=== PATIENT | female | born 1950 | race Caucasian/White ===

== ENCOUNTER 2021-11-17 07:30 | Inpatient (IN) | payer MEDICARE ==
[2021-11-17] MEDS ORDERED: LIDOCAINE 1% INJ 10MG/ML (20 ML MDV) ONE (12:02)
[2021-11-17] MEDS ORDERED: HEPARIN SODIUM 1,000 UN/ML (10ML VL) ONE (12:04)
[2021-11-17] MEDS ORDERED: MIDAZOLAM 2 MG/2 ML VIAL IV ONE (12:21)
[2021-11-17] MEDS ORDERED: HEPARIN SODIUM 1,000 UN/ML (10ML VL) IV ONE (12:24)
[2021-11-17] MEDS ORDERED: IOPAMIDOL-370 100ML BTL INJ ONE (13:04)
[2021-11-17] MEDS ORDERED: IV FLUID CONTINUATION 500 ML IV ONE (13:05)
[2021-11-17] MEDS: SODIUM CHLORIDE 0.9% 1,000 ML IV SCH (13:59)
--- NOTE | 2021-11-17 14:21 | P.HPIM ---
History of Present Illness H&P Date: 11/17/21 HISTORY OF PRESENT ILLNESS This is a 71-year-old female with past medical history of dilated cardiomyopathy with ejection fraction of 15-20%, severe aortic valve stenosis, mild aortic regurgitation with moderate to severe mitral regurgitation, chronic systolic heart failure, hyperlipidemia, obesity with possible obstructive sleep apnea and obesity hypoventilation syndrome, chronic hypoxic respiratory failure on home O2 at 2 L nasal cannula, hypertension hypertensive cardio vascular disease, previous Covid 19 infection. Patient presented to [facility] sl ight elevation of troponin, EKG showed changes suggestive ischemic changes and was started on aspirin, heparin drip and admitted to the hospital. Patient was seen by cardiology. She was supposed to have a heart catheterization done as an outpatient along with LISA for possible aortic valve replacement and mitral valve and possible CABG. Patient underwent coronary angiography finding right dominan t vessel, 99% ostial stenosis, aortic pressure is 100/70, 40 mm gradient across the aortic valve. Left ventricular end diastolic pressure is 2530. Patient was transferred to [facility] for PTCA and stent placement of the RCA which was unsuccessful. Consult with cardiothoracic surgery for CABG and valve repair/replacement. REVIEW OF SYSTEMS Constitutional: No fever, no chills, no night sweats. No weight change. No weakness, fatigue or lethargy. No daytime sleepiness. EENT: No headache. No blurred vision or double vision, no loss of vision. No loss of Hearing, no ringing in the ears, no dizziness. No nasal drainage or congestion. No epistaxis. No sore throat. Lungs: No shortness of breath, + cough, no sputum production. No wheezing. Re ports dyspnea on exertion. Cardiovascular: No chest pain, no lower extremity edema. No palpitations. No paroxysmal nocturnal dyspnea. No orthopnea. No lightheadedness or dizziness. No syncopal episodes. Abdominal: No abdominal pain. No nausea, vomiting. No diarrhea. No constipation. No bloody or tarry stools. No loss of appetite. Genitourinary: No dysuria, increased frequency, urgency. No urinary retention. Musculoskeletal: No myalgias. No muscle weakness, no gait dysfunction, no lily quent falls. No back pain. No neck pain. Integumentary: No wounds, no lesions. No rash or pruritus. No unusual bruising. No change in hair or nails. Neurologic: No aphasia. No facial droop. No change in mentation. No head injury. No headache. No paralysis. No paresthesia. Psychiatric: No depression. No anxiety. No mood swings. Endocrine: No abnormal blood sugars. No weight change. No excessive sweating or thirst. No cold intolerance. MEDICAL HISTORY Covid 19 infection Hypertension hypertensive cardiovascular disease Hyperlipidemia Dilated cardiomyopathy with ejection fraction of 20% Severe aortic valve stenosis Mild aortic regurgitation, severe mitral regurgitation, obesity with possible obstructive sleep apnea and obesity hypoventilation syndrome Chronic systolic heart failure SURGICAL HISTORY Ovarian cyst status post right nephrectomy with tubal ligation Partial left oophorectomy Colonoscopy SOCIAL HISTORY Patient is a smoker pack a day starting at age 18 and quit in 1979. No alcohol use, illicit drug use or marijuana use. FAMILY HISTORY Mother at age 82 with history of osteoarthritis. Father at age 84 from coronary artery disease developed to have CVA after heart catheterization. Patient has 5 brothers and one of them has Nyslrfs-Tgdof-Fzzku syndrome. Patient has one sister with alpha-1 antitrypsin deficiency. Patient has one daughter with no major medical problems. PHYSICAL EXAMINATION Gen: This is a 71-year-old female. HEENT: Head is atraumatic, normocephalic. Pupils equal, round. Sclerae is anicteric. NECK: Supple. No JVD. No lymphadenopathy. No thyromegaly. LUNGS: Decreased breath sounds at the bases, few rhonchi, no expiratory wheeze, no chest wall tenderness. No intercostal retractions. HEART: First heart sound is depressed, second heart sound is normal, systolic ejection murmur 3/6 at the right upper sternal border radiating to the base of the neck, systolic ejection murmur 2/6 at the apex rating to the axilla. ABDOMEN: Soft. Bowel sounds are present. No masses. No tenderness. EXTREMITIES: 1+ pedal edema. No calf tenderness. Her cells pedis +1 bilaterally. Bilateral hammertoes. NEUROLOGICAL: Patient is awake, alert and oriented x3. Cranial nerves 2 through 12 are grossly intact. ASSESSMENT AND PLAN 1. ST elevated myocardial infarction with history of prior dilated cardiomyopathy status post coronary angiography finding right dominant vessel, 99% ostial stenosis, aortic pressure is 100/70, 40 mm gradient across the aortic valve. Left ventricular end diastolic pressure is 2530. Patient was transferred to [facility] for PTCA and stent placement of the RCA which was unsuccessful. Consult with cardiothoracic surgery. Continue aspirin 81 mg daily. Patient is normally on Coreg 6.25 mg twice daily, hydralazine 25 mg twice daily. Patient is unable to tolerate statins because of significant myopathy and plan is to start her on Repatha under 40 mg subcu every 2 weeks. 2. Dilated cardiomyopathy. Cardiology consult. 3. Severe aortic valve stenosis with mild aortic regurgitation. Patient will require aortic valve replacement. 4. Severe mitral regurgitation. 5. Hyperlipidemia. Patient unable to tolerate statins. 6. Obesity with obstructive sleep apnea and obesity hypoventilation syndrome. Patient has not had sleep study done yet. 7. Chronic hypoxic respiratory failure secondary to his Covid 19 and underlying COPD and possible obstructive sleep apnea and hypoventilation syndrome. Patient is normally on 2 L nasal cannula. 8. Chronic systolic heart failure. Patient is normally on Lasix 40 mg oral daily, hydralazine, Coreg, Aldactone 25 mg daily. 9. Hypertension, hypertensive cardiovascular disease. 10. DVT prophylaxis. Heparin subcu. 11. GI prophylaxis. Protonix 40 mg IV push daily. Patient will be admitted to the hospital for a minimum of 2 night stay. DISCHARGE PLAN TBD Impression and plan of care have been directed as dictated by the signing phys carlos. Marina Barbosa nurse practitioner acting as scribe for signing physician. Past Medical History - Past Family History Mother Additional Family Medical History / Comment(s): Varicous veins. Patient states "she had alot of heart problems" Father Additional Family Medical History / Comment(s): Patient states "my dad had a lot of heart issues." Medications and Allergies Home Medications Medication Instructions Recorded Confirmed Type Carvedilol [Coreg] 6.25 mg PO BID 11/17/21 11/17/21 History Digoxin [Lanoxin] 125 mcg PO DAILY 11/17/21 11/17/21 History Furosemide [Lasix] 40 mg PO BID 11/17/21 11/17/21 History Ipratropium-Albuterol Nebulize 3 ml INHALATION RT-Q6H PRN 11/17/21 11/17/21 History [Duoneb 0.5 mg-3 mg/3 ml Soln] Melatonin 3 mg PO HS 11/17/21 11/17/21 History Pantoprazole Sodium [Protonix] 40 mg PO DAILY 11/17/21 11/17/21 History Sertraline [Zoloft] 50 mg PO DAILY 11/17/21 11/17/21 History Spironolactone [Aldactone] 25 mg PO DAILY 11/17/21 11/17/21 History polyethylene glycoL 3350 [Miralax] 17 gm PO DAILY PRN 11/17/21 11/17/21 History Allergies Allergy/AdvReac Type Severity Reaction Status Date / Time hydralazine AdvReac Syncope, Verified 11/17/21 15:40 hot flashes lisinopril AdvReac Cough Verified 11/17/21 15:40 Results CBC & Chem 7: 11/18/21 09:25 11/18/21 09:25
[2021-11-17 14:26] LABS: Glucose,Whole Blood 133 mg/dL (75-99)
--- NOTE | 2021-11-17 14:47 | PTCA ---
PERCUTANEOUSTRANS CORORONARY ANGIOGRAPHY DATE OF SERVICE: 11/17/2021. PROCEDURE: PTCA of a 99% ostial RCA PERFORMED BY: Dr. Catarino Masters. Moderate conscious sedation time was 35 minutes. Mrs. Norwood is a 71-year-old lady with severe aortic stenosis and ejection fraction of 20%, transfer from [facility] after evaluation and cardiac cath by Dr. Holland, which revealed a 99% ostial RCA and severe aortic stenosis, a gradient of 35 mm across aortic valve without significant but there was evidence of moderate disease in the left system. The initial plan was to do PCI of RCA and then do a TAVR procedure. With that in mind, I initiated the procedure. I talked to the patient and her daughter at length, explained to them the concerns, risks, benefits, and options and that this was a very tight 99% lesion that would be difficult to cross. PROCEDURE NOTE: The existing 6-Kosovan introducer in the right femoral artery was used to perform procedure. I used a standard right Martha catheter and a Whisper wire, a long one. I gave 4000 units of heparin. II had considerable difficulty manipulating the catheter at the ostium because it was not easy to engage. I was able to cross the lesion. Wire was kept in the PLV branch and then I tried to advance a 2.5 caliber NC Trek balloon, but then the catheter recoiled and the wire and the catheter came out and I could not re-engage. There was a small dissection around the origin of the right coronary artery. In view of this, I did not persist and I explained to the patient that I will request the cardiac surgeon to perform a single vessel bypass and aortic valve replacement given the dissection that I saw and also the difficulty in crossing the right coronary artery lesion which was 99%. The flow in the RCA persisted. Patient had no chest pain, nor did she have EKG changes. Her blood pressure remained stable between 95-110 systolic. I sutured the sheath in and she will be sent to the ICU. I spoke to the patient in detail and also talked to her daughter by phone and spoke to Dr. Hill who will come in and evaluate the patient. Prognosis remains quite guarded. I am recommending urgent aortic valve replacement and single-vessel bypass to RCA and will await further input from Dr. Hill who will see her shortly. Prognosis remains guarded and risk for any intervention is quite high. MMODL / IJN: [id number] /
[2021-11-17 15:02] LABS: Basophils # (A) 0.1 k/uL (0-0.2); Basophils % (A) 1 %; Eosinophils % (A) 1 %; HCT 40.6 % (34.0-46.0); HGB 12.5 gm/dL (11.4-16.0); Hypochromasia Slight; Lymphocytes # (A) 0.6 k/uL (1.0-4.8); Lymphocytes % (A) 11 %; MCH 28.3 pg (25.0-35.0); MCHC 30.9 g/dL (31.0-37.0); MCV 91.4 fL (80.0-100.0); Mean Platelet Volume 8.9; Monocytes # (A) 0.4 k/uL (0-1.0); Monocytes % (A) 7 %; Neutrophils # (A) 4.5 k/uL (1.3-7.7); Neutrophils % (A) 79 %; Platelet Count 153 k/uL (150-450); RBC 4.44 m/uL (3.80-5.40); WBC 5.7 k/uL (3.8-10.6)
[2021-11-17 15:11] LABS: INR 1.1 (<1.2); Partial Thromboplastin Time 42.9 sec (22.0-30.0); Prothrombin Time 11.3 sec (9.0-12.0)
[2021-11-17 15:54] LABS: ALT 16 U/L (4-34); AST 21 U/L (14-36); African American GFR (CKD) >90 (>60 ml/min/1.73 sqM); Albumin 3.7 g/dL (3.5-5.0); Alkaline Phosphatase 59 U/L (38-126); Anion Gap 7 mmol/L; Blood Urea Nitrogen 22 mg/dL (7-17); Calcium 8.8 mg/dL (8.4-10.2); Carbon Dioxide 28 mmol/L (22-30); Chloride 100 mmol/L (98-107); Glucose 128 mg/dL (74-99); Non-African American GFR(CKD) 89 (>60 ml/min/1.73 sqM); Potassium 3.8 mmol/L (3.5-5.1); Sodium 135 mmol/L (137-145); Total Protein 6.4 g/dL (6.3-8.2)
--- NOTE | 2021-11-17 16:16 | P.GSCN ---
History of Present Illness Consult date: 11/17/21 Reason for Consult: Coronary artery disease, severe aortic valve stenosis and moderate to severe mitral valve regurgitation on transthoracic echocardiogram. Requesting physician: Kahlil Masters History of present illness: This is a 71-year-old female patient who follows with Dr. Judith Garcia for her primary care on an outpatient basis. She also follows with Dr. Holland for her cardiac care. She has a past medical history significant for a non-ST elevated myocardial infarction, cardiomyopathy with an ejection fraction between 15 and 20%, severe aortic valve stenosis, moderate to severe mitral valve regurgitation, chronic systolic heart failure, hypertension, hyperlipidemia, depression, morbid obesity with a BMI of 34.8 kg/m, remote history of nicotine dependence, chronic hypoxic respiratory failure on home O2 at 2 L nasal cannula since having COVID-19 pneumonia in April 2021 and remains unvaccinated against COVID-19. She presented to the emergency department at [facility] with complaints of dizziness and nausea. She denies any recent fever, chills, vomiting, palpitations, chest pain, or syncope. According to the patient she was recently hospitalized on 10/31/2021 due to shortness of breath and increased swelling to her bilateral lower extremities. Subsequently, she reports she spent 8 days at [facility] and was diagnosed and treated for congestive heart failure. The patient reports that she feels that the symptoms she presented with this time was due to a reaction from taking hydralazine. She reports after she took the hydralazine she started to feel like she was having a hot flash, nauseous and dizzy. While at [facility] she did have some labs drawn which showed an elevated troponin and a proBNP of 5822. Her other labs showed a WBC count of 4.6, hemoglobin 11.9, platelets 134, BUN 20, creatinine 0.8, and glucose 124. A chest x-ray report from [facility] reports cardiomegaly with tiny right pleural effusion and mild central vascular congestion which could be suggestive of CHF exacerbation. The transthoracic 2-D echocardiogram completed on 10/31/2021 demonstrated a calcified aortic valve, trace aortic valve regurgitation, severe aortic valve stenosis, moderate to severe mitral valve regurgitation, mild tricuspid valve regurgitation and a dilated left ventricle, with global hypokinesia of the left ventricle, mild concentric left ventricular hypertrophy, and a left ventricular systolic function to be severely decreased with an ejection fraction of 15-20%. Subsequently, due to the patient's presen ting symptoms, and elevated troponins and a consult was placed to Dr. Holland. A cardiac catheterization was completed this morning 11/17/2021 which demonstrated mild to moderate disease in the proximal left anterior descending coronary artery, a lesion involving the ostium of the diagonal ammy nary artery, the circumflex coronary artery to be free of any significant focal lesion, a critical lesion involving the ostium of the right coronary artery with a 99% stenosis and a critical aortic stenosis and evidence of moderate mitral valve regurgitation. Due to the findings on the cardiac catheterization the patient was subsequently transferred to [facility] for further evaluation and to undergo possible PCI of the right coronary artery. The patient was subsequently taken to the cardiac catheterization lab by Dr. OLGA LIDIA Masters, although was unsuccessful at PCI. Due to the unsuccessful PCI a consult was placed to Dr. Galo Hill from cardiothoracic surgery for further evaluation and treatment recommendations including evaluation for cardiac surgery. Review of Systems A 14 point review of systems was completed and was negative except as mentioned in the HPI. Past Medical History Past Medical History: Heart Failure, GERD/Reflux, Hyperlipidemia, Hypertension, Myocardial Infarction (non Q-wave), Pneumonia (COVID-19 pneumonia in April 2021, uses 2 L of home O2 since her diagnosis of COVID-19 pneumonia.) Additional Past Medical History / Comment(s): Pneumonia 5 years ago. Sepsis Last Myocardial Infarction Date:: 11/15/21 History of Any Multi-Drug Resistant Organisms: None Reported Past Surgical History: Heart Catheterization Additional Past Surgical History / Comment(s): Cyst removed from right ovary,. right ovary removed and part of the left ovary Past Anesthesia/Blood Transfusion Reactions: No Reported Reaction Past Psychological History: Depression Smoking Status: Former smoker Past Alcohol Use History: None Reported Past Drug Use History: None Reported - Past Family History Mother Additional Family Medical History / Comment(s): Varicous veins. Patient states "she had alot of heart problems" Father Additional Family Medical History / Comment(s): Patient states "my dad had a lot of heart issues." Medications and Allergies Home Medications Medication Instructions Recorded Confirmed Type Carvedilol [Coreg] 6.25 mg PO BID 11/17/21 11/17/21 History Digoxin [Lanoxin] 125 mcg PO DAILY 11/17/21 11/17/21 History Furosemide [Lasix] 40 mg PO BID 11/17/21 11/17/21 History Ipratropium-Albuterol Nebulize 3 ml INHALATION RT-Q6H PRN 11/17/21 11/17/21 History [Duoneb 0.5 mg-3 mg/3 ml Soln] Melatonin 3 mg PO HS 11/17/21 11/17/21 History Pantoprazole Sodium [Protonix] 40 mg PO DAILY 11/17/21 11/17/21 History Sertraline [Zoloft] 50 mg PO DAILY 11/17/21 11/17/21 History Spironolactone [Aldactone] 25 mg PO DAILY 11/17/21 11/17/21 History polyethylene glycoL 3350 [Miralax] 17 gm PO DAILY PRN 11/17/21 11/17/21 History Allergies Allergy/AdvReac Type Severity Reaction Status Date / Time hydralazine AdvReac Syncope, Verified 11/17/21 15:40 hot flashes lisinopril AdvReac Cough Verified 11/17/21 15:40 Surgical - Exam Vital Signs Pulse Resp 85 14 11/17/21 13:25 11/17/21 13:25 - General well developed, well nourished, no distress, no pain, obese - Eyes PERRL, normal ocular movement, no pale, no icteric - ENT normal pinna, normal nares, normal mucosa, no hearing loss, no congestion - Neck Neck is supple, no lymphadenopathy. no masses, trachea midline, no venous distension carotid bruit: bilateral (Carotid bruits could be radiating from her systolic heart murmur) - Respiratory Lung sounds with few scattered expiratory wheezes throughout, diminished bilateral bases right greater than left. Respirations are symmetrical and nonlabored. 2 L nasal cannula with oxygen saturations 94%. - Cardiovascular Regular rhythm and rate. S1 and S2 present, negative for S3 or gallop. Positive systolic murmur 3/6. No edema present. - Abdomen Abdomen is soft, nontender and nondistended. Active bowel sounds present in all 4 abdominal quadrants. No guarding or rigidity. No organomegaly appreciated. Obese. - Integumentary Skin is warm and dry. No clubbing or cyanosis is present. no rash, no growths, no abnormal pigmentation - Neurologic No focal deficits. - Musculoskeletal Moves all 4 extremities with equal strength bilateral. - Psychiatric oriented to time, oriented to person, oriented to place, speech is normal, memory intact Results - Labs 11/21/21 08:57 11/21/21 08:57 Abnormal Lab Results - Last 24 Hours (Table) 11/17/21 11/17/21 11/17/21 Range/Units 14:23 14:54 14:54 MCHC 30.9 L (31.0-37.0) g/dL Lymphocytes # 0.6 L (1.0-4.8) k/uL APTT 42.9 H (22.0-30.0) sec POC Glucose (mg/dL) 133 H (75-99) mg/dL - Imaging Additional studies: Cardiac catheterization results and 2-D echocardiogram report reviewed by Dr. Galo Hill. Assessment and Plan Assessment: 1. Coronary artery disease with unsuccessful PCI to her right coronary artery 2. Severe aortic valve stenosis with mild aortic valve regurgitation 3. Moderate to severe mitral valve regurgitation 4. Non-ST elevated myocardial infarction with elevated troponins 5. Dilated cardiomyopathy with an ejection fraction of 15-20% on her transthoracic 2-D echocardiogram from 10/31/2021 6. Chronic systolic heart failure 7. Hypertension 8. Hyperlipidemia 9. COVID-19 pneumonia in April 2021, chronic hypoxic respiratory failure on 2 L nasal cannula home oxygen, remains unvaccinated for COVID-19 10. Morbid obesity 11. Remote history of nicotine dependence Plan: The patient was seen and examined at her bedside in the intensive care unit by Dr. Galo Hill from cardiothoracic surgery. Her chart and diagnostics were reviewed. Preoperative teaching and preoperative workup initiated. Dr. Galo Hill and Dr. OLGA LIDIA Masters from cardiology discussed the plan of care with shared d ecision-making. Once the preoperative testing has been collected an STS risk score will be calculated and discussed with the patient. We will repeat a transthoracic 2-D echocardiogram to see if her LV function has improved since initiation of medical therapy. Once the patient is able to ambulate and we will obtain a 5 m walk test. A computed tomography scan of her chest without contrast was ordered for further evaluation due to her recent COVID-19 pneumonia infection. Continue to maximize medical therapy with aspirin, statin and beta josé. Medical management and other comorbidities per primary care service. Once her preoperative testing has been collected further decisions will be made regarding cardiac surgery versus high risk PCI, TAVR, versus medical therapy. We will also consult Dr. Diaz for dental clearance and we will obtain a facial CT with Panorex reconstruction. More recommendations to follow based on patient's clinical course. Thank you Dr. Masters for this consult and we look forward to working with you in the care of this patient. I have personally seen and examined the patient, performed the documentation and the assessment and plan as written. Number of minutes spent on the visit, 30 minutes . Samuel CARRILLO The patient is a 71 year old female with a history of multiple medical problems who was diagnosed with COVID-19 last summer in [place]. Since that time, her , she has been on home oxygen, and her mobility has been greatly diminished requiring a walker/scooter. She subsequently re-located to the area. Current workup now reveals a tight proximal RCA lesion as well as critical . PCI on the RCA was attempted by Dr. Masters today in the laborer rags today without success. There was also concern for a limited dissection involving the proximal RCA. She is currently hemodynamically stable and chest pain free in the ICU. All of her studies were reviewed. There is no indication for emergent surgical intervention at this time. We will therefore initiate our standard pre-operative workup including chest CT and pulmonary function tests given her history of COVID-19 and requirement for home oxygen. Recent echo revealed an EF of 15-20% and moderate to severe MR in addition to aortic stenosis. Additional recommendations including candidacy for surgery will follow based on results of testing. Spoke with patient's daughter via telephone to discuss patient's status as well. I have personally seen and examined the patient, reviewed the documentation and agree with the assessment and plan as written. Number of minutes spent on the visit: 60 minutes. Galo Hill M.D.
[2021-11-17 16:18] LABS: Appearance,Urine Clear (Clear); Bilirubin,Urine Negative (Negative); Blood,Urine Negative (Negative); Color,Urine Yellow; Glucose,Urine (UA) Negative (Negative); Ketones,Urine Negative (Negative); Leukocyte Esterase,Urine Negative (Negative); Nitrite,Urine Negative (Negative); PH, Urine 6.5 (5.0-8.0); Protein,Urine Negative (Negative); Specific Gravity,Urine 1.043 (1.001-1.035); Urobilinogen,Urine <2.0 mg/dL (<2.0)
[2021-11-17] MEDS ORDERED: ATROPINE SULFATE 0.1 MG/ML 10ML SYRINGE ONE (17:12)
--- NOTE | 2021-11-17 18:01 | US ---
EXAMINATION TYPE: US carotid duplex BILAT DATE OF EXAM: 11/17/2021 COMPARISON: NONE CLINICAL HISTORY: Pre-Op Cardiac Surgery. Exam done portable EXAM MEASUREMENTS: RIGHT: Peak Systolic Velocity (PSV) cm/sec ----- Right CCA: 62.4 ----- Right ICA: 81.2 ----- Right ECA: 49.6 ICA/CCA ratio: 1.3 RIGHT: End Diastole cm/sec ----- Right CCA: 18.8 ----- Right ICA: 21.6 ----- Right ECA: 6.3 LEFT: Peak Systolic Velocity (PSV) cm/sec ----- Left CCA: 88.9 ----- Left ICA: 61.8 ----- Left ECA: 50.4 ICA/CCA ratio: 0.7 LEFT: End Diastole cm/sec ----- Left CCA: 27.2 ----- Left ICA: 18.4 ----- Left ECA: 0.0 VERTEBRALS (direction of flow): Right Vertebral: Antegrade Left Vertebral: Antegrade Rhythm: Normal No significant stenosis IMPRESSION: Less than 50% stenosis bilateral carotid systems. Criteria for Assigning % of Stenosis / Diameter reduction (Estimation based on the indirect measurements of the internal carotid artery velocities (ICA PSV). 1. Normal (no stenosis)=ICA PSV < 125 cm/s: ratio < 2.0: ICA EDV<40 cm/s. 2. Less than 50% stenosis=ICA PSV < 125 cm/s: ratio < 2.0: ICA EDV<40 cm/s. 3. 50 to 69% stenosis=ICA PSV of 125 to 230 cm/s: ration 2.0 ? 4.0: ICA EDV 40-100 cm/s. 4. Greater than 70% stenosis to near occlusion= ICA PSV > 230 cm/s: ratio > 4.0: ICA EDV > 100 cm/s. 5. Near occlusion= ICA PSV velocities may be low or undetectable: variable ratio and ICA EDV. 6. Total occlusion=unable to detect flow.
[2021-11-17] MEDS ORDERED: HEPARIN SODIUM,PORCINE/PF 5,000 UNIT/0.5 ML SYRINGE SQ SCH (21:00)
[2021-11-17] MEDS ORDERED: Potassium Replacement Protocol 1 EACH MISC MISCELLANE PRN (21:16)
[2021-11-17] MEDS ORDERED: POTASSIUM CHLORIDE ER 20 MEQ TAB.ER PO SCH (22:00)
[2021-11-17 22:59] LABS: Hepatitis A Antibody IgM Nonreactive (Nonreactive); Hepatitis B Core IgM Nonreactive (Nonreactive); Hepatitis B Surface Antigen Nonreactive (Nonreactive); Hepatitis C IgG Antibody Nonreactive (Nonreactive)
--- NOTE | 2021-11-18 07:23 | ECHOF ---
Referral Reason:LV fxn MEASUREMENTS -------- HEIGHT: 175.3 cm WEIGHT: 62.6 kg BP: IVSd: 1.3 cm (0.6 - 1.1) LVIDd: 5.7 cm (3.9 - 5.3) LVPWd: 1.9 cm (0.6 - 1.1) IVSs: 1.3 cm LVIDs: 4.9 cm LVPWs: 1.5 cm Ao Diam: 3.4 cm (2.0 - 3.7) AV Cusp: 1.0 cm (1.5 - 2.6) LA Diam: 3.7 cm (2.7 - 3.8) MV EXCURSION: 14.056 mm (> 18.000) MV EF SLOPE: 153 mm/s (70 - 150) EPSS: 2.6 cm MV E Cullen: 1.21 m/s MV DecT: 244 ms MV A Cullen: 0.77 m/s MV E/A Ratio: 1.56 AV maxP.27 mmHg AV meanP.94 mmHg RAP: 5.00 mmHg RVSP: 43.33 mmHg FINDINGS -------- This was a technically difficult study with suboptimal views. The left ventricle is mildly dilated. There is mild concentric left ventricular hypertrophy. Ther e is severe global hypokinesis of LV . Overall left ventricular systolic function is severely impai red with, an EF between 25 - 30 %. The RV was not well visualized. , and the LA measures 3.7cm. The right atrium was not well visualized. Lumason used Aortic valve is trileaflet and is severely thickened. There is severe aortic stenosis present. Pe ak/mean gradient across the Aortic Valve is 78.27mmHg / 47.94mmHg. The mitral valve is normal. The mitral valve leaflets are moderately thickened. There is trace mi tral regurgitation. The peak and mean MV gradients are 14.48mmHg 6.40mmHg as measured by doppler. Mild mitral stenosis. The tricuspid valve appears structurally normal. Mild tricuspid regurgitation present. There is m ild pulmonary hypertension. The right ventricular systolic pressure, as measured by Doppler, is 43. 33mmHg. There is no pulmonic regurgitation present. The aortic root size is normal. IVC Not well visulized. There is no pericardial effusion. CONCLUSIONS -------- 1. The left ventricle is mildly dilated. 2. There is mild concentric left ventricular hypertrophy. 3. There is severe global hypokinesis of LV . 4. Overall left ventricular systolic function is severely impaired with, an EF between 25 - 30 %. 5. Aortic valve is trileaflet and is severely thickened. 6. There is severe aortic stenosis present. 7. Peak/mean gradient across the Aortic Valve is 78.27mmHg / 47.94mmHg. 8. The mitral valve leaflets are moderately thickened. 9. There is trace mitral regurgitation. 10. The peak and mean MV gradients are 14.48mmHg 6.40mmHg as measured by doppler. 11. Mild mitral stenosis. 12. Mild tricuspid regurgitation present. 13. There is mild pulmonary hypertension. 14. The right ventricular systolic pressure, as measured by Doppler, is 43.33mmHg. 15. There is no pericardial effusion. HOLTER TECHNICIAN: Jeaneth Bishop RDCS
[2021-11-18] MEDS ORDERED: HEPARIN SODIUM 1,000 UN/ML (10ML VL) IV ONE (07:54)
--- NOTE | 2021-11-18 07:54 | XR ---
EXAMINATION TYPE: XR chest 2V DATE OF EXAM: 11/18/2021 COMPARISON: None INDICATION: Precardiac surgery TECHNIQUE: Frontal and lateral views of the chest are obtained. FINDINGS: The heart size is enlarged. The pulmonary vasculature is somewhat prominent. No suspicious infiltrates or consolidation. IMPRESSION: 1. Cardiomegaly with mild prominence vascular markings. Consider volume overload.
[2021-11-18] MEDS: ASPIRIN 81 MG PO SCH (08:38)
[2021-11-18] MEDS: SERTRALINE 50 MG TAB PO SCH (08:38)
[2021-11-18] MEDS: DIGOXIN 125 MCG TAB PO SCH (08:38)
[2021-11-18] MEDS: SPIRONOLACTONE 25 MG TAB PO SCH (08:38)
[2021-11-18] MEDS: PANTOPRAZOLE 40 MG/10 ML VIAL IVP SCH (08:38)
[2021-11-18] MEDS: FUROSEMIDE 10 MG/ML 4 ML VIAL IV SCH ×2 (08:38→21:09)
--- NOTE | 2021-11-18 08:39 | P.CRDCN ---
History of Present Illness History of present illness: HISTORY OF PRESENTING ILLNESS Patient is a 71-year-old female with history of coronary artery disease, cardiomyopathy with EF 15-20%, severe aortic stenosis, moderate to severe mitral regurgitation, systolic heart failure, hypertension, hyperlipidemia, depression, morbid obesity, COVID-19 infection April 2021 with oxygen dependence after who presented to [facility] with episodes of feeling flushed and mildly nauseous. She attributes much of her symptoms to changing her medication from lisinopril to hydrochlorothiazide apparently. She normally follows in the office with Dr. Holland. She was treated for congestive heart failure previously and mid October however believe she was having a reaction to the medications and therefore came to emergency department like urine. Blood work showed elevated proBNP of 5800, hemoglobin 11.9, BUN 20, creatinine 0.8, elevat ed troponins. Chest x-ray showed mild vascular congestion and 2-D echo 10/31/2021 showed severe varicose stenosis, moderate to severe mitral regurgitation, dilated left ventricle with an EF 15-20%. Therefore heart catheterization was performed 11/17 and showed mild disease of the left and RCA 99% stenosis which was very proximal. She underwent attempted PCI however was noted to have dissection and therefore procedure was aborted. Patient denied any actual chest pain or pressure during procedure and has done well since then. This did appear to be more of a dissection involving the aortic root appeared fairly mild on personal review. Therefore patient was placed in the ICU and monitored. She admits to continued shortness breath however no significant chest pain or similar nausea feeling. REVIEW OF SYSTEMS At the time of my exam: CONSTITUTIONAL: Denies fever or chills. CARDIOVASCULAR: Denies chest pain, +shortness of breath, +orthopnea, no PND or palpitations. RESPIRATORY: Denies cough. GASTROINTESTINAL: Denies abdominal pain, diarrhea, constipation, nausea or vomiting. MUSCULOSKELETAL: Denies myalgias. NEUROLOGIC: Denies numbness, tingling or weakness. ENDOCRINE: Denies fatigue, weight change, polydipsia or polyurina. GENITOURINARY: Denies burning, hematuria or urgency with micturation. HEMATOLOGIC: Denies history of anemia or bleeding. PHYSICAL EXAMINATION Vital signs reviewed. CONSTITUTIONAL: No apparent distress, obese, chronically ill appearing, +cough HEENT: Head is normocephalic. Pupils are equal, round. Sclerae anicteric. Mucous membranes of the mouth are moist. +JVD. No carotid bruit. CHEST EXAMINATION: Lungs are clear to auscultation. +crackles at bases HEART EXAMINATION: Regular rate and rhythm. S1, S2 heard. +3/6 systolic murmur, no gallops or rub. ABDOMEN: Soft, nontender. Positive bowel sounds. EXTREMITIES: 2+ peripheral pulses, no lower extremity edema and no calf tenderness. NEUROLOGIC EXAMINATION: Patient is awake, alert and oriented x3. ASSESSMENT 1. Acute on chronic systolic heart failure 2. Non-STEMI 3. Coronary artery disease including 99% RCA stenosis status post failed attempted PCI 4. Hypertension 5. Hyperlipidemia 6. Cardiomyopathy mainly nonischemic with CAD out of proportion to cardiomyopathy 7. Severe aortic stenosis 8. Mitral regurgitation 9. Oxygen dependence status post COVID-19 infection PLAN Patient with vague symptoms with nausea and flushing sensation may be concerning for her angina. Some of her symptoms however appear consistent with heart failure and appears to be in active heart failure with JVD, orthopnea and crackles. We will attempt diuresis and monitor response. Ideally surgical intervention to treat her CAD, severe aortic stenosis and mitral regurgitation however if deemed high risk may consider repeat intervention. Currently appears stable and we will place her on heparin drip and monitor. Optimize heart failure regimen as able. Past Medical History Past Medical History: Heart Failure, GERD/Reflux, Hyperlipidemia, Hypertension, Myocardial Infarction (non Q-wave), Pneumonia (COVID-19 pneumonia in April 2021, uses 2 L of home O2 since her diagnosis of COVID-19 pneumonia.) Additional Past Medical History / Comment(s): Pneumonia 5 years ago. Sepsis Last Myocardial Infarction Date:: 11/15/21 History of Any Multi-Drug Resistant Organisms: None Reported Past Surgical History: Heart Catheterization Additional Past Surgical History / Comment(s): Cyst removed from right ovary,. right ovary removed and part of the left ovary Past Anesthesia/Blood Transfusion Reactions: No Reported Reaction Past Psychological History: Depression Smoking Status: Former smoker Past Alcohol Use History: None Reported Past Drug Use History: None Reported - Past Family History Mother Additional Family Medical History / Comment(s): Varicous veins. Patient states "she had alot of heart problems" Father Additional Family Medical History / Comment(s): Patient states "my dad had a lot of heart issues." Medications and Allergies Home Medications Medication Instructions Recorded Confirmed Type Carvedilol [Coreg] 6.25 mg PO BID 11/17/21 11/17/21 History Digoxin [Lanoxin] 125 mcg PO DAILY 11/17/21 11/17/21 History Furosemide [Lasix] 40 mg PO BID 11/17/21 11/17/21 History Ipratropium-Albuterol Nebulize 3 ml INHALATION RT-Q6H PRN 11/17/21 11/17/21 Hi story [Duoneb 0.5 mg-3 mg/3 ml Soln] Melatonin 3 mg PO HS 11/17/21 11/17/21 History Pantoprazole Sodium [Protonix] 40 mg PO DAILY 11/17/21 11/17/21 History Sertraline [Zoloft] 50 mg PO DAILY 11/17/21 11/17/21 History Spironolactone [Aldactone] 25 mg PO DAILY 11/17/21 11/17/21 History polyethylene glycoL 3350 [Miralax] 17 gm PO DAILY PRN 11/17/21 11/17/21 History Allergies Allergy/AdvReac Type Severity Reaction Status Date / Time hydralazine AdvReac Syncope, Verified 11/17/21 15:40 hot flashes lisinopril AdvReac Cough Verified 11/17/21 15:40 Physical Exam Vitals: Vital Signs Temp Pulse Pulse Resp BP BP Pulse Ox 11/18/21 07:52 97 11/18/21 07:00 71 16 83/66 98 11/18/21 06:30 71 19 83/66 96 11/18/21 06:00 76 14 110/77 97 11/18/21 05:00 85 16 96/59 97 11/18/21 04:30 72 19 96/61 97 11/18/21 04:00 97.9 F 70 20 103/70 96 11/18/21 03:30 76 19 101/66 97 11/18/21 03:00 78 19 104/71 97 11/18/21 02:30 85 13 107/74 97 11/18/21 02:00 82 19 110/71 97 11/18/21 01:30 80 15 95/81 97 11/18/21 01:00 97 19 87/62 94 L 11/18/21 00:30 70 19 97 11/18/21 00:06 79 21 102/67 99 04/01/22 00:00 98.0 F 77 34 H 97/65 98 11/17/21 23:30 80 22 94/54 97 11/17/21 23:00 80 12 97/40 96 11/17/21 22:30 80 15 94/62 96 11/17/21 22:00 80 14 86/57 96 11/17/21 21:30 78 19 95/57 97 11/17/21 21:00 80 19 102/64 97 11/17/21 20:30 85 18 99/83 97 11/17/21 20:00 98.0 F 78 16 81/51 98 11/17/21 19:30 82 15 92/51 97 11/17/21 19:00 75 14 94/64 97 11/17/21 18:30 86 11 L 105/54 96 11/17/21 18:00 89 24 107/56 99 11/17/21 17:30 86 18 98/62 98 11/17/21 17:00 84 22 98/62 97 11/17/21 16:30 81 19 86/67 95 11/17/21 16:00 98.2 F 82 22 97/49 91 L 11/17/21 15:30 87 14 95/66 91 L 11/17/21 15:00 80 11 L 100/61 92 L 11/17/21 14:30 76 15 100/63 94 L 11/17/21 14:00 89 16 100/63 94 L 11/17/21 13:50 84 13 93 L 11/17/21 13:40 87 14 11/17/21 13:30 92 90 16 109/70 94 L 11/17/21 13:25 85 14 Intake and Output 11/17/21 11/18/21 11/18/21 22:59 06:59 14:59 Intake Total 400 630 Output Total 500 275 Balance -100 355 Intake: IV 400 450 Sodium Chloride 0.9% 1, 400 450 000 ml @ 50 mls/hr IV . Q20H [facility] Rx#:[id number] Oral 180 Output: Urine 500 275 Other: Voiding Method External Catheter External Catheter # Voids 0 Weight 107 kg 106.8 kg Results 11/17/21 14:54 11/17/21 14:54 Cardiac Enzymes 11/17/21 Range/Units 14:54 AST 21 (14-36) U/L Coagulation 11/17/21 Range/Units 14:54 PT 11.3 (9.0-12.0) sec APTT 42.9 H (22.0-30.0) sec CBC 11/17/21 Range/Units 14:54 WBC 5.7 (3.8-10.6) k/uL RBC 4.44 (3.80-5.40) m/uL Hgb 12.5 (11.4-16.0) gm/dL Hct 40.6 (34.0-46.0) % Plt Count 153 (150-450) k/uL Comprehensive Metabolic Panel 11/17/21 Range/Units 14:54 Sodium 135 L (137-145) mmol/L Potassium 3.8 (3.5-5.1) mmol/L Chloride 100 (98-107) mmol/L Carbon Dioxide 28 (22-30) mmol/L BUN 22 H (7-17) mg/dL Creatinine 0.65 (0.52-1.04) mg/dL Glucose 128 H (74-99) mg/dL Calcium 8.8 (8.4-10.2) mg/dL AST 21 (14-36) U/L ALT 16 (4-34) U/L Alkaline Phosphatase 59 (38-126) U/L Total Protein 6.4 (6.3-8.2) g/dL Albumin 3.7 (3.5-5.0) g/dL Current Medications Generic Name Dose Route Start Last Admin Trade Name Freq PRN Reason Stop Dose Admin Aspirin 81 mg 11/18/21 09:00 Aspirin 81 Mg PO DAILY [facility] Atorvastatin Calcium 40 mg 11/18/21 21:00 Atorvastatin 40 Mg Tab PO HS [facility] Carvedilol 6.25 mg 11/18/21 08:15 Carvedilol 6.25 Mg Tab PO BID-W/MEALS [facility] Digoxin 125 mcg 11/18/21 09:00 Digoxin 125 Mcg Tab PO DAILY [facility] Furosemide 40 mg 11/18/21 09:00 Furosemide 10 Mg/Ml 4 Ml Vial IV Q12HR [facility] Heparin Sodium (Porcine) 0 unit 11/18/21 07:54 Heparin Sodium 1,000 Un/Ml (10ml Vl) IV PER PROTOCOL PRN Low PTT Protocol Sodium Chloride 1,000 mls @ 20 mls/hr 11/17/21 13:45 11/17/21 13:59 Saline 0.9% IV 50 mls/hr .Q24H MARY Administration Heparin Sodium/Sodium Chloride 250 mls @ 19.224 mls/hr 11/18/21 08:30 25,000 unit/ Sodium Chloride IV .Q13H1M MARY Protocol 18 UNITS/KG/HR Melatonin 3 mg 11/18/21 21:00 Melatonin 3 Mg Tablet PO HS [facility] Miscellaneous Information 1 each 11/17/21 21:16 Potassium Replacement Protocol 1 Each Misc MISCELLANE DAILY PRN Per Protocol Protocol Pantoprazole Sodium 40 mg 11/18/21 09:00 Pantoprazole 40 Mg/10 Ml Vial IVP DAILY MARY Polyethylene Glycol 17 gm 11/18/21 08:00 Polyethylene Glycol 3350 17 Gm Powd.Pack PO DAILY PRN Constipation Sertraline HCl 50 mg 11/18/21 09:00 Sertraline 50 Mg Tab PO DAILY MARY Spironolactone 25 mg 11/18/21 09:00 Spironolactone 25 Mg Tab PO DAILY MARY Intake and Output 11/17/21 11/18/21 11/18/21 22:59 06:59 14:59 Intake Total 400 630 Output Total 500 275 Balance -100 355 Intake: IV 400 450 Sodium Chloride 0.9% 1, 400 450 000 ml @ 50 mls/hr IV . Q20H [facility] Rx#:[id number] Oral 180 Output: Urine 500 275 Other: Voiding Method External Catheter External Catheter # Voids 0 Weight 107 kg 106.8 kg 11/17/21 14:54 11/17/21 14:54
[2021-11-18] MEDS: carvediloL 6.25 MG TAB PO SCH ×2 (08:42→17:22)
[2021-11-18] MEDS: SODIUM CHLORIDE 0.9% 1,000 ML IV SCH (08:42)
[2021-11-18] MEDS ORDERED: IPRATROPIUM-ALBUTEROL 3 ML NEB INHALATION PRN (08:54)
[2021-11-18] MEDS: HEPARIN SOD,PORK IN 0.45% NACL 25,000 UNIT in 0.45% NACL 1 250ML.BAG IV SCH (09:15)
[2021-11-18 09:38] LABS: Basophils # (A) 0.1 k/uL (0-0.2); Basophils % (A) 1 %; Eosinophils # (A) 0.1 k/uL (0-0.7); Eosinophils % (A) 2 %; HCT 42.3 % (34.0-46.0); HGB 12.8 gm/dL (11.4-16.0); Hypochromasia Moderate; Lymphocytes # (A) 0.6 k/uL (1.0-4.8); Lymphocytes % (A) 8 %; MCH 28.2 pg (25.0-35.0); MCHC 30.2 g/dL (31.0-37.0); MCV 93.4 fL (80.0-100.0); Mean Platelet Volume 8.8; Monocytes # (A) 0.4 k/uL (0-1.0); Monocytes % (A) 6 %; Neutrophils # (A) 5.8 k/uL (1.3-7.7); Neutrophils % (A) 82 %; Platelet Count 153 k/uL (150-450); RBC 4.53 m/uL (3.80-5.40); RDW 14.2 % (11.5-15.5); WBC 7.1 k/uL (3.8-10.6)
--- NOTE | 2021-11-18 09:58 | P.PN ---
Subjective Progress Note Date: 11/18/21 Principal diagnosis: Coronary artery disease with 99% RCA stenosis, non-STEMI this admission, status post unsuccessful PCI to the right coronary artery, severe aortic valve stenosi s, trace mitral valve regurgitation with mild mitral stenosis, dilated cardiomyopathy, acute on chronic systolic heart failure. Previous medical history of hypertension, hyperlipidemia, chronic hypoxic respiratory failure on 2 L nasal cannula home oxygen, COVID-19 pneumonia in April 2021, remains unvaccinated for COVID-19, morbid obesity, depression, remote history of nicotine dependence, severe restrictive lung disease The patient was seen and examined this morning sitting up in bed in the intensive care unit. She denies any chest pain, states she has been short of breath for 6 months and chronically on oxygen but no worsening of shortness of breath currently. Denies nausea or flushing sensation currently which were the symptoms bringing her to the hospital. The patient is very teary-eyed and scared, Get through conversation without crying, repeatedly says this is the first time she has been apart from her of 53 years who in May from Covid. She was seen by Dr. Hill yesterday and preoperative testing was initiated. She still needs facial CT and dental clearance. Objective - Vital Signs Vital signs: Vital Signs Temp 97.6 F 11/18/21 08:00 Pulse 81 11/18/21 08:30 Resp 21 11/18/21 08:30 BP 101/68 11/18/21 08:30 Pulse Ox 96 11/18/21 08:30 Intake & Output 11/17/21 11/18/21 11/18/21 18:59 06:59 18:59 Intake Total 750 830 20 Output Total 500 275 0 Balance 250 555 20 Weight 107 kg 106.8 kg Intake: IV 750 650 20 Sodium Chloride 0.9% 1, 250 650 20 000 ml @ 20 mls/hr IV . Q24H [facility] Rx#:[id number] Oral 180 Output: Urine 500 275 0 Stool 0 Other: Voiding Method External Catheter External Catheter # Voids 0 0 ABP, PAP, CO, CI - Last Documented Arterial Blood Pressure 107/66 - Exam CONSTITUTIONAL: Appears cooperative, very tearful RESPIRATORY: Lungs sounds coarse bilaterally. Respirations even, nonlabored. Currently on 2 L nasal cannula with oxygen saturation 98%. Able to achieve 1000 mL on incentive spirometry. Strong loose cough. CARDIOVASCULAR: S1, S2 present, systolic murmur present. Regular rate and rhythm, sinus rhythm on telemetry. Doppler lower extremity pulses bilaterally. Lower extremity edema present. No calf pain or tenderness noted. H GASTROINTESTINAL: Abdomen soft, nontender, nondistended. Active bowel sounds present 4 quadrants. Tolerating minimal diet GENITOURINARY: Continues to void clear, yellow urine INTEGUMENTARY: Skin is warm and dry with evidence of good perfusion. NEUROLOGIC: Cranial nerves II through XII intact MUSKULOSKELETAL: Able to move all extremities, strength equal bilaterally PSYCHIATRIC: Alert and oriented to person place and time, depressed affect - Allied health notes Allied health notes reviewed: nursing - Labs CBC & Chem 7: 11/18/21 09:25 11/18/21 09:25 Labs: Abnormal Lab Results - Last 24 Hours (Table) 11/17/21 11/17/21 11/17/21 Range/Units 14:23 14:54 14:54 MCHC 30.9 L (31.0-37.0) g/dL Lymphocytes # 0.6 L (1.0-4.8) k/uL APTT 42.9 H (22.0-30.0) sec Sodium (137-145) mmol/L BUN (7-17) mg/dL Glucose (74-99) mg/dL POC Glucose (mg/dL) 133 H (75-99) mg/dL Ur Specific Kennard (1.001-1.035) 11/17/21 11/17/21 Range/Units 14:54 16:08 MCHC (31.0-37.0) g/dL Lymphocytes # (1.0-4.8) k/uL APTT (22.0-30.0) sec Sodium 135 L (137-145) mmol/L BUN 22 H (7-17) mg/dL Glucose 128 H (74-99) mg/dL POC Glucose (mg/dL) (75-99) mg/dL Ur Specific Kennard 1.043 H (1.001-1.035) Microbiology - Last 24 Hours (Table) 11/17/21 22:30 Nasal Screen MRSA/MSSA - Preliminary Nasal Swab - Imaging and Cardiology Chest x-ray: report reviewed, image reviewed Reviewed heart catheterization films with Dr. Medina, reviewed carotid Doppler and bedside spirometry results Assessment and Plan Assessment: 1. Coronary artery disease with 99% RCA stenosis, non-STEMI this admission, status post unsuccessful PCI to the right coronary artery 2. Severe aortic valve stenosis, peak/mean gradient 78.27/47.94 mmHg 3. Trace mitral regurgitation with mild mitral stenosis on transthoracic echocardiogram, peak/mean gradients of 14.48/6.4 mmHg, 4. Dilated cardiomyopathy 5. Acute on chronic systolic heart failure, EF 25-30% on transthoracic echocardiogram 6. History of hypertension 7. Hyperlipidemia, cholesterol 333, LDL 263 8. Chronic hypoxic respiratory failure on 2 L nasal cannula home oxygen 9. COVID-19 pneumonia in April 2021 10. Remains unvaccinated for COVID-19 11. Morbid obesity 12. Depression, currently on Zoloft 13. Remote history of nicotine dependence 14. Severe restrictive lung disease, FEV1 45% of predicted 15. Generalized debility, patient uses walker for ambulation Plan: 1. Continue aspirin, beta josé. Will add statin. IV heparin initiated by cardiology 2. Continue diuresis, heart failure management per cardiology 3. STS risk calculated. Patient is very high risk for surgery due to multiple comorbidities, final decision regarding surgery still pending rest of testing including CT scan and dental clearance. High risk PCI still an option 4. Medical management of other comorbidities per primary care service 5. More recommendations to follow
[2021-11-18 11:03] LABS: INR 1.1 (<1.2); Prothrombin Time 11.7 sec (9.0-12.0)
--- NOTE | 2021-11-18 11:04 | P.CNPUL ---
History of Present Illness Consult date: 11/18/21 Requesting physician: Billy Romo Reason for consult: other (Critical care management) Chief complaint: Dizziness, nausea History of present illness: This is a pleasant 71-year-old female patient who has a history of hypertension, hyperlipidemia, anxiety/depression, obesity, previous chronic tobacco dependence, chronic hypoxic respiratory failure from a COVID-19 pneumonia in 2020. Remains unvaccinated. She also has a previous non-ST segment elevation myocardial infarction, cardiomyopathy with ejection fraction 25-30%, severe aortic stenosis. She was recently admitted to [facility] for dizziness and nausea and had undergone cardiac catheterization which revealed a 99% stenosis of the ostial RCA and transferred here for intervention. Unfortunately the lesion was too tight to cross and the procedure was aborted. She is being evaluated by surgical services for possible single-vessel bypass and aortic valve replacement. She is seen today in consultation in the i ntensive care unit and his pacing possible surgery. She is currently sitting up in bed. Awake and alert. Anxious, teary-eyed. She was found to have an FEV1 value of 45% of predicted. Currently, she denies any worsening shortness of breath, cough or congestion. She is maintaining O2 saturations in the mid 90s on 2 L/m per nasal cannula. She's been afebrile. She has normal saline running at 20 ML's per hour. She remains on a heparin drip per weight base protocol. Computed tomography scan of the chest reveals moderate right-sided pleural effusion with some fluid in the fissure. White count 7.1. Hemoglobin 12.8. Sodium 135. Potassium 4.0. BUN 22. Creatinine 0.65. We'll switch 28. AST 21. ALT 16. Urinalysis negative. Hepatitis screen negative. Review of Systems REVIEW OF SYSTEMS: CONSTITUTIONAL: Positive for nausea and dizziness. Denies any recent significant weight loss or weight gain. EYES: Denies change in vision. EARS, NOSE, MOUTH, THROAT: Denies headaches, denies sore throat. CARDIOVASCULAR: Denies chest pain, palpitations or syncopal episodes. RESPIRATORY: Denies shortness of breath, cough, congestion or hemoptysis. GASTROINTESTINAL: Positive for nausea Denies change in appetite, denies abdominal pain GENITOURINARY: Denies hematuria, denies infections. MUSKULOSKELETAL: Denies pain, denies swelling. INTEGUMENTARY: Denies rash, denies eczema. NEUROLOGICAL: Denies recent memory loss, no recent seizure activity. PSYCHIATRIC: Denies anxiety, denies depression. HEMATOLOGIC/LYMPHATIC: Denies anemia, denies enlarged lymph nodes. Past Medical History Past Medical History: Heart Failure, GERD/Reflux, Hyperlipidemia, Hypertension, Myocardial Infarction (non Q-wave), Pneumonia (COVID-19 pneumonia in April 2021, uses 2 L of home O2 since her diagnosis of COVID-19 pneumonia.) Additional Past Medical History / Comment(s): Pneumonia 5 years ago. Sepsis Last Myocardial Infarction Date:: 11/15/21 History of Any Multi-Drug Resistant Organisms: None Reported Past Surgical History: Heart Catheterization Additional Past Surgical History / Comment(s): Cyst removed from right ovary,. right ovary removed and part of the left ovary Past Anesthesia/Blood Transfusion Reactions: No Reported Reaction Past Psychological History: Depression Smoking Status: Former smoker Past Alcohol Use History: None Reported Past Drug Use History: None Reported - Past Family History Mother Additional Family Medical History / Comment(s): Varicous veins. Patient states "she had alot of heart problems" Father Additional Family Medical History / Comment(s): Patient states "my dad had a lot of heart issues." Medications and Allergies Home Medications Medication Instructions Recorded Confirmed Type Carvedilol [Coreg] 6.25 mg PO BID 11/17/21 11/17/21 History Digoxin [Lanoxin] 125 mcg PO DAILY 11/17/21 11/17/21 History Furosemide [Lasix] 40 mg PO BID 11/17/21 11/17/21 History Ipratropium-Albuterol Nebulize 3 ml INHALATION RT-Q6H PRN 11/17/21 11/17/21 History [Duoneb 0.5 mg-3 mg/3 ml Soln] Melatonin 3 mg PO HS 11/17/21 11/17/21 History Pantoprazole Sodium [Protonix] 40 mg PO DAILY 11/17/21 11/17/21 History Sertraline [Zoloft] 50 mg PO DAILY 11/17/21 11/17/21 History Spironolactone [Aldactone] 25 mg PO DAILY 11/17/21 11/17/21 History polyethylene glycoL 3350 [Miralax] 17 gm PO DAILY PRN 11/17/21 11/17/21 History Allergies Allergy/AdvReac Type Severity Reaction Status Date / Time hydralazine AdvReac Syncope, Verified 11/17/21 15:40 hot flashes lisinopril AdvReac Cough Verified 11/17/21 15:40 Physical Exam Vitals: Vital Signs Temp Pulse Pulse Resp BP BP Pulse Ox 11/18/21 10:30 80 16 101/73 96 11/18/21 09:30 95/64 11/18/21 09:00 72 16 101/68 98 11/18/21 08:30 81 21 101/68 96 11/18/21 08:00 97.6 F 78 16 91/59 96 11/18/21 07:52 97 11/18/21 07:30 85 16 91/59 98 11/18/21 07:00 71 16 83/66 98 11/18/21 06:30 71 19 83/66 96 11/18/21 06:00 76 14 110/77 97 11/18/21 05:00 85 16 96/59 97 11/18/21 04:30 72 19 96/61 97 11/18/21 04:00 97.9 F 70 20 103/70 96 11/18/21 03:30 76 19 101/66 97 11/18/21 03:00 78 19 104/71 97 11/18/21 02:30 85 13 107/74 97 11/18/21 02:00 82 19 110/71 97 11/18/21 01:30 80 15 95/81 97 11/18/21 01:00 97 19 87/62 94 L 11/18/21 00:30 70 19 97 11/18/21 00:06 79 21 102/67 99 11/18/21 00:00 98.0 F 77 34 H 97/65 98 11/17/21 23:30 80 22 94/54 97 11/17/21 23:00 80 12 97/40 96 11/17/21 22:30 80 15 94/62 96 11/17/21 22:00 80 14 86/57 96 11/17/21 21:30 78 19 95/57 97 11/17/21 21:00 80 19 102/64 97 11/17/21 20:30 85 18 99/83 97 11/17/21 20:00 98.0 F 78 16 81/51 98 11/17/21 19:30 82 15 92/51 97 11/17/21 19:00 75 14 94/64 97 11/17/21 18:30 86 11 L 105/54 96 11/17/21 18:00 89 24 107/56 99 11/17/21 17:30 86 18 98/62 98 11/17/21 17:00 84 22 98/62 97 11/17/21 16:30 81 19 86/67 95 11/17/21 16:00 98.2 F 82 22 97/49 91 L 11/17/21 15:30 87 14 95/66 91 L 11/17/21 15:00 80 11 L 100/61 92 L 11/17/21 14:30 76 15 100/63 94 L 11/17/21 14:00 89 16 100/63 94 L 11/17/21 13:50 84 13 93 L 11/17/21 13:40 87 14 11/17/21 13:30 92 90 16 109/70 94 L 11/17/21 13:25 85 14 Intake and Output 11/17/21 11/18/21 11/18/21 22:59 06:59 14:59 Intake Total 400 630 40.961 Output Total 500 275 0 Balance -100 355 40.961 Intake: IV 400 450 40 Sodium Chloride 0.9% 1, 400 450 40 000 ml @ 20 mls/hr IV . Q24H MARY Rx#:[id number] Intake, IV Titration 0.961 Amount Heparin Sod,Pork in 0.45% 0.961 NaCl 25,000 unit In 0.45 % NaCl 1 250ml.bag @ 18 UNITS/KG/HR 19.224 mls/hr IV .Q13H1M MARY Rx#: [id number] Oral 180 Output: Urine 500 275 0 Other: Voiding Method External Catheter External Catheter # Voids 0 1 Weight 107 kg 106.8 kg GENERAL EXAM: Alert, anxious, 71-year-old female, on 2 L nasal cannula, comfortable in no apparent distress. HEAD: Normocephalic. EYES: Normal reaction of pupils, equal size. NOSE: Clear with pink turbinates. THROAT: No erythema or exudates. NECK: No masses, no JVD. CHEST: No chest wall deformity. LUNGS: Equal air entry with crackles in the right posterior base. CVS: S1 and S2 normal with no audible murmur, regular rhythm. ABDOMEN: No hepatosplenomegaly, normal bowel sounds, no guarding or rigidity. SPINE: No scoliosis or deformity SKIN: No rashes CENTRAL NERVOUS SYSTEM: No focal deficits, tone is normal in all 4 extremities. EXTREMITIES: There is no peripheral edema. No clubbing, no cyanosis. Peripheral pulses are intact. Results - Laboratory Findings CBC and BMP: 11/18/21 09:25 11/18/21 09:25 PT/INR, D-dimer PT 11.3 sec (9.0-12.0) 11/17/21 14:54 INR 1.1 (<1.2) 11/17/21 14:54 Abnormal lab findings: Abnormal Labs 11/17/21 11/17/21 11/17/21 14:23 14:54 14:54 MCHC 30.9 L Lymphocytes # 0.6 L APTT 42.9 H Sodium BUN Glucose POC Glucose (mg/dL) 133 H Ur Specific [place] 11/17/21 11/17/21 11/18/21 14:54 16:08 09:25 MCHC 30.2 L Lymphocytes # 0.6 L APTT Sodium 135 L BUN 22 H Glucose 128 H POC Glucose (mg/dL) Ur Specific [place] 1.043 H - Diagnostic Findings Chest x-ray: image reviewed CT scan - chest: image reviewed Assessment and Plan Assessment: 1 Non-ST segment elevation myocardial infarction in a patient found to have a 99% stenosis of the ostial RCA with unsuccessful PCI. 2 Severe aortic stenosis 3 Ischemic cardiomyopathy with an ejection fraction 25-30% 4 Acute on chronic systolic congestive heart failure with right-sided pleural effusion 5 Acute on chronic hypoxemic respiratory failure secondary to above 6 History of COVID-19 pneumonia in April 2021 requiring subsequent home oxygen at 2 L/m 7 Chronic obstructive pulmonary disease with an FEV1 value of 45% of predicted and abnormal MVV 8 Morbid obesity 9 Hypertension 10 Hyperlipidemia 11 Anxiety/depression 12 Poor overall functional performance based on the above-mentioned multiple comorbidities Plan: The patient was seen and evaluated Chest x-ray, CAT scans and labs reviewed Pulmonary function tests reviewed The patient carries a moderate to high risk for surgery from the pulmonary standpoint This was explained in detail to the patient by Dr. Rocha Educated regarding the use of the incentive spirometer Been initiated on DuoNeb inhalations, Symbicort On IV diuretics, monitoring intake and output Heparin drip continues Further workup for possible CABG and aVR in progress per CT services We will continue to follow and make further recommendations based on her clinical status I have personally seen and examined the patient, performed the documentation and the assessment and plan as written. Number of minutes spent on the visit: 20.
--- NOTE | 2021-11-18 11:37 | CT ---
EXAMINATION TYPE: CT chest wo con DATE OF EXAM: 11/18/2021 INDICATION: Preoperative cardiac surgery CT DLP: 1459.8 mGy.cm (including CT Panorex) Automated Exposure Control for Dose Reduction was Utiliz ed. TECHNIQUE AND CONTRAST: CT scan of the chest without IV contrast demonstration. COMPARISON: No previous CT scan is available for comparison FINDINGS: Moderate to large right-sided pleural effusion. No sizable left-sided pleural effusion. Minimal lower lung zone linear atelectasis and groundglass opacities, possibly related to pulmonary edema although associated minimal infection can't be excluded, please correlate clinically. Thickened atelectasis i s seen in the right lung base posteriorly likely secondary to the pleural effusion. Minimal infiltrat ion with nodular density is seen in the left lung apex. Recommend follow-up complete resolution in 6- 8 weeks. Patent trachea and main bronchi. Cardiomegaly, please correlate with echocardiographic results. Scatt ered arterial atherosclerotic calcification with aortic and mitral valve calcifications. The pulmonar y trunk measures 3.8 cm suggestive of pulmonary hypertension. 10 mm subcarinal lymph node, possibly r eactive. Otherwise no pathologically enlarged lymph nodes in the chest. Grossly unremarkable upper ab domen. Degenerative changes of the thoracic spine. IMPRESSION: Cardiomegaly with suspected pulmonary edema and moderate to marked right-sided pleural effusion as de scribed above. Associated infection can't be excluded, please correlate clinically. Other findings as described above.
[2021-11-18] MEDS: IPRATROPIUM-ALBUTEROL 3 ML NEB INHALATION SCH ×3 (11:46→21:21)
--- NOTE | 2021-11-18 13:16 | P.GSCN ---
History of Present Illness Consult date: 11/18/21 Reason for Consult: Radiographically, Panoramic xray shows not radiolucency in any apex, and no sign of dental caries Intra-oral exam shows no dental caries visible, no swelling, no sensitivity to percussion, no pain to pressure in buccal vestibules. Patient sees a dentist regularly but lapsed in the last couple years. Pt has mild gingivitis suggesting a need to see her dentist for hygiene appt and periodic exam after she is medically stable. No need for any dental work before surgery and patient is clear from dental infections. Thank you for your kind referral. Past Medical History Past Medical History: Heart Failure, GERD/Reflux, Hyperlipidemia, Hypertension, Myocardial Infarction (non Q-wave), Pneumonia (COVID-19 pneumonia in April 2021, uses 2 L of home O2 since her diagnosis of COVID-19 pneumonia.) Additional Past Medical History / Comment(s): Pneumonia 5 years ago. Sepsis Last Myocardial Infarction Date:: 11/15/21 History of Any Multi-Drug Resistant Organisms: None Reported Past Surgical History: Heart Catheterization Additional Past Surgical History / Comment(s): Cyst removed from right ovary,. right ovary removed and part of the left ovary Past Anesthesia/Blood Transfusion Reactions: No Reported Reaction Past Psychological History: Depression Smoking Status: Former smoker Past Alcohol Use History: None Reported Past Drug Use History: None Reported - Past Family History Mother Additional Family Medical History / Comment(s): Varicous veins. Patient states "she had alot of heart problems" Father Additional Family Medical History / Comment(s): Patient states "my dad had a lot of heart issues." Medications and Allergies Home Medications Medication Instructions Recorded Confirmed Type Carvedilol [Coreg] 6.25 mg PO BID 11/17/21 11/17/21 History Digoxin [Lanoxin] 125 mcg PO DAILY 11/17/21 11/17/21 History Furosemide [Lasix] 40 mg PO BID 11/17/21 11/17/21 History Ipratropium-Albuterol Nebulize 3 ml INHALATION RT-Q6H PRN 11/17/21 11/17/21 History [Duoneb 0.5 mg-3 mg/3 ml Soln] Melatonin 3 mg PO HS 11/17/21 11/17/21 History Pantoprazole Sodium [Protonix] 40 mg PO DAILY 11/17/21 11/17/21 History Sertraline [Zoloft] 50 mg PO DAILY 11/17/21 11/17/21 History Spironolactone [Aldactone] 25 mg PO DAILY 11/17/21 11/17/21 History polyethylene glycoL 3350 [Miralax] 17 gm PO DAILY PRN 11/17/21 11/17/21 History Allergies Allergy/AdvReac Type Severity Reaction Status Date / Time hydralazine AdvReac Syncope, Verified 11/17/21 15:40 hot flashes lisinopril AdvReac Cough Verified 11/17/21 15:40 Surgical - Exam Vital Signs Pulse Resp 85 14 11/17/21 13:25 11/17/21 13:25 Results - Labs 11/18/21 09:25 11/18/21 09:25 Abnormal Lab Results - Last 24 Hours (Table) 11/17/21 11/17/21 11/17/21 Range/Units 14:23 14:54 14:54 MCHC 30.9 L (31.0-37.0) g/dL Lymphocytes # 0.6 L (1.0-4.8) k/uL APTT 42.9 H (22.0-30.0) sec Sodium (137-145) mmol/L BUN (7-17) mg/dL Glucose (74-99) mg/dL POC Glucose (mg/dL) 133 H (75-99) mg/dL Ur Specific [place] (1.001-1.035) 11/17/21 11/17/21 11/18/21 Range/Units 14:54 16:08 09:25 MCHC 30.2 L (31.0-37.0) g/dL Lymphocytes # 0.6 L (1.0-4.8) k/uL APTT (22.0-30.0) sec Sodium 135 L (137-145) mmol/L BUN 22 H (7-17) mg/dL Glucose 128 H (74-99) mg/dL POC Glucose (mg/dL) (75-99) mg/dL Ur Specific [place] 1.043 H (1.001-1.035) 11/18/21 Range/Units 10:30 MCHC (31.0-37.0) g/dL Lymphocytes # (1.0-4.8) k/uL APTT 108.0 H* (22.0-30.0) sec Sodium (137-145) mmol/L BUN (7-17) mg/dL Glucose (74-99) mg/dL POC Glucose (mg/dL) (75-99) mg/dL Ur Specific [place] (1.001-1.035) Microbiology - Last 24 Hours (Table) 11/17/21 22:30 Nasal Screen MRSA/MSSA - Preliminary Nasal Swab Diabetes panel 11/17/21 11/18/21 Range/Units 14:54 09:25 Sodium 135 L (137-145) mmol/L Potassium 3.8 4.0 (3.5-5.1) mmol/L Chloride 100 (98-107) mmol/L Carbon Dioxide 28 (22-30) mmol/L BUN 22 H (7-17) mg/dL Creatinine 0.65 (0.52-1.04) mg/dL Glucose 128 H (74-99) mg/dL Calcium 8.8 (8.4-10.2) mg/dL AST 21 (14-36) U/L ALT 16 (4-34) U/L Alkaline Phosphatase 59 (38-126) U/L Total Protein 6.4 (6.3-8.2) g/dL Albumin 3.7 (3.5-5.0) g/dL Calcium panel 11/17/21 Range/Units 14:54 Calcium 8.8 (8.4-10.2) mg/dL Albumin 3.7 (3.5-5.0) g/dL Pituitary panel 11/17/21 11/18/21 Range/Units 14:54 09:25 Sodium 135 L (137-145) mmol/L Potassium 3.8 4.0 (3.5-5.1) mmol/L Chloride 100 (98-107) mmol/L Carbon Dioxide 28 (22-30) mmol/L BUN 22 H (7-17) mg/dL Creatinine 0.65 (0.52-1.04) mg/dL Glucose 128 H (74-99) mg/dL Calcium 8.8 (8.4-10.2) mg/dL Adrenal panel 11/17/21 11/18/21 Range/Units 14:54 09:25 Sodium 135 L (137-145) mmol/L Potassium 3.8 4.0 (3.5-5.1) mmol/L Chloride 100 (98-107) mmol/L Carbon Dioxide 28 (22-30) mmol/L BUN 22 H (7-17) mg/dL Creatinine 0.65 (0.52-1.04) mg/dL Glucose 128 H (74-99) mg/dL Calcium 8.8 (8.4-10.2) mg/dL Total Bilirubin 1.0 (0.2-1.3) mg/dL AST 21 (14-36) U/L ALT 16 (4-34) U/L Alkaline Phosphatase 59 (38-126) U/L Total Protein 6.4 (6.3-8.2) g/dL Albumin 3.7 (3.5-5.0) g/dL
--- NOTE | 2021-11-18 15:47 | P.PN ---
Subjective Progress Note Date: 11/18/21 HISTORY OF PRESENT ILLNESS This is a 71-year-old female with past medical history of dilated cardiomyopathy with ejection fraction of 15-20%, severe aortic valve stenosis, mild aortic regurgitation with moderate to severe mitral regurgitation, chronic systolic heart failure, hyperlipidemia, obesity with possible obstructive sleep apnea and obesity hypoventilation syndrome, chronic hypoxic respiratory failure on home O2 at 2 L nasal cannula, hypertension hypertensive cardio vascular disease, previous Covid 19 infection. Patient presented to [facility] slight elevation of troponin, EKG showed changes suggestive ischemic changes and was started on aspirin, heparin drip and admitted to the hospital. Patient was seen by cardiology. She was supposed to have a heart catheterization done as an outpatient along with LISA for possible aortic valve replacement and mitral valve and possible CABG. Patient underwent coronary angiography finding right dominant vessel, 99% ostial stenosis, aortic pressure is 100/70, 40 mm gradient across the aortic valve. Left ventricular end diastolic pressure is 2530. Patient was transferred to [facility] for PTCA and stent placement of the RCA which was unsuccessful. Consult with cardiothoracic surgery for CABG and valve repair/replacement. 11/18: Patient is seen today in the intensive care unit. She denies chest pain or shortness of breath. She complains of anxiety and decreased appetite. Less cough today.She has been seen by roentgenologist and cardiothoracic surgery, currently on heparin drip, consult was added for dental evaluation and clearance and panoramic CT. Patient has been afebrile, heart rate in the 80s, blood pressure 101/73, pulse ox 96%. Repeat blood work reveals CBC is unremarkable. Potassium 4.0. Urinalysis negative for infection. Hepatitis panel negative. MRSA nasal screen is in process. CT of the chest revealed cardiomegaly with suspected pulmonary edema and moderate to marked right sided pleural effusion. Associated infection can't be excluded. Echocardiogram reveals EF of 25-30% with mild concentric left ventricular hypertrophy, severe global hypokinesia of the LV, severe aortic stenosis with gradient 78.27 mm a new 3/47.94 mmHg, trace mitral regurgitation, mild mitral stenosis, mild tricuspid regurgitation, mild pulmonary hypertension, RVSP 43.33 mmHg. Carotid ultrasound revealed less than 50% stenosis bilateral carotid systems. REVIEW OF SYSTEMS Constitutional: No fever, no chills, no night sweats. No weight change. No wea kness, fatigue or lethargy. No daytime sleepiness. EENT: No headache. No blurred vision or double vision, no loss of vision. No loss of Hearing, no ringing in the ears, no dizziness. No nasal drainage or congestion. No epistaxis. No sore throat. Lungs: No shortness of breath, + cough, no sputum production. No wheezing. Reports dyspnea on exertion. Cardiovascular: No chest pain, no lower extremity edema. No palpitations. No paroxysmal nocturnal dyspnea. No orthopnea. No lightheadedness or dizziness. No syncopal episodes. Abdominal: No abdominal pain. No nausea, vomiting. No diarrhea. No constipation. No bloody or tarry stools. Reports loss of appetite. Genitourinary: No dysuria, increased frequency, urgency. No urinary retention. Musculoskeletal: No myalgias. No muscle weakness, no gait dysfunction, no frequent falls. No back pain. No neck pain. Integumentary: No wounds, no lesions. No rash or pruritus. No unusual bruising. No change in hair or nails. Neurologic: No aphasia. No facial droop. No change in mentation. No head injury. No headache. No paralysis. No paresthesia. Psychiatric: No depression. Reports anxiety. No mood swings. Endocrine: No abnormal blood sugars. No weight change. No excessive sweating or thirst. No cold intolerance. PHYSICAL EXAMINATION Gen: This is a 71-year-old female. HEENT: Head is atraumatic, normocephalic. Pupils equal, round. Sclerae is anicteric. NECK: Supple. No JVD. No lymphadenopathy. No thyromegaly. LUNGS: Decreased breath sounds at the bases, few rhonchi, no expiratory wheeze, no chest wall tenderness. No intercostal retractions. HEART: First heart sound is depressed, second heart sound is normal, systolic ejection murmur 3/6 at the right upper sternal border radiating to the base of the neck, systolic ejection murmur 2/6 at the apex rating to the axilla. ABDOMEN: Soft. Bowel sounds are present. No masses. No tenderness. EXTREMITIES: 1+ pedal edema. No calf tenderness. Her cells pedis +1 bilaterally. Bilateral hammertoes. NEUROLOGICAL: Patient is awake, alert and oriented x3. Cranial nerves 2 through 12 are grossly intact. ASSESSMENT AND PLAN 1. ST elevated myocardial infarction with history of prior dilated cardiomyopathy status post coronary angiography finding right dominant vessel, 99% ostial stenosis, aortic pressure is 100/70, 40 mm gradient across the aortic valve. Left ventricular end diastolic pressure is 2530. Patient was transferred to [facility] for PTCA and stent placement of the RCA which was unsuccessful. Consult with cardiothoracic surgery appreciated. [employer] consultation appreciated.. Continue aspirin 81 mg daily, on Coreg 6.25 mg twice daily, hydralazine 25 mg twice daily-on hold. Patient is unable to tolerate statins because of significant myopathy and plan is to start her on Repatha under 40 mg subcu every 2 weeks. Dental evaluation with panoramic CT. 2. Dilated cardiomyopathy. Cardiology consult. Continue digoxin 125 g daily, Coreg. 3. Severe aortic valve stenosis with mild aortic regurgitation. Patient will require aortic valve replacement. 4. Severe mitral regurgitation. 5. Hyperlipidemia. Patient unable to tolerate statins. 6. Obesity with obstructive sleep apnea and obesity hypoventilation syndrome. Patient has not had sleep study done yet. 7. Chronic hypoxic respiratory failure secondary to his Covid 19 and underlying COPD and possible obstructive sleep apnea and hypoventilation syndrome. Patient is normally on 2 L nasal cannula. 8. Acute on chronic systolic heart failure. Continue Lasix 40 mg IV every 12 hours, Coreg, Aldactone 25 mg daily. 9. Hypertension, hypertensive cardiovascular disease. 10. Recurrent depression and generalized anxiety disorder. Continue Zoloft 50 mg daily. 11. DVT prophylaxis. Heparin subcu. 11. GI prophylaxis. Protonix 40 mg IV push daily. DISCHARGE PLAN TBD Impression and plan of care have been directed as dictated by the signing physician. Marina Barbosa nurse practitioner acting as scribe for signing physician. Objective - Vital Signs Vital signs: Vital Signs Temp 97.6 F 11/18/21 08:00 Pulse 87 11/18/21 12:04 Resp 23 11/18/21 11:00 BP 101/73 11/18/21 11:00 Pulse Ox 96 11/18/21 11:00 Intake & Output 11/17/21 11/18/21 11/18/21 18:59 06:59 18:59 Intake Total 750 830 157.487 Output Total 500 275 350 Balance 250 555 -192.513 Weight 107 kg 106.8 kg Intake: IV 750 650 120 Sodium Chloride 0.9% 1, 250 650 120 000 ml @ 20 mls/hr IV . Q24H [facility] Rx#:[id number] Intake, IV Titration 37.487 Amount Heparin Sod,Pork in 0.45% 37.487 NaCl 25,000 unit In 0.45 % NaCl 1 250ml.bag @ 18 UNITS/KG/HR 19.224 mls/hr IV .Q13H1M [facility] Rx#: [id number] Oral 180 Output: Urine 500 275 350 Stool 0 Other: Voiding Method External Catheter External Catheter Incontinent External Catheter # Voids 0 0 0 ABP, PAP, CO, CI - Last Documented Arterial Blood Pressure 107/66 - Labs CBC & Chem 7: 11/18/21 09:25 11/18/21 09:25 Labs: Abnormal Lab Results - Last 24 Hours (Table) 11/17/21 11/17/21 11/17/21 Range/Units 14:23 14:54 14:54 MCHC 30.9 L (31.0-37.0) g/dL Lymphocytes # 0.6 L (1.0-4.8) k/uL APTT 42.9 H (22.0-30.0) sec Sodium (137-145) mmol/L BUN (7-17) mg/dL Glucose (74-99) mg/dL POC Glucose (mg/dL) 133 H (75-99) mg/dL Ur Specific [place] (1.001-1.035) 11/17/21 11/17/21 11/18/21 Range/Units 14:54 16:08 09:25 MCHC 30.2 L (31.0-37.0) g/dL Lymphocytes # 0.6 L (1.0-4.8) k/uL APTT (22.0-30.0) sec Sodium 135 L (137-145) mmol/L BUN 22 H (7-17) mg/dL Glucose 128 H (74-99) mg/dL POC Glucose (mg/dL) (75-99) mg/dL Ur Specific [place] 1.043 H (1.001-1.035) 11/18/21 Range/Units 10:30 MCHC (31.0-37.0) g/dL Lymphocytes # (1.0-4.8) k/uL APTT 108.0 H* (22.0-30.0) sec Sodium (137-145) mmol/L BUN (7-17) mg/dL Glucose (74-99) mg/dL POC Glucose (mg/dL) (75-99) mg/dL Ur Specific [place] (1.001-1.035) Microbiology - Last 24 Hours (Table) 11/17/21 22:30 Nasal Screen MRSA/MSSA - Preliminary Nasal Swab
--- NOTE | 2021-11-18 17:35 | CT ---
CT scan of the mandible Panorex. History preoperative valve surgery. Comparison none. TECHNIQUE: Images obtained from the bottom of the mandible to the top of the frontal sinuses without contrast. The mandibular ring is intact. Temporomandibular joints are intact. I see no focal bone destruction. There is metal artifact from dental work. The maxilla is intact. Orbital margins are intact. There is fairly normal aeration of the paranasal sinuses. Nasal bone is intact. There is no evidence of orbit al blowout fracture. There is no retro-orbital mass. There is normal aeration of the mastoid sinuses. IMPRESSION: Negative CT scan of the mandible and the facial bones. No evidence of any significant periodontal dis ease. The CT Panorex images show no significant lucency around the roots of the teeth.
[2021-11-18] MEDS: HEPARIN SODIUM 1,000 UN/ML (10ML VL) IV PRN (17:55)
[2021-11-18] MEDS: MELATONIN 3 MG TABLET PO SCH (21:09)
[2021-11-18] MEDS: ATORVASTATIN 40 MG TAB PO SCH (21:09)
[2021-11-18] MEDS: SYMBICORT 160-4.5 MCG INHALER INHALATION SCH (21:21)
[2021-11-19] MEDS: HEPARIN SOD,PORK IN 0.45% NACL 25,000 UNIT in 0.45% NACL 1 250ML.BAG IV SCH ×4 (00:12→23:43)
[2021-11-19] MEDS ORDERED: POTASSIUM CHLORIDE ER 20 MEQ TAB.ER PO SCH (04:00)
[2021-11-19] MEDS: carvediloL 6.25 MG TAB PO SCH ×2 (06:23→18:20)
[2021-11-19] MEDS: IPRATROPIUM-ALBUTEROL 3 ML NEB INHALATION SCH ×4 (07:57→21:09)
[2021-11-19 08:00] LABS: Basophils # (A) 0.1 k/uL (0-0.2); Basophils % (A) 1 %; Eosinophils # (A) 0.1 k/uL (0-0.7); Eosinophils % (A) 1 %; HCT 39.5 % (34.0-46.0); HGB 12.1 gm/dL (11.4-16.0); Hypochromasia Moderate; Lymphocytes # (A) 0.8 k/uL (1.0-4.8); Lymphocytes % (A) 11 %; MCH 28.6 pg (25.0-35.0); MCHC 30.6 g/dL (31.0-37.0); MCV 93.2 fL (80.0-100.0); Mean Platelet Volume 8.8; Monocytes # (A) 0.5 k/uL (0-1.0); Monocytes % (A) 7 %; Neutrophils # (A) 5.7 k/uL (1.3-7.7); Neutrophils % (A) 77 %; Platelet Count 125 k/uL (150-450); RBC 4.23 m/uL (3.80-5.40); WBC 7.4 k/uL (3.8-10.6)
[2021-11-19 08:28] LABS: African American GFR (CKD) >90 (>60 ml/min/1.73 sqM); Anion Gap 4 mmol/L; Blood Urea Nitrogen 22 mg/dL (7-17); Calcium 8.6 mg/dL (8.4-10.2); Carbon Dioxide 32 mmol/L (22-30); Chloride 99 mmol/L (98-107); Glucose 126 mg/dL (74-99); Magnesium 2.1 mg/dL (1.6-2.3); Non-African American GFR(CKD) >90 (>60 ml/min/1.73 sqM); Potassium 3.7 mmol/L (3.5-5.1); Sodium 135 mmol/L (137-145)
--- NOTE | 2021-11-19 09:53 | P.PN ---
Subjective Progress Note Date: 11/19/21 Principal diagnosis: Coronary artery disease with 99% RCA stenosis, non-STEMI this admission, status post unsuccessful PCI to the right coronary artery, severe aortic valve stenosi s, trace mitral valve regurgitation with mild mitral valve stenosis, dilated cardiomyopathy, acute on chronic systolic heart failure. Past medical history significant for hypertension, hyperlipidemia, chronic hypoxic respiratory failure on 2 L nasal cannula home oxygen, COVID-19 pneumonia in April 2021, remains unvaccinated for COVID-19, morbid obesity, depression, remote history of nicotine dependence, severe restrictive lung disease. The patient was seen in follow-up today 11/19/2021 at her bedside in the intensive care unit. Currently she denies any complaints of pain or shortness of breath, although she reports that she has not been very active here in the hospital to get short of breath. She also denies any complaints of nausea or hot flashes sensations since being hospitalized here at [facility]. She was seen by Dr. Velasquez from dentistry yesterday and was cleared from the dentist aspect. Oxygen saturation are 98% on 2 L nasal cannula. Heparin drip infusing per protocol which is managed by cardiology. Laboratory results this morning show a WBC count of 7.4, hemoglobin 12.1, hematocrit 39.5, platelets 125, sodium 135, potassium 3.7, BUN 61 and creatinine 0.61. A computed tomography scan of her chest without contrast was also completed yesterday and was reviewed by Dr. Simon from cardiothoracic surgery. Objective - Vital Signs Vital signs: Vital Signs Temp 97.7 F 11/19/21 04:00 Pulse 63 11/19/21 08:12 Resp 19 11/19/21 08:00 BP 97/57 11/19/21 08:00 Pulse Ox 98 11/19/21 08:00 Intake & Output 11/18/21 11/19/21 11/19/21 18:59 06:59 18:59 Intake Total 342.660 385.265 157.338 Output Total 750 1150 150 Balance -407.340 -764.735 7.338 Weight 107.7 kg Intake: IV 220 240 40 Sodium Chloride 0.9% 1, 220 240 40 000 ml @ 20 mls/hr IV . Q24H [facility] Rx#:[id number] Intake, IV Titration 122.660 145.265 117.338 Amount Heparin Sod,Pork in 0.45% 122.660 145.265 117.338 NaCl 25,000 unit In 0.45 % NaCl 1 250ml.bag @ 18 UNITS/KG/HR 19.224 mls/hr IV .Q13H1M [facility] Rx#: [id number] Output: Urine 750 1150 150 Stool 0 Other: Voiding Method Incontinent Incontinent Incontinent External Catheter External Catheter External Catheter # Voids 0 ABP, PAP, CO, CI - Last Documented Arterial Blood Pressure 107/66 - Exam CONSTITUTIONAL: Appears cooperative, comfortable, and in no acute distress. RESPIRATORY: Lungs sounds essentially clear throughout, diminished bilateral bases, right greater than left. Respirations are symmetrical and nonlabored. Currently on 2 L nasal cannula with oxygen saturation 98%. Able to achieve 1000 mL on incentive spirometry. Strong cough. CARDIOVASCULAR: S1, S2 present, pansystolic murmur present 3/6. Regular rate and rhythm, sinus rhythm on telemetry. Doppler lower extremity pulses bilaterally. Trace bilateral lower extremity edema present. No calf pain or tenderness noted. H GASTROINTESTINAL: Abdomen soft, nontender, nondistended. Active bowel sounds present 4 quadrants. Tolerating diet. INTEGUMENTARY: Skin is warm and dry with evidence of good perfusion. NEUROLOGIC: Cranial nerves II through XII intact MUSKULOSKELETAL: Able to move all extremities, strength equal bilaterally PSYCHIATRIC: Alert and oriented to person place and time, flat affect - Allied health notes Allied health notes reviewed: nursing - Labs CBC & Chem 7: 11/19/21 07:29 11/19/21 07:29 Labs: Abnormal Lab Results - Last 24 Hours (Table) 11/18/21 11/18/21 11/19/21 Range/Units 09:25 10:30 00:07 MCHC 30.2 L (31.0-37.0) g/dL Plt Count (150-450) k/uL Lymphocytes # 0.6 L (1.0-4.8) k/uL APTT 108.0 H* >200.0 H* (22.0-30.0) sec Sodium (137-145) mmol/L Carbon Dioxide (22-30) mmol/L BUN (7-17) mg/dL Glucose (74-99) mg/dL 11/19/21 11/19/21 11/19/21 Range/Units 07:29 07:29 07:29 MCHC 30.6 L (31.0-37.0) g/dL Plt Count 125 L (150-450) k/uL Lymphocytes # 0.8 L (1.0-4.8) k/uL APTT 192.0 H* (22.0-30.0) sec Sodium 135 L (137-145) mmol/L Carbon Dioxide 32 H (22-30) mmol/L BUN 22 H (7-17) mg/dL Glucose 126 H (74-99) mg/dL Assessment and Plan Assessment: 1. Coronary artery disease with 99% RCA stenosis, non-STEMI this admission, status post unsuccessful PCI to the right coronary artery 2. Severe aortic valve stenosis, peak/mean gradient 78.27/47.94 mmHg 3. Trace mitral regurgitation with mild mitral stenosis on transthoracic echocardiogram, peak/mean gradients of 14.48/6.4 mmHg, 4. Dilated cardiomyopathy 5. Acute on chronic systolic heart failure, EF 25-30% on transthoracic echocardiogram 6. History of hypertension 7. Hyperlipidemia, cholesterol 333, LDL 263 8. Chronic hypoxic respiratory failure on 2 L nasal cannula home oxygen 9. COVID-19 pneumonia in April 2021 10. Remains unvaccinated for COVID-19 11. Morbid obesity 12. Depression, currently on Zoloft 13. Remote history of nicotine dependence 14. Severe restrictive lung disease, FEV1 45% of predicted 15. Generalized debility, patient uses walker for ambulation Plan: 1. Continue aspirin, statin and beta josé. Heparin drip managed by cardiology. 2. Continue diuresis, heart failure management per cardiology. 3. STS risk calculated and was discussed with the patient by Dr Simon. Patient is very high risk for surgery due to multiple comorbidities, final decision regarding surgery still pending versus high risk PCI still an option. 4. Medical management of other comorbidities per primary care service. 5. More recommendations to follow based on patient's clinical course. Time with Patient: Greater than 30
[2021-11-19] MEDS: SPIRONOLACTONE 25 MG TAB PO SCH (10:21)
[2021-11-19] MEDS: PANTOPRAZOLE 40 MG/10 ML VIAL IVP SCH (10:21)
[2021-11-19] MEDS: SERTRALINE 50 MG TAB PO SCH (10:21)
[2021-11-19] MEDS: DIGOXIN 125 MCG TAB PO SCH (10:21)
[2021-11-19] MEDS ORDERED: SODIUM CHLORIDE 0.9% 500 ML 500 ML IV ONE (10:22)
[2021-11-19] MEDS: ASPIRIN 81 MG PO SCH (10:23)
[2021-11-19] MEDS: SODIUM CHLORIDE 0.9% 1,000 ML IV SCH (10:24)
[2021-11-19] MEDS: SYMBICORT 160-4.5 MCG INHALER INHALATION SCH ×2 (11:38→21:09)
[2021-11-19] MEDS: FUROSEMIDE 10 MG/ML 4 ML VIAL IV SCH ×2 (11:55→20:06)
--- NOTE | 2021-11-19 12:13 | P.PN ---
Subjective HISTORY OF PRESENTING ILLNESS Patient is a 71-year-old female with history of coronary artery disease, cardiomyopathy with EF 15-20%, severe aortic stenosis, moderate to severe mitral regurgitation, systolic heart failure, hypertension, hyperlipidemia, depression, morbid obesity, COVID-19 infection April 2021 with oxygen dependence after who presented to [facility] with episodes of feeling flushed and mildly nauseous. She attributes much of her symptoms to changing her medication from lisinopril to hydrochlorothiazide apparently. She normally follows in the office with Dr. Holland. She was treated for congestive heart failure previously and mid October however believe she was having a reaction to the medications and therefore came to emergency department like urine. Blood work showed elevated proBNP of 5800, hemoglobin 11.9, BUN 20, creatinine 0.8, elevated troponins. Chest x-ray showed mild vascular congestion and 2-D echo 10/31/2021 showed severe varicose stenosis, moderate to severe mitral regurgitation, dilated left ventricle with an EF 15-20%. Therefore heart catheterization was performed 11/17 and showed mild disease of the left and RCA 99% stenosis which was very proximal. She underwent attempted PCI however was noted to have dissection and therefore procedure was aborted. Patient denied any actual chest pain or pressure during procedure and has done well since then. This did appear to be more of a dissection involving the aortic root appeared fairly mild on personal review. Therefore patient was placed in the ICU and monitored. She admits to continued shortness breath however no significant chest pain or similar nausea feeling. 11/19 Patient seen and examined. Patient denies any chest pain or pressure. Denies any of the nausea type symptoms that brought her into the hospital. Still coughing somewhat. Has been diuresing with good urine output. PHYSICAL EXAMINATION Vital signs reviewed. CONSTITUTIONAL: No apparent distress, obese, chronically ill appearing, +cough HEENT: Head is normocephalic. Pupils are equal, round. Sclerae anicteric. Mucous membranes of the mouth are moist. No carotid bruit. CHEST EXAMINATION: Lungs are clear to auscultation. HEART EXAMINATION: Regular rate and rhythm. S1, S2 heard. +3/6 systolic murmur, no gallops or rub. ABDOMEN: Soft, nontender. Positive bowel sounds. EXTREMITIES: 2+ peripheral pulses, no lower extremity edema and no calf tenderness. NEUROLOGIC EXAMINATION: Patient is awake, alert and oriented x3. ASSESSMENT 1. Acute on chronic systolic heart failure 2. Non-STEMI 3. Coronary artery disease including 99% RCA stenosis status post failed attempted PCI 4. Hypertension 5. Hyperlipidemia 6. Cardiomyopathy mainly nonischemic with CAD out of proportion to cardiomyopathy 7. Severe aortic stenosis 8. Mitral regurgitation 9. Oxygen dependence status post COVID-19 infection PLAN Continue with heparin drip and optimize heart failure regimen as able. Blood pressures have been borderline in the systolics 90s to 100 100s. She has been diuresing well with creatinine stable. Discussed with surgeons and we will check a CTA to evaluate the aortic root and evaluate for any dissection however clinically has been doing well. Additionally check CTA TAVR protocol if able to assess if she would be a good candidate for TAVR to attempt to further risk stratify patient for intervention/surgery. Objective - Vital Signs Vital signs: Vital Signs Temp 97.7 F 11/19/21 04:00 Pulse 77 11/19/21 11:50 Resp 17 11/19/21 10:00 BP 93/51 11/19/21 10:00 Pulse Ox 96 11/19/21 10:00 Intake & Output 11/18/21 11/19/21 11/19/21 18:59 06:59 18:59 Intake Total 342.660 385.265 197.338 Output Total 750 1150 150 Balance -407.340 -764.735 47.338 Weight 107.7 kg Intake: IV 220 240 80 Sodium Chloride 0.9% 1, 220 240 80 000 ml @ 20 mls/hr IV . Q24H [facility] Rx#:[id number] Intake, IV Titration 122.660 145.265 117.338 Amount Heparin Sod,Pork in 0.45% 122.660 145.265 117.338 NaCl 25,000 unit In 0.45 % NaCl 1 250ml.bag @ 18 UNITS/KG/HR 19.224 mls/hr IV .Q13H1M [facility] Rx#: [id number] Output: Urine 750 1150 150 Stool 0 Other: Voiding Method Incontinent Incontinent Incontinent External Catheter External Catheter External Catheter # Voids 0 ABP, PAP, CO, CI - Last Documented Arterial Blood Pressure 107/66 - Labs CBC & Chem 7: 11/19/21 07:29 11/19/21 07:29 Labs: Abnormal Lab Results - Last 24 Hours (Table) 11/19/21 11/19/21 11/19/21 Range/Units 00:07 07:29 07:29 MCHC 30.6 L (31.0-37.0) g/dL Plt Count 125 L (150-450) k/uL Lymphocytes # 0.8 L (1.0-4.8) k/uL APTT >200.0 H* (22.0-30.0) sec Sodium 135 L (137-145) mmol/L Carbon Dioxide 32 H (22-30) mmol/L BUN 22 H (7-17) mg/dL Glucose 126 H (74-99) mg/dL 11/19/21 Range/Units 07:29 MCHC (31.0-37.0) g/dL Plt Count (150-450) k/uL Lymphocytes # (1.0-4.8) k/uL APTT 192.0 H* (22.0-30.0) sec Sodium (137-145) mmol/L Carbon Dioxide (22-30) mmol/L BUN (7-17) mg/dL Glucose (74-99) mg/dL Microbiology - Last 24 Hours (Table) 11/17/21 22:30 Nasal Screen MRSA/MSSA - Final Nasal Swab
--- NOTE | 2021-11-19 13:44 | P.PN ---
Subjective Progress Note Date: 11/19/21 This is a pleasant 71-year-old female patient who has a history of hypertension, hyperlipidemia, anxiety/depression, obesity, previous chronic tobacco dependence, chronic hypoxic respiratory failure from a COVID-19 pneumonia in 2020. Remains unvaccinated. She also has a previous non-ST segment elevation myocardial infarction, cardiomyopathy with ejection fraction 25-30%, severe aortic stenosis. She was recently admitted to [facility] for dizziness and nausea and had undergone cardiac catheterization which revealed a 99% stenosis of the ostial RCA and transferred here for intervention. Unfortunately the lesion was too tight to cross and the procedure was aborted. She is being evaluated by surgical services for possible single-vessel bypass and aortic valve replacement. She is seen today in consultation in the intensive care unit and his pacing possible surgery. She is currently sitting up in bed. Awake and alert. Anxious, teary-eyed. She was found to have an FEV1 value of 45% of predicted. Currently, she denies any worsening shortness of breath, cough or congestion. She is maintaining O2 saturations in the mid 90s on 2 L/m per nasal cannula. She's been afebrile. She has normal saline running at 20 ML's per hour. She remains on a heparin drip per weight base protocol. Computed tomography scan of the chest reveals moderate right-sided pleural effusion with some fluid in the fissure. White count 7.1. Hemoglobin 12.8. Sodium 135. Potassium 4.0. BUN 22. Creatinine 0.65. We'll switch 28. AST 21. ALT 16. Urinalysis negative. Hepatitis screen negative. The patient is seen today 11/19/2021 in follow-up in the ICU. She is currently sitting up in bed. Awake and alert in no acute distress. Maintaining O2 saturations in the 90s on 2 L/m per nasal cannula. She has normal saline running 20 miles per hour. Heparin per weight-based protocol. She currently denies any worsening shortness of breath, cough or congestion. No chest pain or palpitations. White count 7.4. Hemoglobin 12.1. Platelets 125. Sodium 135. Potassium 3.7. Bicarb 32. BUN 22. Creatinine 0.61. She is continued on DuoNeb inhalations, Symbicort. She remains on IV diuretics. Currently in a - 1.1 L balance. Objective - Vital Signs Vital signs: Vital Signs Temp 98.0 F 11/19/21 12:00 Pulse 73 11/19/21 13:00 Resp 20 11/19/21 13:00 BP 100/66 11/19/21 13:00 Pulse Ox 97 11/19/21 13:00 Intake & Output 11/18/21 11/19/21 11/19/21 18:59 06:59 18:59 Intake Total 342.660 385.265 257.338 Output Total 750 1150 150 Balance -407.340 -764.735 107.338 Weight 107.7 kg Intake: IV 220 240 140 Sodium Chloride 0.9% 1, 220 240 140 000 ml @ 20 mls/hr IV . Q24H MARY Rx#:[id number] Intake, IV Titration 122.660 145.265 117.338 Amount Heparin Sod,Pork in 0.45% 122.660 145.265 117.338 NaCl 25,000 unit In 0.45 % NaCl 1 250ml.bag @ 18 UNITS/KG/HR 19.224 mls/hr IV .Q13H1M MARY Rx#: [id number] Output: Urine 750 1150 150 Stool 0 Other: Voiding Method Incontinent Incontinent Incontinent External Catheter External Catheter External Catheter # Voids 0 ABP, PAP, CO, CI - Last Documented Arterial Blood Pressure 107/66 - Exam GENERAL EXAM: Alert, anxious, 71-year-old female, on 2 L nasal cannula, comfortable in no apparent distress. HEAD: Normocephalic. EYES: Normal reaction of pupils, equal size. NOSE: Clear with pink turbinates. THROAT: No erythema or exudates. NECK: No masses, no JVD. CHEST: No chest wall deformity. LUNGS: Equal air entry with crackles in the right posterior base. CVS: S1 and S2 normal with no audible murmur, regular rhythm. ABDOMEN: No hepatosplenomegaly, normal bowel sounds, no guarding or rigidity. SPINE: No scoliosis or deformity SKIN: No rashes CENTRAL NERVOUS SYSTEM: No focal deficits, tone is normal in all 4 extremities. EXTREMITIES: There is no peripheral edema. No clubbing, no cyanosis. Peripheral pulses are intact. - Labs CBC & Chem 7: 11/19/21 07:29 11/19/21 07:29 Labs: Abnormal Lab Results - Last 24 Hours (Table) 11/19/21 11/19/21 11/19/21 Range/Units 00:07 07:29 07:29 MCHC 30.6 L (31.0-37.0) g/dL Plt Count 125 L (150-450) k/uL Lymphocytes # 0.8 L (1.0-4.8) k/uL APTT >200.0 H* (22.0-30.0) sec Sodium 135 L (137-145) mmol/L Carbon Dioxide 32 H (22-30) mmol/L BUN 22 H (7-17) mg/dL Glucose 126 H (74-99) mg/dL 11/19/21 Range/Units 07:29 MCHC (31.0-37.0) g/dL Plt Count (150-450) k/uL Lymphocytes # (1.0-4.8) k/uL APTT 192.0 H* (22.0-30.0) sec Sodium (137-145) mmol/L Carbon Dioxide (22-30) mmol/L BUN (7-17) mg/dL Glucose (74-99) mg/dL Microbiology - Last 24 Hours (Table) 11/17/21 22:30 Nasal Screen MRSA/MSSA - Final Nasal Swab Assessment and Plan Assessment: 1 Non-ST segment elevation myocardial infarction in a patient found to have a 99% stenosis of the ostial RCA with unsuccessful PCI. 2 Severe aortic stenosis 3 Ischemic cardiomyopathy with an ejection fraction 25-30% 4 Acute on chronic systolic congestive heart failure with right-sided pleural effusion 5 Acute on chronic hypoxemic respiratory failure secondary to above 6 History of COVID-19 pneumonia in April 2021 requiring subsequent home oxygen at 2 L/m 7 Chronic obstructive pulmonary disease with an FEV1 value of 45% of predicted and abnormal MVV 8 Morbid obesity 9 Hypertension 10 Hyperlipidemia 11 Anxiety/depression 12 Poor overall functional performance based on the above-mentioned multiple comorbidities Plan: The patient was seen and evaluated Labs reviewed Continue DuoNeb inhalations, Symbicort Continue IV diuretics, monitoring intake and output Heparin drip continues Possible CABG x 1 and TAVR versus another attempt at PCI of the RCA We will continue to follow and make further recommendations based on her clinical status I have personally seen and examined the patient, performed the documentation and the assessment and plan as written. Number of minutes spent on the visit: 10.
--- NOTE | 2021-11-19 14:24 | P.PN ---
Subjective Progress Note Date: 11/19/21 HISTORY OF PRESENT ILLNESS This is a 71-year-old female with past medical history of dilated cardiomyopathy with ejection fraction of 15-20%, severe aortic valve stenosis, mild aortic regurgitation with moderate to severe mitral regurgitation, chronic systolic heart failure, hyperlipidemia, obesity with possible obstructive sleep apnea and obesity hypoventilation syndrome, chronic hypoxic respiratory failure on home O2 at 2 L nasal cannula, hypertension hypertensive cardio vascular disease, previous Covid 19 infection. Patient presented to [facility] slight elevation of troponin, EKG showed changes suggestive ischemic changes and was started on aspirin, heparin drip and admitted to the hospital. Patient was seen by cardiology. She was supposed to have a heart catheterization done as an outpatient along with LISA for possible aortic valve replacement and mitral valve and possible CABG. Patient underwent coronary angiography finding right dominant vessel, 99% ostial stenosis, aortic pressure is 100/70, 40 mm gradient across the aortic valve. Left ventricular end diastolic pressure is 2530. Patient was transferred to [facility] for PTCA and stent placement of the RCA which was unsuccessful. Consult with cardiothoracic surgery for CABG and valve repair/replacement. 11/18: Patient is seen today in the intensive care unit. She denies chest pain or shortness of breath. She complains of anxiety and decreased appetite. Less cough today.She has been seen by head mechanic and cardiothoracic surgery, currently on heparin drip, consult was added for dental evaluation and clearance and panoramic CT. Patient has been afebrile, heart rate in the 80s, blood pressure 101/73, pulse ox 96%. Repeat blood work reveals CBC is unremarkable. Potassium 4.0. Urinalysis negative for infection. Hepatitis panel negative. MRSA nasal screen is in process. CT of the chest revealed cardiomegaly with suspected pulmonary edema and moderate to marked right sided pleural effusion. Associated infection can't be excluded. Echocardiogram reveals EF of 25-30% with mild concentric left ventricular hypertrophy, severe global hypokinesia of the LV, severe aortic stenosis with gradient 78.27 mm a new 3/47.94 mmHg, trace mitral regurgitation, mild mitral stenosis, mild tricuspid regurgitation, mild pulmonary hypertension, RVSP 43.33 mmHg. Carotid ultrasound revealed less than 50% stenosis bilateral carotid systems. /2: Patient is sitting up in bed she underwent CTA of the chest for evaluation of dissection of the right coronary artery, she denies any chest pain at this time, she has no shortness breath, she has no abdominal pain, nausea or vomiting, she continues to have some coughing noted from production, she continues to be somewhat depressed and anxious and she is not sure what to do, she is missing her daughter she stated and she doesn't think her daughter is able to come and see her. REVIEW OF SYSTEMS Constitutional: No fever, no chills, no night sweats. No weight change. No weakness, fatigue or lethargy. No daytime sleepiness. HEENT: No headache. No blurred vision or double vision, no loss of vision. No loss of Hearing, no ringing in the ears, no dizziness. No nasal drainage or congestion. No epistaxis. No sore throat. Lungs: Positive for shortness of breath, positive for cough, no sputum production. No wheezing. Reports dyspnea on exertion. Cardiovascular: No chest pain, no lower extremity edema. No palpitations. No paroxysmal nocturnal dyspnea. No orthopnea. No lightheadedness or dizziness. No syncopal episodes. Abdominal: No abdominal pain. No nausea, vomiting. No diarrhea. No constipation. No bloody or tarry stools. Reports loss of appetite. Genitourinary: No dysuria, increased frequency, urgency. No urinary retention. Musculoskeletal: No myalgias. No muscle weakness, no gait dysfunction, no frequent falls. No back pain. No neck pain. Integumentary: No wounds, no lesions. No rash or pruritus. Positive for bruising. No change in hair or nails. Neurologic: No aphasia. No facial droop. No change in mentation. No head injury. No headache. No paralysis. No paresthesia. Psychiatric: No depression. Reports anxiety. No mood swings. Endocrine: No abnormal blood sugars. No weight change. No excessive sweating or thirst. No cold intolerance. PHYSICAL EXAMINATION Gen: This is a 71-year-old female. HEENT: Head is atraumatic, normocephalic. Pupils equal, round. Sclerae is anicteric. NECK: Supple. No JVD. No lymphadenopathy. No thyromegaly. LUNGS: Decreased breath sounds at the bases, decreased tactile fremitus at the right lower third, few rhonchi, no expiratory wheeze, no chest wall tenderness. No intercostal retractions. HEART: First heart sound is depressed, second heart sound is normal, systolic ejection murmur 3/6 at the right upper sternal border radiating to the base of the neck, systolic ejection murmur 2/6 at the apex rating to the axilla. ABDOMEN: Soft,, nontender, nondistended, positive bowel sounds, multiple ecchymosis. EXTREMITIES: 1+ pedal edema. No calf tenderness. Her cells pedis +1 bilaterally. Bilateral hammertoes. NEUROLOGICAL: Patient is awake, alert and oriented x3. Cranial nerves 2 through 12 are grossly intact., Cranial nerves II-12 appear grossly intact, muscle power 4 out of 5 in upper and lower extremities bilaterally. ASSESSMENT AND PLAN 1. Non ST elevation myocardial infarction with history of prior dilated cardiomyopathy status post coronary angiography finding right dominant vessel, 99% ostial stenosis, aortic pressure is 100/70, 40 mm gradient across the aortic valve. Left ventricular end diastolic pressure is 2530. Patient was transferred to [facility] for PTCA and stent placement of the RCA which was unsuccessful. Consult with cardiothoracic surgery appreciated. Cardiac Cath Lab Manager consultation appreciated.. Continue aspirin 81 mg daily, on Coreg 6.25 mg twice daily. Patient is unable to tolerate statins because of significant myopathy and plan is to start her on Repatha under 40 mg subcu every 2 weeks. Dental evaluation with panoramic CT. 2. Dilated cardiomyopathy. continue patient on carvedilol 6.25 minute gram orally twice every day, continue Lasix 40 mg IV push every 12 hours, continue with monitoring input and output and daily weight. 3. Severe aortic valve stenosis with mild aortic regurgitation. Patient will require aortic valve replacement versus TAVR. 4. Moderate to Severe mitral regurgitation. likely will continue with conservative management no plan for mitral valve repair. 5. Hyperlipidemia. Patient unable to tolerate statins. patient needs to be sta rted on Repatha 140 mg subcu test every 12 hours. 6. Obesity with obstructive sleep apnea and obesity hypoventilation syndrome. Patient has not had sleep study done yet. 7. Chronic hypoxic respiratory failure secondary to his Covid 19 and underlying COPD and possible obstructive sleep apnea and hypoventilation syndrome. Patient is normally on 2 L nasal cannula. 8. Acute on chronic systolic heart failure. Continue Lasix 40 mg IV every 12 hours, Coreg, Aldactone 25 mg daily. 9. Hypertension, hypertensive cardiovascular disease. continue carvedilol 6.25 mg orally twice every day. 10. Recurrent depression and generalized anxiety disorder. Continue Zoloft 100 mg orally once every day. 11. DVT prophylaxis. continue patient on heparin drip. 12. GI prophylaxis. Protonix 40 mg IV push daily. 13. Overall prognosis is very guarded. Objective - Vital Signs Vital signs: Vital Signs Temp 98.0 F 11/19/21 12:00 Pulse 73 11/19/21 13:00 Resp 20 11/19/21 13:00 BP 100/66 11/19/21 13:00 Pulse Ox 97 11/19/21 13:00 Intake & Output 11/18/21 11/19/21 11/19/21 18:59 06:59 18:59 Intake Total 342.660 385.265 257.338 Output Total 750 1150 150 Balance -407.340 -764.735 107.338 Weight 107.7 kg Intake: IV 220 240 140 Sodium Chloride 0.9% 1, 220 240 140 000 ml @ 20 mls/hr IV . Q24H MARY Rx#:[id number] Intake, IV Titration 122.660 145.265 117.338 Amount Heparin Sod,Pork in 0.45% 122.660 145.265 117.338 NaCl 25,000 unit In 0.45 % NaCl 1 250ml.bag @ 18 UNITS/KG/HR 19.224 mls/hr IV .Q13H1M MARY Rx#: [id number] Output: Urine 750 1150 150 Stool 0 Other: Voiding Method Incontinent Incontinent Incontinent External Catheter External Catheter External Catheter # Voids 0 ABP, PAP, CO, CI - Last Documented Arterial Blood Pressure 107/66 - Labs CBC & Chem 7: 11/19/21 07:29 11/19/21 07:29 Labs: Abnormal Lab Results - Last 24 Hours (Table) 11/19/21 11/19/21 11/19/21 Range/Units 00:07 07:29 07:29 MCHC 30.6 L (31.0-37.0) g/dL Plt Count 125 L (150-450) k/uL Lymphocytes # 0.8 L (1.0-4.8) k/uL APTT >200.0 H* (22.0-30.0) sec Sodium 135 L (137-145) mmol/L Carbon Dioxide 32 H (22-30) mmol/L BUN 22 H (7-17) mg/dL Glucose 126 H (74-99) mg/dL 11/19/21 Range/Units 07:29 MCHC (31.0-37.0) g/dL Plt Count (150-450) k/uL Lymphocytes # (1.0-4.8) k/uL APTT 192.0 H* (22.0-30.0) sec Sodium (137-145) mmol/L Carbon Dioxide (22-30) mmol/L BUN (7-17) mg/dL Glucose (74-99) mg/dL Microbiology - Last 24 Hours (Table) 11/17/21 22:30 Nasal Screen MRSA/MSSA - Final Nasal Swab
--- NOTE | 2021-11-19 14:49 | CT ---
EXAMINATION TYPE: CT angio chest DATE OF EXAM: 11/19/2021 COMPARISON: Chest CT from yesterday. HISTORY: Evaluate aortic root for dissection CT DLP: 1715 mGycm. Automated Exposure Control for Dose Reduction was Utilized. CONTRAST: CTA scan of the thorax is performed without and with IV Contrast, patient injected with 100ml mL of I sovue 370, aneurysm protocol. . 3D reconstructed images are created on an independent workstation and reviewed. FINDINGS: Exam is suboptimal as patient unable to hold breath LUNGS: Small to moderate size right pleural effusion is redemonstrated. Additional scattered areas of groundglass opacity throughout the bilateral lungs with slightly more prominent versus prior study. No pneumothorax seen bilaterally. No significant left-sided pleural effusion. MEDIASTINUM: No suspicious hyperdense material to suggest intramural hematoma. Surgical change at lev el of the aortic valve is present. Postcontrast images show no linear hypodensity to suggest aortic d issection. No thoracic aortic aneurysm is seen. Normal three-vessel origin from the aortic arch. Pers istent prominent prevascular along with AP window and right pericarinal lymph nodes axial image 52 ar e redemonstrated. Prominent right and left pulmonary arteries consistent with underlying pulmonary ar rizwan hypertension are redemonstrated. Persistent cardiomegaly. No pericardial effusion. OTHER: There is persistent 1.7 cm dermal posterior right upper thoracic rounded low dense lesion axia l image 9 favoring sebaceous cyst or other benign dermatologic etiology. IMPRESSION: 1. No CTA evidence for thoracic aortic aneurysm or dissection. 2. Cardiomegaly with small to moderate-sized right pleural effusion redemonstrated. There is bilatera l alveolar and interstitial edema redemonstrated. Cannot exclude bilateral multifocal areas of worsen ing acute infiltrates. Correlate to exclude COVID-19 infection. Evidence of underlying pulmonary sharon ry hypertension. Reactive thoracic adenopathy redemonstrated.
[2021-11-19] MEDS: carvediloL 3.125 MG TAB PO SCH (18:34)
[2021-11-19] MEDS: ACETAMINOPHEN TAB 325 MG TAB PO PRN (20:06)
[2021-11-19] MEDS: ATORVASTATIN 40 MG TAB PO SCH (20:06)
[2021-11-20] MEDS: MELATONIN 3 MG TABLET PO SCH ×2 (00:40→20:09)
[2021-11-20] MEDS: SYMBICORT 160-4.5 MCG INHALER INHALATION SCH ×3 (07:33→19:47)
[2021-11-20] MEDS: IPRATROPIUM-ALBUTEROL 3 ML NEB INHALATION SCH ×5 (07:33→19:47)
[2021-11-20 08:49] LABS: African American GFR (CKD) >90 (>60 ml/min/1.73 sqM); Anion Gap 5 mmol/L; Blood Urea Nitrogen 21 mg/dL (7-17); Calcium 8.6 mg/dL (8.4-10.2); Carbon Dioxide 30 mmol/L (22-30); Chloride 98 mmol/L (98-107); Glucose 151 mg/dL (74-99); Non-African American GFR(CKD) 87 (>60 ml/min/1.73 sqM); Potassium 4.1 mmol/L (3.5-5.1); Sodium 133 mmol/L (137-145)
--- NOTE | 2021-11-20 08:59 | US ---
EXAMINATION TYPE: US vein mapping BIL DATE OF EXAM: 11/18/2021 7:42 AM COMPARISON: NONE CLINICAL HISTORY: PreOp Cardiac Surgery. pre op cardiac surgery SIDE PERFORMED: bilateral TECHNIQUE: Lower extremity saphenous vein is examined and measured utilizing real time linear array sonography. Patient History: Smoker: previous Heart Disease: yes Previous DVT: no Vascular Surgery: no Discoloration: yes Hypertension: no Diabetes: no Paralysis: no Varicosities: no Edema: no DUPLEX FINDINGS: Greater Saphenous: Color flow seen Measurements in mm: Right Greater Saphenous: Groin: 6.1 x 5.3 mm High Thigh: 4.1 x 4.0 mm Mid Thigh: 3.6 x 3.2 mm Above Knee: 3.7 x 3.6 mm Knee: 3.1 x 3.3 mm Below Knee: 3.3 x 3.0 mm Mid Calf: 2.4 x 2.1 mm At Ankle: 2.2 x 1.9 mm Left Greater Saphenous: Groin: 7.8 x 6.9 mm High Thigh: 5.4 x 4.7 mm Mid Thigh: 6.3 x 5.2 mm Above Knee: 6.0 x 4.6 mm Knee: 5.6 x 4.6 mm Below Knee: 5.2 x 4.0 mm Mid Calf: 3.8 x 3.1 mm At Ankle: 3.0 x 2.2 mm IMPRESSION: 1. Bilateral GSV measurements listed above. 2. Performing surgeon to determine viability as conduit.
[2021-11-20] MEDS ORDERED: SERTRALINE 100 MG TAB PO SCH (09:00)
--- NOTE | 2021-11-20 09:02 | US ---
EXAMINATION TYPE: US arterial LE single level DATE OF EXAM: 11/18/2021 2:18 PM CLINICAL HISTORY: Ankle Brachial Index (ROYAL) . History of hyperlipidemia. Chest pain. Preoperative ca rdiac surgery. Doppler Waveforms: Right: Monophasic to biphasic Left: Monophasic to Biphasic Ankle-Brachial Indices: Right: 1.24 Left: 1.24 IMPRESSION: ROYAL values are within normal limits. Loss of phasicity bilaterally may be technical as t here is improved phasicity right dorsalis pedis. Cannot exclude peripheral arterial disease with loss of phasicity.
--- NOTE | 2021-11-20 10:06 | P.PN ---
Subjective Progress Note Date: 11/20/21 Principal diagnosis: Coronary artery disease with 99% RCA stenosis, non-STEMI this admission, status post unsuccessful PCI to the right coronary artery, severe aortic valve stenosi s, trace mitral valve regurgitation with mild mitral valve stenosis, dilated cardiomyopathy, acute on chronic systolic heart failure. Past medical history significant for hypertension, hyperlipidemia, chronic hypoxic respiratory failure on 2 L nasal cannula home oxygen, COVID-19 pneumonia in April 2021, remains unvaccinated for COVID-19, morbid obesity, depression, remote history of nicotine dependence, severe restrictive lung disease. The patient was seen in follow-up today 11/20/2021 at her bedside in the intensive care unit. The patient is laying in bed, is very teary eyed and repo rts she feels quite depressed again this morning. Denies any complaints of pain or shortness of breath, although is complaining of a cough with pain to her abdomen with coughing. Denies any nausea or vomiting. Oxygen saturations are 96% on 2 L nasal cannula. She is achieving 1500 mL on her incentive spirometry with encouragement. Bedside telemetry showing normal sinus rhythm heart rate 87 BPM. A chest CTA was completed just today with report showing no evidence for thoracic aortic aneurysm or dissection, cardiomegaly with small to moderate size right pleural effusion was redemonstrated, bilateral alveolar and interstitial edema redemonstrated, and evidence of underlying pulmonary artery hypertension and reactive thoracic adenopathy. She has been afebrile in the last 24 hours. Preoperative nasal swab screening was negative for MRSA/MSSA. A 5 m walk test was attempted this morning although on attempting to get the patient out of bed the patient became very teary-eyed, and agitated and urinated on the floor. The 5 mm walk test was unable to be completed as the patient said she could not do it. Objective - Vital Signs Vital signs: Vital Signs Temp 98.1 F 11/20/21 08:00 Pulse 90 11/20/21 08:00 Resp 20 11/20/21 08:00 BP 92/55 11/20/21 08:00 Pulse Ox 95 11/20/21 08:00 Intake & Output 11/19/21 11/20/21 11/20/21 18:59 06:59 18:59 Intake Total 959.154 489.598 40 Output Total 550 800 0 Balance 409.154 -310.402 40 Weight 110.4 kg Intake: IV 740 240 40 0.9 NACL bolus 500 Sodium Chloride 0.9% 1, 240 240 40 000 ml @ 20 mls/hr IV . Q24H [facility] Rx#:[id number] Intake, IV Titration 219.154 69.598 Amount Heparin Sod,Pork in 0.45% 219.154 69.598 NaCl 25,000 unit In 0.45 % NaCl 1 250ml.bag @ 18 UNITS/KG/HR 19.224 mls/hr IV .Q13H1M [facility] Rx#: [id number] Oral 180 Output: Urine 550 800 0 Stool 0 Other: Voiding Method Incontinent Incontinent External Catheter External Catheter ABP, PAP, CO, CI - Last Documented Arterial Blood Pressure 107/66 - Exam CONSTITUTIONAL: Very tearful, episodes of agitation and is in no acute distress. RESPIRATORY: Lungs sounds essentially clear throughout, diminished bilateral bases, right greater than left. Respirations are symmetrical and nonlabored. Currently on 2 L nasal cannula with oxygen saturation 9%. Able to achieve 1500 mL on incentive spirometry. Strong cough. CARDIOVASCULAR: S1, S2 present, pansystolic murmur present 3/6. Regular rate and rhythm, sinus rhythm on telemetry. Doppler lower extremity pulses bilaterally. No calf pain or tenderness noted. GASTROINTESTINAL: Abdomen soft, nontender, nondistended. Active bowel sounds present 4 quadrants. Tolerating diet. INTEGUMENTARY: Skin is warm and dry with evidence of good perfusion. NEUROLOGIC: Cranial nerves II through XII intact MUSKULOSKELETAL: Able to move all extremities, strength equal bilaterally. PSYCHIATRIC: Alert, oriented to person place and time, flat affect. - Allied health notes Allied health notes reviewed: nursing - Labs CBC & Chem 7: 11/19/21 07:29 11/20/21 08:29 Labs: Abnormal Lab Results - Last 24 Hours (Table) 11/19/21 11/19/21 11/20/21 Range/Units 07:29 16:21 00:29 APTT 192.0 H* 93.4 H 51.0 H (22.0-30.0) sec Microbiology - Last 24 Hours (Table) 11/17/21 22:30 Nasal Screen MRSA/MSSA - Final Nasal Swab - Imaging and Cardiology CT scan - chest: report reviewed, image reviewed Assessment and Plan Assessment: 1. Coronary artery disease with 99% RCA stenosis, non-STEMI this admission, status post unsuccessful PCI to the right coronary artery 2. Severe aortic valve stenosis, peak/mean gradient 78.27/47.94 mmHg 3. Trace mitral regurgitation with mild mitral stenosis on transthoracic echocardiogram, peak/mean gradients of 14.48/6.4 mmHg, 4. Dilated cardiomyopathy 5. Acute on chronic systolic heart failure, EF 25-30% on transthoracic echocardiogram 6. History of hypertension 7. Hyperlipidemia, cholesterol 333, LDL 263 8. Chronic hypoxic respiratory failure on 2 L nasal cannula home oxygen 9. COVID-19 pneumonia in April 2021 10. Remains unvaccinated for COVID-19 11. Morbid obesity 12. Depression, currently on Zoloft 13. Remote history of nicotine dependence 14. Severe restrictive lung disease, FEV1 45% of predicted 15. Generalized debility, patient uses walker for ambulation Plan: 1. Continue aspirin, statin and beta josé. Heparin drip managed by cardiology. 2. Continue diuresis, heart failure management per cardiology. 3. STS risk calculated and was discussed with the patient by Dr Simon. Patient is very high risk for surgery due to multiple comorbidities, final decision regarding surgery still pending versus high risk PCI option and future TAVR. 4. Medical management of other comorbidities per primary care service. 5. More recommendations to follow based on patient's clinical course. Addendum: Agree with above. CTA Chest does not show aortic dissection. However, the patient is a very poor surgical candidate for CABG/AVR at this time. She is not motivated with multiple psych issues. In addition she is high risk from the pulmonary standpoint s/p COVID 19 infection last apr. Of note, she is also not vaccinated. She will do poorly with surgery. Discussed with Dr. Medina. Plan will be PCI/TAVR. Time with Patient: Greater than 30
--- NOTE | 2021-11-20 10:14 | P.PN ---
Subjective Progress Note Date: 11/20/21 Principal diagnosis: Non-STEMI This is a pleasant 71-year-old female patient who has a history of hypertension, hyperlipidemia, anxiety/depression, obesity, previous chronic tobacco dependence, chronic hypoxic respiratory failure from a COVID-19 pneumonia in 2020. Remains unvaccinated. She also has a previous non-ST segment elevation myocardial infarction, cardiomyopathy with ejection fraction 25-30%, severe aortic stenosis. She was recently admitted to [facility] for dizziness and nausea and had undergone cardiac catheterization which revealed a 99% stenosis of the ostial RCA and transferred here for intervention. Unfortunately the lesion was too tight to cross and the procedure was aborted. She is being evaluated by surgical services for possible single-vessel bypass and aortic valve replacement. She is seen today in consultation in the intensi ve care unit and his pacing possible surgery. She is currently sitting up in bed. Awake and alert. Anxious, teary-eyed. She was found to have an FEV1 value of 45% of predicted. Currently, she denies any worsening shortness of breath, cough or congestion. She is maintaining O2 saturations in the mid 90s on 2 L/m per nasal cannula. She's been afebrile. She has normal saline running at 20 ML's per hour. She remains on a heparin drip per weight base protocol. Computed tomography scan of the chest reveals moderate right-sided pleural effusion with some fluid in the fissure. White count 7.1. Hemoglobin 12.8. Sodium 135. Potassium 4.0. BUN 22. Creatinine 0.65. We'll switch 28. AST 21. ALT 16. Urinalysis negative. Hepatitis screen negative. The patient is seen today 11/19/2021 in follow-up in the ICU. She is currently sitting up in bed. Awake and alert in no acute distress. Maintaining O2 saturations in the 90s on 2 L/m per nasal cannula. She has normal saline running 20 miles per hour. Heparin per weight-based protocol. She currently denies any worsening shortness of breath, cough or congestion. No chest pain or palpitations. White count 7.4. Hemoglobin 12.1. Platelets 125. Sodium 135. Potassium 3.7. Bicarb 32. BUN 22. Creatinine 0.61. She is continued on DuoNeb inhalations, Symbicort. She remains on IV diuretics. Currently in a - 1.1 L balance. On 11/20/2021 patient seen in follow-up in intensive care unit, she is resting in bed, denies any chest pain, she is awake and alert, she is slightly tearful at the possibility of having to be transferred to a tertiary care facility because of being high risk for surgical intervention for coronary artery disease with non-ST elevated myocardial infarct in this admission and status post unsuccessful PCI to the RCA, and severe aortic valve stenosis. She is currently on 2 L of oxygen breathing currently, pulse ox is 95-97%, hemodynamically she is stable, not requiring any vasoactive drips, she is on heparin at weight-based protocol, point tenderness and a to 20 ML per hour. CTA chest was completed showing no evidence for thoracic aortic aneurysm or dissection, cardiomegaly with small to moderate-sized right pleural effusion, and bilateral alveolar and interstitial edema, possibility of bilateral multifocal areas of acute infiltrate could not be completely excluded. Patient continues on IV diuretics Lasix 40 mg every 8 hours, the patient is an +98 mL net fluid balance over the last 24 hours, trace s lower extremity edema although her weight is up by 2.7 kg according to the recorded weights. Patient currently continues on inhaled and nebulized bronchodilators, she is on home dose Coreg 3.125 mg twice daily, digoxin 125 mics daily, she is on Lipitor 40 mg, aspirin 81 mg, and Aldactone [address] surgery are closely following. Today's labs have been reviewed, sodium is 133, potassium is 4.1, B1 is 21 creatinine 0.69. Objective - Vital Signs Vital signs: Vital Signs Temp 98.1 F 11/20/21 08:00 Pulse 79 11/20/21 09:00 Resp 18 11/20/21 09:00 BP 92/66 11/20/21 09:00 Pulse Ox 97 11/20/21 09:00 Intake & Output 11/19/21 11/20/21 11/20/21 18:59 06:59 18:59 Intake Total 959.154 489.598 60 Output Total 550 800 0 Balance 409.154 -310.402 60 Weight 110.4 kg Intake: IV 740 240 60 0.9 NACL bolus 500 Sodium Chloride 0.9% 1, 240 240 60 000 ml @ 20 mls/hr IV . Q24H [facility] Rx#:[id number] Intake, IV Titration 219.154 69.598 Amount Heparin Sod,Pork in 0.45% 219.154 69.598 NaCl 25,000 unit In 0.45 % NaCl 1 250ml.bag @ 18 UNITS/KG/HR 19.224 mls/hr IV .Q13H1M [facility] Rx#: [id number] Oral 180 Output: Urine 550 800 0 Stool 0 Other: Voiding Method Incontinent Incontinent External Catheter External Catheter ABP, PAP, CO, CI - Last Documented Arterial Blood Pressure 107/66 - Exam GENERAL EXAM: Alert, very pleasant, 71-year-old white female, resting in bed, on 2 L of oxygen pulse ox is 95-97% comfortable in no apparent distress. HEAD: Normocephalic/atraumatic. EYES: Normal reaction of pupils, equal size. Conjunctiva pink, sclera white. NOSE: Clear with pink turbinates. THROAT: No erythema or exudates. NECK: No masses, no JVD, no thyroid enlargement, no adenopathy. CHEST: No chest wall deformity. Symmetrical expansion. LUNGS: Equal air entry with diminished breath sounds at the bases CVS: Regular rate and rhythm, normal S1 and S2, no gallops, no murmurs, no rubs ABDOMEN: Soft, nontender. No hepatosplenomegaly, normal bowel sounds, no guarding or rigidity. EXTREMITIES: No clubbing, trace pretibial edema, chronic venous stasis changes in bilateral lower extremities no cyanosis, 2+ pulses and upper and lower extremities. MUSCULOSKELETAL: Muscle strength and tone normal. SPINE: No scoliosis or deformity SKIN: No rashes CENTRAL NERVOUS SYSTEM: Alert and oriented -3. No focal deficits, tone is normal in all 4 extremities. PSYCHIATRIC: Alert and oriented -3. Appropriate affect. Intact judgment and insight. - Labs CBC & Chem 7: 11/19/21 07:29 11/20/21 08:29 Labs: Abnormal Lab Results - Last 24 Hours (Table) 11/19/21 11/20/21 11/20/21 Range/Units 16:21 00:29 08:29 APTT 93.4 H 51.0 H 52.7 H (22.0-30.0) sec Sodium (137-145) mmol/L BUN (7-17) mg/dL Glucose (74-99) mg/dL 11/20/21 Range/Units 08:29 APTT (22.0-30.0) sec Sodium 133 L (137-145) mmol/L BUN 21 H (7-17) mg/dL Glucose 151 H (74-99) mg/dL Microbiology - Last 24 Hours (Table) 11/17/21 22:30 Nasal Screen MRSA/MSSA - Final Nasal Swab Assessment and Plan Plan: Assessment: #1. Acute non-ST segment elevated myocardial infarction with 99% stenosis of the ostial RCA with unsuccessful PCI #2. Severe aortic stenosis #3. Severe pulmonary hypertension #4. Ischemic cardiomyopathy with an ejection fraction of 25-30% #5. Acute on chronic systolic CHF with a right-sided pleural effusion #6. History of COVID-19 pneumonia in April 2021 requiring subsequent home oxygen at 2 L/m #7. COPD with an FEV1 value of 45% of predicted and an abnormal MVV #8. Morbid obesity #9. Hypertension #10. Hyperlipidemia #11. Anxiety and depression #12. Poor overall functional performance based on the above-mentioned multiple comorbidities Plan: Continue current medical management Continue monitoring in the intensive care unit Patient continues on diuretics CTA chest has been reviewed Continue beta blockers, Lipitor, aspirin, digoxin per cardiology Patient is undergoing preop evaluation and thus far has been found to be moderate to severe surgical risk There is a possibility of transfer to a tertiary care facility per attending physician Continue to monitor her clinical course in the ICU I have personally seen and examined the patient, performed the documentation and the assessment and plan as written. Number of minutes spent on the visit: [15] Time with Patient: Less than 30
[2021-11-20] MEDS: FUROSEMIDE 10 MG/ML 4 ML VIAL IV SCH ×2 (10:29→20:09)
[2021-11-20] MEDS: SPIRONOLACTONE 25 MG TAB PO SCH (10:29)
[2021-11-20] MEDS: DIGOXIN 125 MCG TAB PO SCH (10:29)
[2021-11-20] MEDS: carvediloL 3.125 MG TAB PO SCH ×2 (10:29→17:49)
[2021-11-20] MEDS: SODIUM CHLORIDE 0.9% 1,000 ML IV SCH (10:30)
[2021-11-20] MEDS: ASPIRIN 81 MG PO SCH (10:30)
[2021-11-20] MEDS: PANTOPRAZOLE 40 MG/10 ML VIAL IVP SCH (10:31)
--- NOTE | 2021-11-20 10:32 | P.PN ---
Subjective HISTORY OF PRESENTING ILLNESS Patient is a 71-year-old female with history of coronary artery disease, cardiomyopathy with EF 15-20%, severe aortic stenosis, moderate to severe mitral regurgitation, systolic heart failure, hypertension, hyperlipidemia, depression, morbid obesity, COVID-19 infection April 2021 with oxygen dependence after who presented to [facility] with episodes of feeling flushed and mildly nauseous. She attributes much of her symptoms to changing her medication from lisinopril to hydrochlorothiazide apparently. She normally follows in the office with Dr. Holland. She was treated for congestive heart failure previously and mid October however believe she was having a reaction to the medications and therefore came to emergency department like urine. Blood work showed elevated proBNP of 5800, hemoglobin 11.9, BUN 20, creatinine 0.8, elevated troponins. Chest x-ray showed mild vascular congestion and 2-D echo 10/31/2021 showed severe varicose stenosis, moderate to severe mitral regurgitation, dilated left ventricle with an EF 15-20%. Therefore heart catheterization was performed 11/17 and showed mild disease of the left and RCA 99% stenosis which was very proximal. She underwent attempted PCI however was noted to have dissection and therefore procedure was aborted. Patient denied any actual chest pain or pressure during procedure and has done well since then. This did appear to be more of a dissection involving the aortic root appeared fairly mild on personal review. Therefore patient was placed in the ICU and monitored. She admits to continued shortness breath however no significant chest pain or similar nausea feeling. 4/2 Patient seen and examined. Patient denies any chest pain or pressure. Denies any of the nausea type symptoms that brought her into the hospital. Still coughing somewhat. Has been diuresing with good urine output. 4/3 Patient seen and examined. Patient denies any chest pain or pressure. She is very upset this morning and feels weak all over. She states she is still very afraid of any surgery. Denies any actual lightheadedness. Blood pressures of mainly been 90s over 70s. Has been continue to diuresis. PHYSICAL EXAMINATION Vital signs reviewed. CONSTITUTIONAL: No apparent distress, obese, chronically ill appearing, +cough HEENT: Head is normocephalic. Pupils are equal, round. Sclerae anicteric. Mucous membranes of the mouth are moist. No carotid bruit. CHEST EXAMINATION: Lungs are clear to auscultation. HEART EXAMINATION: Regular rate and rhythm. S1, S2 heard. +3/6 systolic murmur, no gallops or rub. ABDOMEN: Soft, nontender. Positive bowel sounds. EXTREMITIES: 2+ peripheral pulses, no lower extremity edema and no calf tenderness. NEUROLOGIC EXAMINATION: Patient is awake, alert and oriented x3. ASSESSMENT 1. Acute on chronic systolic heart failure 2. Non-STEMI 3. Coronary artery disease including 99% RCA stenosis status post failed attempted PCI 4. Hypertension 5. Hyperlipidemia 6. Cardiomyopathy mainly nonischemic with CAD out of proportion to cardiomyopathy 7. Severe aortic stenosis 8. Mitral regurgitation 9. Oxygen dependence status post COVID-19 infection PLAN Long discussion with patient as well as surgeons. Patient appears to be high risk for CABG and aortic valve replacement. Cath films reviewed with possibility of attempted repeat PCI and iFR of LAD with possible PCI of LAD if abnormal with TAVR down the road. Patient agreeable to plan however still appears very depressed and currently somewhat lethargic today. Today's presentation appears more psychiatric in nature and does not appear to be decompensating from her aortic stenosis or CAD. Repeat EKG unchanged. Continue to monitor closely. Continue heparin drip. Load with Plavix 600 mg tomorrow morning and PCI tomorrow. Objective - Vital Signs Vital signs: Vital Signs Temp 98.1 F 11/20/21 08:00 Pulse 88 11/20/21 10:00 Resp 30 H 11/20/21 10:00 BP 90/71 11/20/21 10:00 Pulse Ox 97 11/20/21 10:00 Intake & Output 11/19/21 11/20/21 11/20/21 18:59 06:59 18:59 Intake Total 959.154 489.598 80 Output Total 550 800 0 Balance 409.154 -310.402 80 Weight 110.4 kg Intake: IV 740 240 80 0.9 NACL bolus 500 Sodium Chloride 0.9% 1, 240 240 80 000 ml @ 20 mls/hr IV . Q24H [facility] Rx#:[id number] Intake, IV Titration 219.154 69.598 Amount Heparin Sod,Pork in 0.45% 219.154 69.598 NaCl 25,000 unit In 0.45 % NaCl 1 250ml.bag @ 18 UNITS/KG/HR 19.224 mls/hr IV .Q13H1M [facility] Rx#: [id number] Oral 180 Output: Urine 550 800 0 Stool 0 Other: Voiding Method Incontinent Incontinent External Catheter External Catheter # Voids 1 ABP, PAP, CO, CI - Last Documented Arterial Blood Pressure 107/66 - Labs CBC & Chem 7: 11/19/21 07:29 11/20/21 08:29 Labs: Abnormal Lab Results - Last 24 Hours (Table) 11/19/21 11/20/21 11/20/21 Range/Units 16:21 00:29 08:29 APTT 93.4 H 51.0 H 52.7 H (22.0-30.0) sec Sodium (137-145) mmol/L BUN (7-17) mg/dL Glucose (74-99) mg/dL 11/20/21 Range/Units 08:29 APTT (22.0-30.0) sec Sodium 133 L (137-145) mmol/L BUN 21 H (7-17) mg/dL Glucose 151 H (74-99) mg/dL Microbiology - Last 24 Hours (Table) 11/17/21 22:30 Nasal Screen MRSA/MSSA - Final Nasal Swab
[2021-11-20] MEDS ORDERED: ONDANSETRON 4 MG/2 ML VIAL ONE (11:39)
[2021-11-20] MEDS ORDERED: ONDANSETRON 4 MG/2 ML VIAL IVP PRN (11:39)
--- NOTE | 2021-11-20 12:37 | P.PN ---
Subjective Progress Note Date: 11/20/21 HISTORY OF PRESENT ILLNESS This is a 71-year-old female with past medical history of dilated cardiomyopathy with ejection fraction of 15-20%, severe aortic valve stenosis, mild aortic regurgitation with moderate to severe mitral regurgitation, chronic systolic heart failure, hyperlipidemia, obesity with possible obstructive sleep apnea and obesity hypoventilation syndrome, chronic hypoxic respiratory failure on home O2 at 2 L nasal cannula, hypertension hypertensive cardio vascular disease, previous Covid 19 infection. Patient presented to [facility] slight elevation of troponin, EKG showed changes suggestive ischemic changes and was started on aspirin, heparin drip and admitted to the hospital. Patient was seen by cardiology. She was supposed to have a heart catheterization done as an outpatient along with LISA for possible aortic valve replacement and mitral valve and possible CABG. Patient underwent coronary angiography finding right dominant vessel, 99% ostial stenosis, aortic pressure is 100/70, 40 mm gradient across the aortic valve. Left ventricular end diastolic pressure is 2530. Patient was transferred to [facility] for PTCA and stent placement of the RCA which was unsuccessful. Consult with cardiothoracic surgery for CABG and valve repair/replacement. 11/18: Patient is seen today in the intensive care unit. She denies chest pain or shortness of breath. She complains of anxiety and decreased appetite. Less cough today.She has been seen by drawing instructor and cardiothoracic surgery, currently on heparin drip, consult was added for dental evaluation and clearance and panoramic CT. Patient has been afebrile, heart rate in the 80s, blood pressure 101/73, pulse ox 96%. Repeat blood work reveals CBC is unremarkable. Potassium 4.0. Urinalysis negative for infection. Hepatitis panel negative. MRSA nasal screen is in process. CT of the chest revealed cardiomegaly with suspected pulmonary edema and moderate to marked right sided pleural effusion. Associated infection can't be excluded. Echocardiogram reveals EF of 25-30% with mild concentric left ventricular hypertrophy, severe global hypokinesia of the LV, severe aortic stenosis with gradient 78.27 mm a new 3/47.94 mmHg, trace mitral regurgitation, mild mitral stenosis, mild tricuspid regurgitation, mild pulmonary hypertension, RVSP 43.33 mmHg. Carotid ultrasound revealed less than 50% stenosis bilateral carotid systems. /2: Patient is sitting up in bed she underwent CTA of the chest for evaluation of dissection of the right coronary artery, she denies any chest pain at this time, she has no shortness breath, she has no abdominal pain, nausea or vomiting, she continues to have some coughing noted from production, she continues to be somewhat depressed and anxious and she is not sure what to do, she is missing her daughter she stated and she doesn't think her daughter is able to come and see her. 11/20: Patient is sitting on the bed in no apparent distress, she continues to be quite depressed and anxious about her situation, she has not made up her mind, I had a long conversation with Dr. Medina regarding the plan to pursue the [facility] care at this time, she was deemed high surgical risk per cardiovascular surgery service at the current [facility], and she would benefit from a transcatheter aortic valve replacement plus reattempted PCI of the RCA, her CT angiography of the chest did not show evidence of any dissection of the thoracic aorta , patient is maintained on Zoloft 100 mg every day, she is mentioned in ICU, and the plan to the PCI hopefully in the next 24 hours patient and her daughter Isatu are in agreement for conservative approach and they understand the risks of the procedure and that she will have the TAVR at a later date or during this hospital admission depends on her symptoms, we will consult Psychiatry for depression and possible bipolar disorder. REVIEW OF SYSTEMS Constitutional: No fever, no chills, no night sweats. No weight change. Positive for generalized weakness, positive for fatigue or lethargy. No daytime sleepiness. HEENT: No headache. No blurred vision or double vision, no loss of vision. No loss of Hearing, no ringing in the ears, no dizziness. No nasal drainage or congestion. No epistaxis. No sore throat. Lungs: Positive for shortness of breath, positive for cough, no sputum production. No wheezing. Reports dyspnea on exertion. Cardiovascular: No chest pain, no lower extremity edema. No palpitations. No paroxysmal nocturnal dyspnea. No orthopnea. No lightheadedness or dizziness. No syncopal episodes. Abdominal: No abdominal pain. No nausea, vomiting. No diarrhea. No constipation. No bloody or tarry stools. Reports loss of appetite. Genitourinary: No dysuria, increased frequency, urgency. No urinary retention. Musculoskeletal: No myalgias. Generalized muscle weakness, no gait dysfunction, no frequent falls. Positive for back pain. No neck pain. Integumentary: No wounds, no lesions. No rash or pruritus. Positive for bruising. No change in hair or nails. Neurologic: No aphasia. No facial droop. No change in mentation. No head injury. No headache. No paralysis. No paresthesia. Psychiatric: Positive for depression. Reports anxiety. Positive for mood swings Endocrine: No abnormal blood sugars. Positive for weight change. No excessive sweating or thirst. No cold intolerance. PHYSICAL EXAMINATION Gen: This is a 71-year-old female. HEENT: Head is atraumatic, normocephalic. Pupils equal, round. Sclerae is anicteric. NECK: Supple. No JVD. No lymphadenopathy. No thyromegaly. LUNGS: Decreased breath sounds at the bases, decreased tactile fremitus at the right lower third, few rhonchi, no expiratory wheeze, no chest wall tenderness. No intercostal retractions. HEART: First heart sound is depressed, second heart sound is normal, systolic ejection murmur 3/6 at the right upper sternal border radiating to the base of the neck, systolic ejection murmur 2/6 at the apex rating to the axilla. ABDOMEN: Soft,, nontender, nondistended, positive bowel sounds, multiple e cchymosis. EXTREMITIES: 1+ pedal edema. No calf tenderness. Her cells pedis +1 bilaterally. Bilateral hammertoes. NEUROLOGICAL: Patient is awake, alert and oriented x3. Cranial nerves 2 through 12 are grossly intact., Cranial nerves II-12 appear grossly intact, muscle power 4 out of 5 in upper and lower extremities bilaterally. ASSESSMENT AND PLAN 1. Non ST elevation myocardial infarction with history of prior dilated cardiomyopathy status post coronary angiography finding right dominant vessel, 99% ostial stenosis, aortic pressure is 100/70, 40 mm gradient across the aortic valve. Left ventricular end diastolic pressure is 2530. Patient was transferred to [facility] for PTCA and stent placement of the RCA which was unsuccessful. Consult with cardiothoracic surgery appreciated. Photographic Engineer consultation appreciated.. Continue aspirin 81 mg daily, on Coreg 6.25 mg twice daily. Patient is unable to tolerate statins because of signi ficant myopathy and plan is to start her on Repatha under 40 mg subcu every 2 weeks. Dental evaluation with panoramic CT. 2. Dilated cardiomyopathy. continue patient on carvedilol 3.125 mg orally twice every day, continue Lasix 40 mg IV push every 12 hours, continue with monitoring input and output and daily weight. Continue heparin drip. 3. Severe aortic valve stenosis with mild aortic regurgitation. Discussed with the patient the pros and cons on transcatheter aortic valve replacement versus CABG to the RCA with surgical aortic valve replacement 4. Moderate to Severe mitral regurgitation. likely will continue with conservative management no plan for mitral valve repair. 5. Hyperlipidemia. Patient unable to tolerate statins. She was started on atorvastatin 40 mg once every day. 6. Obesity with obstructive sleep apnea and obesity hypoventilation syndrome. Patient has not had sleep study done yet. 7. Chronic hypoxic respiratory failure secondary to his Covid 19 and underlying COPD and possible obstructive sleep apnea and hypoventilation syndrome. Patient is normally on 2 L nasal cannula. 8. Acute on chronic systolic heart failure. Continue Lasix 40 mg IV every 12 hours, Coreg, Aldactone 25 mg daily. 9. Hypertension, hypertensive cardiovascular disease. continue carvedilol 3.125 mg orally twice every day patient is not on MELODY-I or ARB due to severe hypertension, 10. Recurrent depression and generalized anxiety disorder. Continue Zoloft 50 mg orally once every day, consult Psychiatry for further evaluation 11. DVT prophylaxis. continue patient on heparin drip. 12. GI prophylaxis. Protonix 40 mg IV push daily. 13. Overall prognosis is very guarded. 14. Discussed with CTS and Cardiology, her daughter and her niece. Objective - Vital Signs Vital signs: Vital Signs Temp 98.1 F 11/20/21 08:00 Pulse 88 11/20/21 10:00 Resp 30 H 11/20/21 10:00 BP 90/71 11/20/21 10:00 Pulse Ox 97 11/20/21 10:00 Intake & Output 11/19/21 11/20/21 11/20/21 18:59 06:59 18:59 Intake Total 959.154 489.598 80 Output Total 550 800 0 Balance 409.154 -310.402 80 Weight 110.4 kg Intake: IV 740 240 80 0.9 NACL bolus 500 Sodium Chloride 0.9% 1, 240 240 80 000 ml @ 20 mls/hr IV . Q24H [facility] Rx#:[id number] Intake, IV Titration 219.154 69.598 Amount Heparin Sod,Pork in 0.45% 219.154 69.598 NaCl 25,000 unit In 0.45 % NaCl 1 250ml.bag @ 18 UNITS/KG/HR 19.224 mls/hr IV .Q13H1M [facility] Rx#: [id number] Oral 180 Output: Urine 550 800 0 Stool 0 Other: Voiding Method Incontinent Incontinent External Catheter External Catheter # Voids 1 ABP, PAP, CO, CI - Last Documented Arterial Blood Pressure 107/66 - Labs CBC & Chem 7: 11/19/21 07:29 11/20/21 08:29 Labs: Abnormal Lab Results - Last 24 Hours (Table) 11/19/21 11/20/21 11/20/21 Range/Units 16:21 00:29 08:29 APTT 93.4 H 51.0 H 52.7 H (22.0-30.0) sec Sodium (137-145) mmol/L BUN (7-17) mg/dL Glucose (74-99) mg/dL 11/20/21 Range/Units 08:29 APTT (22.0-30.0) sec Sodium 133 L (137-145) mmol/L BUN 21 H (7-17) mg/dL Glucose 151 H (74-99) mg/dL Microbiology - Last 24 Hours (Table) 11/17/21 22:30 Nasal Screen MRSA/MSSA - Final Nasal Swab
[2021-11-20 13:40] LABS: HCT 34.1 % (34.0-46.0); HGB 10.8 gm/dL (11.4-16.0); Hypochromasia Moderate; MCH 29.1 pg (25.0-35.0); MCHC 31.6 g/dL (31.0-37.0); MCV 91.9 fL (80.0-100.0); Mean Platelet Volume 12.3; Platelet Count 186 k/uL (150-450); RBC 3.72 m/uL (3.80-5.40); RDW 14.5 % (11.5-15.5); WBC 10.6 k/uL (3.8-10.6)
[2021-11-20 16:35] LABS: Basophils # (A) 0.1 k/uL (0-0.2); Basophils % (A) 0 %; Eosinophils # (A) 0.1 k/uL (0-0.7); Eosinophils % (A) 0 %; HCT 31.4 % (34.0-46.0); Lymphocytes # (A) 1.1 k/uL (1.0-4.8); Lymphocytes % (A) 7 %; MCH 28.8 pg (25.0-35.0); MCHC 31.7 g/dL (31.0-37.0); MCV 90.6 fL (80.0-100.0); Mean Platelet Volume 9.6; Monocytes # (A) 0.4 k/uL (0-1.0); Monocytes % (A) 3 %; Neutrophils # (A) 14.5 k/uL (1.3-7.7); Neutrophils % (A) 89 %; Platelet Count 180 k/uL (150-450); RBC 3.46 m/uL (3.80-5.40); RDW 14.3 % (11.5-15.5); WBC 16.3 k/uL (3.8-10.6)
[2021-11-20] MEDS ORDERED: SODIUM CHLORIDE 0.9% 500 ML 500 ML IV ONE ×2 (16:54→17:29)
[2021-11-20] MEDS: ACETAMINOPHEN TAB 325 MG TAB PO PRN (17:22)
[2021-11-20] MEDS: HEPARIN SOD,PORK IN 0.45% NACL 25,000 UNIT in 0.45% NACL 1 250ML.BAG IV SCH (17:47)
[2021-11-20] MEDS: ATORVASTATIN 40 MG TAB PO SCH (20:09)
[2021-11-21 00:21] LABS: HCT 27.7 % (34.0-46.0); HGB 9.1 gm/dL (11.4-16.0); Hypochromasia Slight; MCH 29.6 pg (25.0-35.0); MCHC 32.7 g/dL (31.0-37.0); MCV 90.5 fL (80.0-100.0); Mean Platelet Volume 9.1; Platelet Count 182 k/uL (150-450); RBC 3.06 m/uL (3.80-5.40); RDW 14.9 % (11.5-15.5); WBC 14.6 k/uL (3.8-10.6)
[2021-11-21] MEDS: HEPARIN SOD,PORK IN 0.45% NACL 25,000 UNIT in 0.45% NACL 1 250ML.BAG IV SCH (06:04)
[2021-11-21] MEDS: IPRATROPIUM-ALBUTEROL 3 ML NEB INHALATION SCH ×4 (07:40→20:37)
[2021-11-21] MEDS: SYMBICORT 160-4.5 MCG INHALER INHALATION SCH ×2 (07:46→20:38)
[2021-11-21] MEDS: PANTOPRAZOLE 40 MG/10 ML VIAL IVP SCH (08:21)
[2021-11-21 09:24] LABS: Basophils # (A) 0.1 k/uL (0-0.2); Basophils % (A) 0 %; Eosinophils % (A) 0 %; HCT 26.9 % (34.0-46.0); HGB 8.6 gm/dL (11.4-16.0); Hypochromasia Slight; Lymphocytes # (A) 1.4 k/uL (1.0-4.8); Lymphocytes % (A) 10 %; MCH 29.3 pg (25.0-35.0); MCHC 31.8 g/dL (31.0-37.0); MCV 92.2 fL (80.0-100.0); Mean Platelet Volume 9.8; Monocytes # (A) 0.8 k/uL (0-1.0); Monocytes % (A) 5 %; Neutrophils # (A) 12.4 k/uL (1.3-7.7); Neutrophils % (A) 83 %; Platelet Count 172 k/uL (150-450); RBC 2.92 m/uL (3.80-5.40); RDW 14.6 % (11.5-15.5)
--- NOTE | 2021-11-21 09:26 | P.PN ---
Subjective Progress Note Date: 11/21/21 Principal diagnosis: Coronary artery disease with 99% RCA stenosis, non-STEMI this admission, status post unsuccessful PCI to the right coronary artery, severe aortic valve stenosi s, trace mitral valve regurgitation with mild mitral valve stenosis, dilated cardiomyopathy, acute on chronic systolic heart failure. Past medical history significant for hypertension, hyperlipidemia, chronic hypoxic respiratory failure on 2 L nasal cannula home oxygen, COVID-19 pneumonia in April 2021, remains unvaccinated for COVID-19, morbid obesity, depression, remote history of nicotine dependence, severe restrictive lung disease. The patient was seen in follow-up today 11/21/2021 at her bedside in the intensive care unit. The patient is laying in bed, continues to be very teary eyed and reports she continues to feel depressed. Denies any complaints of shortness of breath, although is complaining of pain to her right groin and a frequent cough. Oxygen saturations are 96% on 2 L nasal cannula and she continues to achieve 1500 mL on her incentive spirometry with encouragement. The patient has been deemed a high surgical risk for open heart surgery, and the plan is to proceed with PCI of the right coronary artery by Dr. Medina with iFR of the LAD with plans to proceed with TAVR workup in the near future. The plan has been discussed between Dr. Garcia, Dr. Medina, Dr. Simon, the patient and the patient daughter. All agree to the current treatment plan. Heparin d rip remained infusing per protocol which is being managed by cardiology. Laboratory results morning show a WBC count of 14.6, hemoglobin 9.1, and platelets 182. Objective - Vital Signs Vital signs: Vital Signs Temp 97.9 F 11/21/21 08:00 Pulse 79 11/21/21 08:00 Resp 21 11/21/21 08:00 BP 106/63 11/21/21 08:00 Pulse Ox 96 11/21/21 08:00 Intake & Output 11/20/21 11/21/21 11/21/21 18:59 06:59 18:59 Intake Total 1408.922 260 120 Output Total 100 300 50 Balance 1308.922 -40 70 Weight 111.6 kg Intake: IV 1240 260 20 0.9 NACL bolus 1000 Sodium Chloride 0.9% 1, 240 260 20 000 ml @ 20 mls/hr IV . Q24H [facility] Rx#:[id number] Intake, IV Titration 168.922 0 Amount Heparin Sod,Pork in 0.45% 168.922 0 NaCl 25,000 unit In 0.45 % NaCl 1 250ml.bag @ 18 UNITS/KG/HR 19.224 mls/hr IV .Q13H1M [facility] Rx#: [id number] Oral 100 Output: Urine 100 300 50 Stool 0 Other: Voiding Method Incontinent Incontinent Incontinent External Catheter External Catheter External Catheter # Voids 1 ABP, PAP, CO, CI - Last Documented Arterial Blood Pressure 107/66 - Exam CONSTITUTIONAL: Tearful, cooperative and is in no acute distress. RESPIRATORY: Lungs sounds essentially clear throughout, diminished bilateral bases, right greater than left. Respirations are symmetrical and nonlabored. Currently on 2 L nasal cannula with oxygen saturation 96%. Able to achieve 1500 mL on incentive spirometry. Strong cough. CARDIOVASCULAR: S1, S2 present, pansystolic murmur present 3/6. Regular rate and rhythm, sinus rhythm on telemetry. Doppler lower extremity pulses bilaterally. No calf pain or tenderness noted. GASTROINTESTINAL: Abdomen soft, nontender, nondistended. Active bowel sounds present 4 quadrants. Tolerating diet. INTEGUMENTARY: Skin is warm and dry with evidence of good perfusion. NEUROLOGIC: Cranial nerves II through XII intact MUSKULOSKELETAL: Able to move all extremities, strength equal bilaterally. PSYCHIATRIC: Alert, oriented to person place and time, flat affect. - Allied health notes Allied health notes reviewed: nursing - Labs CBC & Chem 7: 11/21/21 00:07 11/20/21 08:29 Labs: Abnormal Lab Results - Last 24 Hours (Table) 11/20/21 11/20/21 11/21/21 Range/Units 08:29 16:30 00:07 WBC 16.3 H 14.6 H (3.8-10.6) k/uL RBC 3.72 L 3.46 L 3.06 L (3.80-5.40) m/uL Hgb 10.8 L 10.0 L 9.1 L (11.4-16.0) gm/dL Hct 31.4 L 27.7 L (34.0-46.0) % Neutrophils # 14.5 H (1.3-7.7) k/uL APTT (22.0-30.0) sec 11/21/21 Range/Units 00:07 WBC (3.8-10.6) k/uL RBC (3.80-5.40) m/uL Hgb (11.4-16.0) gm/dL Hct (34.0-46.0) % Neutrophils # (1.3-7.7) k/uL APTT 19.4 L (22.0-30.0) sec Assessment and Plan Assessment: 1. Coronary artery disease with 99% RCA stenosis, non-STEMI this admission, s tatus post unsuccessful PCI to the right coronary artery 2. Severe aortic valve stenosis, peak/mean gradient 78.27/47.94 mmHg 3. Trace mitral regurgitation with mild mitral stenosis on transthoracic echocardiogram, peak/mean gradients of 14.48/6.4 mmHg, 4. Dilated cardiomyopathy 5. Acute on chronic systolic heart failure, EF 25-30% on transthoracic echocardiogram 6. History of hypertension 7. Hyperlipidemia, cholesterol 333, LDL 263 8. Chronic hypoxic respiratory failure on 2 L nasal cannula home oxygen 9. COVID-19 pneumonia in April 2021 10. Remains unvaccinated for COVID-19 11. Morbid obesity 12. Depression, currently on Zoloft 13. Remote history of nicotine dependence 14. Severe restrictive lung disease, FEV1 45% of predicted 15. Generalized debility, patient uses walker for ambulation Plan: 1. Continue aspirin, statin and beta josé. Heparin drip managed by cardiology. 2. Continue diuresis, heart failure management per cardiology. 3. STS risk calculated and was discussed with the patient by Dr Simon and Dr. Medina from cardiology. Patient is very high risk for surgery due to multiple comorbidities. The patient is scheduled for PCI of the right coronary artery and iFR of the LAD to be scheduled tomorrow 11/22/2021 to be performed by Dr. Medina. We will need to obtain a CT TAVR protocol prior to proceeding with TAVR. 4. Medical management of other comorbidities per primary care service. 5. More recommendations to follow based on patient's clinical course. Time with Patient: Greater than 30
[2021-11-21] MEDS: carvediloL 3.125 MG TAB PO SCH ×2 (09:35→18:14)
[2021-11-21] MEDS: DIGOXIN 125 MCG TAB PO SCH (09:35)
[2021-11-21] MEDS: ACETAMINOPHEN TAB 325 MG TAB PO PRN ×2 (09:35→14:52)
[2021-11-21] MEDS: ASPIRIN 81 MG PO SCH (09:35)
[2021-11-21] MEDS: SPIRONOLACTONE 25 MG TAB PO SCH (09:35)
[2021-11-21] MEDS: FUROSEMIDE 10 MG/ML 4 ML VIAL IV SCH (09:35)
[2021-11-21] MEDS ORDERED: SODIUM CHLORIDE 0.9% 500 ML 500 ML IV ONE (09:49)
[2021-11-21 09:58] LABS: Albumin 3.3 g/dL (3.5-5.0); Potassium 4.5 mmol/L (3.5-5.1)
[2021-11-21 09:59] LABS: Calcium 8.7 mg/dL (8.4-10.2); Total Bilirubin 1.4 mg/dL (0.2-1.3)
--- NOTE | 2021-11-21 11:28 | P.PN ---
Subjective Progress Note Date: 11/21/21 This is a 71-year-old female who was admitted to [facility] with symptoms of CHF and evidence of severe aortic stenosis and also moderate mitral regurgitation. Patient also has moderate lung disease. Patient was evaluated by cardiac catheterization and was found to have 99% stenosis of the ostium of the right coronary artery and moderate disease in the LAD. Patient also has severe aortic stenosis with a peak gradient of 40 across the valve. Given her LV dysfunction, that was felt to be very significant. Echocardiogram done in this institution again showed severe aortic stenosis and evidence of severe cardiomyopathy with ejection fraction of 20-30%. Attempted stent placement of the RCA, resulting in dissection. The procedure was abandoned surgical consult was obtained. It. Patient was felt to be high risk candidate and a duration was made to attempt percutaneous intervention of the RCA and FFR of the LAD, which is being scheduled for tomorrow. Patient apparently developed a hematoma in the right groin after 3 days of heparin. Heparin was discontinued at was restarted again see is relatively stable. Has chronic complaints of being fatigued and tired. Lungs appeared to be clear. Heart is regular. Her urine output is fair. We'll continue current medical therapy and await for intervention tomorrow. Objective - Vital Signs Vital signs: Vital Signs Temp 97.9 F 11/21/21 08:00 Pulse 81 11/21/21 11:00 Resp 22 11/21/21 11:00 BP 94/60 11/21/21 11:00 Pulse Ox 98 11/21/21 11:00 Intake & Output 11/20/21 11/21/21 11/21/21 18:59 06:59 18:59 Intake Total 1408.922 260 390 Output Total 100 300 50 Balance 1308.922 -40 340 Weight 111.6 kg Intake: IV 1240 260 290 0.9 NACL bolus 1000 Sodium Chloride 0.9% 1, 240 260 40 000 ml @ 20 mls/hr IV . Q24H [facility] Rx#:[id number] Sodium Chloride 0.9% 500 250 ml 500 ml @ 125 mls/hr IV .Q4H [facility] Rx#:[id number] Intake, IV Titration 168.922 0 Amount Heparin Sod,Pork in 0.45% 168.922 0 NaCl 25,000 unit In 0.45 % NaCl 1 250ml.bag @ 18 UNITS/KG/HR 19.224 mls/hr IV .Q13H1M [facility] Rx#: [id number] Oral 100 Output: Urine 100 300 50 Stool 0 Other: Voiding Method Incontinent Incontinent Incontinent External Catheter External Catheter External Catheter # Voids 1 ABP, PAP, CO, CI - Last Documented Arterial Blood Pressure 107/66 - Exam GENERAL EXAM: Patient is alert and oriented and doesn't appear to be in any acute distress HEENT: Normocephalic. Normal reaction of pupils, equal size, normal range of extraocular motion. No erythema or exudates in the throat. NECK: No masses, no nuchal rigidity. CHEST: No chest wall deformity. LUNGS: Diminished breath sounds at bases HEART: S1 and S2 normal with no audible mumurs or gallops. Regular rhythm, femorals equal on both sides.. ABDOMEN: No hepatosplenomegaly, normal bowel sounds, no guarding or rigidity. SKIN: No rashes CENTRAL NERVOUS SYSTEM: No focal deficits. EXTREMITIES: No cyanosis, clubbing or edema. - Labs CBC & Chem 7: 11/21/21 08:57 11/21/21 08:57 Labs: Abnormal Lab Results - Last 24 Hours (Table) 11/20/21 11/20/21 11/21/21 Range/Units 08:29 16:30 00:07 WBC 16.3 H 14.6 H (3.8-10.6) k/uL RBC 3.72 L 3.46 L 3.06 L (3.80-5.40) m/uL Hgb 10.8 L 10.0 L 9.1 L (11.4-16.0) gm/dL Hct 31.4 L 27.7 L (34.0-46.0) % Neutrophils # 14.5 H (1.3-7.7) k/uL APTT (22.0-30.0) sec Sodium (137-145) mmol/L BUN (7-17) mg/dL Creatinine (0.52-1.04) mg/dL Glucose (74-99) mg/dL Total Bilirubin (0.2-1.3) mg/dL Total Protein (6.3-8.2) g/dL Albumin (3.5-5.0) g/dL 11/21/21 11/21/21 11/21/21 Range/Units 00:07 08:57 08:57 WBC 15.0 H (3.8-10.6) k/uL RBC 2.92 L (3.80-5.40) m/uL Hgb 8.6 L (11.4-16.0) gm/dL Hct 26.9 L (34.0-46.0) % Neutrophils # 12.4 H (1.3-7.7) k/uL APTT 19.4 L (22.0-30.0) sec Sodium 134 L (137-145) mmol/L BUN 41 H (7-17) mg/dL Creatinine 1.20 H (0.52-1.04) mg/dL Glucose 149 H (74-99) mg/dL Total Bilirubin 1.4 H (0.2-1.3) mg/dL Total Protein 6.0 L (6.3-8.2) g/dL Albumin 3.3 L (3.5-5.0) g/dL 11/21/21 Range/Units 08:57 WBC (3.8-10.6) k/uL RBC (3.80-5.40) m/uL Hgb (11.4-16.0) gm/dL Hct (34.0-46.0) % Neutrophils # (1.3-7.7) k/uL APTT 32.4 H (22.0-30.0) sec Sodium (137-145) mmol/L BUN (7-17) mg/dL Creatinine (0.52-1.04) mg/dL Glucose (74-99) mg/dL Total Bilirubin (0.2-1.3) mg/dL Total Protein (6.3-8.2) g/dL Albumin (3.5-5.0) g/dL Assessment and Plan (1) CAD (coronary artery disease) Current Visit: Yes Status: Acute Code(s): I25.10 - ATHSCL HEART DISEASE OF [place] CORONARY ARTERY W/O ANG PCTRS SNOMED Code(s): 59289586 (2) Severe aortic stenosis Current Visit: Yes Status: Acute Code(s): I35.0 - NONRHEUMATIC AORTIC ( VALVE) STENOSIS SNOMED Code(s): 257509828 (3) Nonischemic cardiomyopathy Current Visit: Yes Status: Acute Code(s): I42.8 - OTHER CARDIOMYOPATHIES SNOMED Code(s): 82835542 (4) Restrictive lung disease Current Visit: Yes Status: Acute Code(s): J98.4 - OTHER DISORDERS OF LUNG SNOMED Code(s): 05043425 Plan: Patient seemed to be relatively stable. The dorsum of hematoma in the right groin and mild anemia. Patient is being scheduled for repeat attempt at intervention of the lesion in the right coronary artery and possibly FFR of the LAD. Prognosis is guarded
--- NOTE | 2021-11-21 13:41 | P.PN ---
Subjective Progress Note Date: 11/21/21 This is a pleasant 71-year-old female patient with biventricular failure, severe aortic stenosis, mitral regurgitation and coronary artery disease. The patient underwent a cardiac catheterization and the patient was found to have 99% RCA stenosis and the patient is post non-ST segment elevation myocardial infarction. The patient had an unsuccessful PCI of the RCA. Initially, she was being contemplated for cardiac surgery knowing that she has valvular heart disease and she was also being looks for a single-vessel bypass surgery. Ultimately, it was decided to do another cardiac catheterization tomorrow. She is known to have dilated cardiomyopathy and impaired left ventricular ejection fraction at patient presented with acute CHF. She is currently on O2 at 2 L per minute nasal cannula. She is comfortable. Nevertheless, she is anxious and she denies having any chest pain. Hemodynamically stable on no pressors. She continues to be guarded with Lasix and she is on 8040 mg IV every 12 hours. She is off IV heparin as the patient developed an acute hematoma the right femoral artery/anh in area at the site of the cardiac catheterization. The hematoma today is quite soft and the patient has a hemoglobin of 8.6 which is essentially compatible to yesterday of 9.1. There has been some mild drop in hemoglobin 9 of the hemoglobin on 11/20/2021 was 10.0. Platelet counts are normal. The hematoma in the right groin is soft. The plan is to proceed with another cardiac catheterization hopefully within the next 24 hours. Of notice, isn't elevation in the creatinine which is up to 1.2 on today's evaluation. The neck fluid balance over the past 24 hours has been in the order of +98 mL on this patient. Based on that, the Lasix has been placed on hold. Meanwhile, the patient jimbo nues to be on IV heparin infusion. Note that the IV heparin was discontinued. Now that there is no active bleeding from the hematoma, cardiology gave orders to restart the IV heparin. Objective - Vital Signs Vital signs: Vital Signs Temp 97.8 F 11/21/21 12:00 Pulse 67 11/21/21 13:00 Resp 13 11/21/21 13:00 BP 87/49 11/21/21 13:00 Pulse Ox 98 11/21/21 13:00 Intake & Output 11/20/21 11/21/21 11/21/21 18:59 06:59 18:59 Intake Total 1408.922 260 640 Output Total 100 300 100 Balance 1308.922 -40 540 Weight 111.6 kg Intake: IV 1240 260 540 0.9 NACL bolus 1000 Sodium Chloride 0.9% 1, 240 260 40 000 ml @ 20 mls/hr IV . Q24H [facility] Rx#:[id number] Sodium Chloride 0.9% 500 500 ml 500 ml @ 125 mls/hr IV .Q4H [facility] Rx#:[id number] Intake, IV Titration 168.922 0 Amount Heparin Sod,Pork in 0.45% 168.922 0 NaCl 25,000 unit In 0.45 % NaCl 1 250ml.bag @ 18 UNITS/KG/HR 19.224 mls/hr IV .Q13H1M [facility] Rx#: [id number] Oral 100 Output: Urine 100 300 100 Stool 0 Other: Voiding Method Incontinent Incontinent Incontinent External Catheter External Catheter External Catheter # Voids 1 ABP, PAP, CO, CI - Last Documented Arterial Blood Pressure 107/66 - Exam CONSTITUTIONAL: Tearful, cooperative and is in no acute distress. The patient remains anxious. Head exam was generally normal. There was no scleral icterus or corneal arcus. Mucous membranes were moist. Neck was supple and without jugular venous distension, thyromegaly, or carotid bruits. Carotids were easily palpable bilaterally. There was no adenopathy. RESPIRATORY: Lungs sounds essentially clear throughout, diminished bilateral bases, right greater than left. Respirations are symmetrical and nonlabored. Currently on 2 L nasal cannula with oxygen saturation 96%. Able to achieve 1500 mL on incentive spirometry. Strong cough. CARDIOVASCULAR: S1, S2 present, pansystolic murmur present 3/6. Regular rate and rhythm, sinus rhythm on telemetry. Doppler lower extremity pulses bilaterally. No calf pain or tenderness noted. GASTROINTESTINAL: Abdomen soft, nontender, nondistended. Active bowel sounds present 4 quadrants. Tolerating diet. INTEGUMENTARY: Skin is warm and dry with evidence of good perfusion. NEUROLOGIC: Cranial nerves II through XII intact MUSKULOSKELETAL: Able to move all extremities, strength equal bilaterally. PSYCHIATRIC: Alert, oriented to person place and time, flat affect. - Labs CBC & Chem 7: 11/21/21 08:57 11/21/21 08:57 Labs: Abnormal Lab Results - Last 24 Hours (Table) 11/20/21 11/20/21 11/21/21 Range/Units 08:29 16:30 00:07 WBC 16.3 H 14.6 H (3.8-10.6) k/uL RBC 3.72 L 3.46 L 3.06 L (3.80-5.40) m/uL Hgb 10.8 L 10.0 L 9.1 L (11.4-16.0) gm/dL Hct 31.4 L 27.7 L (34.0-46.0) % Neutrophils # 14.5 H (1.3-7.7) k/uL APTT (22.0-30.0) sec Sodium (137-145) mmol/L BUN (7-17) mg/dL Creatinine (0.52-1.04) mg/dL Glucose (74-99) mg/dL Total Bilirubin (0.2-1.3) mg/dL Total Protein (6.3-8.2) g/dL Albumin (3.5-5.0) g/dL 11/21/21 11/21/21 11/21/21 Range/Units 00:07 08:57 08:57 WBC 15.0 H (3.8-10.6) k/uL RBC 2.92 L (3.80-5.40) m/uL Hgb 8.6 L (11.4-16.0) gm/dL Hct 26.9 L (34.0-46.0) % Neutrophils # 12.4 H (1.3-7.7) k/uL APTT 19.4 L (22.0-30.0) sec Sodium 134 L (137-145) mmol/L BUN 41 H (7-17) mg/dL Creatinine 1.20 H (0.52-1.04) mg/dL Glucose 149 H (74-99) mg/dL Total Bilirubin 1.4 H (0.2-1.3) mg/dL Total Protein 6.0 L (6.3-8.2) g/dL Albumin 3.3 L (3.5-5.0) g/dL 11/21/21 11/21/21 Range/Units 08:57 11:36 WBC (3.8-10.6) k/uL RBC (3.80-5.40) m/uL Hgb (11.4-16.0) gm/dL Hct (34.0-46.0) % Neutrophils # (1.3-7.7) k/uL APTT 32.4 H 36.9 H (22.0-30.0) sec Sodium (137-145) mmol/L BUN (7-17) mg/dL Creatinine (0.52-1.04) mg/dL Glucose (74-99) mg/dL Total Bilirubin (0.2-1.3) mg/dL Total Protein (6.3-8.2) g/dL Albumin (3.5-5.0) g/dL Assessment and Plan Plan: 1 acute hypoxic respiratory failure, currently on 2 L of oxygen by nasal cannula, essentially secondary to valvular heart disease/CAD and secondary decompensated heart failure. 2 acute non-ST segment elevation myocardial infarction. The patient is post cardiac catheterization and the patient is a 99% RCA stenosis and the patient is status post unsuccessful PCI to RCA 3 severe aortic valve stenosis with a peak and mean gradient of 78 and 47 mmHg 4 mitral regurgitation 5 dilated cardiomyopathy with impaired left ventricular ejection fraction systolic heart failure with an ejection fraction of 25-30% 6 bilateral pleural effusion secondary to above 7 hypertension 8 hyperlipidemia 9 COVID 19 pneumonia back in April 2021 10 right groin hematoma at a set of cardiac catheterization, currently soft 11 acute blood loss anemia with a hemoglobin of 8.6, post development of a hematoma in the right groin 12 acute kidney injury in the creatinine is up to 1.2 13 medical debility seconds above-mentioned comorbidities Plan Hold Lasix and monitor renal function Management of IV heparin per cardiology. They have given the okay to restart IV heparin for now. Monitor the hemoglobin the hematoma in the right groin Continue aspirin and statins and beta blockers Cardiothoracic surgeries on the case regarding possibility of bypass/aortic valve replacement versus PCI and possibly 80 aVR procedure regarding the aortic valve. Accordingly, a CT of the chest was completed and the patient has cardiomegaly and pulmonary edema and moderate sized right-sided pleural effusion. Long-term prognosis poor baseline above-mentioned comorbidities. We'll continue to follow make further recommendations from a pulmonary standpoint based on her progression.
--- NOTE | 2021-11-21 13:49 | P.CN ---
Psychiatric Consult - . Consult date: 11/21/21 Consult:: 11/21/21 13:48 IDENTIFYING DATA: This patient is a , 71-year-old female with significant history of cardiomyopathy, severe aortic valve stenosis, severe mitral regurgitation, systolic heart failure, status post COVID-19 infection, who presented to the hospital from [facility] due to concerns for ischemic changes on cardiac evaluation. HISTORY OF PRESENT ILLNESS: The patient presented to the hospital on 11/17/2021, brought into the hospital for cardiac evaluation. Cardiac catheterization sedation was performed on 11/17 which showed mild disease of the left and RCA and 99% stenosis. She underwent an attempted PCI but was noted to have dissection there for the procedure was aborted. The patient was placed in ICU for monitoring. Psychiatry has been consulted for a mental health evaluation as the patient has been displaying and endorsing symptoms of depression and anxiety. Upon evaluation in the ICU, the patient reports that she's been feeling increasingly depressed for quite some time. She states that over the past few months she has had significant changes in her life. His past May, her , and she moved from [place] to [place]. She reports that the biggest stressor for her at this time is her daughter's being unable to be present with her when she undergoes cardiac procedures. She expresses that she isn't feeling increasingly isolated and lonely. In regards to depressive symptoms, the patient expresses that she has been feeling increasingly hopeless, having difficulty with sleep, having a decreased appetite, and feeling helpless. She vehemently denies any suicidal or homicidal ideation, intention, and/or plan. The patient denies any previous attempts at suicide. She reports that she had previously dealt with depression when she was first to her many years ago. She denies any significant history of bipolar disorder and reports no history of psychotic symptoms. PAST PSYCHIATRIC HISTORY: Patient has a history of depression/anxiety. The patient has only tried Zoloft in terms of medication management. Patient denies any previous psychiatric hospitalizations. Patient denies any psychiatric outpatient follow-up. Patient denies any history of suicide attempts in the past. PAST MEDICAL HISTORY: Past Medical History: Heart Failure, GERD/Reflux, Hyperlipidemia, Hypertension, Myocardial Infarction (non Q-wave), Pneumonia (COVID-19 pneumonia in April 2021, uses 2 L of home O2 since her diagnosis of COVID-19 pneumonia.) Additional Past Medical History / Comment(s): Pneumonia 5 years ago. Sepsis Last Myocardial Infarction Date:: 11/15/21 History of Any Multi-Drug Resistant Organisms: None Reported Past Surgical History: Heart Catheterization Additional Past Surgical History / Comment(s): Cyst removed from right ovary,. right ovary removed and part of the left ovary Past Anesthesia/Blood Transfusion Reactions: No Reported Reaction Past Psychological History: Depression Smoking Status: Former smoker Past Alcohol Use History: None Reported Past Drug Use History: None Reported ALLERGIES: Hydralazine, lisinopril CHEMICAL DEPENDENCY HISTORY: Patient vehemently denies any tobacco, alcohol, marijuana, or illicit drug use. FAMILY PSYCHIATRIC/SUBSTANCE USE HISTORY: No reported family history. The patient does suspect that siblings had depression as well. SOCIAL HISTORY: Patient was and was previously living in [place]. She is not currently and living in [place]. She is the oldest of 6 children and reports that she grew up with 8 kids in the house. She reports that currently she lives with her dog and has numerous caregivers come in to check in on her. 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 MENTAL STATUS EXAM: General Appearance: Patient appears to be stated age is alert, pleasant, and cooperative. Patient appears to have fair hygiene and grooming wearing hospital gown with intermittent eye contact. Obese body habitus. Behavior: Patient is calmly lying in bed without any agitated behavior. Speech: Patient's speech is fluent and nonpressured. Mood/Affect: Patient reports their mood is "depressed", affect is congruent and dysphoric. Suicidality/Homicidality: Patient denies having any suicidal or homicidal ideation intent or plan. Perceptions: Patient denies any visual hallucinations and denies any auditory hallucinations Though content/process: There is no evidence of any delusional thought content and thought process is linear and goal-directed. Memory and concentration: AOX3, grossly intact for the purposes of this session. Can spell "WORLD" backwards Judgment and insight: Fair Vital Signs Temp 97.8 F 11/21/21 12:00 Pulse 67 11/21/21 13:00 Resp 13 11/21/21 13:00 BP 87/49 11/21/21 13:00 Pulse Ox 98 11/21/21 13:00 Intake & Output 11/20/21 11/21/21 11/21/21 18:59 06:59 18:59 Intake Total 1408.922 260 640 Output Total 100 300 100 Balance 1308.922 -40 540 Weight 111.6 kg Intake: IV 1240 260 540 0.9 NACL bolus 1000 Sodium Chloride 0.9% 1, 240 260 40 000 ml @ 20 mls/hr IV . Q24H [facility] Rx#:[id number] Sodium Chloride 0.9% 500 500 ml 500 ml @ 125 mls/hr IV .Q4H [facility] Rx#:[id number] Intake, IV Titration 168.922 0 Amount Heparin Sod,Pork in 0.45% 168.922 0 NaCl 25,000 unit In 0.45 % NaCl 1 250ml.bag @ 18 UNITS/KG/HR 19.224 mls/hr IV .Q13H1M [facility] Rx#: [id number] Oral 100 Output: Urine 100 300 100 Stool 0 Other: Voiding Method Incontinent Incontinent Incontinent External Catheter External Catheter External Catheter # Voids 1 ABP, PAP, CO, CI - Last Documented Arterial Blood Pressure 107/66 Laboratory Results WBC 15.0 k/uL (3.8-10.6) H 11/21/21 08:57 RBC 2.92 m/uL (3.80-5.40) L 11/21/21 08:57 Hgb 8.6 gm/dL (11.4-16.0) L 11/21/21 08:57 Hct 26.9 % (34.0-46.0) L 11/21/21 08:57 MCV 92.2 fL (80.0-100.0) 11/21/21 08:57 MCH 29.3 pg (25.0-35.0) 11/21/21 08:57 MCHC 31.8 g/dL (31.0-37.0) 11/21/21 08:57 RDW 14.6 % (11.5-15.5) 11/21/21 08:57 Plt Count 172 k/uL (150-450) 11/21/21 08:57 MPV 9.8 11/21/21 08:57 Neutrophils % 83 % 11/21/21 08:57 Lymphocytes % 10 % 11/21/21 08:57 Monocytes % 5 % 11/21/21 08:57 Eosinophils % 0 % 11/21/21 08:57 Basophils % 0 % 11/21/21 08:57 Neutrophils # 12.4 k/uL (1.3-7.7) H 11/21/21 08:57 Lymphocytes # 1.4 k/uL (1.0-4.8) 11/21/21 08:57 Monocytes # 0.8 k/uL (0-1.0) 11/21/21 08:57 Eosinophils # 0.0 k/uL (0-0.7) 11/21/21 08:57 Basophils # 0.1 k/uL (0-0.2) 11/21/21 08:57 Hypochromasia Slight 11/21/21 08:57 PT 11.7 sec (9.0-12.0) 11/18/21 10:30 INR 1.1 (<1.2) 11/18/21 10:30 APTT 36.9 sec (22.0-30.0) H 11/21/21 11:36 Sodium 134 mmol/L (137-145) L 11/21/21 08:57 Potassium 4.5 mmol/L (3.5-5.1) 11/21/21 08:57 Chloride 99 mmol/L (98-107) 11/21/21 08:57 Carbon Dioxide 26 mmol/L (22-30) 11/21/21 08:57 Anion Gap 9 mmol/L 11/21/21 08:57 BUN 41 mg/dL (7-17) H 11/21/21 08:57 Creatinine 1.20 mg/dL (0.52-1.04) H 11/21/21 08:57 Est GFR (CKD-EPI)AfAm 52 (>60 ml/min/1.73 sqM) 11/21/21 08:57 Est GFR (CKD-EPI)NonAf 45 (>60 ml/min/1.73 sqM) 11/21/21 08:57 Glucose 149 mg/dL (74-99) H 11/21/21 08:57 POC Glucose (mg/dL) 133 mg/dL (75-99) H 11/17/21 14:23 POC [employer] Department Manager ID JerelAdrienne 11/17/21 14:23 Calcium 8.7 mg/dL (8.4-10.2) 11/21/21 08:57 Magnesium 2.1 mg/dL (1.6-2.3) 11/19/21 07:29 Total Bilirubin 1.4 mg/dL (0.2-1.3) H 11/21/21 08:57 AST 21 U/L (14-36) 11/21/21 08:57 ALT 16 U/L (4-34) 11/21/21 08:57 Alkaline Phosphatase 57 U/L (38-126) 11/21/21 08:57 Total Protein 6.0 g/dL (6.3-8.2) L 11/21/21 08:57 Albumin 3.3 g/dL (3.5-5.0) L 11/21/21 08:57 Urine Color Yellow 11/17/21 16:08 Urine Appearance Clear (Clear) 11/17/21 16:08 Urine pH 6.5 (5.0-8.0) 11/17/21 16:08 Ur Specific [place] 1.043 (1.001-1.035) H 11/17/21 16:08 Urine Protein Negative (Negative) 11/17/21 16:08 Urine Glucose (UA) Negative (Negative) 11/17/21 16:08 Urine Ketones Negative (Negative) 11/17/21 16:08 Urine Blood Negative (Negative) 11/17/21 16:08 Urine Nitrite Negative (Negative) 11/17/21 16:08 Urine Bilirubin Negative (Negative) 11/17/21 16:08 Urine Urobilinogen <2.0 mg/dL (<2.0) 11/17/21 16:08 Ur Leukocyte Esterase Negative (Negative) 11/17/21 16:08 Hepatitis A IgM Ab Nonreactive (Nonreactive) 11/17/21 14:54 Hep Bs Antigen Nonreactive (Nonreactive) 11/17/21 14:54 Hep B Core IgM Ab Nonreactive (Nonreactive) 11/17/21 14:54 Hep C IgG Ab Nonreactive (Nonreactive) 11/17/21 14:54 IMPRESSIONS: Major depressive disorder Acute bereavement -Patient's depressive disorder is likely precipitated and exacerbated by her deteriorating general medical health, recent loss of her , and recent life changes including relocation to [place]. Acute on chronic systolic heart failure Non-STEMI CAD including 99% RCA stenosis status post failed attempted PCI Hypertension Hyperlipidemia Cardiomyopathy Oxygen-dependent status post COVID-19 infection PLAN: -Continue your medical management. -At this time patient DOES NOT meet criteria for inpatient psychiatric admission. -Delirium precautions recommended with patient including - avoiding use of narcotics and CALENDER RUNNER sedatives, limit anticholinergic medications when possible, frequent re-orientation, minimize use of restraints, open window shades during the day and close them at night -Would recommend the following medication changes/additions: We will increase Zoloft to 125 mg by mouth daily at bedtime for management of depression. Zoloft and citalopram and the antidepressants most appropriate for a patient with cardiac dysfunction. -Brief supportive psychotherapy given. -Will continue to follow along loosely. 11/21/21 13:48
[2021-11-21] MEDS ORDERED: SODIUM CHLORIDE 0.9% 1,000 ML IV SCH (14:15)
[2021-11-21] MEDS: HEPARIN SODIUM 1,000 UN/ML (10ML VL) IV PRN (14:39)
--- NOTE | 2021-11-21 14:45 | P.PN ---
Subjective Progress Note Date: 11/21/21 HISTORY OF PRESENT ILLNESS This is a 71-year-old female with past medical history of dilated cardiomyopathy with ejection fraction of 15-20%, severe aortic valve stenosis, mild aortic regurgitation with moderate to severe mitral regurgitation, chronic systolic heart failure, hyperlipidemia, obesity with possible obstructive sleep apnea and obesity hypoventilation syndrome, chronic hypoxic respiratory failure on home O2 at 2 L nasal cannula, hypertension hypertensive cardio vascular disease, previous Covid 19 infection. Patient presented to [facility] slight elevation of troponin, EKG showed changes suggestive ischemic changes and was started on aspirin, heparin drip and admitted to the hospital. Patient was seen by cardiology. She was supposed to have a heart catheterization done as an outpatient along with LISA for possible aortic valve replacement and mitral valve and possible CABG. Patient underwent coronary angiography finding right dominant vessel, 99% ostial stenosis, aortic pressure is 100/70, 40 mm gradient across the aortic valve. Left ventricular end diastolic pressure is 2530. Patient was transferred to [facility] for PTCA and stent placement of the RCA which was unsuccessful. Consult with cardiothoracic surgery for CABG and valve repair/replacement. 11/18: Patient is seen today in the intensive care unit. She denies chest pain or shortness of breath. She complains of anxiety and decreased appetite. Less cough today.She has been seen by field artillery fire control man and cardiothoracic surgery, currently on heparin drip, consult was added for dental evaluation and clearance and panoramic CT. Patient has been afebrile, heart rate in the 80s, blood pressure 101/73, pulse ox 96%. Repeat blood work reveals CBC is unremarkable. Potassium 4.0. Urinalysis negative for infection. Hepatitis panel negative. MRSA nasal screen is in process. CT of the chest revealed cardiomegaly with suspected pulmonary edema and moderate to marked right sided pleural effusion. Associated infection can't be excluded. Echocardiogram reveals EF of 25-30% with mild concentric left ventricular hypertrophy, severe global hypokinesia of the LV, severe aortic stenosis with gradient 78.27 mm a new 3/47.94 mmHg, trace mitral regurgitation, mild mitral stenosis, mild tricuspid regurgitation, mild pulmonary hypertension, RVSP 43.33 mmHg. Carotid ultrasound revealed less than 50% stenosis bilateral carotid systems. /2: Patient is sitting up in bed she underwent CTA of the chest for evaluation of dissection of the right coronary artery, she denies any chest pain at this time, she has no shortness breath, she has no abdominal pain, nausea or vomiting, she continues to have some coughing noted from production, she continues to be somewhat depressed and anxious and she is not sure what to do, she is missing her daughter she stated and she doesn't think her daughter is able to come and see her. 11/20: Patient is sitting on the bed in no apparent distress, she continues to be quite depressed and anxious about her situation, she has not made up her mind, I had a long conversation with Dr. Medina regarding the plan to [facility] at [facility], she was deemed high surgical risk per cardiovascular surgery service at the current [place], and she would benefit from a transcatheter aortic valve replacement plus reattempted PCI of the RCA, her CT angiography of the chest did not show evidence of any dissection of the thoracic aorta , patient is maintained on Zoloft 100 mg every day, she is mentioned in ICU, and the plan to the PCI hopefully in the next 24 hours patient and her daughter Isatu are in agreement for conservative approach and they understand the risks of the procedure and that she will have the TAVR at a later date or during this hospital admission depends on her symptoms, we will consult Psychiatry for depression and possible bipolar disorder. 11/21: Patient remains in intensive care unit, afebrile, heart rate in the 80s, blood pressure 101/58, pulse ox 97% on room air. Patient denies having any chest pain but continues to have anxiety issues. Consult with psychiatry is pending. Patient has been scheduled for CT TAVR protocol for today. Repeat blood work reveals WBC 15, hemoglobin 8.6, platelet count 172. Sodium 134, BUN 41 creatinine 1.2. Blood sugar 149. Total bilirubin 1.4 otherwise liver function tests are normal. Nasal MRSA screen is negative. REVIEW OF SYSTEMS Constitutional: No fever, no chills, no night sweats. No weight change. Positive for generalized weakness, positive for fatigue or lethargy. No daytime sleepiness. HEENT: No headache. No blurred vision or double vision, no loss of vision. No loss of Hearing, no ringing in the ears, no dizziness. No nasal drainage or congestion. No epistaxis. No sore throat. Lungs: Positive for shortness of breath, positive for cough, no sputum production. No wheezing. Reports dyspnea on exertion. Cardiovascular: No chest pain, no lower extremity edema. No palpitations. No paroxysmal nocturnal dyspnea. No orthopnea. No lightheadedness or dizziness. No syncopal episodes. Abdominal: No abdominal pain. No nausea, vomiting. No diarrhea. No constipation. No bloody or tarry stools. Reports loss of appetite. Genitourinary: No dysuria, increased frequency, urgency. No urinary retention. Musculoskeletal: No myalgias. Generalized muscle weakness, no gait dysfunction, no frequent falls. Positive for back pain. No neck pain. Integumentary: No wounds, no lesions. No rash or pruritus. Positive for bruising. No change in hair or nails. Neurologic: No aphasia. No facial droop. No change in mentation. No head injury. No headache. No paralysis. No paresthesia. Psychiatric: Positive for depression. Reports anxiety. Positive for mood swings Endocrine: No abnormal blood sugars. Positive for weight change. No excessive sweating or thirst. No cold intolerance. PHYSICAL EXAMINATION Gen: This is a 71-year-old female. HEENT: Head is atraumatic, normocephalic. Pupils equal, round. Sclerae is anicteric. NECK: Supple. No JVD. No lymphadenopathy. No thyromegaly. LUNGS: Decreased breath sounds at the bases, decreased tactile fremitus at the right lower third, few rhonchi, no expiratory wheeze, no chest wall tenderness. No intercostal retractions. HEART: First heart sound is depressed, second heart sound is normal, systolic ejection murmur 3/6 at the right upper sternal border radiating to the base of the neck, systolic ejection murmur 2/6 at the apex rating to the axilla. ABDOMEN: Soft,, nontender, nondistended, positive bowel sounds, multiple ecchymosis. EXTREMITIES: 1+ pedal edema. No calf tenderness. Her cells pedis +1 bilaterally. Bilateral hammertoes. NEUROLOGICAL: Patient is awake, alert and oriented x3. Cranial nerves 2 through 12 are grossly intact., Cranial nerves II-12 appear grossly intact, muscle power 4 out of 5 in upper and lower extremities bilaterally. ASSESSMENT AND PLAN 1. Non ST elevation myocardial infarction with history of prior dilated cardiomyopathy status post coronary angiography finding right dominant vessel, 99% ostial stenosis, aortic pressure is 100/70, 40 mm gradient across the aortic valve. Left ventricular end diastolic pressure is 2530. Patient was transferred to [facility] for PTCA and stent placement of the RCA which was unsuccessful. Consult with cardiothoracic surgery appreciated. Physicist [facility] consultation appreciated.. Continue aspirin 81 mg daily, on Coreg 6.25 mg twice daily. Patient is unable to tolerate statins because of significant myopathy and plan is to start her on Repatha under 40 mg subcu every 2 weeks. Status post Dental evaluation with panoramic CT. 2. Dilated cardiomyopathy. continue patient on carvedilol 3.125 mg orally twice every day, continue with monitoring input and output and daily weight. Continue heparin drip. 3. Severe aortic valve stenosis with mild aortic regurgitation. Discussed with the patient the pros and cons on transcatheter aortic valve replacement versus CABG to the RCA with surgical aortic valve replacement. CT TAVR protocol for today 4. Moderate to Severe mitral regurgitation. likely will continue with conservative management no plan for mitral valve repair. 5. Hyperlipidemia. Patient unable to tolerate statins. She was started on atorvastatin 40 mg once every day. 6. Obesity with obstructive sleep apnea and obesity hypoventilation syndrome. Patient has not had sleep study done yet. 7. Chronic hypoxic respiratory failure secondary to his Covid 19 and underlying COPD and possible obstructive sleep apnea and hypoventilation syndrome. Patient is normally on 2 L nasal cannula. 8. Acute on chronic systolic heart failure. Continue Lasix 40 mg IV every 12 hours, Coreg, Aldactone 25 mg daily. 9. Hypertension, hypertensive cardiovascular disease. continue carvedilol 3.125 mg orally twice every day patient is not on MELODY-I or ARB due to severe hypertension, 10. Recurrent depression and generalized anxiety disorder. Continue Zoloft 50 mg orally once every day, consult Psychiatry for further evaluation 11. DVT prophylaxis. continue patient on heparin drip. 12. GI prophylaxis. Protonix 40 mg IV push daily. 13. Overall prognosis is very guarded. 14. Discussed with CTS and Cardiology, her daughter and her niece. Patient remains in the intensive care unit. She has been afebrile, heart rate Impression and plan of care have been directed as dictated by the signing physician. Marina Barbosa nurse practitioner acting as scribe for signing physician. Objective - Vital Signs Vital signs: Vital Signs Temp 98.1 F 11/21/21 04:00 Pulse 81 11/21/21 07:00 Resp 22 11/21/21 07:00 BP 110/52 11/21/21 07:00 Pulse Ox 96 11/21/21 07:00 Intake & Output 11/20/21 11/21/21 11/21/21 18:59 06:59 18:59 Intake Total 1408.922 260 Output Total 100 300 Balance 1308.922 -40 Weight 111.6 kg Intake: IV 1240 260 0.9 NACL bolus 1000 Sodium Chloride 0.9% 1, 240 260 000 ml @ 20 mls/hr IV . Q24H [facility] Rx#:[id number] Intake, IV Titration 168.922 0 Amount Heparin Sod,Pork in 0.45% 168.922 0 NaCl 25,000 unit In 0.45 % NaCl 1 250ml.bag @ 18 UNITS/KG/HR 19.224 mls/hr IV .Q13H1M [facility] Rx#: [id number] Output: Urine 100 300 Stool 0 Other: Voiding Method Incontinent Incontinent External Catheter External Catheter # Voids 1 ABP, PAP, CO, CI - Last Documented Arterial Blood Pressure 107/66 - Labs CBC & Chem 7: 11/21/21 08:57 11/21/21 08:57 Labs: Abnormal Lab Results - Last 24 Hours (Table) 11/20/21 11/20/21 11/20/21 Range/Units 08:29 08:29 08:29 WBC (3.8-10.6) k/uL RBC 3.72 L (3.80-5.40) m/uL Hgb 10.8 L (11.4-16.0) gm/dL Hct (34.0-46.0) % Neutrophils # (1.3-7.7) k/uL APTT 52.7 H (22.0-30.0) sec Sodium 133 L (137-145) mmol/L BUN 21 H (7-17) mg/dL Glucose 151 H (74-99) mg/dL 11/20/21 11/21/21 11/21/21 Range/Units 16:30 00:07 00:07 WBC 16.3 H 14.6 H (3.8-10.6) k/uL RBC 3.46 L 3.06 L (3.80-5.40) m/uL Hgb 10.0 L 9.1 L (11.4-16.0) gm/dL Hct 31.4 L 27.7 L (34.0-46.0) % Neutrophils # 14.5 H (1.3-7.7) k/uL APTT 19.4 L (22.0-30.0) sec Sodium (137-145) mmol/L BUN (7-17) mg/dL Glucose (74-99) mg/dL
[2021-11-21] MEDS: SODIUM CHLORIDE 0.9% 1,000 ML IV SCH (14:47)
--- NOTE | 2021-11-21 15:13 | CT ---
EXAMINATION TYPE: CT TAVR Planning DATE OF EXAM: 11/21/2021 HISTORY: aortic stenosis CT DLP: 2693.6 mGycm Automated Exposure Control for Dose Reduction was Utilized. CONTRAST: CT scan of the chest, abdomen and pelvis is performed with IV Contrast, patient injected with 125cc m L of Isovue 370. COMPARISON: CTA chest 2 days ago. TECHNIQUE: Helical imaging obtained through the chest, abdomen and pelvis during arterial phase renae anna administration of radiographic contrast intravenously. FINDINGS: See report from [employer] regarding preprocedural planning CHEST: Lower Neck and Thyroid: No significant findings Lungs: Persistent mild central bilateral alveolar and interstitial edema Central Airway: No significant findings Pleura: Small to moderate size right pleural effusion redemonstrated with associated compressive atel ectasis Pulmonary Arteries: Persist and enlarged pulmonary arteries consistent with underlying pulmonary sharon ry hypertension Heart and Pericardium: Persistent cardiomegaly with severe calcification at level of the aortic root. Lymph Nodes: No significant findings Mediastinum & Esophagus: No significant findings ABDOMEN/PELVIS: Please note arterial phase of the imaging limits detailed evaluation of the solid abdominal organs. Gallbladder: Gallbladder has distended margins and is prominent without surrounding inflammatory kline ge Spleen: No significant findings Kidneys: Central hypodensities in both kidneys favor prominent parapelvic cysts as there is no hydrou reter. Adrenal Glands: No significant findings Pancreas: No significant findings Liver: No significant findings Bowel and Mesentery: Colonic diverticulosis most prominent appearance in the sigmoid colon. Lymph Nodes: No significant findings Urinary Bladder: No significant findings Pelvic Organs: No significant findings Other: Ill-defined fluid and fat stranding right groin region with more focal moderate-sized right pe lvic retroperitoneal hematoma causing mass effect or left-sided bladder deviation. This extends into the lower abdomen axial image 116 where there is ill-defined fluid still present. IMPRESSION: As above. Note is made of moderate size right pelvic retroperitoneal hematoma extending i nto the lower abdomen presumed from attempted right groin catheter insertion. Correlate clinically.
[2021-11-21] MEDS: ASCORBIC ACID 500 MG TAB PO SCH (18:15)
[2021-11-21] MEDS: LORATADINE 10 MG TAB PO SCH (18:15)
[2021-11-21] MEDS: FERROUS SULFATE 325 MG TAB PO SCH (18:15)
[2021-11-21] MEDS: ATORVASTATIN 40 MG TAB PO SCH (19:55)
[2021-11-21] MEDS: MELATONIN 3 MG TABLET PO SCH (19:55)
[2021-11-21] MEDS: SERTRALINE 100 MG TAB PO SCH (19:56)
[2021-11-21] MEDS: SERTRALINE 25 MG TAB PO SCH (19:56)
[2021-11-21] MEDS ORDERED: SERTRALINE 100 MG TAB PO SCH (21:00)
[2021-11-21 21:27] LABS: Basophils % (A) 0 %; Eosinophils # (A) 0.1 k/uL (0-0.7); Eosinophils % (A) 1 %; HCT 21.6 % (34.0-46.0); Hypochromasia Slight; Lymphocytes # (A) 1.4 k/uL (1.0-4.8); Lymphocytes % (A) 11 %; MCH 29.2 pg (25.0-35.0); MCV 91.2 fL (80.0-100.0); Mean Platelet Volume 9.4; Monocytes # (A) 0.8 k/uL (0-1.0); Monocytes % (A) 6 %; Neutrophils # (A) 9.6 k/uL (1.3-7.7); Neutrophils % (A) 80 %; Platelet Count 165 k/uL (150-450); RBC 2.37 m/uL (3.80-5.40); RDW 15.2 % (11.5-15.5); WBC 12.1 k/uL (3.8-10.6)
[2021-11-21 21:39] LABS: Calcium 8.2 mg/dL (8.4-10.2); Phosphorus 3.6 mg/dL (2.5-4.5)
[2021-11-21 21:49] LABS: HGB 6.9 gm/dL (11.4-16.0)
[2021-11-22] MEDS: HEPARIN SOD,PORK IN 0.45% NACL 25,000 UNIT in 0.45% NACL 1 250ML.BAG IV SCH ×2 (06:47→07:47)
[2021-11-22] MEDS: ASPIRIN 81 MG PO SCH (08:22)
[2021-11-22] MEDS: LORATADINE 10 MG TAB PO SCH (08:22)
[2021-11-22] MEDS: PANTOPRAZOLE 40 MG/10 ML VIAL IVP SCH (08:22)
[2021-11-22] MEDS: carvediloL 3.125 MG TAB PO SCH ×2 (08:22→17:45)
[2021-11-22] MEDS: FERROUS SULFATE 325 MG TAB PO SCH ×2 (08:22→17:45)
[2021-11-22] MEDS: DIGOXIN 125 MCG TAB PO SCH (08:22)
[2021-11-22] MEDS: SPIRONOLACTONE 25 MG TAB PO SCH (08:22)
[2021-11-22] MEDS: ASCORBIC ACID 500 MG TAB PO SCH ×2 (08:22→17:45)
[2021-11-22 08:38] LABS: Basophils % (A) 0 %; Eosinophils # (A) 0.1 k/uL (0-0.7); Eosinophils % (A) 1 %; HCT 23.6 % (34.0-46.0); HGB 7.6 gm/dL (11.4-16.0); Hypochromasia Slight; Lymphocytes # (A) 0.9 k/uL (1.0-4.8); Lymphocytes % (A) 10 %; MCH 29.9 pg (25.0-35.0); MCHC 32.3 g/dL (31.0-37.0); MCV 92.5 fL (80.0-100.0); Mean Platelet Volume 9.3; Monocytes # (A) 0.7 k/uL (0-1.0); Monocytes % (A) 7 %; Neutrophils # (A) 7.9 k/uL (1.3-7.7); Neutrophils % (A) 81 %; Platelet Count 152 k/uL (150-450); RBC 2.55 m/uL (3.80-5.40); RDW 14.7 % (11.5-15.5); WBC 9.8 k/uL (3.8-10.6)
[2021-11-22 09:06] LABS: ALT 12 U/L (4-34); African American GFR (CKD) >90 (>60 ml/min/1.73 sqM); Anion Gap 3 mmol/L; Blood Urea Nitrogen 36 mg/dL (7-17); Calcium 8.1 mg/dL (8.4-10.2); Carbon Dioxide 29 mmol/L (22-30); Chloride 102 mmol/L (98-107); Glucose 101 mg/dL (74-99); Non-African American GFR(CKD) 90 (>60 ml/min/1.73 sqM); Sodium 134 mmol/L (137-145); Total Bilirubin 1.3 mg/dL (0.2-1.3)
[2021-11-22 09:09] LABS: AST 33 U/L (14-36); Albumin 2.8 g/dL (3.5-5.0); Alkaline Phosphatase 39 U/L (38-126); Potassium 4.6 mmol/L (3.5-5.1); Total Protein 5.6 g/dL (6.3-8.2)
[2021-11-22] MEDS: SYMBICORT 160-4.5 MCG INHALER INHALATION SCH ×2 (09:28→19:14)
[2021-11-22] MEDS: IPRATROPIUM-ALBUTEROL 3 ML NEB INHALATION SCH ×4 (09:28→19:14)
--- NOTE | 2021-11-22 09:46 | P.PN ---
Subjective Progress Note Date: 11/22/21 Principal diagnosis: Coronary artery disease with 99% RCA stenosis, non-STEMI this admission, status post unsuccessful PCI to the right coronary artery, severe aortic valve stenosi s, trace mitral valve regurgitation with mild mitral valve stenosis, dilated cardiomyopathy, acute on chronic systolic heart failure. Past medical history significant for hypertension, hyperlipidemia, chronic hypoxic respiratory failure on 2 L nasal cannula home oxygen, COVID-19 pneumonia in April 2021, remains unvaccinated for COVID-19, morbid obesity, depression, remote history of nicotine dependence, severe restrictive lung disease. The patient was seen in follow-up today 11/22/2021 at her bedside in the intensive care unit. The patient is laying in bed, is awake, alert, oriented 3 and is in no acute distress. She continues to have episodes of tearing up with conversation. Oxygen saturations are 98% on 2 L nasal cannula and she is achieving 1500 mL with encouragement on her incentive spirometry. Her hemoglobin was 6.9 yesterday and received one unit of packed red blood cells and today her hemoglobin is 7.6. A computed tomography scan TAVR protocol was completed yesterday 11/21/2021 which incidentally showed a moderate sized right pelvic retroperitoneal hematoma extending into the lower abdomen. Vascular surgery has been consulted and heparin drip is currently on hold. The patient denies any complaints of pain, shortness of breath, nausea or vomiting at this time. Bedside telemetry showing normal sinus rhythm heart rate 70 bpm. She remains afebrile the last 24 hours. Her blood pressure is currently 108/59 with a map 75. Right groin hematoma site is soft to touch and nontender. Yesterday 11/21/2021 her BUN and creatinine were 41 and 1.20 the patient did receive some hydration prior and a post her CT TAVR, and her Lasix is currently on hold. BUN and creatinine today are 36 and 0.63. Objective - Vital Signs Vital signs: Vital Signs Temp 98.0 F 11/22/21 08:00 Pulse 71 11/22/21 08:00 Resp 19 11/22/21 08:00 BP 91/64 11/22/21 08:00 Pulse Ox 98 11/22/21 08:00 Intake & Output 11/21/21 11/22/21 11/22/21 18:59 06:59 18:59 Intake Total 1557.097 981.178 20 Output Total 400 575 0 Balance 1157.097 406.178 20 Weight 113.3 kg Intake: IV 1165 305 20 Sodium Chloride 0.9% 1, 40 000 ml @ 20 mls/hr IV . Q24H [facility] Rx#:[id number] Sodium Chloride 0.9% 500 1125 305 20 ml 500 ml @ 125 mls/hr IV .Q4H [facility] Rx#:[id number] Intake, IV Titration 92.097 100.178 Amount Heparin Sod,Pork in 0.45% 92.097 100.178 NaCl 25,000 unit In 0.45 % NaCl 1 250ml.bag @ 18 UNITS/KG/HR 19.224 mls/hr IV .Q13H1M [facility] Rx#: [id number] Oral 300 Blood Product 576 Rc Pheresis As-3 Unit 288 [id number] Output: Urine 400 575 0 Other: Voiding Method Incontinent Incontinent Incontinent External Catheter External Catheter External Catheter ABP, PAP, CO, CI - Last Documented Arterial Blood Pressure 107/66 - Exam CONSTITUTIONAL: Awake, alert and oriented 3 with episodes of tearing up, cooperative and is in no apparent acute distress. RESPIRATORY: Lungs sounds essentially clear throughout, diminished bilateral bases, right greater than left. Respirations are symmetrical and nonlabored. C urrently on 2 L nasal cannula with oxygen saturation 98%. Able to achieve 1500 mL on incentive spirometry. Strong cough. CARDIOVASCULAR: S1, S2 present, pansystolic murmur present 3/6. Regular rate and rhythm, sinus rhythm on telemetry. Doppler lower extremity pulses bilaterally. No calf pain or tenderness noted. GASTROINTESTINAL: Abdomen soft, nontender, nondistended. Active bowel sounds present 4 quadrants. Tolerating diet. INTEGUMENTARY: Skin is warm and dry with evidence of good perfusion. Ecchymosis to her right groin, soft and nontender to palpate. NEUROLOGIC: Cranial nerves II through XII intact. No focal deficits. MUSKULOSKELETAL: Able to move all extremities, strength equal bilaterally. PSYCHIATRIC: Alert, oriented to person place and time, flat affect. - Allied health notes Allied health notes reviewed: nursing - Labs CBC & Chem 7: 11/22/21 08:17 11/22/21 07:33 Labs: Abnormal Lab Results - Last 24 Hours (Table) 0411/21/21 11/21/21 Range/Units 08:57 08:57 11:36 WBC (3.8-10.6) k/uL RBC (3.80-5.40) m/uL Hgb (11.4-16.0) gm/dL Hct (34.0-46.0) % Neutrophils # (1.3-7.7) k/uL Lymphocytes # (1.0-4.8) k/uL APTT 32.4 H 36.9 H (22.0-30.0) sec Sodium 134 L (137-145) mmol/L BUN 41 H (7-17) mg/dL Creatinine 1.20 H (0.52-1.04) mg/dL Glucose 149 H (74-99) mg/dL Calcium (8.4-10.2) mg/dL Total Bilirubin 1.4 H (0.2-1.3) mg/dL Total Protein 6.0 L (6.3-8.2) g/dL Albumin 3.3 L (3.5-5.0) g/dL Crossmatch 11/21/21 11/21/21 11/21/21 Range/Units 20:40 21:10 21:10 WBC 12.1 H (3.8-10.6) k/uL RBC 2.37 L (3.80-5.40) m/uL Hgb 6.9 L* D (11.4-16.0) gm/dL Hct 21.6 L (34.0-46.0) % Neutrophils # 9.6 H (1.3-7.7) k/uL Lymphocytes # (1.0-4.8) k/uL APTT 63.7 H (22.0-30.0) sec Sodium 132 L (137-145) mmol/L BUN 38 H (7-17) mg/dL Creatinine (0.52-1.04) mg/dL Glucose 128 H (74-99) mg/dL Calcium 8.2 L (8.4-10.2) mg/dL Total Bilirubin (0.2-1.3) mg/dL Total Protein (6.3-8.2) g/dL Albumin 3.0 L (3.5-5.0) g/dL Crossmatch 0411/22/21 11/22/21 Range/Units 23:10 07:33 08:17 WBC (3.8-10.6) k/uL RBC 2.55 L (3.80-5.40) m/uL Hgb 7.6 L (11.4-16.0) gm/dL Hct 23.6 L (34.0-46.0) % Neutrophils # 7.9 H (1.3-7.7) k/uL Lymphocytes # 0.9 L (1.0-4.8) k/uL APTT (22.0-30.0) sec Sodium 134 L (137-145) mmol/L BUN 36 H (7-17) mg/dL Creatinine (0.52-1.04) mg/dL Glucose 101 H (74-99) mg/dL Calcium 8.1 L (8.4-10.2) mg/dL Total Bilirubin (0.2-1.3) mg/dL Total Protein 5.6 L (6.3-8.2) g/dL Albumin 2.8 L (3.5-5.0) g/dL Crossmatch See Detail - Imaging and Cardiology CT TAVR results reviewed. Assessment and Plan Assessment: 1. Coronary artery disease with 99% RCA stenosis, non-STEMI this admission, status post unsuccessful PCI to the right coronary artery 2. Severe aortic valve stenosis, peak/mean gradient 78.27/47.94 mmHg 3. Trace mitral regurgitation with mild mitral stenosis on transthoracic echocardiogram, peak/mean gradients of 14.48/6.4 mmHg, 4. Dilated cardiomyopathy 5. Acute on chronic systolic heart failure, EF 25-30% on transthoracic echocardiogram 6. Right pleural effusion, likely secondary to above 7. History of hypertension 8. Hyperlipidemia, cholesterol 333, LDL 263 9. Chronic hypoxic respiratory failure on 2 L nasal cannula home oxygen 10. COVID-19 pneumonia in April 2021 11. Remains unvaccinated for COVID-19 12. Morbid obesity 13. Depression, currently on Zoloft 14. Remote history of nicotine dependence 15. Severe restrictive lung disease, FEV1 45% of predicted 16. Generalized medical debility, patient uses walker for ambulation 17. Acute kidney injury 18. Right groin hematoma at the site of her cardiac catheterization, soft to palpate Plan: 1. Continue low dose aspirin, statin and beta josé. Heparin drip has been discontinued. 2. Diuresis, heart failure management per cardiology recommendations. 3. PCI recommendations per cardiology. We will workup for TAVR. The patient is a high risk surgical candidate for surgical aortic valve replacement and CABG. 4. Medical management of other comorbidities per primary care service. 5. More recommendations to follow based on patient's clinical course. Time with Patient: Greater than 30
--- NOTE | 2021-11-22 11:30 | P.PN ---
Subjective Progress Note Date: 11/22/21 This is a 71-year-old female who was admitted to [facility] with symptoms of CHF and evidence of severe aortic stenosis and also moderate mitral regurgitation. Patient also has moderate lung disease. Patient was evaluated by cardiac catheterization and was found to have 99% stenosis of the ostium of the right coronary artery and moderate disease in the LAD. Patient also has severe aortic stenosis with a peak gradient of 40 across the valve. Given her LV dysfunction, that was felt to be very significant. Echocardiogram done in this institution again showed severe aortic stenosis and evidence of severe cardiomyopathy with ejection fraction of 20-30%. Attempted stent placement of the RCA, resulting in dissection. The procedure was abandoned surgical consult was obtained. It. Patient was felt to be high risk candidate and a duration was made to attempt percutaneous intervention of the RCA and FFR of the LAD, which is being scheduled for tomorrow. Patient apparently developed a hematoma in the right groin after 3 days of heparin. Heparin was discontinued at was restarted again see is relatively stable. Has chronic complaints of being fatigued and tired. Lungs appeared to be clear. Heart is regular. Her urine output is fair. We'll continue current medical therapy and await for intervention tomorrow. 11/22/2021: The patient's clinical status remains around the same. Denies any chest pain or shortness of breath but seemed to be weak and fatigued. She was n oted to have further drop in hemoglobin and she was taken off the heparin. A computed tomography scan of the abdomen and pelvis showed evidence of retroperitoneal hematoma and also of subcutaneous hematoma around groin site. The puncture radiologically looks appropriate and is the reason for this hematoma is not clear. A vascular consult is pending. She was scheduled to have intervention today but probably be postponed. Cardiac surgery is also following. Heart is regular. She is maintaining sinus rhythm. Lungs are clear. Continue current medical therapy Objective - Vital Signs Vital signs: Vital Signs Temp 98.0 F 11/22/21 08:00 Pulse 64 11/22/21 10:00 Resp 44 H 11/22/21 10:00 BP 98/56 11/22/21 10:00 Pulse Ox 97 11/22/21 10:00 Intake & Output 11/21/21 11/22/21 11/22/21 18:59 06:59 18:59 Intake Total 1557.097 981.178 60 Output Total 400 575 0 Balance 1157.097 406.178 60 Weight 113.3 kg Intake: IV 1165 305 60 Sodium Chloride 0.9% 1, 40 000 ml @ 20 mls/hr IV . Q24H [facility] Rx#:[id number] Sodium Chloride 0.9% 500 1125 305 60 ml 500 ml @ 125 mls/hr IV .Q4H [facility] Rx#:[id number] Intake, IV Titration 92.097 100.178 Amount Heparin Sod,Pork in 0.45% 92.097 100.178 NaCl 25,000 unit In 0.45 % NaCl 1 250ml.bag @ 18 UNITS/KG/HR 19.224 mls/hr IV .Q13H1M [facility] Rx#: [id number] Oral 300 Blood Product 576 Rc Pheresis As-3 Unit 288 [id number] Output: Urine 400 575 0 Other: Voiding Method Incontinent Incontinent Incontinent External Catheter External Catheter External Catheter ABP, PAP, CO, CI - Last Documented Arterial Blood Pressure 107/66 - Exam GENERAL EXAM: Patient is alert and oriented and doesn't appear to be in any acute distress HEENT: Normocephalic. Normal reaction of pupils, equal size, normal range of extraocular motion. No erythema or exudates in the throat. NECK: No masses, no nuchal rigidity. CHEST: No chest wall deformity. LUNGS: Diminished breath sounds at bases HEART: S1 and S2 normal with no audible mumurs or gallops. Regular rhythm, femorals equal on both sides.. ABDOMEN: No hepatosplenomegaly, normal bowel sounds, no guarding or rigidity. SKIN: No rashes CENTRAL NERVOUS SYSTEM: No focal deficits. EXTREMITIES: No cyanosis, clubbing or edema. - Labs CBC & Chem 7: 11/22/21 08:17 11/22/21 07:33 Labs: Abnormal Lab Results - Last 24 Hours (Table) 11/21/21 11/21/21 11/21/21 Range/Units 11:36 20:40 21:10 WBC 12.1 H (3.8-10.6) k/uL RBC 2.37 L (3.80-5.40) m/uL Hgb 6.9 L* D (11.4-16.0) gm/dL Hct 21.6 L (34.0-46.0) % Neutrophils # 9.6 H (1.3-7.7) k/uL Lymphocytes # (1.0-4.8) k/uL APTT 36.9 H 63.7 H (22.0-30.0) sec Sodium (137-145) mmol/L BUN (7-17) mg/dL Glucose (74-99) mg/dL Calcium (8.4-10.2) mg/dL Total Protein (6.3-8.2) g/dL Albumin (3.5-5.0) g/dL Crossmatch 11/21/21 11/21/21 11/22/21 Range/Units 21:10 23:10 07:33 WBC (3.8-10.6) k/uL RBC (3.80-5.40) m/uL Hgb (11.4-16.0) gm/dL Hct (34.0-46.0) % Neutrophils # (1.3-7.7) k/uL Lymphocytes # (1.0-4.8) k/uL APTT (22.0-30.0) sec Sodium 132 L 134 L (137-145) mmol/L BUN 38 H 36 H (7-17) mg/dL Glucose 128 H 101 H (74-99) mg/dL Calcium 8.2 L 8.1 L (8.4-10.2) mg/dL Total Protein 5.6 L (6.3-8.2) g/dL Albumin 3.0 L 2.8 L (3.5-5.0) g/dL Crossmatch See Detail 11/22/21 Range/Units 08:17 WBC (3.8-10.6) k/uL RBC 2.55 L (3.80-5.40) m/uL Hgb 7.6 L (11.4-16.0) gm/dL Hct 23.6 L (34.0-46.0) % Neutrophils # 7.9 H (1.3-7.7) k/uL Lymphocytes # 0.9 L (1.0-4.8) k/uL APTT (22.0-30.0) sec Sodium (137-145) mmol/L BUN (7-17) mg/dL Glucose (74-99) mg/dL Calcium (8.4-10.2) mg/dL Total Protein (6.3-8.2) g/dL Albumin (3.5-5.0) g/dL Crossmatch Assessment and Plan (1) CAD (coronary artery disease) Current Visit: Yes Status: Acute Code(s): I25.10 - ATHSCL HEART DISEASE OF [place] CORONARY ARTERY W/O ANG PCTRS SNOMED Code(s): 40265674 (2) Severe aortic stenosis Current Visit: Yes Status: Acute Code(s): I35.0 - NONRHEUMATIC AORTIC (VALVE) STENOSIS SNOMED Code(s): 434730996 (3) Nonischemic cardiomyopathy Current Visit: Yes Status: Acute Code(s): I42.8 - OTHER CARDIOMYOPATHIES SNOMED Code(s): 19013873 (4) Restrictive lung disease Current Visit: Yes Status: Acute Code(s): J98.4 - OTHER DISORDERS OF LUNG SNOMED Code(s): 52412836 Plan: Patient developed anemia and there is evidence of retroperitoneal hematoma. Vascular consult is pending. Patient's procedure for PCI's canceled for today. Otherwise, physical status seemed to be stable. Further recommendations depend upon clinical course
--- NOTE | 2021-11-22 12:23 | P.PN ---
Subjective Progress Note Date: 11/22/21 This is a pleasant 71-year-old female patient with biventricular failure, severe aortic stenosis, mitral regurgitation and coronary artery disease. The patient underwent a cardiac catheterization and the patient was found to have 99% RCA stenosis and the patient is post non-ST segment elevation myocardial infarction. The patient had an unsuccessful PCI of the RCA. Initially, she was being contemplated for cardiac surgery knowing that she has valvular heart disease and she was also being looks for a single-vessel bypass surgery. Ultimately, it was decided to do another cardiac catheterization tomorrow. She is known to have dilated cardiomyopathy and impaired left ventricular ejection fraction at patient presented with acute CHF. She is currently on O2 at 2 L per minute nasal cannula. She is comfortable. Nevertheless, she is anxious and she denies having any chest pain. Hemodynamically stable on no pressors. She continues to be guarded with Lasix and she is on 8040 mg IV every 12 hours. She is off IV heparin as the patient developed an acute hematoma the right femoral artery/anh in area at the site of the cardiac catheterization. The hematoma today is quite soft and the patient has a hemoglobin of 8.6 which is essentially compatible to yesterday of 9.1. There has been some mild drop in hemoglobin 9 of the hemoglobin on 11/20/2021 was 10.0. Platelet counts are normal. The hematoma in the right groin is soft. The plan is to proceed with another cardiac catheterization hopefully within the next 24 hours. Of notice, isn't elevation in the creatinine which is up to 1.2 on today's evaluation. The neck fluid balance over the past 24 hours has been in the order of +98 mL on this patient. Based on that, the Lasix has been placed on hold. Meanwhile, the patient jimbo nues to be on IV heparin infusion. Note that the IV heparin was discontinued. Now that there is no active bleeding from the hematoma, cardiology gave orders to restart the IV heparin. 11/23/2019, the patient is being seen for a follow-up. Overnight, the patient developed further drop in hemoglobin down to 6.9 as the patient was having some retroperitoneal bleeding. IV heparin was discontinued. The patient got transfused with a 1 units of packed RBC. CAT scan of the chest abdomen and pelvis was done and it showed evidence of retroperitoneal bleed on the right displacing bladder. There was also a small to moderate-sized right-sided pleural effusion and some pulmonary vascular congestion. Based on that, IV heparin was discontinued and the patient was given a total of 1 units of packed RBC and hemoglobin today is at 7.6. History of any chest pain. She continues to have some shortness of breath at rest. Fluid balance has been +1.2 L over the past 24 hours. She is currently on 2 L about 2 by nasal cannula. The plan is to undergo a cardiac catheterization and stenting of the RCA and cardiology is on the case. Despite the drop in hemoglobin, and ongoing esophageal bleed, the patient's groin is soft and there is a soft area of ecchymosis along the right groin area. Pulses in lower extremity is diminished at the present. Objective - Vital Signs Vital signs: Vital Signs Temp 98.0 F 11/22/21 08:00 Pulse 64 11/22/21 10:00 Resp 44 H 11/22/21 10:00 BP 98/56 11/22/21 10:00 Pulse Ox 97 11/22/21 10:00 Intake & Output 11/21/21 11/22/21 11/22/21 18:59 06:59 18:59 Intake Total 1557.097 981.178 60 Output Total 400 575 0 Balance 1157.097 406.178 60 Weight 113.3 kg Intake: IV 1165 305 60 Sodium Chloride 0.9% 1, 40 000 ml @ 20 mls/hr IV . Q24H [facility] Rx#:[id number] Sodium Chloride 0.9% 500 1125 305 60 ml 500 ml @ 125 mls/hr IV .Q4H [facility] Rx#:[id number] Intake, IV Titration 92.097 100.178 Amount Heparin Sod,Pork in 0.45% 92.097 100.178 NaCl 25,000 unit In 0.45 % NaCl 1 250ml.bag @ 18 UNITS/KG/HR 19.224 mls/hr IV .Q13H1M [facility] Rx#: [id number] Oral 300 Blood Product 576 Rc Pheresis As-3 Unit 288 [id number] Output: Urine 400 575 0 Other: Voiding Method Incontinent Incontinent Incontinent External Catheter External Catheter External Catheter ABP, PAP, CO, CI - Last Documented Arterial Blood Pressure 107/66 - Exam CONSTITUTIONAL: Tearful, cooperative and is in no acute distress. The patient remains anxious. Head exam was generally normal. There was no scleral icterus or corneal arcus. Mucous membranes were moist. Neck was supple and without jugular venous distension, thyromegaly, or carotid bruits. Carotids were easily palpable bilaterally. There was no adenopathy. RESPIRATORY: Lungs sounds essentially clear throughout, diminished bilateral bases, right greater than left. Respirations are symmetrical and nonlabored. Currently on 2 L nasal cannula with oxygen saturation 96%. Able to achieve 1500 mL on incentive spirometry. Strong cough. CARDIOVASCULAR: S1, S2 present, pansystolic murmur present 3/6. Regular rate and rhythm, sinus rhythm on telemetry. Doppler lower extremity pulses bilaterally. No calf pain or tenderness noted. GASTROINTESTINAL: Abdomen soft, nontender, nondistended. Active bowel sounds present 4 quadrants. Tolerating diet. A soft hematoma is present over the right inguinal area which has not enlarged in size. INTEGUMENTARY: Skin is warm and dry with evidence of good perfusion. NEUROLOGIC: Cranial nerves II through XII intact MUSKULOSKELETAL: Able to move all extremities, strength equal bilaterally. PSYCHIATRIC: Alert, oriented to person place and time, flat affect. - Labs CBC & Chem 7: 11/22/21 08:17 11/22/21 07:33 Labs: Abnormal Lab Results - Last 24 Hours (Table) 11/21/21 11/21/21 11/21/21 Range/Units 20:40 21:10 21:10 WBC 12.1 H (3.8-10.6) k/uL RBC 2.37 L (3.80-5.40) m/uL Hgb 6.9 L* D (11.4-16.0) gm/dL Hct 21.6 L (34.0-46.0) % Neutrophils # 9.6 H (1.3-7.7) k/uL Lymphocytes # (1.0-4.8) k/uL APTT 63.7 H (22.0-30.0) sec Sodium 132 L (137-145) mmol/L BUN 38 H (7-17) mg/dL Glucose 128 H (74-99) mg/dL Calcium 8.2 L (8.4-10.2) mg/dL Total Protein (6.3-8.2) g/dL Albumin 3.0 L (3.5-5.0) g/dL Crossmatch 11/21/21 11/22/21 11/22/21 Range/Units 23:10 07:33 08:17 WBC (3.8-10.6) k/uL RBC 2.55 L (3.80-5.40) m/uL Hgb 7.6 L (11.4-16.0) gm/dL Hct 23.6 L (34.0-46.0) % Neutrophils # 7.9 H (1.3-7.7) k/uL Lymphocytes # 0.9 L (1.0-4.8) k/uL APTT (22.0-30.0) sec Sodium 134 L (137-145) mmol/L BUN 36 H (7-17) mg/dL Glucose 101 H (74-99) mg/dL Calcium 8.1 L (8.4-10.2) mg/dL Total Protein 5.6 L (6.3-8.2) g/dL Albumin 2.8 L (3.5-5.0) g/dL Crossmatch See Detail Assessment and Plan Plan: 1 acute hypoxic respiratory failure, currently on 2 L of oxygen by nasal cannula, essentially secondary to valvular heart disease/CAD and secondary decompensated heart failure. 2 acute non-ST segment elevation myocardial infarction. The patient is post cardiac catheterization and the patient is a 99% RCA stenosis and the patient is status post unsuccessful PCI to RCA. The patient is being considered for ano ther cardiac catheterization by cardiology and stenting of the RCA. 3 severe aortic valve stenosis with a peak and mean gradient of 78 and 47 mmHg, and the patient continues to have a harsh cardiac murmur systolic ejection on examination. 4 mitral regurgitation 5 dilated cardiomyopathy with impaired left ventricular ejection fraction systolic heart failure with an ejection fraction of 25-30% 6 bilateral pleural effusion secondary to above 7 hypertension 8 hyperlipidemia 9 COVID 19 pneumonia back in April 2021 10 retroperitoneal bleed with a development of a soft right groin hematoma at a set of cardiac catheterization, 11 acute blood loss anemia with a hemoglobin of 6.9 and the patient got transfused with a total of 2 units of packed RBC and IV heparin was discontinued. 12 acute kidney injury improving and the creatinine is normalized 13 medical debility seconds above-mentioned comorbidities Plan Hold anticoagulants Assessment with cardiology on the ongoing retroperitoneal bleed and may need a vascular involvement the hematoma in the right groin area is rather soft hemoglobin has responded nicely to transfusion and her hemoglobin is up to 7.6 posttransfusion with a total of 1 units of packed RBCs Keep the patient off IV heparin for now Continue aspirin and statins and beta blockers Cardiothoracic surgeries on the case regarding possibility of bypass/aortic valve replacement versus PCI and possibly TaVR procedure regarding the aortic valve. Accordingly, a CT of the chest was completed and the patient has cardiomegaly and pulmonary edema and moderate sized right-sided pleural effusion. Long-term prognosis poor baseline above-mentioned comorbidities. We'll continue to follow make further recommendations from a pulmonary standpoint based on her progression.
--- NOTE | 2021-11-22 13:40 | P.GSCN ---
History of Present Illness Consult date: 11/22/21 Reason for Consult: Retroperitoneal hematoma status post cardiac catheterization Requesting physician: Mike Mares History of present illness: This is a 71-year-old female with multiple comorbidities including history of dilated cardiomyopathy with ejection fraction of 15-20%, severe aortic valve stenosis, mild aortic regurgitation with moderate to severe mitral regurgitation, chronic systolic heart failure, hyperlipidemia, obesity, chronic hypoxic respiratory failure on home oxygen, and hypertension. Apparently the patient had initially presented to [facility] with mild elevation of troponins with EKG changes was started on aspirin and a heparin drip was seen by cardiology, underwent cardiac catheterization on 11/17/21 with findings of 99% stenosis of ostial RCA, due to the findings on cardiac catheterization patient was transferred to [facility] for further evaluation and to undergo possible PCI of the right coronary artery. Patient was taken to the cardiac clinical laboratory medical director however was unsuccessful at PCI. Cardiothoracic surgery was consulted for further evaluation and possible treatment. She had a CT of the chest that revealed moderate right-sided pleural effusion with some fluid in the fissure. Yesterday patient underwent a chest abdomen pelvis CTA stating there was a moderate-sized right pelvic retroperitoneal hematoma extending into the lower abdomen presumed from attempted right groin catheter insertion. Vascular surgery has been consulted for the above.patient had a drop in her hemoglobin yesterday from 9.1-6.9, she is status post 1 unit PRBC transfusion. Current labs are pending. Apparently she had also been on a heparin drip. Review of Systems A 14 point review of systems was completed all pertinent positives and negatives as stated in the HPI. Past Medical History Past Medical History: Heart Failure, GERD/Reflux, Hyperlipidemia, Hypertension, Myocardial Infarction (non Q-wave), Pneumonia (COVID-19 pneumonia in April 2021, uses 2 L of home O2 since her diagnosis of COVID-19 pneumonia.) Additional Past Medical History / Comment(s): Pneumonia 5 years ago. Sepsis Last Myocardial Infarction Date:: 11/15/21 History of Any Multi-Drug Resistant Organisms: None Reported Past Surgical History: Heart Catheterization Additional Past Surgical History / Comment(s): Cyst removed from right ovary,. right ovary removed and part of the left ovary Past Anesthesia/Blood Transfusion Reactions: No Reported Reaction Past Psychological History: Depression Smoking Status: Former smoker Past Alcohol Use History: None Reported Past Drug Use History: None Reported - Past Family History Mother Additional Family Medical History / Comment(s): Varicous veins. Patient states "she had alot of heart problems" Father Additional Family Medical History / Comment(s): Patient states "my dad had a lot of heart issues." Medications and Allergies Home Medications Medication Instructions Recorded Confirmed Type Carvedilol [Coreg] 6.25 mg PO BID 11/17/21 11/17/21 History Digoxin [Lanoxin] 125 mcg PO DAILY 11/17/21 11/17/21 History Furosemide [Lasix] 40 mg PO BID 11/17/21 11/17/21 History Ipratropium-Albuterol Nebulize 3 ml INHALATION RT-Q6H PRN 11/17/21 11/17/21 History [Duoneb 0.5 mg-3 mg/3 ml Soln] Melatonin 3 mg PO HS 11/17/21 11/17/21 History Pantoprazole Sodium [Protonix] 40 mg PO DAILY 11/17/21 11/17/21 History Sertraline [Zoloft] 50 mg PO DAILY 11/17/21 11/17/21 History Spironolactone [Aldactone] 25 mg PO DAILY 11/17/21 11/17/21 History polyethylene glycoL 3350 [Miralax] 17 gm PO DAILY PRN 11/17/21 11/17/21 History Allergies Allergy/AdvReac Type Severity Reaction Status Date / Time hydralazine AdvReac Syncope, Verified 11/17/21 15:40 hot flashes lisinopril AdvReac Cough Verified 11/17/21 15:40 Surgical - Exam Vital Signs Pulse Resp 85 14 11/17/21 13:25 11/17/21 13:25 General appearance: The patient is alert, oriented, appears in no acute distr ess. HET: Head is normocephalic and atraumatic. Pupils are equal and reactive. Neck: Supple without lymphadenopathy. Trachea midline. No audible carotid bruit. Heart: S1 S2. Systolic murmur noted. Regular rate and rhythm. Lungs: Clear to auscultation bilaterally. Abdomen: Soft, nontender, nondistended. Extremities: Normal skin color and turgor. Right groin with ecchymosis, soft hematoma noted. No active bleeding. Minimal tenderness. Bilateral lower extremity edema. Neurological: No focal deficits. Strength and sensation are grossly intact. Results - Labs 11/22/21 08:17 11/22/21 07:33 Abnormal Lab Results - Last 24 Hours (Table) 11/21/21 11/21/21 11/21/21 Range/Units 08:57 08:57 08:57 WBC 15.0 H (3.8-10.6) k/uL RBC 2.92 L (3.80-5.40) m/uL Hgb 8.6 L (11.4-16.0) gm/dL Hct 26.9 L (34.0-46.0) % Neutrophils # 12.4 H (1.3-7.7) k/uL APTT 32.4 H (22.0-30.0) sec Sodium 134 L (137-145) mmol/L BUN 41 H (7-17) mg/dL Creatinine 1.20 H (0.52-1.04) mg/dL Glucose 149 H (74-99) mg/dL Calcium (8.4-10.2) mg/dL Total Bilirubin 1.4 H (0.2-1.3) mg/dL Total Protein 6.0 L (6.3-8.2) g/dL Albumin 3.3 L (3.5-5.0) g/dL Crossmatch 11/21/21 11/21/21 11/21/21 Range/Units 11:36 20:40 21:10 WBC 12.1 H (3.8-10.6) k/uL RBC 2.37 L (3.80-5.40) m/uL Hgb 6.9 L* D (11.4-16.0) gm/dL Hct 21.6 L (34.0-46.0) % Neutrophils # 9.6 H (1.3-7.7) k/uL APTT 36.9 H 63.7 H (22.0-30.0) sec Sodium (137-145) mmol/L BUN (7-17) mg/dL Creatinine (0.52-1.04) mg/dL Glucose (74-99) mg/dL Calcium (8.4-10.2) mg/dL Total Bilirubin (0.2-1.3) mg/dL Total Protein (6.3-8.2) g/dL Albumin (3.5-5.0) g/dL Crossmatch 11/21/21 11/21/21 Range/Units 21:10 23:10 WBC (3.8-10.6) k/uL RBC (3.80-5.40) m/uL Hgb (11.4-16.0) gm/dL Hct (34.0-46.0) % Neutrophils # (1.3-7.7) k/uL APTT (22.0-30.0) sec Sodium 132 L (137-145) mmol/L BUN 38 H (7-17) mg/dL Creatinine (0.52-1.04) mg/dL Glucose 128 H (74-99) mg/dL Calcium 8.2 L (8.4-10.2) mg/dL Total Bilirubin (0.2-1.3) mg/dL Total Protein (6.3-8.2) g/dL Albumin 3.0 L (3.5-5.0) g/dL Crossmatch See Detail Diabetes panel 11/21/21 11/21/21 Range/Units 08:57 21:10 Sodium 134 L 132 L (137-145) mmol/L Potassium 4.5 4.0 (3.5-5.1) mmol/L Chloride 99 99 (98-107) mmol/L Carbon Dioxide 26 30 (22-30) mmol/L BUN 41 H 38 H (7-17) mg/dL Creatinine 1.20 H 1.01 (0.52-1.04) mg/dL Glucose 149 H 128 H (74-99) mg/dL Calcium 8.7 8.2 L (8.4-10.2) mg/dL AST 21 (14-36) U/L ALT 16 (4-34) U/L Alkaline Phosphatase 57 (38-126) U/L Total Protein 6.0 L (6.3-8.2) g/dL Albumin 3.3 L 3.0 L (3.5-5.0) g/dL Calcium panel 11/21/21 11/21/21 Range/Units 08:57 21:10 Calcium 8.7 8.2 L (8.4-10.2) mg/dL Phosphorus 3.6 (2.5-4.5) mg/dL Albumin 3.3 L 3.0 L (3.5-5.0) g/dL Pituitary panel 11/21/21 11/21/21 Range/Units 08:57 21:10 Sodium 134 L 132 L (137-145) mmol/L Potassium 4.5 4.0 (3.5-5.1) mmol/L Chloride 99 99 (98-107) mmol/L Carbon Dioxide 26 30 (22-30) mmol/L BUN 41 H 38 H (7-17) mg/dL Creatinine 1.20 H 1.01 (0.52-1.04) mg/dL Glucose 149 H 128 H (74-99) mg/dL Calcium 8.7 8.2 L (8.4-10.2) mg/dL Adrenal panel 11/21/21 11/21/21 Range/Units 08:57 21:10 Sodium 134 L 132 L (137-145) mmol/L Potassium 4.5 4.0 (3.5-5.1) mmol/L Chloride 99 99 (98-107) mmol/L Carbon Dioxide 26 30 (22-30) mmol/L BUN 41 H 38 H (7-17) mg/dL Creatinine 1.20 H 1.01 (0.52-1.04) mg/dL Glucose 149 H 128 H (74-99) mg/dL Calcium 8.7 8.2 L (8.4-10.2) mg/dL Total Bilirubin 1.4 H (0.2-1.3) mg/dL AST 21 (14-36) U/L ALT 16 (4-34) U/L Alkaline Phosphatase 57 (38-126) U/L Total Protein 6.0 L (6.3-8.2) g/dL Albumin 3.3 L 3.0 L (3.5-5.0) g/dL - Imaging Comments: chest abdomen pelvis CTA stating there was a moderate-sized right pelvic retroperitoneal hematoma extending into the lower abdomen presumed from attempted right groin catheter insertion. Chest CTA reports no CTA evidence for thoracic aortic aneurysm or dissection. Cardiomegaly with small to moderate size right pleural effusion redemonstrated. Bilateral alveolar and interstitial edema demonstrated. Cannot exclude bilateral multifocal areas of worsening acute infiltrates. Correlate to exclude COVID-19 infection. Evidence of underlying pulmonary artery hypertension. Reactive thoracic adenopathy redemonstrated. Assessment and Plan Assessment: 1. Retroperitoneal hematoma status post cardiac catheterization 2. Acute hypoxic respiratory failure, currently on 2 L of oxygen by nasal cannula, essentially secondary to valvular heart disease/CAD and secondary decompensated heart failure. 3. Acute non-ST segment elevation myocardial infarction. The patient is post cardiac catheterization and the patient is a 99% RCA stenosis and the patient is status post unsuccessful PCI to RCA 4. Severe aortic valve stenosis 5. Mitral regurgitation 6. Dilated cardiomyopathy with impaired left ventricular ejection fraction systolic heart failure with an ejection fraction of 25-30% 7. Bilateral pleural effusion secondary to above 8. Hypertension 9. Hyperlipidemia 10. COVID 19 pneumonia back in April 2021 11. Right groin hematoma status post cardiac catheterization 12. Acute blood loss anemia post cardiac catheterization, right groin hematoma, retroperitoneal hematoma 13. Acute kidney injury Plan: 1. Continue symptomatic and supportive care 2. CT angiogram chest abdomen and pelvis reviewed, no evidence of bleeding hematoma 3. Patient may have heart healthy diet 4. There is no indication for any vascular surgical intervention 5. May resume heparin if needed 6. Monitor for signs of bleeding closely 7. Daily CBC Thank you for this consultation, we will continue to follow. The impression and plan of care has been dictated as directed. Dr. Garza I performed a history and examination of this patient, discussed the same with the dictator. I agree with the dictator's note ,documented as a scribe. Any additional findings or plans will be noted.
--- NOTE | 2021-11-22 13:53 | P.PN ---
Progress Note - Text Progress Note Date: 11/22/21 Interval History: Patient was seen resting in bed and was directable and agreeable to speak with television writer in her room. The patient reports that she feels very tired. She states that she had a lot of activity in regards to her catheter and therefore feels "spent." She is currently denying any suicidal or homicidal ideation, intention, and/or plan. She denies any auditory or visual hallucinations. The patient expresses that she has been debating whether to continue with a full code or whether to just let things end. She has decided to stay as a full code at this time. She reports that she does not want to look like that she is giving up. She reports that her appetite has improved slightly. She states that sleep was poor due to numerous checks. She otherwise reports no significant side effects of the increase in Zoloft. Mental Status Exam: General Appearance: Patient appears to be stated age is alert, pleasant, and cooperative. Patient appears to have fair hygiene and grooming wearing hospital gown with intermittent eye contact. Obese body habitus. Behavior: Patient is calmly lying in bed without any agitated behavior. Speech: Patient's speech is fluent and nonpressured. Mood/Affect: Patient reports their mood is "Tired", affect is congruent and s omnolent. Suicidality/Homicidality: Patient denies having any suicidal or homicidal ideation intent or plan. Perceptions: Patient denies any visual hallucinations and denies any auditory hallucinations Though content/process: There is no evidence of any delusional thought content and thought process is linear and goal-directed. Memory and concentration: AOX3, grossly intact for the purposes of this session. Can spell "WORLD" backwards Judgment and insight: Fair Vital Signs Temp 98.0 F 11/22/21 08:00 Pulse 64 11/22/21 10:00 Resp 44 H 11/22/21 10:00 BP 98/56 11/22/21 10:00 Pulse Ox 97 11/22/21 10:00 Intake & Output 11/21/21 11/22/21 11/22/21 18:59 06:59 18:59 Intake Total 1557.097 981.178 60 Output Total 400 575 0 Balance 1157.097 406.178 60 Weight 113.3 kg Intake: IV 1165 305 60 Sodium Chloride 0.9% 1, 40 000 ml @ 20 mls/hr IV . Q24H [facility] Rx#:[id number] Sodium Chloride 0.9% 500 1125 305 60 ml 500 ml @ 125 mls/hr IV .Q4H [facility] Rx#:[id number] Intake, IV Titration 92.097 100.178 Amount Heparin Sod,Pork in 0.45% 92.097 100.178 NaCl 25,000 unit In 0.45 % NaCl 1 250ml.bag @ 18 UNITS/KG/HR 19.224 mls/hr IV .Q13H1M [facility] Rx#: [id number] Oral 300 Blood Product 576 Rc Pheresis As-3 Unit 288 [id number] Output: Urine 400 575 0 Other: Voiding Method Incontinent Incontinent Incontinent External Catheter External Catheter External Catheter ABP, PAP, CO, CI - Last Documented Arterial Blood Pressure 107/66 Laboratory Results - Last 24 Hours 11/21/21 11/21/21 11/21/21 20:40 21:10 21:10 WBC 12.1 H RBC 2.37 L Hgb 6.9 L* D Hct 21.6 L MCV 91.2 MCH 29.2 MCHC 32.0 RDW 15.2 Plt Count 165 MPV 9.4 Neutrophils % 80 Lymphocytes % 11 Monocytes % 6 Eosinophils % 1 Basophils % 0 Neutrophils # 9.6 H Lymphocytes # 1.4 Monocytes # 0.8 Eosinophils # 0.1 Basophils # 0.0 Hypochromasia Slight APTT 63.7 H Sodium 132 L Potassium 4.0 Chloride 99 Carbon Dioxide 30 Anion Gap 3 BUN 38 H Creatinine 1.01 Est GFR (CKD-EPI)AfAm 64 Est GFR (CKD-EPI)NonAf 56 Glucose 128 H Calcium 8.2 L Phosphorus 3.6 Total Bilirubin AST ALT Alkaline Phosphatase Total Protein Albumin 3.0 L Blood Type Blood Type Confirm Blood Type Recheck Bld Type Recheck Status Antibody Screen Crossmatch Spec Expiration Date 11/21/21 11/22/21 11/22/21 23:10 00:53 07:33 WBC RBC Hgb Hct MCV MCH MCHC RDW Plt Count MPV Neutrophils % Lymphocytes % Monocytes % Eosinophils % Basophils % Neutrophils # Lymphocytes # Monocytes # Eosinophils # Basophils # Hypochromasia APTT Sodium 134 L Potassium 4.6 Chloride 102 Carbon Dioxide 29 Anion Gap 3 BUN 36 H Creatinine 0.63 Est GFR (CKD-EPI)AfAm >90 Est GFR (CKD-EPI)NonAf 90 Glucose 101 H Calcium 8.1 L Phosphorus Total Bilirubin 1.3 AST 33 ALT 12 Alkaline Phosphatase 39 Total Protein 5.6 L Albumin 2.8 L Blood Type O Positive Blood Type Confirm O Positive Blood Type Recheck No Previous Record Bld Type Recheck Status CABO Indicated Antibody Screen NEGATIVE Crossmatch See Detail Spec Expiration Date 11/24/2021 - 230911/22/21 08:17 WBC 9.8 RBC 2.55 L Hgb 7.6 L Hct 23.6 L MCV 92.5 MCH 29.9 MCHC 32.3 RDW 14.7 Plt Count 152 MPV 9.3 Neutrophils % 81 Lymphocytes % 10 Monocytes % 7 Eosinophils % 1 Basophils % 0 Neutrophils # 7.9 H Lymphocytes # 0.9 L Monocytes # 0.7 Eosinophils # 0.1 Basophils # 0.0 Hypochromasia Slight APTT Sodium Potassium Chloride Carbon Dioxide Anion Gap BUN Creatinine Est GFR (CKD-EPI)AfAm Est GFR (CKD-EPI)NonAf Glucose Calcium Phosphorus Total Bilirubin AST ALT Alkaline Phosphatase Total Protein Albumin Blood Type Blood Type Confirm Blood Type Recheck Bld Type Recheck Status Antibody Screen Crossmatch Spec Expiration Date Assessment Major depressive disorder Acute bereavement -Patient's depressive disorder is likely precipitated and exacerbated by her deteriorating general medical health, recent loss of her , and recent life changes including relocation to [place]. Acute on chronic systolic heart failure Non-STEMI CAD including 99% RCA stenosis status post failed attempted PCI Hypertension Hyperlipidemia Cardiomyopathy Oxygen-dependent status post COVID-19 infection Plan: -Continue your medical management. -At this time patient DOES NOT meet criteria for inpatient psychiatric admission. -Delirium precautions recommended with patient including - avoiding use of narcotics and [employer] sedatives, limit anticholinergic medications when possible, frequent re-orientation, minimize use of restraints, open window shades during the day and close them at night -Would recommend the following medication changes/additions: Continue Zoloft 125 mg by mouth daily at bedtime for management of depression. Zoloft and citalopram and the antidepressants most appropriate for a patient with cardiac dysfunction. Zoloft may contribute to bleeding however benefits outweigh risk at this time. Plan discussed with patient. -Brief supportive psychotherapy given. -Will continue to follow along loosely.
--- NOTE | 2021-11-22 14:30 | P.PN ---
Subjective Progress Note Date: 11/22/21 HISTORY OF PRESENT ILLNESS This is a 71-year-old female with past medical history of dilated cardiomyopathy with ejection fraction of 15-20%, severe aortic valve stenosis, mild aortic regurgitation with moderate to severe mitral regurgitation, chronic systolic heart failure, hyperlipidemia, obesity with possible obstructive sleep apnea and obesity hypoventilation syndrome, chronic hypoxic respiratory failure on home O2 at 2 L nasal cannula, hypertension hypertensive cardio vascular disease, previous Covid 19 infection. Patient presented to [facility] slight elevation of troponin, EKG showed changes suggestive ischemic changes and was started on aspirin, heparin drip and admitted to the hospital. Patient was seen by cardiology. She was supposed to have a heart catheterization done as an outpatient along with LISA for possible aortic valve replacement and mitral valve and possible CABG. Patient underwent coronary angiography finding right dominant vessel, 99% ostial stenosis, aortic pressure is 100/70, 40 mm gradient across the aortic valve. Left ventricular end diastolic pressure is 2530. Patient was transferred to [facility] for PTCA and stent placement of the RCA which was unsuccessful. Consult with cardiothoracic surgery for CABG and valve repair/replacement. 11/18: Patient is seen today in the intensive care unit. She denies chest pain or shortness of breath. She complains of anxiety and decreased appetite. Less cough today.She has been seen by gas appliance repairer and cardiothoracic surgery, currently on heparin drip, consult was added for dental evaluation and clearance and panoramic CT. Patient has been afebrile, heart rate in the 80s, blood pressure 101/73, pulse ox 96%. Repeat blood work reveals CBC is unremarkable. Potassium 4.0. Urinalysis negative for infection. Hepatitis panel negative. MRSA nasal screen is in process. CT of the chest revealed cardiomegaly with suspected pulmonary edema and moderate to marked right sided pleural effusion. Associated infection can't be excluded. Echocardiogram reveals EF of 25-30% with mild concentric left ventricular hypertrophy, severe global hypokinesia of the LV, severe aortic stenosis with gradient 78.27 mm a new 3/47.94 mmHg, trace mitral regurgitation, mild mitral stenosis, mild tricuspid regurgitation, mild pulmonary hypertension, RVSP 43.33 mmHg. Carotid ultrasound revealed less than 50% stenosis bilateral carotid systems. /: Patient is sitting up in bed she underwent CTA of the chest for evaluation of dissection of the right coronary artery, she denies any chest pain at this time, she has no shortness breath, she has no abdominal pain, nausea or vomiting, she continues to have some coughing noted from production, she continues to be somewhat depressed and anxious and she is not sure what to do, she is missing her daughter she stated and she doesn't think her daughter is able to come and see her. 3: Patient is sitting on the bed in no apparent distress, she continues to be quite depressed and anxious about her situation, she has not made up her mind, I had a long conversation with Dr. Medina regarding the plan to pursue the [facility] care at this time, she was deemed high surgical risk per cardiovascular surgery service at the current [place], and she would benefit from a transcatheter aortic valve replacement plus reattempted PCI of the RCA, her CT angiography of the chest did not show evidence of any dissection of the thoracic aorta , patient is maintained on Zoloft 100 mg every day, she is mentioned in ICU, and the plan to the PCI hopefully in the next 24 hours patient and her daughter Isatu are in agreement for conservative approach and they understand the risks of the procedure and that she will have the TAVR at a later date or during this hospital admission depends on her symptoms, we will consult Psychiatry for depression and possible bipolar disorder. 11/21: Patient remains in intensive care unit, afebrile, heart rate in the 80s, blood pressure 101/58, pulse ox 97% on room air. Patient denies having any chest pain but continues to have anxiety issues. Consult with psychiatry is pending. Patient has been scheduled for CT TAVR protocol for today. Repeat blood work reveals WBC 15, hemoglobin 8.6, platelet count 172. Sodium 134, BUN 41 creatinine 1.2. Blood sugar 149. Total bilirubin 1.4 otherwise liver function tests are normal. Nasal MRSA screen is negative. 11/22: Patient remains in the intensive care unit. Patient underwent CAT scan yesterday for TAVR protoxol and was found to have moderate size right pelvic retroperitoneal hematoma extending into the lower abdomen presumed from att empted right groin catheter insertion. Consult was added for vascular surgery with plan to continue supportive care, no plan for surgical intervention. Heparin was discontinued. Patient was transfused 1 unit of packed RBCs for hemoglobin of 6.9 with repeat hemoglobin of 7.6. Patient has been afebrile, heart rate 70, blood pressure 109/62, pulse ox 97%. finance associate is sinus rhythm. Patient has also been seen and followed by psychiatry for depression and acute bereavement with the loss of her , recommendations Zoloft 125 mg daily at bedtime. REVIEW OF SYSTEMS Constitutional: No fever, no chills, no night sweats. No weight change. Positive for generalized weakness, positive for fatigue or lethargy. No daytime sleepiness. HEENT: No headache. No blurred vision or double vision, no loss of vision. No loss of Hearing, no ringing in the ears, no dizziness. No nasal drainage or congestion. No epistaxis. No sore throat. Lungs: Positive for shortness of breath, positive for cough, no sputum production. No wheezing. Reports dyspnea on exertion. Cardiovascular: No chest pain, no lower extremity edema. No palpitations. No paroxysmal nocturnal dyspnea. No orthopnea. No lightheadedness or dizziness. No syncopal episodes. Abdominal: Reports right lower quadrant abdominal pain. No nausea, vomiting. No diarrhea. No constipation. No bloody or tarry stools. Reports loss of appetite. Genitourinary: No dysuria, increased frequency, urgency. No urinary retention. Musculoskeletal: No myalgias. Generalized muscle weakness, no gait dysfunction, no frequent falls. Positive for back pain. No neck pain. Integumentary: No wounds, no lesions. No rash or pruritus. Positive for bruising. No change in hair or nails. Neurologic: No aphasia. No facial droop. No change in mentation. No head injury. No headache. No paralysis. No paresthesia. Psychiatric: Positive for depression. Reports anxiety. Positive for mood swings Endocrine: No abnormal blood sugars. Positive for weight change. No excessive sweating or thirst. No cold intolerance. PHYSICAL EXAMINATION Gen: This is a 71-year-old female. HEENT: Head is atraumatic, normocephalic. Pupils equal, round. Sclerae is anicteric. NECK: Supple. No JVD. No lymphadenopathy. No thyromegaly. LUNGS: Decreased breath sounds at the bases, decreased tactile fremitus at the right lower third, few rhonchi, no expiratory wheeze, no chest wall tenderness. No intercostal retractions. HEART: First heart sound is depressed, second heart sound is normal, systolic ejection murmur 3/6 at the right upper sternal border radiating to the base of the neck, systolic ejection murmur 2/6 at the apex rating to the axilla. ABDOMEN: Soft, mild tenderness right lower quadrant, nondistended, positive bowel sounds, multiple ecchymosis. EXTREMITIES: 1+ pedal edema. No calf tenderness. Her cells pedis +1 bilaterally. Bilateral hammertoes. NEUROLOGICAL: Patient is awake, alert and oriented x3. Cranial nerves 2 through 12 are grossly intact., Cranial nerves II-12 appear grossly intact, muscle power 4 out of 5 in upper and lower extremities bilaterally. ASSESSMENT AND PLAN 1. Non ST elevation myocardial infarction with history of prior dilated cardiomyopathy status post coronary angiography finding right dominant vessel, 99% ostial stenosis, aortic pressure is 100/70, 40 mm gradient across the aortic valve. Left ventricular end diastolic pressure is 2530. Patient was transferred to [facility] for PTCA and stent placement of the RCA which was unsuccessful. Consult with cardiothoracic surgery appreciated. Chief Supply Chain Officer consultation appreciated. Continue aspirin 81 mg daily, on Coreg 6.25 mg twice daily. Patient is unable to tolerate statins because of significant myopathy and plan is to start her on Repatha under 40 mg subcu every 2 weeks. 2. Dilated cardiomyopathy. continue patient on carvedilol 3.125 mg orally twice every day, continue with monitoring input and output and daily weight. 3. Severe aortic valve stenosis with mild aortic regurgitation. Discussed with the patient the pros and cons on transcatheter aortic valve replacement versus CABG to the RCA with surgical aortic valve replacement. 4. Moderate to Severe mitral regurgitation. likely will continue with co nservative management no plan for mitral valve repair. 5. Hyperlipidemia. Patient unable to tolerate statins. She was started on atorvastatin 40 mg once every day. 6. Obesity with obstructive sleep apnea and obesity hypoventilation syndrome. Patient has not had sleep study done yet. 7. Chronic hypoxic respiratory failure secondary to his Covid 19 and underlying COPD and possible obstructive sleep apnea and hypoventilation syndrome. Patient is normally on 2 L nasal cannula. 8. Acute on chronic systolic heart failure. Continue Lasix 40 mg IV every 12 hours, Coreg, Aldactone 25 mg daily. 9. Hypertension, hypertensive cardiovascular disease. continue carvedilol 3.125 mg orally twice every day patient is not on MELODY-I or ARB due to severe hypertension, 10. Recurrent depression and generalized anxiety disorder. Continue Zoloft 50 mg orally once every day, consult Psychiatry for further evaluation 11. DVT prophylaxis. 12. GI prophylaxis. Protonix 40 mg IV push daily. 13. Overall prognosis is very guarded. 14. Acute retroperitoneal hematoma with acute blood loss anemia status post transfusion 1 unit of packed RBCs. Consult with vascular surgery appreciated. Heparin has been discontinued. Continue to monitor hemoglobin closely. Impression and plan of care have been directed as dictated by the signing physician. Marina Barbosa nurse practitioner acting as scribe for signing physician. Objective - Vital Signs Vital signs: Vital Signs Temp 98.0 F 11/22/21 08:00 Pulse 64 11/22/21 10:00 Resp 44 H 11/22/21 10:00 BP 98/56 11/22/21 10:00 Pulse Ox 97 11/22/21 10:00 Intake & Output 11/21/21 11/22/21 11/22/21 18:59 06:59 18:59 Intake Total 1557.097 981.178 60 Output Total 400 575 0 Balance 1157.097 406.178 60 Weight 113.3 kg Intake: IV 1165 305 60 Sodium Chloride 0.9% 1, 40 000 ml @ 20 mls/hr IV . Q24H [facility] Rx#:[id number] Sodium Chloride 0.9% 500 1125 305 60 ml 500 ml @ 125 mls/hr IV .Q4H [facility] Rx#:[id number] Intake, IV Titration 92.097 100.178 Amount Heparin Sod,Pork in 0.45% 92.097 100.178 NaCl 25,000 unit In 0.45 % NaCl 1 250ml.bag @ 18 UNITS/KG/HR 19.224 mls/hr IV .Q13H1M [facility] Rx#: [id number] Oral 300 Blood Product 576 Rc Pheresis As-3 Unit 288 [id number] Output: Urine 400 575 0 Other: Voiding Method Incontinent Incontinent Incontinent External Catheter External Catheter External Catheter ABP, PAP, CO, CI - Last Documented Arterial Blood Pressure 107/66 - Labs CBC & Chem 7: 11/22/21 08:17 11/22/21 07:33 Labs: Abnormal Lab Results - Last 24 Hours (Table) 11/21/21 11/21/21 11/21/21 Range/Units 20:40 21:10 21:10 WBC 12.1 H (3.8-10.6) k/uL RBC 2.37 L (3.80-5.40) m/uL Hgb 6.9 L* D (11.4-16.0) gm/dL Hct 21.6 L (34.0-46.0) % Neutrophils # 9.6 H (1.3-7.7) k/uL Lymphocytes # (1.0-4.8) k/uL APTT 63.7 H (22.0-30.0) sec Sodium 132 L (137-145) mmol/L BUN 38 H (7-17) mg/dL Glucose 128 H (74-99) mg/dL Calcium 8.2 L (8.4-10.2) mg/dL Total Protein (6.3-8.2) g/dL Albumin 3.0 L (3.5-5.0) g/dL Crossmatch 11/21/21 11/22/21 11/22/21 Range/Units 23:10 07:33 08:17 WBC (3.8-10.6) k/uL RBC 2.55 L (3.80-5.40) m/uL Hgb 7.6 L (11.4-16.0) gm/dL Hct 23.6 L (34.0-46.0) % Neutrophils # 7.9 H (1.3-7.7) k/uL Lymphocytes # 0.9 L (1.0-4.8) k/uL APTT (22.0-30.0) sec Sodium 134 L (137-145) mmol/L BUN 36 H (7-17) mg/dL Glucose 101 H (74-99) mg/dL Calcium 8.1 L (8.4-10.2) mg/dL Total Protein 5.6 L (6.3-8.2) g/dL Albumin 2.8 L (3.5-5.0) g/dL Crossmatch See Detail
[2021-11-22] MEDS: ACETAMINOPHEN TAB 325 MG TAB PO PRN (15:00)
[2021-11-22] MEDS: SODIUM CHLORIDE 0.9% 1,000 ML IV SCH (15:16)
[2021-11-22] MEDS: ATORVASTATIN 40 MG TAB PO SCH (19:53)
[2021-11-22] MEDS: SERTRALINE 100 MG TAB PO SCH (19:54)
[2021-11-22] MEDS: SERTRALINE 25 MG TAB PO SCH (19:54)
[2021-11-22] MEDS: MELATONIN 3 MG TABLET PO SCH (20:25)
[2021-11-23] MEDS: SYMBICORT 160-4.5 MCG INHALER INHALATION SCH ×2 (08:02→19:56)
[2021-11-23] MEDS: IPRATROPIUM-ALBUTEROL 3 ML NEB INHALATION SCH ×4 (08:02→19:56)
[2021-11-23 08:12] LABS: African American GFR (CKD) >90 (>60 ml/min/1.73 sqM); Anion Gap 5 mmol/L; Blood Urea Nitrogen 24 mg/dL (7-17); Calcium 8.3 mg/dL (8.4-10.2); Carbon Dioxide 30 mmol/L (22-30); Chloride 102 mmol/L (98-107); Glucose 133 mg/dL (74-99); Non-African American GFR(CKD) >90 (>60 ml/min/1.73 sqM); Potassium 4.1 mmol/L (3.5-5.1); Sodium 137 mmol/L (137-145)
[2021-11-23] MEDS: ASPIRIN 81 MG PO SCH (08:17)
[2021-11-23] MEDS: FERROUS SULFATE 325 MG TAB PO SCH ×2 (08:17→17:12)
[2021-11-23] MEDS: ASCORBIC ACID 500 MG TAB PO SCH ×2 (08:17→17:12)
[2021-11-23] MEDS: ENOXAPARIN 40 MG/0.4 ML SYRINGE SQ SCH (08:17)
[2021-11-23] MEDS: carvediloL 3.125 MG TAB PO SCH ×2 (08:17→17:12)
[2021-11-23] MEDS: LORATADINE 10 MG TAB PO SCH (08:17)
[2021-11-23] MEDS: SPIRONOLACTONE 25 MG TAB PO SCH (08:17)
[2021-11-23] MEDS: PANTOPRAZOLE 40 MG/10 ML VIAL IVP SCH (08:17)
[2021-11-23] MEDS: DIGOXIN 125 MCG TAB PO SCH (08:21)
[2021-11-23] MEDS ORDERED: FLUTICASONE 50MCG/SPRAY NASAL 16GM EA NOSTRIL PRN (08:36)
[2021-11-23 08:52] LABS: Basophils # (A) 0.1 k/uL (0-0.2); Basophils % (A) 1 %; Eosinophils # (A) 0.2 k/uL (0-0.7); Eosinophils % (A) 2 %; HCT 24.1 % (34.0-46.0); HGB 7.6 gm/dL (11.4-16.0); Hypochromasia Slight; Lymphocytes # (A) 0.9 k/uL (1.0-4.8); Lymphocytes % (A) 9 %; MCH 29.8 pg (25.0-35.0); MCHC 31.7 g/dL (31.0-37.0); MCV 93.9 fL (80.0-100.0); Monocytes # (A) 0.7 k/uL (0-1.0); Monocytes % (A) 7 %; Neutrophils # (A) 8.4 k/uL (1.3-7.7); Neutrophils % (A) 81 %; Platelet Count 150 k/uL (150-450); RBC 2.56 m/uL (3.80-5.40); RDW 15.2 % (11.5-15.5); WBC 10.5 k/uL (3.8-10.6)
--- NOTE | 2021-11-23 10:28 | P.PN ---
Subjective Progress Note Date: 11/23/21 Patient is seen and examined this a follow-up. She remains in the ICU. No complaints of any abdominal pain. No worsening of bruising or hematoma in the right groin. Hemoglobin stable at 7.6. Objective - Vital Signs Vital signs: Vital Signs Temp 97.7 F 11/23/21 08:00 Pulse 81 11/23/21 10:00 Resp 20 11/23/21 10:00 BP 103/65 11/23/21 10:00 Pulse Ox 97 11/23/21 10:00 Intake & Output 11/22/21 11/23/21 11/23/21 18:59 06:59 18:59 Intake Total 920 540 60 Output Total 750 750 200 Balance 170 -210 -140 Weight 111 kg Intake: IV 200 260 60 Sodium Chloride 0.9% 1, 140 260 60 000 ml @ 20 mls/hr IV . Q24H [facility] Rx#:[id number] Sodium Chloride 0.9% 500 60 ml 500 ml @ 125 mls/hr IV .Q4H [facility] Rx#:[id number] Oral 720 280 Output: Urine 750 750 200 Other: Voiding Method Incontinent Incontinent External Catheter External Catheter # Voids 1 ABP, PAP, CO, CI - Last Documented Arterial Blood Pressure 107/66 - Exam General appearance: The patient is alert, oriented, appears in no acute distress. HET: Head is normocephalic and atraumatic. Pupils are equal and reactive. Neck: Supple without lymphadenopathy. Trachea midline. No audible carotid bruit. Heart: S1 S2. Systolic murmur noted. Regular rate and rhythm. Lungs: Clear to auscultation bilaterally. Abdomen: Soft, nontender, nondistended. Extremities: Normal skin color and turgor. Right groin with ecchymosis, soft hematoma noted. No active bleeding. Minimal tenderness. Bilateral lower extremity edema. Neurological: No focal deficits. Strength and sensation are grossly intact. - Labs CBC & Chem 7: 11/23/21 08:37 11/23/21 07:25 Labs: Abnormal Lab Results - Last 24 Hours (Table) 11/23/21 11/23/21 Range/Units 07:25 08:37 RBC 2.56 L (3.80-5.40) m/uL Hgb 7.6 L (11.4-16.0) gm/dL Hct 24.1 L (34.0-46.0) % Neutrophils # 8.4 H (1.3-7.7) k/uL Lymphocytes # 0.9 L (1.0-4.8) k/uL BUN 24 H (7-17) mg/dL Creatinine 0.49 L (0.52-1.04) mg/dL Glucose 133 H (74-99) mg/dL Calcium 8.3 L (8.4-10.2) mg/dL Assessment and Plan Assessment: 1. Retroperitoneal hematoma status post cardiac catheterization 2. Acute hypoxic respiratory failure, currently on 2 L of oxygen by nasal cannula, essentially secondary to valvular heart disease/CAD and secondary decompensated heart failure. 3. Acute non-ST segment elevation myocardial infarction. The patient is post cardiac catheterization and the patient is a 99% RCA stenosis and the patient is status post unsuccessful PCI to RCA 4. Severe aortic valve stenosis 5. Mitral regurgitation 6. Dilated cardiomyopathy with impaired left ventricular ejection fraction systolic heart failure with an ejection fraction of 25-30% 7. Bilateral pleural effusion secondary to above 8. Hypertension 9. Hyperlipidemia 10. COVID 19 pneumonia back in April 2021 11. Right groin hematoma status post cardiac catheterization 12. Acute blood loss anemia post cardiac catheterization, right groin hematoma, retroperitoneal hematoma 13. Acute kidney injury Plan: 1. Continue symptomatic and supportive care 2. CT angiogram chest abdomen and pelvis reviewed, no evidence of bleeding hematoma 3. Patient may have heart healthy diet 4. There is no indication for any vascular surgical intervention 5. May resume heparin if needed 6. Monitor for signs of bleeding closely 7. Daily CBC Thank you for this consultation, we will continue to follow. The impression and plan of care has been dictated as directed. Dr. Mancilla I performed a history and examination of this patient, discussed the same with the dictator. I agree with the dictator's note ,documented as a scribe. Any additional findings or plans will be noted.
--- NOTE | 2021-11-23 10:38 | P.PN ---
Subjective Progress Note Date: 11/23/21 Principal diagnosis: Coronary artery disease with 99% RCA stenosis, non-STEMI this admission, status post unsuccessful PCI to the right coronary artery, severe aortic valve stenosi s, trace mitral valve regurgitation with mild mitral valve stenosis, dilated cardiomyopathy, acute on chronic systolic heart failure. Past medical history significant for hypertension, hyperlipidemia, chronic hypoxic respiratory failure on 2 L nasal cannula home oxygen, COVID-19 pneumonia in April 2021, remains unvaccinated for COVID-19, morbid obesity, depression, remote history of nicotine dependence, severe restrictive lung disease. The patient was seen in follow-up today 11/23/2021 at her bedside in intensive care unit. Currently she is lying in bed, is awake, alert, and oriented 3 and is in no acute distress. The patient continues to have episodes of anxiousness and frequent episodes of tearing. She is complaining of some postnasal drip, but denies any complaints of chest pain or shortness of breath with lying in bed. She was started on Lovenox 40 mg subcu daily yesterday by cardiology. Oxygen saturations are 97% on 2 L nasal cannula and she is achieving 1500 mL on her incentive spirometry with encouragement. Laboratory results this morning show a WBC count of 10.5, hemoglobin 7.6, platelets 150, sodium 137, potassium 4.1, BUN 24 and creatinine 0.49. According to the patient, there is possible plans of transfer to [facility] for further cardiac intervention. The patient reports that she is quite anxious about this. Objective - Vital Signs Vital signs: Vital Signs Temp 97.7 F 11/23/21 08:00 Pulse 81 11/23/21 10:00 Resp 20 11/23/21 10:00 BP 103/65 11/23/21 10:00 Pulse Ox 97 11/23/21 10:00 Intake & Output 11/22/21 11/23/21 11/23/21 18:59 06:59 18:59 Intake Total 920 540 60 Output Total 750 750 200 Balance 170 -210 -140 Weight 111 kg Intake: IV 200 260 60 Sodium Chloride 0.9% 1, 140 260 60 000 ml @ 20 mls/hr IV . Q24H [facility] Rx#:[id number] Sodium Chloride 0.9% 500 60 ml 500 ml @ 125 mls/hr IV .Q4H [facility] Rx#:[id number] Oral 720 280 Output: Urine 750 750 200 Other: Voiding Method Incontinent Incontinent External Catheter External Catheter # Voids 1 ABP, PAP, CO, CI - Last Documented Arterial Blood Pressure 107/66 - Exam CONSTITUTIONAL: Awake, alert and oriented 3 with episodes anxious this and tearing up, cooperative and is in no apparent acute distress. RESPIRATORY: Lungs sounds essentially clear throughout, diminished bilateral bases, right greater than left. Respirations are symmetrical and nonlabored. Currently on 2 L nasal cannula with oxygen saturation 97%. Able to achieve 1500 mL on incentive spirometry. Strong cough. CARDIOVASCULAR: S1, S2 present, pansystolic murmur present 3/6. Regular rate and rhythm, sinus rhythm on telemetry. Doppler lower extremity pulses bilaterally. No calf pain or tenderness noted. GASTROINTESTINAL: Abdomen soft, nontender, nondistended. Active bowel sounds present 4 quadrants. Tolerating diet. INTEGUMENTARY: Skin is warm and dry with evidence of good perfusion. Ecchymosis to her right groin, soft and nontender to palpate. NEUROLOGIC: Cranial nerves II through XII intact. No focal deficits. MUSKULOSKELETAL: Able to move all extremities, strength equal bilaterally. PSYCHIATRIC: Alert, oriented to person place and time, flat affect. - Allied health notes Allied health notes reviewed: nursing - Labs CBC & Chem 7: 11/23/21 08:37 11/23/21 07:25 Labs: Abnormal Lab Results - Last 24 Hours (Table) 11/23/21 11/23/21 Range/Units 07:25 08:37 RBC 2.56 L (3.80-5.40) m/uL Hgb 7.6 L (11.4-16.0) gm/dL Hct 24.1 L (34.0-46.0) % Neutrophils # 8.4 H (1.3-7.7) k/uL Lymphocytes # 0.9 L (1.0-4.8) k/uL BUN 24 H (7-17) mg/dL Creatinine 0.49 L (0.52-1.04) mg/dL Glucose 133 H (74-99) mg/dL Calcium 8.3 L (8.4-10.2) mg/dL Assessment and Plan Assessment: 1. Coronary artery disease with 99% RCA stenosis, non-STEMI this admission, status post unsuccessful PCI to the right coronary artery 2. Severe aortic valve stenosis, peak/mean gradient 78.27/47.94 mmHg 3. Trace mitral regurgitation with mild mitral stenosis on transthoracic echocardiogram, peak/mean gradients of 14.48/6.4 mmHg, 4. Dilated cardiomyopathy 5. Acute on chronic systolic heart failure, EF 25-30% on transthoracic echocardiogram 6. Right pleural effusion, likely secondary to above 7. History of hypertension 8. Hyperlipidemia, cholesterol 333, LDL 263 9. Chronic hypoxic respiratory failure on 2 L nasal cannula home oxygen 10. COVID-19 pneumonia in April 2021 11. Remains unvaccinated for COVID-19 12. Morbid obesity 13. Depression, currently on Zoloft 14. Remote history of nicotine dependence 15. Severe restrictive lung disease, FEV1 45% of predicted 16. Generalized medical debility, patient uses walker for ambulation 17. Acute kidney injury 18. Right groin hematoma at the site of her cardiac catheterization, soft to palpate Plan: 1. Continue low dose aspirin, statin and beta josé. 2. Diuresis, heart failure management per cardiology recommendations. 3. PCI recommendations per cardiology. We will workup for TAVR. The patient is a high risk surgical candidate for surgical aortic valve replacement and CABG. 4. Medical management of other comorbidities per primary care service. 5. Lovenox 40 mg subcutaneous daily was initiated by cardiology yesterday 11/22/2021. 6. More recommendations to follow based on patient's clinical course. Time with Patient: Greater than 30
--- NOTE | 2021-11-23 11:23 | P.PN ---
Subjective Progress Note Date: 11/23/21 This is a pleasant 71-year-old female patient with biventricular failure, severe aortic stenosis, mitral regurgitation and coronary artery disease. The patient underwent a cardiac catheterization and the patient was found to have 99% RCA stenosis and the patient is post non-ST segment elevation myocardial infarction. The patient had an unsuccessful PCI of the RCA. Initially, she was being contemplated for cardiac surgery knowing that she has valvular heart disease and she was also being looks for a single-vessel bypass surgery. Ultimately, it was decided to do another cardiac catheterization tomorrow. She is known to have dilated cardiomyopathy and impaired left ventricular ejection fraction at patient presented with acute CHF. She is currently on O2 at 2 L per minute nasal cannula. She is comfortable. Nevertheless, she is anxious and she denies having any chest pain. Hemodynamically stable on no pressors. She continues to be guarded with Lasix and she is on 8040 mg IV every 12 hours. She is off IV heparin as the patient developed an acute hematoma the right femoral artery/anh in area at the site of the cardiac catheterization. The hematoma today is quite soft and the patient has a hemoglobin of 8.6 which is essentially compatible to yesterday of 9.1. There has been some mild drop in hemoglobin 9 of the hemoglobin on 11/20/2021 was 10.0. Platelet counts are normal. The hematoma in the right groin is soft. The plan is to proceed with another cardiac catheterization hopefully within the next 24 hours. Of notice, isn't elevation in the creatinine which is up to 1.2 on today's evaluation. The neck fluid balance over the past 24 hours has been in the order of +98 mL on this patient. Based on that, the Lasix has been placed on hold. Meanwhile, the patient jimbo nues to be on IV heparin infusion. Note that the IV heparin was discontinued. Now that there is no active bleeding from the hematoma, cardiology gave orders to restart the IV heparin. 11/23/2019, the patient is being seen for a follow-up. Overnight, the patient developed further drop in hemoglobin down to 6.9 as the patient was having some retroperitoneal bleeding. IV heparin was discontinued. The patient got transfused with a 1 units of packed RBC. CAT scan of the chest abdomen and pelvis was done and it showed evidence of retroperitoneal bleed on the right displacing bladder. There was also a small to moderate-sized right-sided pleural effusion and some pulmonary vascular congestion. Based on that, IV heparin was discontinued and the patient was given a total of 1 units of packed RBC and hemoglobin today is at 7.6. History of any chest pain. She continues to have some shortness of breath at rest. Fluid balance has been +1.2 L over the past 24 hours. She is currently on 2 L about 2 by nasal cannula. The plan is to undergo a cardiac catheterization and stenting of the RCA and cardiology is on the case. Despite the drop in hemoglobin, and ongoing esophageal bleed, the patient's groin is soft and there is a soft area of ecchymosis along the right groin area. Pulses in lower extremity is diminished at the present. 11/23/2021, condition is stable and unchanged compared to yesterday. No signs of any ongoing bleeding and the patient's hemoglobin today is at 7.6 which is comparable to yesterday. No change in the hematoma along the right groin area. No anticoagulants for now the patient is taken on Lovenox for prophylaxis. The patient has no new complaints. Resting comfortably in bed. No coronary intervention was done and the cardiac interventional cardiology, decided to wait a few more days until this is a pleasant hematoma is more settled prior doing a ny intervention. Meanwhile, the patient remains on 2 L of O2 by nasal cannula. Input output balance has been +230 mL over the past 24 hours. BUN is a 36 with a creatinine of 0.6 and the potassium level of 4.6 and his sodium level of 134. White cell count is at 9.8 and the plated count is at 152. No altered mentation. The patient remains on aspirin. The patient on Lovenox for DVT prophylaxis 40 mg subcu. The patient remains on Coreg 3.125 mg by mouth twice a day and digoxin and Aldactone. Objective - Vital Signs Vital signs: Vital Signs Temp 97.7 F 11/23/21 08:00 Pulse 81 11/23/21 10:00 Resp 20 11/23/21 10:00 BP 103/65 11/23/21 10:00 Pulse Ox 97 11/23/21 10:00 Intake & Output 11/22/21 11/23/21 11/23/21 18:59 06:59 18:59 Intake Total 920 540 60 Output Total 750 750 200 Balance 170 -210 -140 Weight 111 kg Intake: IV 200 260 60 Sodium Chloride 0.9% 1, 140 260 60 000 ml @ 20 mls/hr IV . Q24H [facility] Rx#:[id number] Sodium Chloride 0.9% 500 60 ml 500 ml @ 125 mls/hr IV .Q4H [facility] Rx#:[id number] Oral 720 280 Output: Urine 750 750 200 Other: Voiding Method Incontinent Incontinent External Catheter External Catheter # Voids 1 ABP, PAP, CO, CI - Last Documented Arterial Blood Pressure 107/66 - Exam CONSTITUTIONAL: Tearful, cooperative and is in no acute distress. The patient remains anxious. Head exam was generally normal. There was no scleral icterus or corneal arcus. M ucous membranes were moist. Neck was supple and without jugular venous distension, thyromegaly, or carotid bruits. Carotids were easily palpable bilaterally. There was no adenopathy. RESPIRATORY: Lungs sounds essentially clear throughout, diminished bilateral bases, right greater than left. Respirations are symmetrical and nonlabored. Currently on 2 L nasal cannula with oxygen saturation 96%. Able to achieve 1500 mL on incentive spirometry. Strong cough. CARDIOVASCULAR: S1, S2 present, pansystolic murmur present 3/6. Regular rate and rhythm, sinus rhythm on telemetry. Doppler lower extremity pulses bilaterally. No calf pain or tenderness noted. GASTROINTESTINAL: Abdomen soft, nontender, nondistended. Active bowel sounds present 4 quadrants. Tolerating diet. A soft hematoma is present over the right inguinal area which has not enlarged in size. INTEGUMENTARY: Skin is warm and dry with evidence of good perfusion. NEUROLOGIC: Cranial nerves II through XII intact MUSKULOSKELETAL: Able to move all extremities, strength equal bilaterally. PSYCHIATRIC: Alert, oriented to person place and time, flat affect. - Labs CBC & Chem 7: 11/23/21 08:37 11/23/21 07:25 Labs: Abnormal Lab Results - Last 24 Hours (Table) 11/23/21 11/23/21 Range/Units 07:25 08:37 RBC 2.56 L (3.80-5.40) m/uL Hgb 7.6 L (11.4-16.0) gm/dL Hct 24.1 L (34.0-46.0) % Neutrophils # 8.4 H (1.3-7.7) k/uL Lymphocytes # 0.9 L (1.0-4.8) k/uL BUN 24 H (7-17) mg/dL Creatinine 0.49 L (0.52-1.04) mg/dL Glucose 133 H (74-99) mg/dL Calcium 8.3 L (8.4-10.2) mg/dL Assessment and Plan Plan: 1 acute hypoxic respiratory failure, currently on 2 L of oxygen by nasal cannula, essentially secondary to valvular heart disease/CAD and secondary decompensated heart failure. Clinically stable 2 acute non-ST segment elevation myocardial infarction. The patient is post cardiac catheterization and the patient is a 99% RCA stenosis and the patient is status post unsuccessful PCI to RCA. The patient is being considered for another cardiac catheterization by cardiology and stenting of the RCA. For now the patient is feeling of any chest pain and the patient is currently off IV heparin 3 severe aortic valve stenosis with a peak and mean gradient of 78 and 47 mmHg, and the patient continues to have a harsh cardiac murmur systolic ejection on examination. 4 mitral regurgitation 5 dilated cardiomyopathy with impaired left ventricular ejection fraction systolic heart failure with an ejection fraction of 25-30% 6 bilateral pleural effusion secondary to above 7 hypertension 8 hyperlipidemia 9 COVID 19 pneumonia back in April 2021 10 retroperitoneal bleed with a development of a soft right groin hematoma at a set of cardiac catheterization, the hemoglobin remains stable for now and there is no interval worsening in the right groin hematoma 11 acute blood loss anemia with a hemoglobin of 6.9 and the patient got transfused with a total of 1 units of packed RBC and IV heparin was discontinued. The patient's hemoglobin is stable at 7.6 on today's evaluation 12 acute kidney injury improving and the creatinine is normalized 13 medical debility seconds above-mentioned comorbidities Plan Continue monitoring this patient in the intensive care unit the hematoma in the right groin area is rather soft and there is no signs of ongoing bleeding at this point in time. Hemoglobin remains stable. Keep the patient off IV heparin for now Continue aspirin and statins and beta blockers Cardiothoracic surgeries on the case regarding possibility of bypass/aortic valve replacement versus PCI and possibly TaVR procedure regarding the aortic valve. Accordingly, a CT of the chest was completed and the patient has cardiomegaly and pulmonary edema and moderate sized right-sided pleural effusion. Long-term prognosis poor baseline above-mentioned comorbidities. We'll continue to follow
--- NOTE | 2021-11-23 11:49 | P.PN ---
Subjective Progress Note Date: 11/23/21 This is a 71-year-old female who was admitted to [facility] with symptoms of CHF and evidence of severe aortic stenosis and also moderate mitral regurgitation. Patient also has moderate lung disease. Patient was evaluated by cardiac catheterization and was found to have 99% stenosis of the ostium of the right coronary artery and moderate disease in the LAD. Patient also has severe aortic stenosis with a peak gradient of 40 across the valve. Given her LV dysfunction, that was felt to be very significant. Echocardiogram done in this institution again showed severe aortic stenosis and evidence of severe cardiomyopathy with ejection fraction of 20-30%. Attempted stent placement of the RCA, resulting in dissection. The procedure was abandoned surgical consult was obtained. It. Patient was felt to be high risk candidate and a duration was made to attempt percutaneous intervention of the RCA and FFR of the LAD, which is being scheduled for tomorrow. Patient apparently developed a hematoma in the right groin after 3 days of heparin. Heparin was discontinued at was restarted again see is relatively stable. Has chronic complaints of being fatigued and tired. Lungs appeared to be clear. Heart is regular. Her urine output is fair. We'll continue current medical therapy and await for intervention tomorrow. 11/22/2021: The patient's clinical status remains around the same. Denies any chest pain or shortness of breath but seemed to be weak and fatigued. She was n oted to have further drop in hemoglobin and she was taken off the heparin. A computed tomography scan of the abdomen and pelvis showed evidence of retroperitoneal hematoma and also of subcutaneous hematoma around groin site. The puncture radiologically looks appropriate and is the reason for this hematoma is not clear. A vascular consult is pending. She was scheduled to have intervention today but probably be postponed. Cardiac surgery is also following. Heart is regular. She is maintaining sinus rhythm. Lungs are clear. Continue current medical therapy. 11/23/2021: Patient's remains relatively stable. Her hemoglobin is stable without evidence of acute or active bleeding. Groin is soft, denies any chest pain and doesn't appear to be in acute distress. Her creatinine is normal. Discussed with patient and also daughter regarding further intervention. Dr. Medina's willing to try again to do percutaneous intervention. After that patient could have transcatheter aortic valve replacement. Patient and daughter are fully aware of the risks associated with the procedure and wanted to have this is done locally. They were given the option of going to a tertiary center like [facility]. However, patient is reluctant and wants to have it done here as soon as possible. Lungs are clear. Heart is regular. Height, came to Dr. Medina to proceed with intervention probably tomorrow Objective - Vital Signs Vital signs: Vital Signs Temp 97.7 F 11/23/21 08:00 Pulse 82 11/23/21 11:00 Resp 31 H 11/23/21 11:00 BP 106/65 11/23/21 11:00 Pulse Ox 98 11/23/21 11:00 Intake & Output 11/22/21 11/23/21 11/23/21 18:59 06:59 18:59 Intake Total 920 540 60 Output Total 750 750 200 Balance 170 -210 -140 Weight 111 kg Intake: IV 200 260 60 Sodium Chloride 0.9% 1, 140 260 60 000 ml @ 20 mls/hr IV . Q24H [facility] Rx#:[id number] Sodium Chloride 0.9% 500 60 ml 500 ml @ 125 mls/hr IV .Q4H [facility] Rx#:[id number] Oral 720 280 Output: Urine 750 750 200 Other: Voiding Method Incontinent Incontinent External Catheter External Catheter # Voids 1 ABP, PAP, CO, CI - Last Documented Arterial Blood Pressure 107/66 - Exam GENERAL EXAM: Patient is alert and oriented and doesn't appear to be in any acute distress HEENT: Normocephalic. Normal reaction of pupils, equal size, normal range of extraocular motion. No erythema or exudates in the throat. NECK: No masses, no nuchal rigidity. CHEST: No chest wall deformity. LUNGS: Diminished breath sounds at bases HEART: S1 and S2 normal . Systolic murmur in the aortic area ABDOMEN: No hepatosplenomegaly, normal bowel sounds, no guarding or rigidity. SKIN: No rashes CENTRAL NERVOUS SYSTEM: No focal deficits. EXTREMITIES: No cyanosis, clubbing or edema. - Labs CBC & Chem 7: 11/23/21 08:37 11/23/21 07:25 Labs: Abnormal Lab Results - Last 24 Hours (Table) 11/23/21 11/23/21 Range/Units 07:25 08:37 RBC 2.56 L (3.80-5.40) m/uL Hgb 7.6 L (11.4-16.0) gm/dL Hct 24.1 L (34.0-46.0) % Neutrophils # 8.4 H (1.3-7.7) k/uL Lymphocytes # 0.9 L (1.0-4.8) k/uL BUN 24 H (7-17) mg/dL Creatinine 0.49 L (0.52-1.04) mg/dL Glucose 133 H (74-99) mg/dL Calcium 8.3 L (8.4-10.2) mg/dL Assessment and Plan (1) CAD (coronary artery disease) Current Visit: Yes Status: Acute Code(s): I25.10 - ATHSCL HEART DISEASE OF [place] CORONARY ARTERY W/O ANG PCTRS SNOMED Code(s): 39221123 (2) Severe aortic stenosis Current Visit: Yes Status: Acute Code(s): I35.0 - NONRHEUMATIC AORTIC (VALVE) STENOSIS SNOMED Code(s): 056392284 (3) Nonischemic cardiomyopathy Current Visit: Yes Status: Acute Code(s): I42.8 - OTHER CARDIOMYOPATHIES SNOMED Code(s): 89098630 (4) Restrictive lung disease Current Visit: Yes Status: Acute Code(s): J98.4 - OTHER DISORDERS OF LUNG SNOMED Code(s): 50184847 Plan: Patient is relatively stable. Hemoglobin appears to be stable and more than 7 g. After discussing with daughter and patient, I informed Dr. Medina proceed intervention, followed tomorrow
--- NOTE | 2021-11-23 14:42 | P.PN ---
Subjective Progress Note Date: 11/23/21 HISTORY OF PRESENT ILLNESS This is a 71-year-old female with past medical history of dilated cardiomyopathy with ejection fraction of 15-20%, severe aortic valve stenosis, mild aortic regurgitation with moderate to severe mitral regurgitation, chronic systolic heart failure, hyperlipidemia, obesity with possible obstructive sleep apnea and obesity hypoventilation syndrome, chronic hypoxic respiratory failure on home O2 at 2 L nasal cannula, hypertension hypertensive cardio vascular disease, previous Covid 19 infection. Patient presented to [facility] slight elevation of troponin, EKG showed changes suggestive ischemic changes and was started on aspirin, heparin drip and admitted to the hospital. Patient was seen by cardiology. She was supposed to have a heart catheterization done as an outpatient along with LISA for possible aortic valve replacement and mitral valve and possible CABG. Patient underwent coronary angiography finding right dominant vessel, 99% ostial stenosis, aortic pressure is 100/70, 40 mm gradient across the aortic valve. Left ventricular end diastolic pressure is 2530. Patient was transferred to [facility] for PTCA and stent placement of the RCA which was unsuccessful. Consult with cardiothoracic surgery for CABG and valve repair/replacement. 11/18: Patient is seen today in the intensive care unit. She denies chest pain or shortness of breath. She complains of anxiety and decreased appetite. Less cough today.She has been seen by fence builder and cardiothoracic surgery, currently on heparin drip, consult was added for dental evaluation and clearance and panoramic CT. Patient has been afebrile, heart rate in the 80s, blood pressure 101/73, pulse ox 96%. Repeat blood work reveals CBC is unremarkable. Potassium 4.0. Urinalysis negative for infection. Hepatitis panel negative. MRSA nasal screen is in process. CT of the chest revealed cardiomegaly with suspected pulmonary edema and moderate to marked right sided pleural effusion. Associated infection can't be excluded. Echocardiogram reveals EF of 25-30% with mild concentric left ventricular hypertrophy, severe global hypokinesia of the LV, severe aortic stenosis with gradient 78.27 mm a new 3/47.94 mmHg, trace mitral regurgitation, mild mitral stenosis, mild tricuspid regurgitation, mild pulmonary hypertension, RVSP 43.33 mmHg. Carotid ultrasound revealed less than 50% stenosis bilateral carotid systems. /2: Patient is sitting up in bed she underwent CTA of the chest for evaluation of dissection of the right coronary artery, she denies any chest pain at this time, she has no shortness breath, she has no abdominal pain, nausea or vomiting, she continues to have some coughing noted from production, she continues to be somewhat depressed and anxious and she is not sure what to do, she is missing her daughter she stated and she doesn't think her daughter is able to come and see her. 3: Patient is sitting on the bed in no apparent distress, she continues to be quite depressed and anxious about her situation, she has not made up her mind, I had a long conversation with Dr. Medina regarding the plan to pursue the [facility] care at this time, she was deemed high surgical risk per cardiovascular surgery service at the current [place], and she would benefit from a transcatheter aortic valve replacement plus reattempted PCI of the RCA, her CT angiography of the chest did not show evidence of any dissection of the thoracic aorta , patient is maintained on Zoloft 100 mg every day, she is mentioned in ICU, and the plan to the PCI hopefully in the next 24 hours patient and her daughter Isatu are in agreement for conservative approach and they understand the risks of the procedure and that she will have the TAVR at a later date or during this hospital admission depends on her symptoms, we will consult Psychiatry for depression and possible bipolar disorder. 11/21: Patient remains in intensive care unit, afebrile, heart rate in the 80s, blood pressure 101/58, pulse ox 97% on room air. Patient denies having any chest pain but continues to have anxiety issues. Consult with psychiatry is pending. Patient has been scheduled for CT TAVR protocol for today. Repeat blood work reveals WBC 15, hemoglobin 8.6, platelet count 172. Sodium 134, BUN 41 creatinine 1.2. Blood sugar 149. Total bilirubin 1.4 otherwise liver function tests are normal. Nasal MRSA screen is negative. 11/22: Patient remains in the intensive care unit. Patient underwent CAT scan yesterday for TAVR protoxol and was found to have moderate size right pelvic retroperitoneal hematoma extending into the lower abdomen presumed from att empted right groin catheter insertion. Consult was added for vascular surgery with plan to continue supportive care, no plan for surgical intervention. Heparin was discontinued. Patient was transfused 1 unit of packed RBCs for hemoglobin of 6.9 with repeat hemoglobin of 7.6. Patient has been afebrile, heart rate 70, blood pressure 109/62, pulse ox 97%. superintendent police is sinus rhythm. Patient has also been seen and followed by psychiatry for depression and acute bereavement with the loss of her , recommendations Zoloft 125 mg daily at bedtime. 11/23: Patient remains in the intensive care unit. No signs of bleeding and no worsening hematoma with hemoglobin stable at 7.6. Vascular surgery has cleared patient to resume heparin if needed, continue to monitor for bleeding and daily CBC. Plan is for Dr. Medina will proceed with intervention tomorrow. Patient is also followed by fence builder, cardiothoracic surgery and psychiatry. REVIEW OF SYSTEMS Constitutional: No fever, no chills, no night sweats. No weight change. Positive for generalized weakness, positive for fatigue or lethargy. No daytime sleepiness. HEENT: No headache. No blurred vision or double vision, no loss of vision. No loss of Hearing, no ringing in the ears, no dizziness. No nasal drainage or congestion. No epistaxis. No sore throat. Lungs: Positive for shortness of breath, positive for cough, no sputum production. No wheezing. Reports dyspnea on exertion. Cardiovascular: No chest pain, no lower extremity edema. No palpitations. No paroxysmal nocturnal dyspnea. No orthopnea. No lightheadedness or dizziness. No syncopal episodes. Abdominal: Reports right lower quadrant abdominal pain. No nausea, vomiting. No diarrhea. No constipation. No bloody or tarry stools. Reports loss of appetite. Genitourinary: No dysuria, increased frequency, urgency. No urinary retention. Musculoskeletal: No myalgias. Generalized muscle weakness, no gait dysfunction, no frequent falls. Positive for back pain. No neck pain. Integumentary: No wounds, no lesions. No rash or pruritus. Positive for bruising. No change in hair or nails. Neurologic: No aphasia. No facial droop. No change in mentation. No head injury. No headache. No paralysis. No paresthesia. Psychiatric: Positive for depression. Reports anxiety. Positive for mood swings Endocrine: No abnormal blood sugars. Positive for weight change. No excessive sweating or thirst. No cold intolerance. PHYSICAL EXAMINATION Gen: This is a 71-year-old female. HEENT: Head is atraumatic, normocephalic. Pupils equal, round. Sclerae is anicteric. NECK: Supple. No JVD. No lymphadenopathy. No thyromegaly. LUNGS: Decreased breath sounds at the bases, decreased tactile fremitus at the right lower third, few rhonchi, no expiratory wheeze, no chest wall tenderness. No intercostal retractions. HEART: First heart sound is depressed, second heart sound is normal, systolic ejection murmur 3/6 at the right upper sternal border radiating to the base of the neck, systolic ejection murmur 2/6 at the apex rating to the axilla. ABDOMEN: Soft, mild tenderness right lower quadrant, nondistended, positive bowel sounds, multiple ecchymosis. EXTREMITIES: 1+ pedal edema. No calf tenderness. Her cells pedis +1 bilaterally. Bilateral hammertoes. NEUROLOGICAL: Patient is awake, alert and oriented x3. Cranial nerves 2 through 12 are grossly intact., Cranial nerves II-12 appear grossly intact, muscle power 4 out of 5 in upper and lower extremities bilaterally. ASSESSMENT AND PLAN 1. Non ST elevation myocardial infarction with history of prior dilated cardiomyopathy status post coronary angiography finding right dominant vessel, 99% ostial stenosis, aortic pressure is 100/70, 40 mm gradient across the aortic valve. Left ventricular end diastolic pressure is 2530. Patient was transferred to [facility] for PTCA and stent placement of the RCA which was unsuccessful. Consult with cardiothoracic surgery appreciated. Building Construction Supervisor consultation appreciated. Continue aspirin 81 mg daily, on Coreg 6.25 mg twice daily. Patient is unable to tolerate statins because of significant myopathy and plan is to start her on Repatha under 40 mg subcu every 2 weeks. Surgical intervention tentatively tomorrow with Dr. Medina 2. Dilated cardiomyopathy. continue patient on carvedilol 3.125 mg orally twice every day, digoxin 125 g daily. continue with monitoring input and output and daily weight. 3. Severe aortic valve stenosis with mild aortic regurgitation. Discussed with the patient the pros and cons on transcatheter aortic valve replacement versus CABG to the RCA with surgical aortic valve replacement. 4. Moderate to Severe mitral regurgitation. likely will continue with conservative management no plan for mitral valve repair. 5. Hyperlipidemia. Patient unable to tolerate statins. She was started on atorvastatin 40 mg once every day. 6. Obesity with obstructive sleep apnea and obesity hypoventilation syndrome. Patient has not had sleep study done yet. 7. Chronic hypoxic respiratory failure secondary to his Covid 19 and underlying COPD and possible obstructive sleep apnea and hypoventilation syndrome. Patient is normally on 2 L nasal cannula. 8. Acute on chronic systolic heart failure. Off Lasix, continue Coreg, Aldactone 25 mg daily. 9. Hypertension, hypertensive cardiovascular disease. continue carvedilol 3.125 mg orally twice every day patient is not on MELODY-I or ARB due to severe hypertension, 10. Recurrent depression and generalized anxiety disorder. Consult consult with psychiatry appreciated. Patient on Zoloft 125 mg at bedtime 11. DVT prophylaxis. 12. GI prophylaxis. Protonix 40 mg IV push daily. 13. Overall prognosis is very guarded. 14. Acute retroperitoneal hematoma with acute blood loss anemia status post transfusion 1 unit of packed RBCs. Consult with vascular surgery appreciated. Heparin has been discontinued. Continue to monitor hemoglobin closely. Impression and plan of care have been directed as dictated by the signing physician. Marina Barbosa nurse practitioner acting as scribe for signing physician. Objective - Vital Signs Vital signs: Vital Signs Temp 97.7 F 11/23/21 08:00 Pulse 82 11/23/21 11:00 Resp 31 H 11/23/21 11:00 BP 106/65 11/23/21 11:00 Pulse Ox 98 11/23/21 11:00 Intake & Output 11/22/21 11/23/21 11/23/21 18:59 06:59 18:59 Intake Total 920 540 60 Output Total 750 750 200 Balance 170 -210 -140 Weight 111 kg Intake: IV 200 260 60 Sodium Chloride 0.9% 1, 140 260 60 000 ml @ 20 mls/hr IV . Q24H [facility] Rx#:[id number] Sodium Chloride 0.9% 500 60 ml 500 ml @ 125 mls/hr IV .Q4H [facility] Rx#:[id number] Oral 720 280 Output: Urine 750 750 200 Other: Voiding Method Incontinent Incontinent External Catheter External Catheter # Voids 1 ABP, PAP, CO, CI - Last Documented Arterial Blood Pressure 107/66 - Labs CBC & Chem 7: 11/23/21 08:37 11/23/21 07:25 Labs: Abnormal Lab Results - Last 24 Hours (Table) 11/23/21 11/23/21 Range/Units 07:25 08:37 RBC 2.56 L (3.80-5.40) m/uL Hgb 7.6 L (11.4-16.0) gm/dL Hct 24.1 L (34.0-46.0) % Neutrophils # 8.4 H (1.3-7.7) k/uL Lymphocytes # 0.9 L (1.0-4.8) k/uL BUN 24 H (7-17) mg/dL Creatinine 0.49 L (0.52-1.04) mg/dL Glucose 133 H (74-99) mg/dL Calcium 8.3 L (8.4-10.2) mg/dL
[2021-11-23] MEDS: SODIUM CHLORIDE 0.9% 1,000 ML IV SCH (17:05)
[2021-11-23] MEDS: ATORVASTATIN 40 MG TAB PO SCH (21:01)
[2021-11-23] MEDS: SERTRALINE 25 MG TAB PO SCH (21:01)
[2021-11-23] MEDS: SERTRALINE 100 MG TAB PO SCH (21:01)
[2021-11-23] MEDS: MELATONIN 3 MG TABLET PO SCH (21:02)
[2021-11-23] MEDS: ACETAMINOPHEN TAB 325 MG TAB PO PRN (22:43)
[2021-11-24] MEDS ORDERED: CLOPIDOGREL 75 MG TAB PO STA (07:20)
[2021-11-24] MEDS ORDERED: NITROGLYCERIN SL TABS 0.4 MG TAB SUBLINGUAL PRN (07:25)
[2021-11-24] MEDS ORDERED: ALPRAZolam 0.25 MG TAB PO PRN (07:25)
[2021-11-24] MEDS ORDERED: ALPRAZolam 0.5 MG TAB PO PRN (07:25)
[2021-11-24] MEDS: SYMBICORT 160-4.5 MCG INHALER INHALATION SCH ×2 (07:29→19:24)
[2021-11-24] MEDS: IPRATROPIUM-ALBUTEROL 3 ML NEB INHALATION SCH ×4 (07:29→19:24)
[2021-11-24] MEDS ORDERED: ASPIRIN 325 MG TAB PO ONE (08:00)
[2021-11-24] MEDS ORDERED: fentaNYL (PF) 50 MCG/ML 2 ML AMP IV ONE (08:15)
[2021-11-24] MEDS ORDERED: MIDAZOLAM 2 MG/2 ML VIAL IV ONE (08:15)
[2021-11-24] MEDS ORDERED: LIDOCAINE 1% INJ 10MG/ML (20 ML MDV) SQ ONE (08:18)
[2021-11-24] MEDS ORDERED: IV FLUID CONTINUATION 300 ML IV ONE (08:24)
[2021-11-24] MEDS: HEPARIN SODIUM 1,000 UN/ML (10ML VL) IV ONE ×4 (08:30→09:23)
--- NOTE | 2021-11-24 09:16 | P.PN ---
Progress Note - Text Progress Note Date: 11/24/21 Attempted to see patient. Patient was down for cardiac catheterization. There was no reported acute changes through the night. No current labs today. The impression and plan of care has been dictated as directed. I performed a history and examination of this patient, discussed the same with the dictator. I agree with the dictator's note ,documented as a scribe. Any additional findings or plans will be noted.
[2021-11-24] MEDS ORDERED: IOPAMIDOL-370 125ML BTL INJ ONE (09:40)
[2021-11-24] MEDS ORDERED: HEPARIN SODIUM 1,000 UN/ML (10ML VL) IV ONE (09:47)
[2021-11-24] MEDS: ASCORBIC ACID 500 MG TAB PO SCH ×2 (10:53→17:01)
[2021-11-24] MEDS: ASPIRIN 81 MG PO SCH (10:54)
[2021-11-24] MEDS: FERROUS SULFATE 325 MG TAB PO SCH ×2 (10:55→17:01)
[2021-11-24] MEDS ORDERED: RX INFO: IV CONTRAST WAS GIVEN 1 EACH MISC MISCELLANE PRN (10:56)
[2021-11-24] MEDS ORDERED: ZOLPIDEM 5 MG TAB PO PRN (10:56)
[2021-11-24] MEDS ORDERED: ATROPINE SULFATE 0.1 MG/ML 10ML SYRINGE IV PRN (10:56)
[2021-11-24] MEDS ORDERED: MAG HYDROX/AL HYDROX/SIMETH 30 ML CUP PO PRN (10:56)
[2021-11-24] MEDS: DIGOXIN 125 MCG TAB PO SCH (11:07)
[2021-11-24] MEDS: carvediloL 3.125 MG TAB PO SCH ×2 (11:07→17:01)
[2021-11-24] MEDS: PANTOPRAZOLE 40 MG/10 ML VIAL IVP SCH (11:07)
[2021-11-24] MEDS: SPIRONOLACTONE 25 MG TAB PO SCH (11:07)
--- NOTE | 2021-11-24 11:07 | P.PN ---
Subjective Progress Note Date: 11/24/21 This is a pleasant 71-year-old female patient with biventricular failure, severe aortic stenosis, mitral regurgitation and coronary artery disease. The patient underwent a cardiac catheterization and the patient was found to have 99% RCA stenosis and the patient is post non-ST segment elevation myocardial infarction. The patient had an unsuccessful PCI of the RCA. Initially, she was being contemplated for cardiac surgery knowing that she has valvular heart disease and she was also being looks for a single-vessel bypass surgery. Ultimately, it was decided to do another cardiac catheterization tomorrow. She is known to have dilated cardiomyopathy and impaired left ventricular ejection fraction at patient presented with acute CHF. She is currently on O2 at 2 L per minute nasal cannula. She is comfortable. Nevertheless, she is anxious and she denies having any chest pain. Hemodynamically stable on no pressors. She continues to be guarded with Lasix and she is on 8040 mg IV every 12 hours. She is off IV heparin as the patient developed an acute hematoma the right femoral artery/anh in area at the site of the cardiac catheterization. The hematoma today is quite soft and the patient has a hemoglobin of 8.6 which is essentially compatible to yesterday of 9.1. There has been some mild drop in hemoglobin 9 of the hemoglobin on 11/20/2021 was 10.0. Platelet counts are normal. The hematoma in the right groin is soft. The plan is to proceed with another cardiac catheterization hopefully within the next 24 hours. Of notice, isn't elevation in the creatinine which is up to 1.2 on today's evaluation. The neck fluid balance over the past 24 hours has been in the order of +98 mL on this patient. Based on that, the Lasix has been placed on hold. Meanwhile, the patient jimbo nues to be on IV heparin infusion. Note that the IV heparin was discontinued. Now that there is no active bleeding from the hematoma, cardiology gave orders to restart the IV heparin. 11/23/2019, the patient is being seen for a follow-up. Overnight, the patient developed further drop in hemoglobin down to 6.9 as the patient was having some retroperitoneal bleeding. IV heparin was discontinued. The patient got transfused with a 1 units of packed RBC. CAT scan of the chest abdomen and pelvis was done and it showed evidence of retroperitoneal bleed on the right displacing bladder. There was also a small to moderate-sized right-sided pleural effusion and some pulmonary vascular congestion. Based on that, IV heparin was discontinued and the patient was given a total of 1 units of packed RBC and hemoglobin today is at 7.6. History of any chest pain. She continues to have some shortness of breath at rest. Fluid balance has been +1.2 L over the past 24 hours. She is currently on 2 L about 2 by nasal cannula. The plan is to undergo a cardiac catheterization and stenting of the RCA and cardiology is on the case. Despite the drop in hemoglobin, and ongoing esophageal bleed, the patient's groin is soft and there is a soft area of ecchymosis along the right groin area. Pulses in lower extremity is diminished at the present. 11/23/2021, condition is stable and unchanged compared to yesterday. No signs of any ongoing bleeding and the patient's hemoglobin today is at 7.6 which is comparable to yesterday. No change in the hematoma along the right groin area. No anticoagulants for now the patient is taken on Lovenox for prophylaxis. The patient has no new complaints. Resting comfortably in bed. No coronary intervention was done and the cardiac interventional cardiology, decided to wait a few more days until this is a pleasant hematoma is more settled prior doing a ny intervention. Meanwhile, the patient remains on 2 L of O2 by nasal cannula. Input output balance has been +230 mL over the past 24 hours. BUN is a 36 with a creatinine of 0.6 and the potassium level of 4.6 and his sodium level of 134. White cell count is at 9.8 and the plated count is at 152. No altered mentation. The patient remains on aspirin. The patient on Lovenox for DVT prophylaxis 40 mg subcu. The patient remains on Coreg 3.125 mg by mouth twice a day and digoxin and Aldactone. 11/24/2021, condition is stable. No new complaints overnight. The patient will be taken to cardiac catheterization. No acute chest pain or shortness of breath overnight. Most recent hemoglobin from yesterday was at 7.6 and the patient has not had any further hemoglobins checked since yesterday. Nevertheless, there is no signs of any ongoing bleed and the groin bleed/hematoma remains stable. The patient has no chest pain. No shortness of breath. The patient on no anticoagulants for now. The plan will be a cardiac catheterization today. The patient remains on Lovenox 40 mg subcu 40 to prophylaxis. The patient on Aldactone. The patient is on a combination of aspirin and Plavix. Awaiting final recommendations from cardiology post cardiac catheterization. Objective - Vital Signs Vital signs: Vital Signs Temp 97.7 F 11/24/21 04:00 Pulse 85 11/24/21 10:30 Resp 12 11/24/21 10:30 BP 104/69 11/24/21 10:30 Pulse Ox 96 11/24/21 10:30 Intake & Output 11/23/21 11/24/21 11/24/21 18:59 06:59 18:59 Intake Total 220 240 70 Output Total 590 550 45 Balance -370 -310 25 Weight 111 kg Intake: IV 220 240 70 Sodium Chloride 0.9% 1, 220 240 20 000 ml @ 75 mls/hr IV . [id number] [facility] Rx#:[id number] Output: Urine 590 550 45 Stool 0 Other: Voiding Method Incontinent Incontinent Incontinent External Catheter External Catheter External Catheter # Voids 1 ABP, PAP, CO, CI - Last Documented Arterial Blood Pressure 107/66 - Exam CONSTITUTIONAL: Tearful, cooperative and is in no acute distress. The patient remains anxious. Head exam was generally normal. There was no scleral icterus or corneal arcus. Mucous membranes were moist. Neck was supple and without jugular venous distension, thyromegaly, or carotid bruits. Carotids were easily palpable bilaterally. There was no adenopathy. RESPIRATORY: Lungs sounds essentially clear throughout, diminished bilateral bases, right greater than left. Respirations are symmetrical and nonlabored. Currently on 2 L nasal cannula with oxygen saturation 96%. Able to achieve 1500 mL on incentive spirometry. Strong cough. CARDIOVASCULAR: S1, S2 present, pansystolic murmur present 3/6. Regular rate and rhythm, sinus rhythm on telemetry. Doppler lower extremity pulses bilaterally. No calf pain or tenderness noted. GASTROINTESTINAL: Abdomen soft, nontender, nondistended. Active bowel sounds present 4 quadrants. Tolerating diet. A soft hematoma is present over the right inguinal area which has not enlarged in size. INTEGUMENTARY: Skin is warm and dry with evidence of good perfusion. NEUROLOGIC: Cranial nerves II through XII intact MUSKULOSKELETAL: Able to move all extremities, strength equal bilaterally. PSYCHIATRIC: Alert, oriented to person place and time, flat affect. - Labs CBC & Chem 7: 11/23/21 08:37 11/23/21 07:25 Assessment and Plan Plan: 1 acute hypoxic respiratory failure, currently on 2 L of oxygen by nasal cannula, essentially secondary to valvular heart disease/CAD and secondary decompensated heart failure. Clinically stable, awaiting cardiac catheterization 2 acute non-ST segment elevation myocardial infarction. The patient is post cardiac catheterization and the patient is a 99% RCA stenosis and the patient is status post unsuccessful PCI to RCA. The patient is being considered for another cardiac catheterization by cardiology and stenting of the RCA. For now the patient is feeling of any chest pain and the patient is currently off IV heparin, awaiting cardiac catheterization to be done today 3 severe aortic valve stenosis with a peak and mean gradient of 78 and 47 mmHg, and the patient continues to have a harsh cardiac murmur systolic ejection on examination. 4 mitral regurgitation 5 dilated cardiomyopathy with impaired left ventricular ejection fraction systolic heart failure with an ejection fraction of 25-30% 6 bilateral pleural effusion secondary to above 7 hypertension 8 hyperlipidemia 9 COVID 19 pneumonia back in April 2021 10 retroperitoneal bleed with a development of a soft right groin hematoma at a set of cardiac catheterization, the hemoglobin remains stable for now and there is no interval worsening in the right groin hematoma 11 acute blood loss anemia with a hemoglobin of 6.9 and the patient got transfused with a total of 1 units of packed RBC and IV heparin was di scontinued. The patient's hemoglobin is stable at 7.6 on today's evaluation 12 acute kidney injury improving and the creatinine is normalized 13 medical debility seconds above-mentioned comorbidities 14 right-sided pleural effusion secondary to CHF Plan Cardiac catheterization today Further, this is to follow based on the results and successful stenting of the RCA Continue monitoring this patient in the intensive care unit the hematoma in the right groin area is rather soft and there is no signs of ongoing bleeding at this point in time. Hemoglobin remains stable. Keep the patient off IV heparin for now Continue aspirin and statins and beta blockers Cardiothoracic surgeries on the case regarding possibility of bypass/aortic valve replacement versus PCI and possibly TaVR procedure regarding the aortic valve. Long-term prognosis poor baseline above-mentioned comorbidities. We'll continue to follow
[2021-11-24] MEDS: LORATADINE 10 MG TAB PO SCH (11:08)
[2021-11-24] MEDS: ENOXAPARIN 40 MG/0.4 ML SYRINGE SQ SCH (11:24)
[2021-11-24] MEDS ORDERED: SODIUM CHLORIDE 0.9% 1,000 ML IV SCH (11:30)
[2021-11-24 12:20] LABS: Anisocytosis Slight; Basophils # (A) 0.1 k/uL (0-0.2); Basophils % (A) 0 %; Eosinophils # (A) 0.3 k/uL (0-0.7); Eosinophils % (A) 2 %; HCT 24.2 % (34.0-46.0); HGB 7.5 gm/dL (11.4-16.0); Hypochromasia Moderate; Lymphocytes # (A) 1.2 k/uL (1.0-4.8); Lymphocytes % (A) 10 %; MCH 29.8 pg (25.0-35.0); MCHC 31.1 g/dL (31.0-37.0); MCV 95.6 fL (80.0-100.0); Mean Platelet Volume 8.5; Monocytes # (A) 0.7 k/uL (0-1.0); Monocytes % (A) 6 %; Neutrophils # (A) 9.2 k/uL (1.3-7.7); Neutrophils % (A) 80 %; Platelet Count 190 k/uL (150-450); RBC 2.53 m/uL (3.80-5.40); RDW 16.5 % (11.5-15.5); WBC 11.5 k/uL (3.8-10.6)
[2021-11-24 12:23] LABS: African American GFR (CKD) >90 (>60 ml/min/1.73 sqM); Anion Gap 6 mmol/L; Blood Urea Nitrogen 21 mg/dL (7-17); Calcium 8.6 mg/dL (8.4-10.2); Carbon Dioxide 29 mmol/L (22-30); Chloride 102 mmol/L (98-107); Glucose 116 mg/dL (74-99); Non-African American GFR(CKD) >90 (>60 ml/min/1.73 sqM); Potassium 4.7 mmol/L (3.5-5.1); Sodium 137 mmol/L (137-145)
--- NOTE | 2021-11-24 14:38 | P.PN ---
Subjective Progress Note Date: 11/24/21 HISTORY OF PRESENT ILLNESS This is a 71-year-old female with past medical history of dilated cardiomyopathy with ejection fraction of 15-20%, severe aortic valve stenosis, mild aortic regurgitation with moderate to severe mitral regurgitation, chronic systolic heart failure, hyperlipidemia, obesity with possible obstructive sleep apnea and obesity hypoventilation syndrome, chronic hypoxic respiratory failure on home O2 at 2 L nasal cannula, hypertension hypertensive cardio vascular disease, previous Covid 19 infection. Patient presented to [facility] slight elevation of troponin, EKG showed changes suggestive ischemic changes and was started on aspirin, heparin drip and admitted to the hospital. Patient was seen by cardiology. She was supposed to have a heart catheterization done as an outpatient along with LISA for possible aortic valve replacement and mitral valve and possible CABG. Patient underwent coronary angiography finding right dominant vessel, 99% ostial stenosis, aortic pressure is 100/70, 40 mm gradient across the aortic valve. Left ventricular end diastolic pressure is 2530. Patient was transferred to [facility] for PTCA and stent placement of the RCA which was unsuccessful. Consult with cardiothoracic surgery for CABG and valve repair/replacement. 11/18: Patient is seen today in the intensive care unit. She denies chest pain or shortness of breath. She complains of anxiety and decreased appetite. Less cough today.She has been seen by success coach and cardiothoracic surgery, currently on heparin drip, consult was added for dental evaluation and clearance and panoramic CT. Patient has been afebrile, heart rate in the 80s, blood pressure 101/73, pulse ox 96%. Repeat blood work reveals CBC is unremarkable. Potassium 4.0. Urinalysis negative for infection. Hepatitis panel negative. MRSA nasal screen is in process. CT of the chest revealed cardiomegaly with suspected pulmonary edema and moderate to marked right sided pleural effusion. Associated infection can't be excluded. Echocardiogram reveals EF of 25-30% with mild concentric left ventricular hypertrophy, severe global hypokinesia of the LV, severe aortic stenosis with gradient 78.27 mm a new 3/47.94 mmHg, trace mitral regurgitation, mild mitral stenosis, mild tricuspid regurgitation, mild pulmonary hypertension, RVSP 43.33 mmHg. Carotid ultrasound revealed less than 50% stenosis bilateral carotid systems. /2: Patient is sitting up in bed she underwent CTA of the chest for evaluation of dissection of the right coronary artery, she denies any chest pain at this time, she has no shortness breath, she has no abdominal pain, nausea or vomiting, she continues to have some coughing noted from production, she continues to be somewhat depressed and anxious and she is not sure what to do, she is missing her daughter she stated and she doesn't think her daughter is able to come and see her. 3: Patient is sitting on the bed in no apparent distress, she continues to be quite depressed and anxious about her situation, she has not made up her mind, I had a long conversation with Dr. Medina regarding the plan to pursue the [facility] care at this time, she was deemed high surgical risk per cardiovascular surgery service at the current [place], and she would benefit from a transcatheter aortic valve replacement plus reattempted PCI of the RCA, her CT angiography of the chest did not show evidence of any dissection of the thoracic aorta , patient is maintained on Zoloft 100 mg every day, she is mentioned in ICU, and the plan to the PCI hopefully in the next 24 hours patient and her daughter Isatu are in agreement for conservative approach and they understand the risks of the procedure and that she will have the TAVR at a later date or during this hospital admission depends on her symptoms, we will consult Psychiatry for depression and possible bipolar disorder. 11/21: Patient remains in intensive care unit, afebrile, heart rate in the 80s, blood pressure 101/58, pulse ox 97% on room air. Patient denies having any chest pain but continues to have anxiety issues. Consult with psychiatry is pending. Patient has been scheduled for CT TAVR protocol for today. Repeat blood work reveals WBC 15, hemoglobin 8.6, platelet count 172. Sodium 134, BUN 41 creatinine 1.2. Blood sugar 149. Total bilirubin 1.4 otherwise liver function tests are normal. Nasal MRSA screen is negative. 11/22: Patient remains in the intensive care unit. Patient underwent CAT scan yesterday for TAVR protoxol and was found to have moderate size right pelvic retroperitoneal hematoma extending into the lower abdomen presumed from att empted right groin catheter insertion. Consult was added for vascular surgery with plan to continue supportive care, no plan for surgical intervention. Heparin was discontinued. Patient was transfused 1 unit of packed RBCs for hemoglobin of 6.9 with repeat hemoglobin of 7.6. Patient has been afebrile, heart rate 70, blood pressure 109/62, pulse ox 97%. cardiac monitor technician is sinus rhythm. Patient has also been seen and followed by psychiatry for depression and acute bereavement with the loss of her , recommendations Zoloft 125 mg daily at bedtime. 11/23: Patient remains in the intensive care unit. No signs of bleeding and no worsening hematoma with hemoglobin stable at 7.6. Vascular surgery has cleared patient to resume heparin if needed, continue to monitor for bleeding and daily CBC. Plan is for Dr. Medina will proceed with intervention tomorrow. Patient is also followed by success coach, cardiothoracic surgery and psychiatry. 11/24: Patient is status post stent in the RCA today with Dr. Medina. She is seen postprocedure and is comfortable. She denies having any chest pain. Anxiety is controlled. Approach was from the left groin, no bleeding or hematoma noted. Patient remains afebrile, heart rate in the 80s, blood pressure 92/57, pulse ox 94% on 2 L nasal cannula. Repeat hemoglobin is stable at 7.5, WBC 11.5. Electrolytes are normal, BUN 21 creatinine 0.61. REVIEW OF SYSTEMS Constitutional: No fever, no chills, no night sweats. No weight change. Positive for generalized weakness, positive for fatigue or lethargy. No daytime sleepiness. HEENT: No headache. No blurred vision or double vision, no loss of vision. No loss of Hearing, no ringing in the ears, no dizziness. No nasal drainage or congestion. No epistaxis. No sore throat. Lungs: Positive for shortness of breath, positive for cough, no sputum production. No wheezing. Reports dyspnea on exertion. Cardiovascular: No chest pain, no lower extremity edema. No palpitations. No paroxysmal nocturnal dyspnea. No orthopnea. No lightheadedness or dizziness. No syncopal episodes. Abdominal: No right lower quadrant abdominal pain. No nausea, vomiting. No di arrhea. No constipation. No bloody or tarry stools. Reports loss of appetite. Genitourinary: No dysuria, increased frequency, urgency. No urinary retention. Musculoskeletal: No myalgias. Generalized muscle weakness, no gait dysfunction, no frequent falls. Positive for back pain. No neck pain. Integumentary: No wounds, no lesions. No rash or pruritus. Positive for bruising. No change in hair or nails. Neurologic: No aphasia. No facial droop. No change in mentation. No head injury. No headache. No paralysis. No paresthesia. Psychiatric: Positive for depression. Reports anxiety. Positive for mood swings Endocrine: No abnormal blood sugars. Positive for weight change. PHYSICAL EXAMINATION Gen: This is a 71-year-old female. HEENT: Head is atraumatic, normocephalic. Pupils equal, round. Sclerae is anicteric. NECK: Supple. No JVD. No lymphadenopathy. No thyromegaly. LUNGS: Decreased breath sounds at the bases, decreased tactile fremitus at the right lower third, few rhonchi, no expiratory wheeze, no chest wall tenderness. No intercostal retractions. HEART: First heart sound is depressed, second heart sound is normal, systolic ejection murmur 3/6 at the right upper sternal border radiating to the base of the neck, systolic ejection murmur 2/6 at the apex rating to the axilla. ABDOMEN: Soft, mild tenderness right lower quadrant, nondistended, positive bowel sounds, multiple ecchymosis. EXTREMITIES: 1+ pedal edema. No calf tenderness. Her cells pedis +1 bilaterally. Bilateral hammertoes. Left groin is soft, no hematoma, no bl eeding. NEUROLOGICAL: Patient is awake, alert and oriented x3. Cranial nerves 2 through 12 are grossly intact., Cranial nerves II-12 appear grossly intact, muscle power 4 out of 5 in upper and lower extremities bilaterally. ASSESSMENT AND PLAN 1. Non ST elevation myocardial infarction with history of prior dilated cardiomyopathy status post coronary angiography finding right dominant vessel, 99% ostial stenosis, aortic pressure is 100/70, 40 mm gradient across the aortic valve. Left ventricular end diastolic pressure is 2530. Patient was transferred to [facility] for PTCA and stent placement of the RCA which was unsuccessful. Consult with cardiothoracic surgery appreciated. Livestock Rancher consultation appreciated. Continue aspirin 81 mg daily, on Coreg 6.25 mg twice daily. Patient is unable to tolerate statins because of significant myopathy and plan is to start her on Repatha under 40 mg subcu every 2 weeks. Stent of the RCA today with Dr. Medina 11/24. 2. Dilated cardiomyopathy. continue patient on carvedilol 3.125 mg orally t wice every day, digoxin 125 g daily. continue with monitoring input and output and daily weight. 3. Severe aortic valve stenosis with mild aortic regurgitation. TAVR on hold. 4. Moderate to Severe mitral regurgitation. likely will continue with conservative management no plan for mitral valve repair. 5. Hyperlipidemia. Patient unable to tolerate statins. She was started on atorvastatin 40 mg once every day. 6. Obesity with obstructive sleep apnea and obesity hypoventilation syndrome. Patient has not had sleep study done yet. 7. Chronic hypoxic respiratory failure secondary to his Covid 19 and underlying COPD and possible obstructive sleep apnea and hypoventilation syndrome. Patient is normally on 2 L nasal cannula. 8. Acute on chronic systolic heart failure. Off Lasix, continue Coreg, Aldactone 25 mg daily. 9. Hypertension, hypertensive cardiovascular disease. continue carvedilol 3.125 mg orally twice every day patient is not on MELODY-I or ARB due to severe hy pertension, 10. Recurrent depression and generalized anxiety disorder. Consult consult with psychiatry appreciated. Patient on Zoloft 125 mg at bedtime 11. DVT prophylaxis. 12. GI prophylaxis. Protonix 40 mg IV push daily. 13. Overall prognosis is very guarded. 14. Acute retroperitoneal hematoma with acute blood loss anemia status post transfusion 1 unit of packed RBCs. Consult with vascular surgery appreciated. Heparin has been discontinued. Continue to monitor hemoglobin closely. Impression and plan of care have been directed as dictated by the signing physician. Marina Barbosa nurse practitioner acting as scribe for signing physician. Objective - Vital Signs Vital signs: Vital Signs Temp 97.7 F 11/24/21 04:00 Pulse 85 11/24/21 14:00 Resp 26 H 11/24/21 14:00 BP 92/57 11/24/21 14:00 Pulse Ox 95 11/24/21 14:00 Intake & Output 11/23/21 11/24/21 11/24/21 18:59 06:59 18:59 Intake Total 220 240 390 Output Total 590 550 45 Balance -370 -310 345 Weight 111 kg Intake: IV 220 240 390 Sodium Chloride 0.9% 1, 220 240 20 000 ml @ 75 mls/hr IV . [id number] MARY Rx#:[id number] Sodium Chloride 0.9% 1, 320 000 ml @ 80 mls/hr IV . [id number] MARY Rx#:[id number] Output: Urine 590 550 45 Stool 0 Other: Voiding Method Incontinent Incontinent Incontinent External Catheter External Catheter External Catheter # Voids 1 1 ABP, PAP, CO, CI - Last Documented Arterial Blood Pressure 107/66 - Labs CBC & Chem 7: 11/24/21 11:57 11/24/21 11:57 Labs: Abnormal Lab Results - Last 24 Hours (Table) 11/24/21 11/24/21 Range/Units 11:57 11:57 WBC 11.5 H (3.8-10.6) k/uL RBC 2.53 L (3.80-5.40) m/uL Hgb 7.5 L (11.4-16.0) gm/dL Hct 24.2 L (34.0-46.0) % RDW 16.5 H (11.5-15.5) % Neutrophils # 9.2 H (1.3-7.7) k/uL BUN 21 H (7-17) mg/dL Glucose 116 H (74-99) mg/dL
[2021-11-24] MEDS: SERTRALINE 25 MG TAB PO SCH (22:17)
[2021-11-24] MEDS: SERTRALINE 100 MG TAB PO SCH (22:17)
[2021-11-24] MEDS: MELATONIN 3 MG TABLET PO SCH (22:17)
[2021-11-24] MEDS: ATORVASTATIN 40 MG TAB PO SCH (22:17)
[2021-11-24] MEDS: ACETAMINOPHEN TAB 325 MG TAB PO PRN (22:34)
--- NOTE | 2021-11-24 22:56 | P.PRCINT ---
Percutaneous Coronary Int. - Percutaneous Coronary Intervention Percutaneous Coronary Intervention: PROCEDURES PERFORMED:Bilateral coronary angiography, iFR LAD, PCI proximal RCA with 3.25 x 33mm Xience FABY, post dilated proximally with 4.0 NC balloon, Angioseal left femoral artery INDICATION: NSTEMI, CMP, severe aortic stenosis HPI: Patient is a pleasant 71 year old female who presented with SOB as well as nausea and was found to have minimally elevated troponins as well as severe aortic stenosis with calculated FRANCHESKA of 0.2cm2. Diagnostic catheterization showed 99% RCA stenosis as well as a mid LAD 60% stenosis with what appeared to be left to right collaterals. She has severe pulmonary disease and initially recommended to undergo PCI with TAVR. She underwent attempted PCI however was noted to have small aortic root dissection and therefore further attempts were deferred and patient was evaluated by cardiothoracic surgery. Patient remained somewhat stable from a cardiac standpoint and was deemed high risk for CABG and SAVR and therefore recommended to have high risk reattempt PCI. Unfortunately she also had spontaneous bleed both right anterior femoral site around previous catheterization site as well as CTA showing evidence of retroperitoneal bleed. She recieved IV blood transfusion and hgb had remained stable over the prior 24 hrs and therefore benefits of PCI felt to outweigh risk of further bleed. Elevated risks of procedure were discussed in detail with patient and daughter and both were agreeable to attempt PCI RCA and further assessment of LAD lesion. PROCEDURE: After the risks, benefits and alternatives of the above mentioned procedure explained in detail with the patient, informed consent was obtained. Patient was taken to the catheterization lab and prepped and draped in usual fashion. 1% lidocaine was used to anesthetize the left femoral area. A 8- Czech sheath was placed in the left femoral artery using modified Seldinger technique, ultrasound guidance. Prior attempted PCI was complicated by poor backup support and therefore decision was made to perform PCI with 8Fr guide. The decision was made to perform PCI of the RCA. Heparin was given. A 8 Fr FR4 guide was used to engage the RCA with very small manipulations given prior aortic root dissection. There was a small aortic root dissection flap noted however appeared contained and stable on repeat imaging and therefore benefits appeared to outweigh risks and proceeded with attempted PCI. Next a 0.014 whisper wire was able to be advanced after a few minutes of manipulation into the distal PLV. With the help of a 6Fr Guideliner, a 1.0 Saphire balloon was able to be advanced and predilation was performed. Next predilation was furtehr performed with a 1.5, 2.5 mm balloon. Next a 3.25 x 33mm stent was advanced and deployed with 1mm extending out into the aorta to cover the ostium. The proximal portion of the stent was "flared" with a 4.0 NC balloon. Preintervention there was 99% stenosis and OCTAVIO-1 flow and post intervention there was 0% stenosis and OCTAVIO-3 flow. There was more distal PDA and PLV stenosis felt likely related to spasm with inability to give Nitro due to low MAP in 60's. Next the decision was made to perform iFR of the LAD. A 6Fr CLS 3.5 guide was used to engage the left main. Next, a 0.014 pressure wire was advanced into the proximal left main and normalized. The wire was then advanced into the mid LAD, 1-2 cm past the lesion in the mid LAD. iFR was abnormal at 0.54 With engagement into left main, patient's BP on both femoral and catheter measurements had dropped into the systolics 70's appearing to relate to occlusion of left main with extremely poor reserve related to severe aortic stenosis and cardiomyopathy. Pullback showed main pressure drop was at the proximal LAD 60% stenosis just before the moderate caliber diagonal branch. LAD lesion did not appear critical and appeared would likely need balloon aortic valvuloplasty and placement of Impella and therefore deferred. The catheter was then removed. A left femoral angiogram showed adequate anatomy for closure and therefore a 8Fr Angioseal was placed with hemostasis achieved. The patient tolerated the procedure well. Patient was transported back to the post catheterization hol ding area in stable condition. Conscious Sedation: Patient was monitored under the direct supervision of vision of myself for conscious sedation using Versed and fentanyl for a total duration of 90 minutes HEMODYNAMICS: Ao: 86/55 SELECTIVE CORONARY ARTERIOGRAPHY: LEFT MAIN: The left main is a large caliber vessel which bifurcates into the LAD and circumflex. The left main has no significant stenosis. LEFT ANTERIOR DESCENDING CORONARY ARTERY: LAD is a large caliber vessel which wraps around to the apex. There is a proximal 60-70% LAD stenosis and a mid LAD 70% stenosis just after a moderate caliber diagonal 1 branch with iFR abnormal previously at 0.0.54. Diagonal 1 has a proximal 50-60% stenosis. LEFT CIRCUMFLEX CORONARY ARTERY: Left circumflex is a moderate caliber vessel with mild disease 30-40% stenosis. RIGHT CORONARY ARTERY: The right coronary artery is a large caliber vessel which gives off a PDA and PLV branch and is the dominant vessel. The RCA has a proximal 99% stenosis. There is a small aortic root dissection flap near the ostium of the RCA however did not appear flow limiting and appeared similar to prior from prior images. There is a mid RCA 50% stenosis as well as proximal PDA 70% lesion and a PLV 70% lesion which appeared similar to diagnostic images and felt may be some component of spasm. FINAL IMPRESSION: 1. CAD as described above with 99% RCA stenosis, 60-70% proximal LAD stenosis (iFR abnormal at 0.54) and circumflex 30-40% stenosis. 2. S/p PCI proximal to RCA with 3.25 x 33mm Xience FABY, post dilated with a 4.0 mm NC balloon PLAN: 1. Aggressive risk factor modification per most recent ACC/AHA guidelines. 2. Continue dual antiplatelets with aspirin and Plavix. 3. Monitor hemoglobin, femoral sites closely. 4. Patient with poor cardiac reserve with drop in SBP into 70's with simple engagement of left main with guiding catheter related to critical and cardiomyopathy. LAD lesion does not appear critical and would require balloon aortic vavluloplasty with placement of Impella to safely perform and therefore would recommend proceed with TAVR prior to any PCI of LAD. Likely staged PCI after TAVR pending clinical progress.
[2021-11-25] MEDS: ACETAMINOPHEN TAB 325 MG TAB PO PRN ×2 (05:51→13:43)
[2021-11-25 07:43] LABS: Anisocytosis Slight; Basophils # (A) 0.1 k/uL (0-0.2); Basophils % (A) 1 %; Eosinophils # (A) 0.3 k/uL (0-0.7); Eosinophils % (A) 3 %; HCT 24.9 % (34.0-46.0); HGB 7.7 gm/dL (11.4-16.0); Hypochromasia Moderate; Lymphocytes # (A) 0.9 k/uL (1.0-4.8); Lymphocytes % (A) 8 %; MCV 96.8 fL (80.0-100.0); Macrocytosis Slight; Mean Platelet Volume 8.5; Monocytes # (A) 0.7 k/uL (0-1.0); Monocytes % (A) 6 %; Neutrophils # (A) 8.7 k/uL (1.3-7.7); Neutrophils % (A) 81 %; Platelet Count 182 k/uL (150-450); RBC 2.57 m/uL (3.80-5.40); RDW 18.1 % (11.5-15.5); WBC 10.8 k/uL (3.8-10.6)
[2021-11-25] MEDS: SYMBICORT 160-4.5 MCG INHALER INHALATION SCH ×3 (07:57→20:29)
[2021-11-25] MEDS: IPRATROPIUM-ALBUTEROL 3 ML NEB INHALATION SCH ×4 (07:57→20:29)
[2021-11-25 08:29] LABS: African American GFR (CKD) >90 (>60 ml/min/1.73 sqM); Anion Gap 4 mmol/L; Blood Urea Nitrogen 19 mg/dL (7-17); Calcium 8.2 mg/dL (8.4-10.2); Carbon Dioxide 28 mmol/L (22-30); Chloride 104 mmol/L (98-107); Glucose 115 mg/dL (74-99); Magnesium 2.3 mg/dL (1.6-2.3); Non-African American GFR(CKD) >90 (>60 ml/min/1.73 sqM); Potassium 4.4 mmol/L (3.5-5.1); Sodium 136 mmol/L (137-145)
--- NOTE | 2021-11-25 09:22 | P.PN ---
Subjective Progress Note Date: 11/25/21 This is a 71-year-old female who was seen as a follow-up and she remains in the ICU. Vascular surgery was consulted for a retroperitoneal hematoma that was not actively bleeding. Yesterday she underwent cardiac catheterization with findings of 99% RCA stenosis, 60-70% proximal LAD stenosis and circumflex 30-40% stenosis status post PCI of the proximal to RCA access from the left femoral artery. She is denying any active bleeding. She denies abdominal pain, chest pain or shortness of breath, just states that she is tired. Hemoglobin remains stable at 7.7. Objective - Vital Signs Vital signs: Vital Signs Temp 97.9 F 11/24/21 15:00 Pulse 80 11/25/21 08:11 Resp 16 11/25/21 08:11 BP 101/58 11/25/21 06:00 Pulse Ox 96 11/25/21 07:57 Intake & Output 11/24/21 11/25/21 11/25/21 18:59 06:59 18:59 Intake Total 1110 Output Total 45 350 150 Balance 1065 -350 -150 Weight 111 kg 111.9 kg Intake: IV 550 Sodium Chloride 0.9% 1, 20 000 ml @ 75 mls/hr IV . [id number] MARY Rx#:[id number] Sodium Chloride 0.9% 1, 480 000 ml @ 80 mls/hr IV . [id number] MARY Rx#:[id number] Oral 560 Output: Urine 45 350 150 Stool 0 Other: Voiding Method Incontinent Incontinent External Catheter External Catheter # Voids 1 ABP, PAP, CO, CI - Last Documented Arterial Blood Pressure 107/66 - Exam General appearance: The patient is alert, oriented, appears in no acute distress. HET: Head is normocephalic and atraumatic. Pupils are equal and reactive. Neck: Supple without lymphadenopathy. Trachea midline. No audible carotid bruit. Heart: S1 S2. Systolic murmur noted. Regular rate and rhythm. Lungs: Clear to auscultation bilaterally. Abdomen: Soft, nontender, nondistended. Ecchymosis right lower abdomen. Extremities: Normal skin color and turgor. Right groin with ecchymosis, soft hematoma noted. Left groin access site without any active bleeding, no hematoma noted, no bruising noted. Minimal tenderness. Bilateral lower extremity edema. Neurological: No focal deficits. Strength and sensation are grossly intact. - Labs CBC & Chem 7: 11/25/21 07:20 11/25/21 07:20 Labs: Abnormal Lab Results - Last 24 Hours (Table) 11/24/21 11/24/21 11/25/21 Range/Units 11:57 11:57 07:20 WBC 11.5 H 10.8 H (3.8-10.6) k/uL RBC 2.53 L 2.57 L (3.80-5.40) m/uL Hgb 7.5 L 7.7 L (11.4-16.0) gm/dL Hct 24.2 L 24.9 L (34.0-46.0) % RDW 16.5 H 18.1 H (11.5-15.5) % Neutrophils # 9.2 H 8.7 H (1.3-7.7) k/uL Lymphocytes # 0.9 L (1.0-4.8) k/uL Sodium (137-145) mmol/L BUN 21 H (7-17) mg/dL Glucose 116 H (74-99) mg/dL Calcium (8.4-10.2) mg/dL 11/25/21 Range/Units 07:20 WBC (3.8-10.6) k/uL RBC (3.80-5.40) m/uL Hgb (11.4-16.0) gm/dL Hct (34.0-46.0) % RDW (11.5-15.5) % Neutrophils # (1.3-7.7) k/uL Lymphocytes # (1.0-4.8) k/uL Sodium 136 L (137-145) mmol/L BUN 19 H (7-17) mg/dL Glucose 115 H (74-99) mg/dL Calcium 8.2 L (8.4-10.2) mg/dL Assessment and Plan Assessment: 1. Retroperitoneal hematoma status post cardiac catheterization 2. Coronary artery disease with 99% RCA stenosis, 60-70% proximal LAD stenosis and circumflex 30-40% stenosis status post PCI proximal to RCA 3. Acute hypoxic respiratory failure, currently on 2 L of oxygen by nasal cannula, essentially secondary to valvular heart disease/CAD and secondary decompensated heart failure. 4. Acute non-ST segment elevation myocardial infarction. The patient is post cardiac catheterization and the patient is a 99% RCA stenosis and the patient is status post unsuccessful PCI to RCA 5. Severe aortic valve stenosis 6. Mitral regurgitation 7. Dilated cardiomyopathy with impaired left ventricular ejection fraction systolic heart failure with an ejection fraction of 25-30% 8. Bilateral pleural effusion secondary to above 9. Hypertension 10. Hyperlipidemia 11. COVID 19 pneumonia back in April 2021 12. Right groin hematoma status post cardiac catheterization 13. Acute blood loss anemia post cardiac catheterization, right groin hematoma, retroperitoneal hematoma 14. Acute kidney injury Plan: 1. Continue symptomatic and supportive care 2. CT angiogram chest abdomen and pelvis reviewed, no evidence of bleeding hematoma 3. Continue diet as tolerated 4. There is no indication for any vascular surgical intervention 5. May resume anticoagulation if needed 6. Monitor for signs of bleeding closely 7. Monitor H&H closely Thank you for this consultation, we will sign off at this time. Please do not hesitate to call us back if further needed. The impression and plan of care has been dictated as directed. Dr. Garza I performed a history and examination of this patient, discussed the same with the dictator. I agree with the dictator's note ,documented as a scribe. Any additional findings or plans will be noted.
[2021-11-25] MEDS: CLOPIDOGREL 75 MG TAB PO SCH (09:27)
[2021-11-25] MEDS: ENOXAPARIN 40 MG/0.4 ML SYRINGE SQ SCH (09:28)
[2021-11-25] MEDS: carvediloL 3.125 MG TAB PO SCH ×2 (09:28→17:59)
[2021-11-25] MEDS: LORATADINE 10 MG TAB PO SCH (09:28)
[2021-11-25] MEDS: PANTOPRAZOLE 40 MG/10 ML VIAL IVP SCH (09:29)
[2021-11-25] MEDS: ASPIRIN 81 MG PO SCH (09:29)
[2021-11-25] MEDS: DIGOXIN 125 MCG TAB PO SCH (09:30)
[2021-11-25] MEDS: FERROUS SULFATE 325 MG TAB PO SCH ×2 (09:30→17:59)
[2021-11-25] MEDS: SPIRONOLACTONE 25 MG TAB PO SCH (09:32)
[2021-11-25] MEDS: ASCORBIC ACID 500 MG TAB PO SCH ×3 (09:32→17:59)
--- NOTE | 2021-11-25 11:10 | P.PN ---
Subjective Progress Note Date: 11/25/21 This is a 71-year-old female who was admitted to [facility] with symptoms of CHF and evidence of severe aortic stenosis and also moderate mitral regurgitation. Patient also has moderate lung disease. Patient was evaluated by cardiac catheterization and was found to have 99% stenosis of the ostium of the right coronary artery and moderate disease in the LAD. Patient also has severe aortic stenosis with a peak gradient of 40 across the valve. Given her LV dysfunction, that was felt to be very significant. Echocardiogram done in this institution again showed severe aortic stenosis and evidence of severe cardiomyopathy with ejection fraction of 20-30%. Attempted stent placement of the RCA, resulting in dissection. The procedure was abandoned surgical consult was obtained. It. Patient was felt to be high risk candidate and a duration was made to attempt percutaneous intervention of the RCA and FFR of the LAD, which is being scheduled for tomorrow. Patient apparently developed a hematoma in the right groin after 3 days of heparin. Heparin was discontinued at was restarted again see is relatively stable. Has chronic complaints of being fatigued and tired. Lungs appeared to be clear. Heart is regular. Her urine output is fair. We'll continue current medical therapy and await for intervention tomorrow. 11/22/2021: The patient's clinical status remains around the same. Denies any chest pain or shortness of breath but seemed to be weak and fatigued. She was n oted to have further drop in hemoglobin and she was taken off the heparin. A computed tomography scan of the abdomen and pelvis showed evidence of retroperitoneal hematoma and also of subcutaneous hematoma around groin site. The puncture radiologically looks appropriate and is the reason for this hematoma is not clear. A vascular consult is pending. She was scheduled to have intervention today but probably be postponed. Cardiac surgery is also following. Heart is regular. She is maintaining sinus rhythm. Lungs are clear. Continue current medical therapy. 11/23/2021: Patient's remains relatively stable. Her hemoglobin is stable without evidence of acute or active bleeding. Groin is soft, denies any chest pain and doesn't appear to be in acute distress. Her creatinine is normal. Discussed with patient and also daughter regarding further intervention. Dr. Medina's willing to try again to do percutaneous intervention. After that patient could have transcatheter aortic valve replacement. Patient and daughter are fully aware of the risks associated with the procedure and wanted to have this is done locally. They were given the option of going to a tertiary center like [facility]. However, patient is reluctant and wants to have it done here as soon as possible. Lungs are clear. Heart is regular. Height, came to Dr. Medina to proceed with intervention probably tomorrow. 11/25/2021: This patient had stent placement of the ostial RCA, yesterday. Ghada erated the procedure fairly well. Patient also has moderate to severe LAD lesion with significant FFR. However, it is recommended that patient have transcatheter aortic valve replacement. This will be planned for the next one or 2 weeks. Patient seemed to be feeling better. Her hemoglobin is stable. Puncture site on the left side is feeling well without any hematoma. Followed by vascular surgery and no intervention is recommended. Patient is activities to be increased and if necessary. Patient will be transferred to the telemetry unit. Lungs are clear. Heart is regular. Further recommended lipid upon the clinical course Objective - Vital Signs Vital signs: Vital Signs Temp 97.9 F 11/25/21 08:00 Pulse 92 11/25/21 10:00 Resp 11 L 11/25/21 10:00 BP 98/56 11/25/21 10:00 Pulse Ox 98 11/25/21 10:00 Intake & Output 11/24/21 11/25/21 11/25/21 18:59 06:59 18:59 Intake Total 1110 Output Total 45 350 150 Balance 1065 -350 -150 Weight 111 kg 111.9 kg Intake: IV 550 Sodium Chloride 0.9% 1, 20 000 ml @ 75 mls/hr IV . [id number] [facility] Rx#:[id number] Sodium Chloride 0.9% 1, 480 000 ml @ 80 mls/hr IV . [id number] [facility] Rx#:[id number] Oral 560 Output: Urine 45 350 150 Stool 0 0 Other: Voiding Method Incontinent Incontinent Incontinent External Catheter External Catheter External Catheter # Voids 1 1 ABP, PAP, CO, CI - Last Documented Arterial Blood Pressure 107/66 - Exam GENERAL EXAM: Patient is alert and oriented and doesn't appear to be in any acute distress HEENT: Normocephalic. Normal reaction of pupils, equal size, normal range of extraocular motion. No erythema or exudates in the throat. NECK: No masses, no nuchal rigidity. CHEST: No chest wall deformity. LUNGS: Diminished breath sounds at bases HEART: S1 and S2 normal . Systolic murmur in the aortic area ABDOMEN: No hepatosplenomegaly, normal bowel sounds, no guarding or rigidity. SKIN: No rashes CENTRAL NERVOUS SYSTEM: No focal deficits. EXTREMITIES: No cyanosis, clubbing or edema. - Labs CBC & Chem 7: 11/25/21 07:20 11/25/21 07:20 Labs: Abnormal Lab Results - Last 24 Hours (Table) 11/24/21 11/24/21 11/25/21 Range/Units 11:57 11:57 07:20 WBC 11.5 H 10.8 H (3.8-10.6) k/uL RBC 2.53 L 2.57 L (3.80-5.40) m/uL Hgb 7.5 L 7.7 L (11.4-16.0) gm/dL Hct 24.2 L 24.9 L (34.0-46.0) % RDW 16.5 H 18.1 H (11.5-15.5) % Neutrophils # 9.2 H 8.7 H (1.3-7.7) k/uL Lymphocytes # 0.9 L (1.0-4.8) k/uL Sodium (137-145) mmol/L BUN 21 H (7-17) mg/dL Glucose 116 H (74-99) mg/dL Calcium (8.4-10.2) mg/dL 11/25/21 Range/Units 07:20 WBC (3.8-10.6) k/uL RBC (3.80-5.40) m/uL Hgb (11.4-16.0) gm/dL Hct (34.0-46.0) % RDW (11.5-15.5) % Neutrophils # (1.3-7.7) k/uL Lymphocytes # (1.0-4.8) k/uL Sodium 136 L (137-145) mmol/L BUN 19 H (7-17) mg/dL Glucose 115 H (74-99) mg/dL Calcium 8.2 L (8.4-10.2) mg/dL Assessment and Plan (1) CAD (coronary artery disease) Current Visit: Yes Status: Acute Code(s): I25.10 - ATHSCL HEART DISEASE OF [place] CORONARY ARTERY W/O ANG PCTRS SNOMED Code(s): 19491388 (2) Severe aortic stenosis Current Visit: Yes Status: Acute Code(s): I35.0 - NONRHEUMATIC AORTIC (VALVE) STENOSIS SNOMED Code(s): 339021012 (3) Nonischemic cardiomyopathy Current Visit: Yes Status: Acute Code(s): I42.8 - OTHER CARDIOMYOPATHIES SNOMED Code(s): 44142027 (4) Restrictive lung disease Current Visit: Yes Status: Acute Code(s): J98.4 - OTHER DISORDERS OF LUNG SNOMED Code(s): 34004561 Plan: Patient's clinical status stable. Feeling better. Her hemoglobin is stable and vital signs are stable. Patient may be transferred to telemetry unit. Planning for transcatheter I recorder placement within next one to 2 weeks
--- NOTE | 2021-11-25 12:17 | P.PN ---
Subjective Progress Note Date: 11/25/21 HISTORY OF PRESENT ILLNESS This is a 71-year-old female with past medical history of dilated cardiomyopathy with ejection fraction of 15-20%, severe aortic valve stenosis, mild aortic regurgitation with moderate to severe mitral regurgitation, chronic systolic heart failure, hyperlipidemia, obesity with possible obstructive sleep apnea and obesity hypoventilation syndrome, chronic hypoxic respiratory failure on home O2 at 2 L nasal cannula, hypertension hypertensive cardio vascular disease, previous Covid 19 infection. Patient presented to [facility] slight elevation of troponin, EKG showed changes suggestive ischemic changes and was started on aspirin, heparin drip and admitted to the hospital. Patient was seen by cardiology. She was supposed to have a heart catheterization done as an outpatient along with LISA for possible aortic valve replacement and mitral valve and possible CABG. Patient underwent coronary angiography finding right dominant vessel, 99% ostial stenosis, aortic pressure is 100/70, 40 mm gradient across the aortic valve. Left ventricular end diastolic pressure is 2530. Patient was transferred to [facility] for PTCA and stent placement of the RCA which was unsuccessful. Consult with cardiothoracic surgery for CABG and valve repair/replacement. 11/18: Patient is seen today in the intensive care unit. She denies chest pain or shortness of breath. She complains of anxiety and decreased appetite. Less cough today.She has been seen by band director and cardiothoracic surgery, currently on heparin drip, consult was added for dental evaluation and clearance and panoramic CT. Patient has been afebrile, heart rate in the 80s, blood pressure 101/73, pulse ox 96%. Repeat blood work reveals CBC is unremarkable. Potassium 4.0. Urinalysis negative for infection. Hepatitis panel negative. MRSA nasal screen is in process. CT of the chest revealed cardiomegaly with suspected pulmonary edema and moderate to marked right sided pleural effusion. Associated infection can't be excluded. Echocardiogram reveals EF of 25-30% with mild concentric left ventricular hypertrophy, severe global hypokinesia of the LV, severe aortic stenosis with gradient 78.27 mm a new 3/47.94 mmHg, trace mitral regurgitation, mild mitral stenosis, mild tricuspid regurgitation, mild pulmonary hypertension, RVSP 43.33 mmHg. Carotid ultrasound revealed less than 50% stenosis bilateral carotid systems. /2: Patient is sitting up in bed she underwent CTA of the chest for evaluation of dissection of the right coronary artery, she denies any chest pain at this time, she has no shortness breath, she has no abdominal pain, nausea or vomiting, she continues to have some coughing noted from production, she continues to be somewhat depressed and anxious and she is not sure what to do, she is missing her daughter she stated and she doesn't think her daughter is able to come and see her. 3: Patient is sitting on the bed in no apparent distress, she continues to be quite depressed and anxious about her situation, she has not made up her mind, I had a long conversation with Dr. Medina regarding the plan to pursue the [facility] care at this time, she was deemed high surgical risk per cardiovascular surgery service at the current [facility], and she would benefit from a transcatheter aortic valve replacement plus reattempted PCI of the RCA, her CT angiography of the chest did not show evidence of any dissection of the thoracic aorta , patient is maintained on Zoloft 100 mg every day, she is mentioned in ICU, and the plan to the PCI hopefully in the next 24 hours patient and her daughter Isatu are in agreement for conservative approach and they understand the risks of the procedure and that she will have the TAVR at a later date or during this hospital admission depends on her symptoms, we will consult Psychiatry for depression and possible bipolar disorder. 11/21: Patient remains in intensive care unit, afebrile, heart rate in the 80s, blood pressure 101/58, pulse ox 97% on room air. Patient denies having any chest pain but continues to have anxiety issues. Consult with psychiatry is pending. Patient has been scheduled for CT TAVR protocol for today. Repeat blood work reveals WBC 15, hemoglobin 8.6, platelet count 172. Sodium 134, BUN 41 creatinine 1.2. Blood sugar 149. Total bilirubin 1.4 otherwise liver function tests are normal. Nasal MRSA screen is negative. 11/22: Patient remains in the intensive care unit. Patient underwent CAT scan yesterday for TAVR protoxol and was found to have moderate size right pelvic retroperitoneal hematoma extending into the lower abdomen presumed from att empted right groin catheter insertion. Consult was added for vascular surgery with plan to continue supportive care, no plan for surgical intervention. Heparin was discontinued. Patient was transfused 1 unit of packed RBCs for hemoglobin of 6.9 with repeat hemoglobin of 7.6. Patient has been afebrile, heart rate 70, blood pressure 109/62, pulse ox 97%. medical diagnostic radiographer is sinus rhythm. Patient has also been seen and followed by psychiatry for depression and acute bereavement with the loss of her , recommendations Zoloft 125 mg daily at bedtime. 11/23: Patient remains in the intensive care unit. No signs of bleeding and no worsening hematoma with hemoglobin stable at 7.6. Vascular surgery has cleared patient to resume heparin if needed, continue to monitor for bleeding and daily CBC. Plan is for Dr. Medina will proceed with intervention tomorrow. Patient is also followed by band director, cardiothoracic surgery and psychiatry. 11/24: Patient is status post stent in the RCA today with Dr. Medina. She is seen postprocedure and is comfortable. She denies having any chest pain. Anxiety is controlled. Approach was from the left groin, no bleeding or hematoma noted. Patient remains afebrile, heart rate in the 80s, blood pressure 92/57, pulse ox 94% on 2 L nasal cannula. Repeat hemoglobin is stable at 7.5, WBC 11.5. Electrolytes are normal, BUN 21 creatinine 0.61. 11/25: Patient remains in the intensive care unit status post stent of the RCA yesterday. Patient has moderate to severe LAD lesion with significant FFR to be addressed at a later time as well asTAVR will be planned for the next 1-2 weeks. No hematoma to the left groin. Patient is waiting for a bed on the cardiac stepdown unit. Vascular surgeries following for retroperitoneal hematoma that does not appear to be actively bleeding, plan for supportive care. Patient remains afebrile heart rate 85, blood pressure 96/54, pulse ox 98% on room air.. BUN 19 and creatinine 0.62. Anticipate that patient will be able to work with PT and OT determine home care versus subacute rehab needs. REVIEW OF SYSTEMS Constitutional: No fever, no chills, no night sweats. No weight change. Positive for generalized weakness, positive for fatigue or lethargy. No daytime sleepiness. HEENT: No headache. No blurred vision or double vision, no loss of vision. No loss of Hearing, no ringing in the ears, no dizziness. No nasal drainage or congestion. No epistaxis. No sore throat. Lungs: Positive for shortness of breath, positive for cough, no sputum production. No wheezing. Reports dyspnea on exertion. Cardiovascular: No chest pain, no lower extremity edema. No palpitations. No paroxysmal nocturnal dyspnea. No orthopnea. No lightheadedness or dizziness. No syncopal episodes. Abdominal: No right lower quadrant abdominal pain. No nausea, vomiting. No diarrhea. No constipation. No bloody or tarry stools. Reports loss of appetite. Genitourinary: No dysuria, increased frequency, urgency. No urinary retention. Musculoskeletal: No myalgias. Generalized muscle weakness, no gait dysfunction, no frequent falls. Positive for back pain. No neck pain. Integumentary: No wounds, no lesions. No rash or pruritus. Positive for bruising. No change in hair or nails. Neurologic: No aphasia. No facial droop. No change in mentation. No head injury. No headache. No paralysis. No paresthesia. Psychiatric: Positive for depression. Reports anxiety. Positive for mood swings Endocrine: No abnormal blood sugars. Positive for weight change. PHYSICAL EXAMINATION Gen: This is a 71-year-old female. HEENT: Head is atraumatic, normocephalic. Pupils equal, round. Sclerae is anicteric. NECK: Supple. No JVD. No lymphadenopathy. No thyromegaly. LUNGS: Decreased breath sounds at the bases, decreased tactile fremitus at the right lower third, few rhonchi, no expiratory wheeze, no chest wall tenderness. No intercostal retractions. HEART: First heart sound is depressed, second heart sound is normal, systolic ejection murmur 3/6 at the right upper sternal border radiating to the base of the neck, systolic ejection murmur 2/6 at the apex rating to the axilla. ABDOMEN: Soft, mild tenderness right lower quadrant, nondistended, positive bowel sounds, multiple ecchymosis. EXTREMITIES: 1+ pedal edema. No calf tenderness. Her cells pedis +1 bilaterally. Bilateral hammertoes. Left groin is soft, no hematoma, no bleeding. NEUROLOGICAL: Patient is awake, alert and oriented x3. Cranial nerves 2 through 12 are grossly intact., Cranial nerves II-12 appear grossly intact, muscle power 4 out of 5 in upper and lower extremities bilaterally. ASSESSMENT AND PLAN 1. Non ST elevation myocardial infarction with history of prior dilated cardiomyopathy status post coronary angiography finding right dominant vessel, 99% ostial stenosis, aortic pressure is 100/70, 40 mm gradient across the aortic valve. Left ventricular end diastolic pressure is 2530. Patient was transferred to [facility] for PTCA and stent placement of the RCA which was unsuccessful. Consult with cardiothoracic surgery appreciated. Shoe Worker consultation appreciated. Continue aspirin 81 mg daily, on Coreg 6.25 mg twice daily. Patient is unable to tolerate statins because of significant myopathy and plan is to start her on Repatha under 40 mg subcu every 2 weeks. Stent of the RCA today with Dr. Medina 11/24.LAD stenosis to be addressed at a later time. 2. Dilated cardiomyopathy. continue patient on carvedilol 3.125 mg orally twice every day, digoxin 125 g daily. continue with monitoring input and output and daily weight. 3. Severe aortic valve stenosis with mild aortic regurgitation. TAVR to be scheduled in the near future. 4. Moderate to Severe mitral regurgitation. likely will continue with conservative management no plan for mitral valve repair. 5. Hyperlipidemia. Patient unable to tolerate statins. She was started on atorvastatin 40 mg once every day. 6. Obesity with obstructive sleep apnea and obesity hypoventilation syndrome. Patient has not had sleep study done yet. 7. Chronic hypoxic respiratory failure secondary to his Covid 19 and underlying COPD and possible obstructive sleep apnea and hypoventilation syndrome. Patient is normally on 2 L nasal cannula. 8. Acute on chronic systolic heart failure. Off Lasix, continue Coreg, Aldactone 25 mg daily. 9. Hypertension, hypertensive cardiovascular disease. continue carvedilol 3.125 mg orally twice every day patient is not on MELODY-I or ARB due to severe hypertension, 10. Recurrent depression and generalized anxiety disorder. Consult consult with psychiatry appreciated. Patient on Zoloft 125 mg at bedtime 11. DVT prophylaxis. 12. GI prophylaxis. Protonix 40 mg IV push daily. 13. Overall prognosis is very guarded. 14. Acute retroperitoneal hematoma with acute blood loss anemia status post transfusion 1 unit of packed RBCs. Consult with vascular surgery appreciated. No plan for any surgical interventions. Monitor closely for bleeding. Impression and plan of care have been directed as dictated by the signing physician. Marina Barbosa nurse practitioner acting as scribe for signing physician. Objective - Vital Signs Vital signs: Vital Signs Temp 97.9 F 11/25/21 12:00 Pulse 85 11/25/21 12:00 Resp 12 11/25/21 12:00 BP 96/54 11/25/21 12:00 Pulse Ox 98 11/25/21 12:00 Intake & Output 11/24/21 11/25/21 11/25/21 18:59 06:59 18:59 Intake Total 1110 Output Total 45 350 350 Balance 1065 -350 -350 Weight 111 kg 111.9 kg Intake: IV 550 Sodium Chloride 0.9% 1, 20 000 ml @ 75 mls/hr IV . [id number] [facility] Rx#:[id number] Sodium Chloride 0.9% 1, 480 000 ml @ 80 mls/hr IV . [id number] [facility] Rx#:[id number] Oral 560 Output: Urine 45 350 350 Stool 0 0 Other: Voiding Method Incontinent Incontinent Incontinent External Catheter External Catheter External Catheter # Voids 1 1 ABP, PAP, CO, CI - Last Documented Arterial Blood Pressure 107/66 - Labs CBC & Chem 7: 11/25/21 07:20 11/25/21 07:20 Labs: Abnormal Lab Results - Last 24 Hours (Table) 11/24/21 11/24/21 11/25/21 Range/Units 11:57 11:57 07:20 WBC 11.5 H 10.8 H (3.8-10.6) k/uL RBC 2.53 L 2.57 L (3.80-5.40) m/uL Hgb 7.5 L 7.7 L (11.4-16.0) gm/dL Hct 24.2 L 24.9 L (34.0-46.0) % RDW 16.5 H 18.1 H (11.5-15.5) % Neutrophils # 9.2 H 8.7 H (1.3-7.7) k/uL Lymphocytes # 0.9 L (1.0-4.8) k/uL Sodium (137-145) mmol/L BUN 21 H (7-17) mg/dL Glucose 116 H (74-99) mg/dL Calcium (8.4-10.2) mg/dL 11/25/21 Range/Units 07:20 WBC (3.8-10.6) k/uL RBC (3.80-5.40) m/uL Hgb (11.4-16.0) gm/dL Hct (34.0-46.0) % RDW (11.5-15.5) % Neutrophils # (1.3-7.7) k/uL Lymphocytes # (1.0-4.8) k/uL Sodium 136 L (137-145) mmol/L BUN 19 H (7-17) mg/dL Glucose 115 H (74-99) mg/dL Calcium 8.2 L (8.4-10.2) mg/dL
--- NOTE | 2021-11-25 12:58 | P.PN ---
Subjective Progress Note Date: 11/25/21 This is a pleasant 71-year-old female patient with biventricular failure, severe aortic stenosis, mitral regurgitation and coronary artery disease. The patient underwent a cardiac catheterization and the patient was found to have 99% RCA stenosis and the patient is post non-ST segment elevation myocardial infarction. The patient had an unsuccessful PCI of the RCA. Initially, she was being contemplated for cardiac surgery knowing that she has valvular heart disease and she was also being looks for a single-vessel bypass surgery. Ultimately, it was decided to do another cardiac catheterization tomorrow. She is known to have dilated cardiomyopathy and impaired left ventricular ejection fraction at patient presented with acute CHF. She is currently on O2 at 2 L per minute nasal cannula. She is comfortable. Nevertheless, she is anxious and she denies having any chest pain. Hemodynamically stable on no pressors. She continues to be guarded with Lasix and she is on 8040 mg IV every 12 hours. She is off IV heparin as the patient developed an acute hematoma the right femoral artery/anh in area at the site of the cardiac catheterization. The hematoma today is quite soft and the patient has a hemoglobin of 8.6 which is essentially compatible to yesterday of 9.1. There has been some mild drop in hemoglobin 9 of the hemoglobin on 11/20/2021 was 10.0. Platelet counts are normal. The hematoma in the right groin is soft. The plan is to proceed with another cardiac catheterization hopefully within the next 24 hours. Of notice, isn't elevation in the creatinine which is up to 1.2 on today's evaluation. The neck fluid balance over the past 24 hours has been in the order of +98 mL on this patient. Based on that, the Lasix has been placed on hold. Meanwhile, the patient jimbo nues to be on IV heparin infusion. Note that the IV heparin was discontinued. Now that there is no active bleeding from the hematoma, cardiology gave orders to restart the IV heparin. 11/23/2019, the patient is being seen for a follow-up. Overnight, the patient developed further drop in hemoglobin down to 6.9 as the patient was having some retroperitoneal bleeding. IV heparin was discontinued. The patient got transfused with a 1 units of packed RBC. CAT scan of the chest abdomen and pelvis was done and it showed evidence of retroperitoneal bleed on the right displacing bladder. There was also a small to moderate-sized right-sided pleural effusion and some pulmonary vascular congestion. Based on that, IV heparin was discontinued and the patient was given a total of 1 units of packed RBC and hemoglobin today is at 7.6. History of any chest pain. She continues to have some shortness of breath at rest. Fluid balance has been +1.2 L over the past 24 hours. She is currently on 2 L about 2 by nasal cannula. The plan is to undergo a cardiac catheterization and stenting of the RCA and cardiology is on the case. Despite the drop in hemoglobin, and ongoing esophageal bleed, the patient's groin is soft and there is a soft area of ecchymosis along the right groin area. Pulses in lower extremity is diminished at the present. 11/23/2021, condition is stable and unchanged compared to yesterday. No signs of any ongoing bleeding and the patient's hemoglobin today is at 7.6 which is comparable to yesterday. No change in the hematoma along the right groin area. No anticoagulants for now the patient is taken on Lovenox for prophylaxis. The patient has no new complaints. Resting comfortably in bed. No coronary intervention was done and the cardiac interventional cardiology, decided to wait a few more days until this is a pleasant hematoma is more settled prior doing a ny intervention. Meanwhile, the patient remains on 2 L of O2 by nasal cannula. Input output balance has been +230 mL over the past 24 hours. BUN is a 36 with a creatinine of 0.6 and the potassium level of 4.6 and his sodium level of 134. White cell count is at 9.8 and the plated count is at 152. No altered mentation. The patient remains on aspirin. The patient on Lovenox for DVT prophylaxis 40 mg subcu. The patient remains on Coreg 3.125 mg by mouth twice a day and digoxin and Aldactone. 11/24/2021, condition is stable. No new complaints overnight. The patient will be taken to cardiac catheterization. No acute chest pain or shortness of breath overnight. Most recent hemoglobin from yesterday was at 7.6 and the patient has not had any further hemoglobins checked since yesterday. Nevertheless, there is no signs of any ongoing bleed and the groin bleed/hematoma remains stable. The patient has no chest pain. No shortness of breath. The patient on no anticoagulants for now. The plan will be a cardiac catheterization today. The patient remains on Lovenox 40 mg subcu 40 to prophylaxis. The patient on Aldactone. The patient is on a combination of aspirin and Plavix. Awaiting final recommendations from cardiology post cardiac catheterization. 11/25/2021, Adrienne is doing well. She is currently on room air oxygen. No new complaints. No chest pain. No respiratory difficulties. She is post cardiac catheterization and stenting of the RCA. The puncture site in the left groin area is dry clean and intact and the patient has no hematoma in the groins bilaterally. Meanwhile, the patient has a white cell count of 10.8 with hemoglobin of 7.7. Sodium is at 136 with a BUN of 19 and a creatinine of 0.6. The patient is currently on aspirin, Plavix, and the patient is also on Coreg 3.12 Mg twice a day and Aldactone. Anticoagulants with Lovenox 40 mg prophyla xis 40 mg subcu every 24 hours. The patient is also on Lipitor 40 mg by mouth daily. No other active issues for now. The patient can be transferred out of the intensive care unit. Tentative plan is to consider this patient for a TAVR procedure to later stage. Objective - Vital Signs Vital signs: Vital Signs Temp 97.9 F 11/25/21 12:00 Pulse 85 11/25/21 12:00 Resp 12 11/25/21 12:00 BP 96/54 11/25/21 12:00 Pulse Ox 98 11/25/21 12:00 Intake & Output 11/24/21 11/25/21 11/25/21 18:59 06:59 18:59 Intake Total 1110 Output Total 45 350 350 Balance 1065 -350 -350 Weight 111 kg 111.9 kg Intake: IV 550 Sodium Chloride 0.9% 1, 20 000 ml @ 75 mls/hr IV . [id number] MARY Rx#:[id number] Sodium Chloride 0.9% 1, 480 000 ml @ 80 mls/hr IV . [id number] MARY Rx#:[id number] Oral 560 Output: Urine 45 350 350 Stool 0 0 Other: Voiding Method Incontinent Incontinent Incontinent External Catheter External Catheter External Catheter # Voids 1 1 ABP, PAP, CO, CI - Last Documented Arterial Blood Pressure 107/66 - Exam CONSTITUTIONAL: Tearful, cooperative and is in no acute distress. The patient remains anxious.The patient is currently on room air oxygen Head exam was generally normal. There was no scleral icterus or corneal arcus. Mucous membranes were moist. Neck was supple and without jugular venous distension, thyromegaly, or carotid bruits. Carotids were easily palpable bilaterally. There was no adenopathy. RESPIRATORY: Lungs sounds essentially clear throughout, diminished bilateral bases, right greater than left. Respirations are symmetrical and nonlabored. Currently on 2 L nasal cannula with oxygen saturation 96%. Able to achieve 1500 mL on incentive spirometry. Strong cough. CARDIOVASCULAR: S1, S2 present, pansystolic murmur present 3/6. Regular rate and rhythm, sinus rhythm on telemetry. Doppler lower extremity pulses bilaterally. No calf pain or tenderness noted. GASTROINTESTINAL: Abdomen soft, nontender, nondistended. Active bowel sounds present 4 quadrants. Tolerating diet. A soft hematoma is present over the right inguinal area which has not enlarged in size. INTEGUMENTARY: Skin is warm and dry with evidence of good perfusion. NEUROLOGIC: Cranial nerves II through XII intact MUSKULOSKELETAL: Able to move all extremities, strength equal bilaterally. PSYCHIATRIC: Alert, oriented to person place and time, flat affect. - Labs CBC & Chem 7: 11/25/21 07:20 11/25/21 07:20 Labs: Abnormal Lab Results - Last 24 Hours (Table) 11/25/21 11/25/21 Range/Units 07:20 07:20 WBC 10.8 H (3.8-10.6) k/uL RBC 2.57 L (3.80-5.40) m/uL Hgb 7.7 L (11.4-16.0) gm/dL Hct 24.9 L (34.0-46.0) % RDW 18.1 H (11.5-15.5) % Neutrophils # 8.7 H (1.3-7.7) k/uL Lymphocytes # 0.9 L (1.0-4.8) k/uL Sodium 136 L (137-145) mmol/L BUN 19 H (7-17) mg/dL Glucose 115 H (74-99) mg/dL Calcium 8.2 L (8.4-10.2) mg/dL Assessment and Plan Plan: 1 acute hypoxic respiratory failure, currently on RA oxygen by nasal cannula, essentially secondary to valvular heart disease/CAD and secondary decompensated heart failure. Clinically stable 2 acute non-ST segment elevation myocardial infarction. The patient is post cardiac catheterization and the patient is a 99% RCA stenosis and the patient is status post successful PCI to RCA. 3 severe aortic valve stenosis with a peak and mean gradient of 78 and 47 mmHg, and the patient continues to have a harsh cardiac murmur systolic ejection on examination. 4 mitral regurgitation 5 dilated cardiomyopathy with impaired left ventricular ejection fraction systolic heart failure with an ejection fraction of 25-30% 6 bilateral pleural effusion secondary to above 7 hypertension 8 hyperlipidemia 9 COVID 19 pneumonia back in April 2021 10 retroperitoneal bleed with a development of a soft right groin hematoma at a set of cardiac catheterization, the hemoglobin remains stable for now and there is no interval worsening in the right groin hematoma 11 acute blood loss anemia with a hemoglobin of 6.9 and the patient got tra nsfused with a total of 1 units of packed RBC and IV heparin was discontinued. The patient's hemoglobin is stable at 7.7 on today's evaluation 12 acute kidney injury improving and the creatinine is normalized 13 medical debility seconds above-mentioned comorbidities 14 right-sided pleural effusion secondary to CHF Plan post successful stenting of the RCA Patient is currently on room air oxygen No signs of any acute respiratory distress at rest and the patient remains on room air oxygen. Continue aspirin and statins and beta blockers in the form of Coreg Cardiothoracic surgeries on the case regarding possibility of bypass/aortic valve replacement versus PCI and possibly TaVR procedure regarding the aortic valve. Long-term prognosis poor baseline above-mentioned comorbidities. We'll continue to follow , The patient be transferred out of the intensive care unit.
[2021-11-25] MEDS: polyethylene glycoL 3350 17 GM POWD.PACK PO PRN (13:35)
[2021-11-25] MEDS: SERTRALINE 100 MG TAB PO SCH (20:51)
[2021-11-25] MEDS: SERTRALINE 25 MG TAB PO SCH (20:51)
[2021-11-25] MEDS: ATORVASTATIN 40 MG TAB PO SCH (20:51)
[2021-11-25] MEDS: MELATONIN 3 MG TABLET PO SCH (20:52)
[2021-11-26] MEDS: FERROUS SULFATE 325 MG TAB PO SCH ×2 (06:32→16:54)
[2021-11-26] MEDS: carvediloL 3.125 MG TAB PO SCH ×2 (06:32→16:54)
[2021-11-26] MEDS: ASCORBIC ACID 500 MG TAB PO SCH ×2 (06:32→16:54)
[2021-11-26 06:46] LABS: Glucose,Whole Blood 149 mg/dL (75-99)
[2021-11-26] MEDS: SPIRONOLACTONE 25 MG TAB PO SCH (08:10)
[2021-11-26] MEDS: CLOPIDOGREL 75 MG TAB PO SCH (08:10)
[2021-11-26] MEDS: ENOXAPARIN 40 MG/0.4 ML SYRINGE SQ SCH (08:11)
[2021-11-26] MEDS: LORATADINE 10 MG TAB PO SCH (08:11)
[2021-11-26] MEDS: PANTOPRAZOLE 40 MG/10 ML VIAL IVP SCH (08:11)
[2021-11-26] MEDS: DIGOXIN 125 MCG TAB PO SCH (08:11)
[2021-11-26] MEDS: ASPIRIN 81 MG PO SCH (08:11)
[2021-11-26] MEDS: IPRATROPIUM-ALBUTEROL 3 ML NEB INHALATION SCH ×4 (08:47→20:18)
[2021-11-26] MEDS: SYMBICORT 160-4.5 MCG INHALER INHALATION SCH ×2 (08:47→20:18)
--- NOTE | 2021-11-26 12:23 | P.PN ---
Subjective Progress Note Date: 11/26/21 This is a pleasant 71-year-old female patient with biventricular failure, severe aortic stenosis, mitral regurgitation and coronary artery disease. The patient underwent a cardiac catheterization and the patient was found to have 99% RCA stenosis and the patient is post non-ST segment elevation myocardial infarction. The patient had an unsuccessful PCI of the RCA. Initially, she was being contemplated for cardiac surgery knowing that she has valvular heart disease and she was also being looks for a single-vessel bypass surgery. Ultimately, it was decided to do another cardiac catheterization tomorrow. She is known to have dilated cardiomyopathy and impaired left ventricular ejection fraction at patient presented with acute CHF. She is currently on O2 at 2 L per minute nasal cannula. She is comfortable. Nevertheless, she is anxious and she denies having any chest pain. Hemodynamically stable on no pressors. She continues to be guarded with Lasix and she is on 8040 mg IV every 12 hours. She is off IV heparin as the patient developed an acute hematoma the right femoral artery/anh in area at the site of the cardiac catheterization. The hematoma today is quite soft and the patient has a hemoglobin of 8.6 which is essentially compatible to yesterday of 9.1. There has been some mild drop in hemoglobin 9 of the hemoglobin on 11/20/2021 was 10.0. Platelet counts are normal. The hematoma in the right groin is soft. The plan is to proceed with another cardiac catheterization hopefully within the next 24 hours. Of notice, isn't elevation in the creatinine which is up to 1.2 on today's evaluation. The neck fluid balance over the past 24 hours has been in the order of +98 mL on this patient. Based on that, the Lasix has been placed on hold. Meanwhile, the patient jimbo nues to be on IV heparin infusion. Note that the IV heparin was discontinued. Now that there is no active bleeding from the hematoma, cardiology gave orders to restart the IV heparin. 11/23/2019, the patient is being seen for a follow-up. Overnight, the patient developed further drop in hemoglobin down to 6.9 as the patient was having some retroperitoneal bleeding. IV heparin was discontinued. The patient got transfused with a 1 units of packed RBC. CAT scan of the chest abdomen and pelvis was done and it showed evidence of retroperitoneal bleed on the right displacing bladder. There was also a small to moderate-sized right-sided pleural effusion and some pulmonary vascular congestion. Based on that, IV heparin was discontinued and the patient was given a total of 1 units of packed RBC and hemoglobin today is at 7.6. History of any chest pain. She continues to have some shortness of breath at rest. Fluid balance has been +1.2 L over the past 24 hours. She is currently on 2 L about 2 by nasal cannula. The plan is to undergo a cardiac catheterization and stenting of the RCA and cardiology is on the case. Despite the drop in hemoglobin, and ongoing esophageal bleed, the patient's groin is soft and there is a soft area of ecchymosis along the right groin area. Pulses in lower extremity is diminished at the present. 11/23/2021, condition is stable and unchanged compared to yesterday. No signs of any ongoing bleeding and the patient's hemoglobin today is at 7.6 which is comparable to yesterday. No change in the hematoma along the right groin area. No anticoagulants for now the patient is taken on Lovenox for prophylaxis. The patient has no new complaints. Resting comfortably in bed. No coronary intervention was done and the cardiac interventional cardiology, decided to wait a few more days until this is a pleasant hematoma is more settled prior doing a ny intervention. Meanwhile, the patient remains on 2 L of O2 by nasal cannula. Input output balance has been +230 mL over the past 24 hours. BUN is a 36 with a creatinine of 0.6 and the potassium level of 4.6 and his sodium level of 134. White cell count is at 9.8 and the plated count is at 152. No altered mentation. The patient remains on aspirin. The patient on Lovenox for DVT prophylaxis 40 mg subcu. The patient remains on Coreg 3.125 mg by mouth twice a day and digoxin and Aldactone. 11/24/2021, condition is stable. No new complaints overnight. The patient will be taken to cardiac catheterization. No acute chest pain or shortness of breath overnight. Most recent hemoglobin from yesterday was at 7.6 and the patient has not had any further hemoglobins checked since yesterday. Nevertheless, there is no signs of any ongoing bleed and the groin bleed/hematoma remains stable. The patient has no chest pain. No shortness of breath. The patient on no anticoagulants for now. The plan will be a cardiac catheterization today. The patient remains on Lovenox 40 mg subcu 40 to prophylaxis. The patient on Aldactone. The patient is on a combination of aspirin and Plavix. Awaiting final recommendations from cardiology post cardiac catheterization. 11/25/2021, Adrienne is doing well. She is currently on room air oxygen. No new complaints. No chest pain. No respiratory difficulties. She is post cardiac catheterization and stenting of the RCA. The puncture site in the left groin area is dry clean and intact and the patient has no hematoma in the groins bilaterally. Meanwhile, the patient has a white cell count of 10.8 with hemoglobin of 7.7. Sodium is at 136 with a BUN of 19 and a creatinine of 0.6. The patient is currently on aspirin, Plavix, and the patient is also on Coreg 3.12 Mg twice a day and Aldactone. Anticoagulants with Lovenox 40 mg prophyla xis 40 mg subcu every 24 hours. The patient is also on Lipitor 40 mg by mouth daily. No other active issues for now. The patient can be transferred out of the intensive care unit. Tentative plan is to consider this patient for a TAVR procedure to later stage. 11/26/2021, the patient is stable to no new complaints. The patient got chested out of the intensive care unit yesterday. No chest pain. No shortness of breath. She remains on Coreg 3.125 mg twice a day and the patient is also on digoxin 125 g on a daily basis and the patient remains on a potassium sparing diuretics which is Aldactone 25 mg on a daily basis. She is currently on 2 L about 2 by nasal cannula pH is on Lovenox 40 the prophylaxis. No new blood work from today. Hemoglobin from yesterday was at 7.7. The patient is resting comfortably in bed. Objective - Vital Signs Vital signs: Vital Signs Temp 98 F 11/26/21 12:00 Pulse 68 11/26/21 12:00 Resp 16 11/26/21 12:00 BP 91/53 11/26/21 12:00 Pulse Ox 98 11/26/21 12:00 Intake & Output 11/25/21 11/26/21 11/26/21 18:59 06:59 18:59 Intake Total 120 50 Output Total 500 225 Balance -380 -175 Intake: Oral 120 50 Output: Urine 500 225 Stool 0 0 Other: Voiding Method Incontinent Incontinent Incontinent External Catheter External Catheter External Catheter # Voids 1 ABP, PAP, CO, CI - Last Documented Arterial Blood Pressure 107/66 - Exam CONSTITUTIONAL: Tearful, cooperative and is in no acute distress. The patient remains anxious.The patient is currently on room air oxygen Head exam was generally normal. There was no scleral icterus or corneal arcus. Mucous membranes were moist. Neck was supple and without jugular venous distension, thyromegaly, or carotid bruits. Carotids were easily palpable bilaterally. There was no adenopathy. RESPIRATORY: Lungs sounds essentially clear throughout, diminished bilateral bases, right greater than left. Respirations are symmetrical and nonlabored. Currently on 2 L nasal cannula with oxygen saturation 96%. Able to achieve 1500 mL on incentive spirometry. Strong cough. CARDIOVASCULAR: S1, S2 present, pansystolic murmur present 3/6. Regular rate and rhythm, sinus rhythm on telemetry. Doppler lower extremity pulses bilaterally. No calf pain or tenderness noted. GASTROINTESTINAL: Abdomen soft, nontender, nondistended. Active bowel sounds present 4 quadrants. Tolerating diet. A soft hematoma is present over the right inguinal area which has not enlarged in size. INTEGUMENTARY: Skin is warm and dry with evidence of good perfusion. NEUROLOGIC: Cranial nerves II through XII intact MUSKULOSKELETAL: Able to move all extremities, strength equal bilaterally. PSYCHIATRIC: Alert, oriented to person place and time, flat affect. - Labs CBC & Chem 7: 11/25/21 07:20 11/25/21 07:20 Labs: Abnormal Lab Results - Last 24 Hours (Table) 11/26/21 Range/Units 06:43 POC Glucose (mg/dL) 149 H (75-99) mg/dL Assessment and Plan Plan: 1 acute hypoxic respiratory failure, currently on RA oxygen by nasal cannula, essentially secondary to valvular heart disease/CAD and secondary decompensated heart failure. Clinically stable 2 acute non-ST segment elevation myocardial infarction. The patient is post cardiac catheterization and the patient is a 99% RCA stenosis and the patient is status post successful PCI to RCA. 3 severe aortic valve stenosis with a peak and mean gradient of 78 and 47 mmHg, and the patient continues to have a harsh cardiac murmur systolic ejection on examination. Condition is stable and the patient remains on Aldactone 4 mitral regurgitation 5 dilated cardiomyopathy with impaired left ventricular ejection fraction systolic heart failure with an ejection fraction of 25-30% 6 bilateral pleural effusion secondary to above 7 hypertension 8 hyperlipidemia 9 COVID 19 pneumonia back in April 2021 10 retroperitoneal bleed with a development of a soft right groin hematoma at a set of cardiac catheterization, the hemoglobin remains stable for now and there is no interval worsening in the right groin hematoma 11 acute blood loss anemia with a hemoglobin of 6.9 and the patient got transfused with a total of 1 units of packed RBC and IV heparin was disconti nued. In the hemoglobin has remained stable 12 acute kidney injury improving and the creatinine is normalized 13 medical debility seconds above-mentioned comorbidities 14 right-sided pleural effusion secondary to CHF Plan post successful stenting of the RCA and the patient's history of any chest pain The patient got transferred out of the intensive care unit yesterday Continue aspirin and statins and beta blockers in the form of Coreg Cardiothoracic surgeries on the case regarding possibility of bypass/aortic valve replacement versus PCI and possibly TaVR procedure regarding the aortic valve. Long-term prognosis poor baseline above-mentioned comorbidities. We'll continue to follow
--- NOTE | 2021-11-26 12:40 | P.PN ---
Subjective Progress Note Date: 11/26/21 HISTORY OF PRESENT ILLNESS This is a 71-year-old female with past medical history of dilated cardiomyopathy with ejection fraction of 15-20%, severe aortic valve stenosis, mild aortic regurgitation with moderate to severe mitral regurgitation, chronic systolic heart failure, hyperlipidemia, obesity with possible obstructive sleep apnea and obesity hypoventilation syndrome, chronic hypoxic respiratory failure on home O2 at 2 L nasal cannula, hypertension hypertensive cardio vascular disease, previous Covid 19 infection. Patient presented to [facility] slight elevation of troponin, EKG showed changes suggestive ischemic changes and was started on aspirin, heparin drip and admitted to the hospital. Patient was seen by cardiology. She was supposed to have a heart catheterization done as an outpatient along with LISA for possible aortic valve replacement and mitral valve and possible CABG. Patient underwent coronary angiography finding right dominant vessel, 99% ostial stenosis, aortic pressure is 100/70, 40 mm gradient across the aortic valve. Left ventricular end diastolic pressure is 2530. Patient was transferred to [facility] for PTCA and stent placement of the RCA which was unsuccessful. Consult with cardiothoracic surgery for CABG and valve repair/replacement. 11/18: Patient is seen today in the intensive care unit. She denies chest pain or shortness of breath. She complains of anxiety and decreased appetite. Less cough today.She has been seen by rn progressive care and cardiothoracic surgery, currently on heparin drip, consult was added for dental evaluation and clearance and panoramic CT. Patient has been afebrile, heart rate in the 80s, blood pressure 101/73, pulse ox 96%. Repeat blood work reveals CBC is unremarkable. Potassium 4.0. Urinalysis negative for infection. Hepatitis panel negative. MRSA nasal screen is in process. CT of the chest revealed cardiomegaly with suspected pulmonary edema and moderate to marked right sided pleural effusion. Associated infection can't be excluded. Echocardiogram reveals EF of 25-30% with mild concentric left ventricular hypertrophy, severe global hypokinesia of the LV, severe aortic stenosis with gradient 78.27 mm a new 3/47.94 mmHg, trace mitral regurgitation, mild mitral stenosis, mild tricuspid regurgitation, mild pulmonary hypertension, RVSP 43.33 mmHg. Carotid ultrasound revealed less than 50% stenosis bilateral carotid systems. /2: Patient is sitting up in bed she underwent CTA of the chest for evaluation of dissection of the right coronary artery, she denies any chest pain at this time, she has no shortness breath, she has no abdominal pain, nausea or vomiting, she continues to have some coughing noted from production, she continues to be somewhat depressed and anxious and she is not sure what to do, she is missing her daughter she stated and she doesn't think her daughter is able to come and see her. 3: Patient is sitting on the bed in no apparent distress, she continues to be quite depressed and anxious about her situation, she has not made up her mind, I had a long conversation with Dr. Medina regarding the plan to pursue the [facility] care at this time, she was deemed high surgical risk per cardiovascular surgery service at the current [place], and she would benefit from a transcatheter aortic valve replacement plus reattempted PCI of the RCA, her CT angiography of the chest did not show evidence of any dissection of the thoracic aorta , patient is maintained on Zoloft 100 mg every day, she is mentioned in ICU, and the plan to the PCI hopefully in the next 24 hours patient and her daughter Isatu are in agreement for conservative approach and they understand the risks of the procedure and that she will have the TAVR at a later date or during this hospital admission depends on her symptoms, we will consult Psychiatry for depression and possible bipolar disorder. 11/21: Patient remains in intensive care unit, afebrile, heart rate in the 80s, blood pressure 101/58, pulse ox 97% on room air. Patient denies having any chest pain but continues to have anxiety issues. Consult with psychiatry is pending. Patient has been scheduled for CT TAVR protocol for today. Repeat blood work reveals WBC 15, hemoglobin 8.6, platelet count 172. Sodium 134, BUN 41 creatinine 1.2. Blood sugar 149. Total bilirubin 1.4 otherwise liver function tests are normal. Nasal MRSA screen is negative. 11/22: Patient remains in the intensive care unit. Patient underwent CAT scan yesterday for TAVR protoxol and was found to have moderate size right pelvic retroperitoneal hematoma extending into the lower abdomen presumed from att empted right groin catheter insertion. Consult was added for vascular surgery with plan to continue supportive care, no plan for surgical intervention. Heparin was discontinued. Patient was transfused 1 unit of packed RBCs for hemoglobin of 6.9 with repeat hemoglobin of 7.6. Patient has been afebrile, heart rate 70, blood pressure 109/62, pulse ox 97%. court recording monitor is sinus rhythm. Patient has also been seen and followed by psychiatry for depression and acute bereavement with the loss of her , recommendations Zoloft 125 mg daily at bedtime. 11/23: Patient remains in the intensive care unit. No signs of bleeding and no worsening hematoma with hemoglobin stable at 7.6. Vascular surgery has cleared patient to resume heparin if needed, continue to monitor for bleeding and daily CBC. Plan is for Dr. Medina will proceed with intervention tomorrow. Patient is also followed by rn progressive care, cardiothoracic surgery and psychiatry. 11/24: Patient is status post stent in the RCA today with Dr. Medina. She is seen postprocedure and is comfortable. She denies having any chest pain. Anxiety is controlled. Approach was from the left groin, no bleeding or hematoma noted. Patient remains afebrile, heart rate in the 80s, blood pressure 92/57, pulse ox 94% on 2 L nasal cannula. Repeat hemoglobin is stable at 7.5, WBC 11.5. Electrolytes are normal, BUN 21 creatinine 0.61. 11/25: Patient remains in the intensive care unit status post stent of the RCA yesterday. Patient has moderate to severe LAD lesion with significant FFR to be addressed at a later time as well asTAVR will be planned for the next 1-2 weeks. No hematoma to the left groin. Patient is waiting for a bed on the cardiac stepdown unit. Vascular surgeries following for retroperitoneal hematoma that does not appear to be actively bleeding, plan for supportive care. Patient remains afebrile heart rate 85, blood pressure 96/54, pulse ox 98% on room air.. BUN 19 and creatinine 0.62. Anticipate that patient will be able to work with PT and OT determine home care versus subacute rehab needs. 11/26: Patient was moved out of the ICU to a telemetry unit, she is in a better spurs, she responded very well to the sertraline 125 mg at bedtime, she is continued to have minimal cough no phlegm production, she is using Flonase and Claritin for postnasal drip, she denies any abdominal pain, she has not had a bowel movement attempted we will start the patient on lactulose 20 g orally twice every day, start the patient on Senokot 2 tablets at bedtime, follow-up with the patient very closely, we'll discuss with cardiology and cardiothoracic surgery team whether the patient would have TAVR next week. REVIEW OF SYSTEMS Constitutional: No fever, no chills, no night sweats. No weight change. Positive for generalized weakness, positive for fatigue or lethargy. No daytime sleepiness. HEENT: No headache. No blurred vision or double vision, no loss of vision. No loss of Hearing, no ringing in the ears, no dizziness. No nasal drainage or congestion. No epistaxis. No sore throat. Lungs: Positive for shortness of breath, positive for cough, no sputum production. No wheezing. Reports dyspnea on exertion. Cardiovascular: No chest pain, no lower extremity edema. No palpitations. No paroxysmal nocturnal dyspnea. No orthopnea. No lightheadedness or dizziness. No syncopal episodes. Abdominal: No right lower quadrant abdominal pain. No nausea, vomiting. No diarrhea. No constipation. No bloody or tarry stools. Reports loss of appetite. Genitourinary: No dysuria, increased frequency, urgency. No urinary retention. Musculoskeletal: No myalgias. Generalized muscle weakness, no gait dysfunction, no frequent falls. Positive for back pain. No neck pain. Integumentary: No wounds, no lesions. No rash or pruritus. Positive for bruising. No change in hair or nails. Neurologic: No aphasia. No facial droop. No change in mentation. No head injury. No headache. No paralysis. No paresthesia. Psychiatric: Positive for depression. Reports anxiety. Positive for mood swings Endocrine: No abnormal blood sugars. Positive for weight change. PHYSICAL EXAMINATION Gen: This is a 71-year-old female. HEENT: Head is atraumatic, normocephalic. Pupils equal, round. Sclerae is anicteric. NECK: Supple. No JVD. No lymphadenopathy. No thyromegaly. LUNGS: Decreased breath sounds at the bases, decreased tactile fremitus at the right lower third, few rhonchi, no expiratory wheeze, no chest wall tenderness. No intercostal retractions. HEART: First heart sound is depressed, second heart sound is normal, systolic ejection murmur 3/6 at the right upper sternal border radiating to the base of the neck, systolic ejection murmur 2/6 at the apex rating to the axilla. ABDOMEN: Soft, mild tenderness right lower quadrant, nondistended, positive bowel sounds, multiple ecchymosis. EXTREMITIES: 1+ pedal edema. No calf tenderness. Her cells pedis +1 bilaterally. Bilateral hammertoes. Left groin is soft, no hematoma, no blee ding. NEUROLOGICAL: Patient is awake, alert and oriented x3. Cranial nerves 2 through 12 are grossly intact., Cranial nerves II-12 appear grossly intact, muscle power 4 out of 5 in upper and lower extremities bilaterally. ASSESSMENT AND PLAN 1. Non ST elevation myocardial infarction with history of prior dilated cardiomyopathy status post coronary angiography finding right dominant vessel, 99% ostial stenosis, aortic pressure is 100/70, 40 mm gradient across the aortic valve. Left ventricular end diastolic pressure is 2530. Patient was transferred to [facility] for PTCA and stent placement of the RCA which was unsuccessful. Consult with cardiothoracic surgery appreciated. Business Relations Manager consultation appreciated. Continue aspirin 81 mg daily, PLAVIX 75 MG orally daily, Coreg 6.25 mg twice daily,continue Atorvastatin 40 mg orally daily, now with successful Stent of the RCA today with Dr. Medina 11/24.LAD stenosis to be addressed at a later time. 2. Dilated cardiomyopathy. continue patient on carvedilol 3.125 mg orally twice every day, digoxin 125 g daily, we will continue with spironolactone 25 mg orally daily . 3. Severe aortic valve stenosis with mild aortic regurgitation. TAVR to be scheduled in the near future. 4. Moderate to Severe mitral regurgitation. likely will continue with conservative management no plan for mitral valve repair. 5. Hyperlipidemia. She was started on atorvastatin 40 mg once every day. 6. Obesity with obstructive sleep apnea and obesity hypoventilation syndrome. Patient has not had sleep study done yet. 7. Chronic hypoxic respiratory failure secondary to his Covid 19 and underlying COPD and possible obstructive sleep apnea and hypoventilation syndrome. Patient is normally on 2 L nasal cannula. 8. Acute on chronic systolic heart failure. Off Lasix, continue Coreg, Aldac tone 25 mg daily. 9. Hypertension, hypertensive cardiovascular disease. continue carvedilol 3.125 mg orally twice every day patient is not on MELODY-I or ARB due to severe hypertension, 10. Recurrent depression and generalized anxiety disorder. Consult consult with psychiatry appreciated. Patient on Zoloft 125 mg at bedtime 11. DVT prophylaxis. we will continue with Lovenox 40 mg SC daily 12. GI prophylaxis. Protonix 40 mg IV push daily. 13. Acute retroperitoneal hematoma with acute blood loss anemia status post transfusion 1 unit of packed RBCs. Consult with vascular surgery appreciated. No plan for any surgical interventions. Monitor closely for bleeding. 14. constipation. Start the patient on Senokot 2 tablet at bedtime along with lactulose 20 g orally twice every day 15 .. Family updated yesterday , spoke with her daughter over the phone ZOYA. 16. bed worker consult for Sub-acute rehab in preparation for TAVR or will do TAVR then will send to Rehab. 17. Full code. Objective - Vital Signs Vital signs: Vital Signs Temp 98.2 F 11/26/21 08:00 Pulse 87 11/26/21 08:00 Resp 17 11/26/21 08:00 BP 94/63 11/26/21 08:00 Pulse Ox 100 11/26/21 08:00 Intake & Output 11/25/21 11/26/21 11/26/21 18:59 06:59 18:59 Intake Total 120 50 Output Total 500 225 Balance -380 -175 Intake: Oral 120 50 Output: Urine 500 225 Stool 0 0 Other: Voiding Method Incontinent Incontinent Incontinent External Catheter External Catheter External Catheter # Voids 1 ABP, PAP, CO, CI - Last Documented Arterial Blood Pressure 107/66 - Labs CBC & Chem 7: 11/25/21 07:20 11/25/21 07:20 Labs: Abnormal Lab Results - Last 24 Hours (Table) 11/26/21 Range/Units 06:43 POC Glucose (mg/dL) 149 H (75-99) mg/dL
[2021-11-26 13:01] LABS: Anisocytosis Slight; HCT 24.6 % (34.0-46.0); HGB 7.7 gm/dL (11.4-16.0); Hypochromasia Moderate; MCH 30.5 pg (25.0-35.0); MCHC 31.3 g/dL (31.0-37.0); MCV 97.5 fL (80.0-100.0); Macrocytosis Slight; Mean Platelet Volume 8.2; Platelet Count 205 k/uL (150-450); RBC 2.53 m/uL (3.80-5.40); RDW 18.5 % (11.5-15.5); WBC 12.4 k/uL (3.8-10.6)
--- NOTE | 2021-11-26 14:19 | P.PN ---
Subjective Progress Note Date: 11/26/21 This is a 71-year-old female who was admitted to [facility] with symptoms of CHF and evidence of severe aortic stenosis and also moderate mitral regurgitation. Patient also has moderate lung disease. Patient was evaluated by cardiac catheterization and was found to have 99% stenosis of the ostium of the right coronary artery and moderate disease in the LAD. Patient also has severe aortic stenosis with a peak gradient of 40 across the valve. Given her LV dysfunction, that was felt to be very significant. Echocardiogram done in this institution again showed severe aortic stenosis and evidence of severe cardiomyopathy with ejection fraction of 20-30%. Attempted stent placement of the RCA, resulting in dissection. The procedure was abandoned surgical consult was obtained. It. Patient was felt to be high risk candidate and a duration was made to attempt percutaneous intervention of the RCA and FFR of the LAD, which is being scheduled for tomorrow. Patient apparently developed a hematoma in the right groin after 3 days of heparin. Heparin was discontinued at was restarted again see is relatively stable. Has chronic complaints of being fatigued and tired. Lungs appeared to be clear. Heart is regular. Her urine output is fair. We'll continue current medical therapy and await for intervention tomorrow. 11/22/2021: The patient's clinical status remains around the same. Denies any chest pain or shortness of breath but seemed to be weak and fatigued. She was n oted to have further drop in hemoglobin and she was taken off the heparin. A computed tomography scan of the abdomen and pelvis showed evidence of retroperitoneal hematoma and also of subcutaneous hematoma around groin site. The puncture radiologically looks appropriate and is the reason for this hematoma is not clear. A vascular consult is pending. She was scheduled to have intervention today but probably be postponed. Cardiac surgery is also following. Heart is regular. She is maintaining sinus rhythm. Lungs are clear. Continue current medical therapy. 11/23/2021: Patient's remains relatively stable. Her hemoglobin is stable without evidence of acute or active bleeding. Groin is soft, denies any chest pain and doesn't appear to be in acute distress. Her creatinine is normal. Discussed with patient and also daughter regarding further intervention. Dr. Medina's willing to try again to do percutaneous intervention. After that patient could have transcatheter aortic valve replacement. Patient and daughter are fully aware of the risks associated with the procedure and wanted to have this is done locally. They were given the option of going to a tertiary center like [facility]. However, patient is reluctant and wants to have it done here as soon as possible. Lungs are clear. Heart is regular. Height, came to Dr. Medina to proceed with intervention probably tomorrow. 11/25/2021: This patient had stent placement of the ostial RCA, yesterday. Ghada erated the procedure fairly well. Patient also has moderate to severe LAD lesion with significant FFR. However, it is recommended that patient have transcatheter aortic valve replacement. This will be planned for the next one or 2 weeks. Patient seemed to be feeling better. Her hemoglobin is stable. Puncture site on the left side is feeling well without any hematoma. Followed by vascular surgery and no intervention is recommended. Patient is activities to be increased and if necessary. Patient will be transferred to the telemetry unit. Lungs are clear. Heart is regular. Further recommended lipid upon the clinical course 11/26/2021: Patient states that she has been up and ambulated in her room for a little bit. She denies any chest pain, lightheadedness or dizziness at this ti me. Blood pressure is on the soft side and 91/53. curbing stonecutter has been a sinus rhythm in the 60s to 80s. Repeat blood work reveals hemoglobin of 7.7. WBC 12.4. Discussed with patient the need for subacute rehab per therapy notes and she became quite upset but will need social work to discuss discharge planning with her. - Exam GENERAL EXAM: Patient is alert and oriented and doesn't appear to be in any acute distress HEENT: Normocephalic. Normal reaction of pupils, equal size, normal range of extraocular motion. NECK: No masses, no nuchal rigidity. CHEST: No chest wall deformity. LUNGS: Diminished breath sounds at bases HEART: S1 and S2 normal . Systolic murmur in the aortic area ABDOMEN: No hepatosplenomegaly, normal bowel sounds, no guarding or rigidity. SKIN: No rashes CENTRAL NERVOUS SYSTEM: No focal deficits. EXTREMITIES: No cyanosis, clubbing or edema. Assessment Coronary artery disease Severe aortic stenosis Nonischemic cardiomyopathy Restrictive lung disease Plan Increase activity Follow-up for TAVR procedure Continue current cardiac medications Patient may be discharged to return later time for procedure Nurse practitioner note has been reviewed, I agree with documented findings and plan of care. Patient was seen and examined. Objective - Vital Signs Vital signs: Vital Signs Temp 98.2 F 11/26/21 08:00 Pulse 87 11/26/21 08:00 Resp 17 11/26/21 08:00 BP 94/63 11/26/21 08:00 Pulse Ox 100 11/26/21 08:00 Intake & Output 11/25/21 11/26/21 11/26/21 18:59 06:59 18:59 Intake Total 120 50 Output Total 500 225 Balance -380 -175 Intake: Oral 120 50 Output: Urine 500 225 Stool 0 0 Other: Voiding Method Incontinent Incontinent Incontinent External Catheter External Catheter External Catheter # Voids 1 ABP, PAP, CO, CI - Last Documented Arterial Blood Pressure 107/66 - Labs CBC & Chem 7: 11/26/21 12:44 11/25/21 07:20 Labs: Abnormal Lab Results - Last 24 Hours (Table) 11/26/21 Range/Units 06:43 POC Glucose (mg/dL) 149 H (75-99) mg/dL
[2021-11-26] MEDS: ACETAMINOPHEN TAB 325 MG TAB PO PRN (20:16)
[2021-11-26] MEDS: SENNOSIDES-DOCUSATE SODIUM 1 EACH TAB PO SCH (20:16)
[2021-11-26] MEDS: LACTULOSE 20 GM/30 ML CUP PO SCH (20:16)
[2021-11-26] MEDS: SERTRALINE 25 MG TAB PO SCH (20:17)
[2021-11-26] MEDS: SERTRALINE 100 MG TAB PO SCH (20:17)
[2021-11-26] MEDS: ATORVASTATIN 40 MG TAB PO SCH (20:17)
--- NOTE | 2021-11-27 06:16 | XR ---
EXAMINATION TYPE: XR chest 1V DATE OF EXAM: 11/27/2021 CLINICAL HISTORY: Difficulty breathing enhanced CT chest progress study. TECHNIQUE: Single AP portable upright view of the chest is obtained. COMPARISON: Chest x-ray from November 18, 2021 FINDINGS: Persistent cardiomegaly. Improved central vascular congestion and interstitial edema. No n ew focal airspace opacity. Osseous structures are intact. IMPRESSION: Cardiomegaly with improved edema. No new infiltrate.
[2021-11-27] MEDS: ASCORBIC ACID 500 MG TAB PO SCH ×2 (06:50→17:25)
[2021-11-27] MEDS: carvediloL 3.125 MG TAB PO SCH ×2 (06:50→17:25)
[2021-11-27] MEDS: FERROUS SULFATE 325 MG TAB PO SCH ×2 (06:50→17:25)
[2021-11-27] MEDS: IPRATROPIUM-ALBUTEROL 3 ML NEB INHALATION SCH ×4 (07:51→19:56)
[2021-11-27] MEDS: SYMBICORT 160-4.5 MCG INHALER INHALATION SCH ×2 (07:51→19:56)
[2021-11-27 08:33] LABS: Anisocytosis Slight; Basophils % (A) 0 %; Eosinophils # (A) 0.2 k/uL (0-0.7); Eosinophils % (A) 2 %; HCT 24.6 % (34.0-46.0); HGB 7.6 gm/dL (11.4-16.0); Hypochromasia Marked; Lymphocytes # (A) 0.8 k/uL (1.0-4.8); Lymphocytes % (A) 8 %; MCH 30.2 pg (25.0-35.0); MCHC 30.9 g/dL (31.0-37.0); MCV 97.6 fL (80.0-100.0); Macrocytosis Slight; Mean Platelet Volume 8.2; Monocytes # (A) 0.5 k/uL (0-1.0); Monocytes % (A) 5 %; Neutrophils # (A) 8.2 k/uL (1.3-7.7); Neutrophils % (A) 83 %; Platelet Count 221 k/uL (150-450); RBC 2.52 m/uL (3.80-5.40); RDW 19.2 % (11.5-15.5)
[2021-11-27 08:41] LABS: ALT 13 U/L (4-34); AST 27 U/L (14-36); African American GFR (CKD) >90 (>60 ml/min/1.73 sqM); Albumin 2.9 g/dL (3.5-5.0); Alkaline Phosphatase 57 U/L (38-126); Anion Gap 3 mmol/L; Blood Urea Nitrogen 17 mg/dL (7-17); Calcium 8.2 mg/dL (8.4-10.2); Carbon Dioxide 29 mmol/L (22-30); Chloride 105 mmol/L (98-107); Glucose 132 mg/dL (74-99); Magnesium 2.2 mg/dL (1.6-2.3); Non-African American GFR(CKD) >90 (>60 ml/min/1.73 sqM); Potassium 4.3 mmol/L (3.5-5.1); Sodium 137 mmol/L (137-145); Total Bilirubin 1.7 mg/dL (0.2-1.3); Total Protein 5.6 g/dL (6.3-8.2)
--- NOTE | 2021-11-27 08:46 | P.PN ---
Subjective Progress Note Date: 11/27/21 HISTORY OF PRESENT ILLNESS This is a 71-year-old female with past medical history of dilated cardiomyopathy with ejection fraction of 15-20%, severe aortic valve stenosis, mild aortic regurgitation with moderate to severe mitral regurgitation, chronic systolic heart failure, hyperlipidemia, obesity with possible obstructive sleep apnea and obesity hypoventilation syndrome, chronic hypoxic respiratory failure on home O2 at 2 L nasal cannula, hypertension hypertensive cardio vascular disease, previous Covid 19 infection. Patient presented to [facility] slight elevation of troponin, EKG showed changes suggestive ischemic changes and was started on aspirin, heparin drip and admitted to the hospital. Patient was seen by cardiology. She was supposed to have a heart catheterization done as an outpatient along with LISA for possible aortic valve replacement and mitral valve and possible CABG. Patient underwent coronary angiography finding right dominant vessel, 99% ostial stenosis, aortic pressure is 100/70, 40 mm gradient across the aortic valve. Left ventricular end diastolic pressure is 2530. Patient was transferred to [facility] for PTCA and stent placement of the RCA which was unsuccessful. Consult with cardiothoracic surgery for CABG and valve repair/replacement. 11/18: Patient is seen today in the intensive care unit. She denies chest pain or shortness of breath. She complains of anxiety and decreased appetite. Less cough today.She has been seen by energy sales consultant and cardiothoracic surgery, currently on heparin drip, consult was added for dental evaluation and clearance and panoramic CT. Patient has been afebrile, heart rate in the 80s, blood pressure 101/73, pulse ox 96%. Repeat blood work reveals CBC is unremarkable. Potassium 4.0. Urinalysis negative for infection. Hepatitis panel negative. MRSA nasal screen is in process. CT of the chest revealed cardiomegaly with suspected pulmonary edema and moderate to marked right sided pleural effusion. Associated infection can't be excluded. Echocardiogram reveals EF of 25-30% with mild concentric left ventricular hypertrophy, severe global hypokinesia of the LV, severe aortic stenosis with gradient 78.27 mm a new 3/47.94 mmHg, trace mitral regurgitation, mild mitral stenosis, mild tricuspid regurgitation, mild pulmonary hypertension, RVSP 43.33 mmHg. Carotid ultrasound revealed less than 50% stenosis bilateral carotid systems. /2: Patient is sitting up in bed she underwent CTA of the chest for evaluation of dissection of the right coronary artery, she denies any chest pain at this time, she has no shortness breath, she has no abdominal pain, nausea or vomiting, she continues to have some coughing noted from production, she continues to be somewhat depressed and anxious and she is not sure what to do, she is missing her daughter she stated and she doesn't think her daughter is able to come and see her. 3: Patient is sitting on the bed in no apparent distress, she continues to be quite depressed and anxious about her situation, she has not made up her mind, I had a long conversation with Dr. Medina regarding the plan to pursue the [facility] care at this time, she was deemed high surgical risk per cardiovascular surgery service at the current [facility], and she would benefit from a transcatheter aortic valve replacement plus reattempted PCI of the RCA, her CT angiography of the chest did not show evidence of any dissection of the thoracic aorta , patient is maintained on Zoloft 100 mg every day, she is mentioned in ICU, and the plan to the PCI hopefully in the next 24 hours patient and her daughter Isatu are in agreement for conservative approach and they understand the risks of the procedure and that she will have the TAVR at a later date or during this hospital admission depends on her symptoms, we will consult Psychiatry for depression and possible bipolar disorder. 11/21: Patient remains in intensive care unit, afebrile, heart rate in the 80s, blood pressure 101/58, pulse ox 97% on room air. Patient denies having any chest pain but continues to have anxiety issues. Consult with psychiatry is pending. Patient has been scheduled for CT TAVR protocol for today. Repeat blood work reveals WBC 15, hemoglobin 8.6, platelet count 172. Sodium 134, BUN 41 creatinine 1.2. Blood sugar 149. Total bilirubin 1.4 otherwise liver function tests are normal. Nasal MRSA screen is negative. 11/22: Patient remains in the intensive care unit. Patient underwent CAT scan yesterday for TAVR protoxol and was found to have moderate size right pelvic retroperitoneal hematoma extending into the lower abdomen presumed from att empted right groin catheter insertion. Consult was added for vascular surgery with plan to continue supportive care, no plan for surgical intervention. Heparin was discontinued. Patient was transfused 1 unit of packed RBCs for hemoglobin of 6.9 with repeat hemoglobin of 7.6. Patient has been afebrile, heart rate 70, blood pressure 109/62, pulse ox 97%. senior environmental technician is sinus rhythm. Patient has also been seen and followed by psychiatry for depression and acute bereavement with the loss of her , recommendations Zoloft 125 mg daily at bedtime. 11/23: Patient remains in the intensive care unit. No signs of bleeding and no worsening hematoma with hemoglobin stable at 7.6. Vascular surgery has cleared patient to resume heparin if needed, continue to monitor for bleeding and daily CBC. Plan is for Dr. Medina will proceed with intervention tomorrow. Patient is also followed by energy sales consultant, cardiothoracic surgery and psychiatry. 11/24: Patient is status post stent in the RCA today with Dr. Medina. She is seen postprocedure and is comfortable. She denies having any chest pain. Anxiety is controlled. Approach was from the left groin, no bleeding or hematoma noted. Patient remains afebrile, heart rate in the 80s, blood pressure 92/57, pulse ox 94% on 2 L nasal cannula. Repeat hemoglobin is stable at 7.5, WBC 11.5. Electrolytes are normal, BUN 21 creatinine 0.61. 11/25: Patient remains in the intensive care unit status post stent of the RCA yesterday. Patient has moderate to severe LAD lesion with significant FFR to be addressed at a later time as well asTAVR will be planned for the next 1-2 weeks. No hematoma to the left groin. Patient is waiting for a bed on the cardiac stepdown unit. Vascular surgeries following for retroperitoneal hematoma that does not appear to be actively bleeding, plan for supportive care. Patient remains afebrile heart rate 85, blood pressure 96/54, pulse ox 98% on room air.. BUN 19 and creatinine 0.62. Anticipate that patient will be able to work with PT and OT determine home care versus subacute rehab needs. 11/26: Patient was moved out of the ICU to a telemetry unit, she is in a better spurs, she responded very well to the sertraline 125 mg at bedtime, she is continued to have minimal cough no phlegm production, she is using Flonase and Claritin for postnasal drip, she denies any abdominal pain, she has not had a bowel movement attempted we will start the patient on lactulose 20 g orally twice every day, start the patient on Senokot 2 tablets at bedtime, follow-up with the patient very closely, we'll discuss with cardiology and cardiothoracic surgery team whether the patient would have TAVR next week. 11/27: Patient sitting up in bed that she is feeling better today she continues to have significant constipation, she has not had a bowel movement despite all the medications, physical therapy will see the patient move the patient on, patient will likely be transferred to subacute rehabilitation initially 4 hours if there is no plan to doTAVR this coming week. REVIEW OF SYSTEMS Constitutional: No fever, no chills, no night sweats. No weight change. Positive for generalized weakness, positive for fatigue or lethargy. No daytime sleepiness. HEENT: No headache. No blurred vision or double vision, no loss of vision. No loss of Hearing, no ringing in the ears, no dizziness. No nasal drainage or congestion. No epistaxis. No sore throat. Lungs: Positive for shortness of breath, positive for cough, no sputum production. No wheezing. Reports dyspnea on exertion. Cardiovascular: No chest pain, no lower extremity edema. No palpitations. No paroxysmal nocturnal dyspnea. No orthopnea. No lightheadedness or dizziness. No syncopal episodes. Abdominal: No right lower quadrant abdominal pain. No nausea, vomiting. No diarrhea. No constipation. No bloody or tarry stools. Reports loss of appetite. Genitourinary: No dysuria, increased frequency, urgency. No urinary retention. Musculoskeletal: No myalgias. Generalized muscle weakness, no gait dysfunction, no frequent falls. Positive for back pain. No neck pain. Integumentary: No wounds, no lesions. No rash or pruritus. Positive for bruising. No change in hair or nails. Neurologic: No aphasia. No facial droop. No change in mentation. No head injury. No headache. No paralysis. No paresthesia. Psychiatric: Positive for depression. Reports anxiety. Positive for mood swings Endocrine: No abnormal blood sugars. Positive for weight change. PHYSICAL EXAMINATION Gen: This is a 71-year-old female. HEENT: Head is atraumatic, normocephalic. Pupils equal, round. Sclerae is anicteric. NECK: Supple. No JVD. No lymphadenopathy. No thyromegaly. LUNGS: Decreased breath sounds at the bases, decreased tactile fremitus at the right lower third, few rhonchi, no expiratory wheeze, no chest wall tenderness. No intercostal retractions. HEART: First heart sound is depressed, second heart sound is normal, systolic ejection murmur 3/6 at the right upper sternal border radiating to the base of the neck, systolic ejection murmur 2/6 at the apex rating to the axilla. ABDOMEN: Soft, mild tenderness right lower quadrant, nondistended, positive bowel sounds, multiple ecchymosis. EXTREMITIES: 1+ pedal edema. No calf tenderness. Her cells pedis +1 bilaterally. Bilateral hammertoes. Left groin is soft, no hematoma, no bleeding. NEUROLOGICAL: Patient is awake, alert and oriented x3. Cranial nerves 2 through 12 are grossly intact., Cranial nerves II-12 appear grossly intact, muscle power 4 out of 5 in upper and lower extremities bilaterally. ASSESSMENT AND PLAN 1. Non ST elevation myocardial infarction with history of prior dilated cardiomyopathy status post coronary angiography finding right dominant vessel, 99% ostial stenosis, aortic pressure is 100/70, 40 mm gradient across the aortic valve. Left ventricular end diastolic pressure is 2530. Patient was transferred to [facility] for PTCA and stent placement of the RCA which was unsuccessful. Consult with cardiothoracic surgery appreciated. Field Identification Specialist consultation appreciated. Continue aspirin 81 mg daily, PLAVIX 75 MG orally daily, Coreg 6.25 mg twice daily,continue Atorvastatin 40 mg orally daily, now with successful Stent of the RCA today with Dr. Medina 11/24.LAD stenosis to be addressed at a later time. 2. Dilated cardiomyopathy. continue patient on carvedilol 3.125 mg orally twice every day, digoxin 125 g daily, we will continue with spironolactone 25 mg orally daily . 3. Severe aortic valve stenosis with mild aortic regurgitation. TAVR to be scheduled in the near future. 4. Moderate to Severe mitral regurgitation. likely will continue with conservative management no plan for mitral valve repair. 5. Hyperlipidemia. She was started on atorvastatin 40 mg once every day. 6. Obesity with obstructive sleep apnea and obesity hypoventilation syndrome. Patient has not had sleep study done yet. 7. Chronic hypoxic respiratory failure secondary to his Covid 19 and underlying COPD and possible obstructive sleep apnea and hypoventilation syndrome. Patient is normally on 2 L nasal cannula. 8. Acute on chronic systolic heart failure. Off Lasix, continue Coreg, Aldactone 25 mg daily. 9. Hypertension, hypertensive cardiovascular disease. continue carvedilol 3.125 mg orally twice every day patient is not on MELODY-I or ARB due to severe hypertension, 10. Recurrent depression and generalized anxiety disorder. Consult consult with psychiatry appreciated. Patient on Zoloft 125 mg at bedtime 11. DVT prophylaxis. we will continue with Lovenox 40 mg SC daily 12. GI prophylaxis. Protonix 40 mg IV push daily. 13. Acute retroperitoneal hematoma with acute blood loss anemia status post tr ansfusion 1 unit of packed RBCs. Consult with vascular surgery appreciated. No plan for any surgical interventions. Monitor closely for bleeding. 14. constipation. Start the patient on Senokot 2 tablet at bedtime along with lactulose 20 g orally twice every day 15 .. Family updated yesterday , spoke with her daughter over the phone ZOYA. 16. floor worker well service consult for Sub-acute rehab in preparation for TAVR or will do TAVR then will send to Rehab. 17. Full code. Objective - Vital Signs Vital signs: Vital Signs Temp 98.1 F 11/27/21 04:00 Pulse 83 11/27/21 04:00 Resp 16 11/27/21 04:00 BP 88/55 11/27/21 04:00 Pulse Ox 97 11/27/21 04:00 Intake & Output 11/26/21 11/27/21 11/27/21 18:59 06:59 18:59 Intake Total 120 Output Total 950 0 Balance -830 0 Intake: Oral 120 Output: Urine 950 Stool 0 Other: Voiding Method Incontinent Incontinent External Catheter External Catheter # Voids 1 ABP, PAP, CO, CI - Last Documented Arterial Blood Pressure 107/66 - Labs CBC & Chem 7: 11/27/21 07:53 11/27/21 07:53 Labs: Abnormal Lab Results - Last 24 Hours (Table) 11/26/21 11/27/21 11/27/21 Range/Units 12:44 07:53 07:53 WBC 12.4 H (3.8-10.6) k/uL RBC 2.53 L 2.52 L (3.80-5.40) m/uL Hgb 7.7 L 7.6 L (11.4-16.0) gm/dL Hct 24.6 L 24.6 L (34.0-46.0) % MCHC 30.9 L (31.0-37.0) g/dL RDW 18.5 H 19.2 H (11.5-15.5) % Neutrophils # 8.2 H (1.3-7.7) k/uL Lymphocytes # 0.8 L (1.0-4.8) k/uL Creatinine 0.47 L (0.52-1.04) mg/dL Glucose 132 H (74-99) mg/dL Calcium 8.2 L (8.4-10.2) mg/dL Total Bilirubin 1.7 H (0.2-1.3) mg/dL Total Protein 5.6 L (6.3-8.2) g/dL Albumin 2.9 L (3.5-5.0) g/dL
[2021-11-27] MEDS: LACTULOSE 20 GM/30 ML CUP PO SCH ×2 (08:54→21:11)
[2021-11-27] MEDS: SENNOSIDES-DOCUSATE SODIUM 1 EACH TAB PO SCH ×2 (08:54→21:10)
[2021-11-27] MEDS: ASPIRIN 81 MG PO SCH (08:54)
[2021-11-27] MEDS: LORATADINE 10 MG TAB PO SCH (08:54)
[2021-11-27] MEDS: DIGOXIN 125 MCG TAB PO SCH (08:54)
[2021-11-27] MEDS: PANTOPRAZOLE 40 MG/10 ML VIAL IVP SCH (08:54)
[2021-11-27] MEDS: SPIRONOLACTONE 25 MG TAB PO SCH (08:54)
[2021-11-27] MEDS: CLOPIDOGREL 75 MG TAB PO SCH (08:54)
[2021-11-27] MEDS: ENOXAPARIN 40 MG/0.4 ML SYRINGE SQ SCH (08:55)
[2021-11-27] MEDS: polyethylene glycoL 3350 17 GM POWD.PACK PO PRN (08:57)
--- NOTE | 2021-11-27 11:52 | P.PN ---
Subjective Progress Note Date: 11/27/21 This is a 71-year-old female who was admitted to [facility] with symptoms of CHF and evidence of severe aortic stenosis and also moderate mitral regurgitation. Patient also has moderate lung disease. Patient was evaluated by cardiac catheterization and was found to have 99% stenosis of the ostium of the right coronary artery and moderate disease in the LAD. Patient also has severe aortic stenosis with a peak gradient of 40 across the valve. Given her LV dysfunction, that was felt to be very significant. Echocardiogram done in this institution again showed severe aortic stenosis and evidence of severe cardiomyopathy with ejection fraction of 20-30%. Attempted stent placement of the RCA, resulting in dissection. The procedure was abandoned surgical consult was obtained. It. Patient was felt to be high risk candidate and a duration was made to attempt percutaneous intervention of the RCA and FFR of the LAD, which is being scheduled for tomorrow. Patient apparently developed a hematoma in the right groin after 3 days of heparin. Heparin was discontinued at was restarted again see is relatively stable. Has chronic complaints of being fatigued and tired. Lungs appeared to be clear. Heart is regular. Her urine output is fair. We'll continue current medical therapy and await for intervention tomorrow. 11/22/2021: The patient's clinical status remains around the same. Denies any chest pain or shortness of breath but seemed to be weak and fatigued. She was n oted to have further drop in hemoglobin and she was taken off the heparin. A computed tomography scan of the abdomen and pelvis showed evidence of retroperitoneal hematoma and also of subcutaneous hematoma around groin site. The puncture radiologically looks appropriate and is the reason for this hematoma is not clear. A vascular consult is pending. She was scheduled to have intervention today but probably be postponed. Cardiac surgery is also following. Heart is regular. She is maintaining sinus rhythm. Lungs are clear. Continue current medical therapy. 11/23/2021: Patient's remains relatively stable. Her hemoglobin is stable without evidence of acute or active bleeding. Groin is soft, denies any chest pain and doesn't appear to be in acute distress. Her creatinine is normal. Discussed with patient and also daughter regarding further intervention. Dr. Medina's willing to try again to do percutaneous intervention. After that patient could have transcatheter aortic valve replacement. Patient and daughter are fully aware of the risks associated with the procedure and wanted to have this is done locally. They were given the option of going to a tertiary center like [facility]. However, patient is reluctant and wants to have it done here as soon as possible. Lungs are clear. Heart is regular. Height, came to Dr. Medina to proceed with intervention probably tomorrow. 11/25/2021: This patient had stent placement of the ostial RCA, yesterday. Ghada erated the procedure fairly well. Patient also has moderate to severe LAD lesion with significant FFR. However, it is recommended that patient have transcatheter aortic valve replacement. This will be planned for the next one or 2 weeks. Patient seemed to be feeling better. Her hemoglobin is stable. Puncture site on the left side is feeling well without any hematoma. Followed by vascular surgery and no intervention is recommended. Patient is activities to be increased and if necessary. Patient will be transferred to the telemetry unit. Lungs are clear. Heart is regular. Further recommended lipid upon the clinical course 11/26/2021: Patient states that she has been up and ambulated in her room for a little bit. She denies any chest pain, lightheadedness or dizziness at this ti me. Blood pressure is on the soft side and 91/53. property assessment monitor has been a sinus rhythm in the 60s to 80s. Repeat blood work reveals hemoglobin of 7.7. WBC 12.4. Discussed with patient the need for subacute rehab per therapy notes and she became quite upset but will need social work to discuss discharge planning with her. 11/27/2021: Patient denies having any chest pain and no shortness of breath at rest. The patient is currently on 2 L nasal cannula, blood pressure 96/65, heart rate in the 80s and 90s. Repeat blood work hemoglobin 7.6, BUN 17 creatinine 0.47, potassium 4.3. Magnesium 2.2. Repeat chest x-ray reveals cardiomegaly with improved edema. No new infiltrate. Patient is stating that she was out of bed while she was in ICU but has not been active on the cardiac stepdown unit. PT and OT are in place and recommending subacute rehab. TAVR most likely will be postponed at least 2 weeks. - Exam GENERAL EXAM: Patient is alert and oriented and doesn't appear to be in any acute distress HEENT: Normocephalic. Normal reaction of pupils, equal size, normal range of extraocular motion. NECK: No masses, no nuchal rigidity. CHEST: No chest wall deformity. LUNGS: Diminished breath sounds at bases HEART: S1 and S2 normal . Systolic murmur in the aortic area ABDOMEN: No hepatosplenomegaly, normal bowel sounds, no guarding or rigidity. SKIN: No rashes CENTRAL NERVOUS SYSTEM: No focal deficits. EXTREMITIES: No cyanosis, clubbing or edema. Assessment Coronary artery disease Severe aortic stenosis Nonischemic cardiomyopathy Restrictive lung disease Plan Increase activity, Patient to walk with assistance Follow-up for TAVR procedure, Not scheduled for at least 2 weeks Continue current cardiac medications Patient may be discharged to return later time for procedure Nurse practitioner note has been reviewed, I agree with documented findings and plan of care. Patient was seen and examined. Objective - Vital Signs Vital signs: Vital Signs Temp 98.1 F 11/27/21 04:00 Pulse 83 11/27/21 04:00 Resp 16 11/27/21 04:00 BP 88/55 11/27/21 04:00 Pulse Ox 97 11/27/21 04:00 Intake & Output 11/26/21 11/27/21 11/27/21 18:59 06:59 18:59 Intake Total 120 120 Output Total 950 0 Balance -830 0 120 Intake: Oral 120 120 Output: Urine 950 Stool 0 Other: Voiding Method Incontinent Incontinent External Catheter External Catheter # Voids 1 ABP, PAP, CO, CI - Last Documented Arterial Blood Pressure 107/66 - Labs CBC & Chem 7: 11/27/21 07:53 11/27/21 07:53 Labs: Abnormal Lab Results - Last 24 Hours (Table) 11/26/21 11/27/21 11/27/21 Range/Units 12:44 07:53 07:53 WBC 12.4 H (3.8-10.6) k/uL RBC 2.53 L 2.52 L (3.80-5.40) m/uL Hgb 7.7 L 7.6 L (11.4-16.0) gm/dL Hct 24.6 L 24.6 L (34.0-46.0) % MCHC 30.9 L (31.0-37.0) g/dL RDW 18.5 H 19.2 H (11.5-15.5) % Neutrophils # 8.2 H (1.3-7.7) k/uL Lymphocytes # 0.8 L (1.0-4.8) k/uL Creatinine 0.47 L (0.52-1.04) mg/dL Glucose 132 H (74-99) mg/dL Calcium 8.2 L (8.4-10.2) mg/dL Total Bilirubin 1.7 H (0.2-1.3) mg/dL Total Protein 5.6 L (6.3-8.2) g/dL Albumin 2.9 L (3.5-5.0) g/dL
--- NOTE | 2021-11-27 12:23 | P.PN ---
Subjective Progress Note Date: 11/27/21 This is a pleasant 71-year-old female patient with biventricular failure, severe aortic stenosis, mitral regurgitation and coronary artery disease. The patient underwent a cardiac catheterization and the patient was found to have 99% RCA stenosis and the patient is post non-ST segment elevation myocardial infarction. The patient had an unsuccessful PCI of the RCA. Initially, she was being contemplated for cardiac surgery knowing that she has valvular heart disease and she was also being looks for a single-vessel bypass surgery. Ultimately, it was decided to do another cardiac catheterization tomorrow. She is known to have dilated cardiomyopathy and impaired left ventricular ejection fraction at patient presented with acute CHF. She is currently on O2 at 2 L per minute nasal cannula. She is comfortable. Nevertheless, she is anxious and she denies having any chest pain. Hemodynamically stable on no pressors. She continues to be guarded with Lasix and she is on 8040 mg IV every 12 hours. She is off IV heparin as the patient developed an acute hematoma the right femoral artery/anh in area at the site of the cardiac catheterization. The hematoma today is quite soft and the patient has a hemoglobin of 8.6 which is essentially compatible to yesterday of 9.1. There has been some mild drop in hemoglobin 9 of the hemoglobin on 11/20/2021 was 10.0. Platelet counts are normal. The hematoma in the right groin is soft. The plan is to proceed with another cardiac catheterization hopefully within the next 24 hours. Of notice, isn't elevation in the creatinine which is up to 1.2 on today's evaluation. The neck fluid balance over the past 24 hours has been in the order of +98 mL on this patient. Based on that, the Lasix has been placed on hold. Meanwhile, the patient jimbo nues to be on IV heparin infusion. Note that the IV heparin was discontinued. Now that there is no active bleeding from the hematoma, cardiology gave orders to restart the IV heparin. 11/23/2019, the patient is being seen for a follow-up. Overnight, the patient developed further drop in hemoglobin down to 6.9 as the patient was having some retroperitoneal bleeding. IV heparin was discontinued. The patient got transfused with a 1 units of packed RBC. CAT scan of the chest abdomen and pelvis was done and it showed evidence of retroperitoneal bleed on the right displacing bladder. There was also a small to moderate-sized right-sided pleural effusion and some pulmonary vascular congestion. Based on that, IV heparin was discontinued and the patient was given a total of 1 units of packed RBC and hemoglobin today is at 7.6. History of any chest pain. She continues to have some shortness of breath at rest. Fluid balance has been +1.2 L over the past 24 hours. She is currently on 2 L about 2 by nasal cannula. The plan is to undergo a cardiac catheterization and stenting of the RCA and cardiology is on the case. Despite the drop in hemoglobin, and ongoing esophageal bleed, the patient's groin is soft and there is a soft area of ecchymosis along the right groin area. Pulses in lower extremity is diminished at the present. 11/23/2021, condition is stable and unchanged compared to yesterday. No signs of any ongoing bleeding and the patient's hemoglobin today is at 7.6 which is comparable to yesterday. No change in the hematoma along the right groin area. No anticoagulants for now the patient is taken on Lovenox for prophylaxis. The patient has no new complaints. Resting comfortably in bed. No coronary intervention was done and the cardiac interventional cardiology, decided to wait a few more days until this is a pleasant hematoma is more settled prior doing a ny intervention. Meanwhile, the patient remains on 2 L of O2 by nasal cannula. Input output balance has been +230 mL over the past 24 hours. BUN is a 36 with a creatinine of 0.6 and the potassium level of 4.6 and his sodium level of 134. White cell count is at 9.8 and the plated count is at 152. No altered mentation. The patient remains on aspirin. The patient on Lovenox for DVT prophylaxis 40 mg subcu. The patient remains on Coreg 3.125 mg by mouth twice a day and digoxin and Aldactone. 11/24/2021, condition is stable. No new complaints overnight. The patient will be taken to cardiac catheterization. No acute chest pain or shortness of breath overnight. Most recent hemoglobin from yesterday was at 7.6 and the patient has not had any further hemoglobins checked since yesterday. Nevertheless, there is no signs of any ongoing bleed and the groin bleed/hematoma remains stable. The patient has no chest pain. No shortness of breath. The patient on no anticoagulants for now. The plan will be a cardiac catheterization today. The patient remains on Lovenox 40 mg subcu 40 to prophylaxis. The patient on Aldactone. The patient is on a combination of aspirin and Plavix. Awaiting final recommendations from cardiology post cardiac catheterization. 11/25/2021, Adrienne is doing well. She is currently on room air oxygen. No new complaints. No chest pain. No respiratory difficulties. She is post cardiac catheterization and stenting of the RCA. The puncture site in the left groin area is dry clean and intact and the patient has no hematoma in the groins bilaterally. Meanwhile, the patient has a white cell count of 10.8 with hemoglobin of 7.7. Sodium is at 136 with a BUN of 19 and a creatinine of 0.6. The patient is currently on aspirin, Plavix, and the patient is also on Coreg 3.12 Mg twice a day and Aldactone. Anticoagulants with Lovenox 40 mg prophyla xis 40 mg subcu every 24 hours. The patient is also on Lipitor 40 mg by mouth daily. No other active issues for now. The patient can be transferred out of the intensive care unit. Tentative plan is to consider this patient for a TAVR procedure to later stage. 11/26/2021, the patient is stable to no new complaints. The patient got chested out of the intensive care unit yesterday. No chest pain. No shortness of breath. She remains on Coreg 3.125 mg twice a day and the patient is also on digoxin 125 g on a daily basis and the patient remains on a potassium sparing diuretics which is Aldactone 25 mg on a daily basis. She is currently on 2 L about 2 by nasal cannula pH is on Lovenox 40 the prophylaxis. No new blood work from today. Hemoglobin from yesterday was at 7.7. The patient is resting comfortably in bed. 11/27/2021, no complains and the patient resting comfortably in bed. No chest pain. No shortness of breath. Morbid is improved and the patient is looking more enthusiastic in terms of working with physical therapy. The white cell count is at 7 with a hemoglobin of 7.6, electrodes are within normal with a BUN of 17 creatinine 0.4. The patient is post cardiac catheterization and stenting of the RCA. The patient remained and Aldactone. She is using incentive spirometer. She has chronic anemia with a hemoglobin of 7.6, unchanged compared to yesterday. Mobility is limited at this point in time. She is being considered for TAVR procedure. No signs of any active bleeding in the groin. Objective - Vital Signs Vital signs: Vital Signs Temp 98 F 11/27/21 08:00 Pulse 90 11/27/21 11:30 Resp 17 11/27/21 11:30 BP 96/65 11/27/21 11:30 Pulse Ox 98 11/27/21 11:30 Intake & Output 11/26/21 11/27/21 11/27/21 18:59 06:59 18:59 Intake Total 120 120 Output Total 950 0 250 Balance -830 0 -130 Intake: Oral 120 120 Output: Urine 950 250 Stool 0 Other: Voiding Method Incontinent Incontinent Incontinent External Catheter External Catheter External Catheter # Voids 1 ABP, PAP, CO, CI - Last Documented Arterial Blood Pressure 107/66 - Exam CONSTITUTIONAL: Tearful, cooperative and is in no acute distress. The patient remains anxious.The patient is currently on room air oxygen Head exam was generally normal. There was no scleral icterus or corneal arcus. Mucous membranes were moist. Neck was supple and without jugular venous distension, thyromegaly, or carotid bruits. Carotids were easily palpable bilaterally. There was no adenopathy. RESPIRATORY: Lungs sounds essentially clear throughout, diminished bilateral bases, right greater than left. Respirations are symmetrical and nonlabored. Currently on 2 L nasal cannula with oxygen saturation 96%. Able to achieve 1500 mL on incentive spirometry. Strong cough. CARDIOVASCULAR: S1, S2 present, pansystolic murmur present 3/6. Regular rate and rhythm, sinus rhythm on telemetry. Doppler lower extremity pulses bilaterally. No calf pain or tenderness noted. GASTROINTESTINAL: Abdomen soft, nontender, nondistended. Active bowel sounds present 4 quadrants. Tolerating diet. A soft hematoma is present over the right inguinal area which has not enlarged in size. INTEGUMENTARY: Skin is warm and dry with evidence of good perfusion. NEUROLOGIC: Cranial nerves II through XII intact MUSKULOSKELETAL: Able to move all extremities, strength equal bilaterally. PSYCHIATRIC: Alert, oriented to person place and time, flat affect. - Labs CBC & Chem 7: 11/27/21 07:53 11/27/21 07:53 Labs: Abnormal Lab Results - Last 24 Hours (Table) 11/26/21 11/27/21 11/27/21 Range/Units 12:44 07:53 07:53 WBC 12.4 H (3.8-10.6) k/uL RBC 2.53 L 2.52 L (3.80-5.40) m/uL Hgb 7.7 L 7.6 L (11.4-16.0) gm/dL Hct 24.6 L 24.6 L (34.0-46.0) % MCHC 30.9 L (31.0-37.0) g/dL RDW 18.5 H 19.2 H (11.5-15.5) % Neutrophils # 8.2 H (1.3-7.7) k/uL Lymphocytes # 0.8 L (1.0-4.8) k/uL Creatinine 0.47 L (0.52-1.04) mg/dL Glucose 132 H (74-99) mg/dL Calcium 8.2 L (8.4-10.2) mg/dL Total Bilirubin 1.7 H (0.2-1.3) mg/dL Total Protein 5.6 L (6.3-8.2) g/dL Albumin 2.9 L (3.5-5.0) g/dL Assessment and Plan Plan: 1 acute hypoxic respiratory failure, currently on RA oxygen by nasal cannula, essentially secondary to valvular heart disease/CAD and secondary decompensated heart failure. Clinically stable 2 acute non-ST segment elevation myocardial infarction. The patient is post cardiac catheterization and the patient is a 99% RCA stenosis and the patient is status post successful PCI to RCA. 3 severe aortic valve stenosis with a peak and mean gradient of 78 and 47 mmHg, and the patient continues to have a harsh cardiac murmur systolic ejection on examination. Condition is stable and the patient remains on Aldactone 4 mitral regurgitation 5 dilated cardiomyopathy with impaired left ventricular ejection fraction systolic heart failure with an ejection fraction of 25-30% 6 bilateral pleural effusion secondary to above 7 hypertension 8 hyperlipidemia 9 COVID 19 pneumonia back in April 2021 10 retroperitoneal bleed with a development of a soft right groin hematoma at a set of cardiac catheterization, the hemoglobin remains stable for now and there is no interval worsening in the right groin hematoma 11 acute blood loss anemia with a hemoglobin of 6.9 and the patient got transfused with a total of 1 units of packed RBC and IV heparin was discontinued. In the hemoglobin has remained stable 12 acute kidney injury improving and the creatinine is normalized 13 medical debility seconds above-mentioned comorbidities 14 right-sided pleural effusion secondary to CHF 15 anemia of chronic disease with a hemoglobin of 7.6 Plan Patient is still being considered for TAVR procedure We'll need to increase her mobility and activity Hemoglobin stable at 7.6 post successful stenting of the RCA and the patient's history of any chest pain Continue aspirin and statins and beta blockers in the form of Coreg Cardiothoracic surgeries on the case regarding possibility of bypass/aortic valve replacement versus PCI and possibly TaVR procedure regarding the aortic valve. Long-term prognosis poor baseline above-mentioned comorbidities. We'll continue to follow
[2021-11-27] MEDS: SERTRALINE 25 MG TAB PO SCH (21:10)
[2021-11-27] MEDS: SERTRALINE 100 MG TAB PO SCH (21:10)
[2021-11-27] MEDS: ATORVASTATIN 40 MG TAB PO SCH (21:10)
[2021-11-27] MEDS: ACETAMINOPHEN TAB 325 MG TAB PO PRN (21:10)
[2021-11-28] MEDS: ASCORBIC ACID 500 MG TAB PO SCH ×2 (06:58→17:06)
[2021-11-28] MEDS: carvediloL 3.125 MG TAB PO SCH ×2 (06:58→17:09)
[2021-11-28] MEDS: FERROUS SULFATE 325 MG TAB PO SCH ×2 (06:58→17:09)
[2021-11-28] MEDS: SYMBICORT 160-4.5 MCG INHALER INHALATION SCH ×2 (07:29→19:42)
[2021-11-28] MEDS: IPRATROPIUM-ALBUTEROL 3 ML NEB INHALATION SCH ×4 (07:29→19:42)
--- NOTE | 2021-11-28 07:43 | P.PN ---
Subjective Progress Note Date: 11/28/21 Principal diagnosis: Coronary artery disease with 99% RCA stenosis, non-STEMI this admission, status post successful PCI with FABY to the right coronary artery, severe aortic valve stenosis, trace mitral valve regurgitation with mild mitral stenosis, dilated cardiomyopathy, acute on chronic systolic heart failure. Previous medical history of hypertension, hyperlipidemia, chronic hypoxic respiratory failure on 2 L nasal cannula home oxygen, COVID-19 pneumonia in April 2021, remains unvaccinated for COVID-19, morbid obesity, depression, remote history of nicotine dependence, severe restrictive lung disease The patient was seen and examined this morning sitting up in bed on the cardiac stepdown unit. She denies any chest pain, denies worsening of shortness of breath. Patient remains with marginal blood pressure, anemic, and very debilitated. Plan is for discharge to rehab to increase strength and endurance, allow recovery from acute heart failure and improve anemia, then to return in the next couple of weeks for TAVR. This is agreeable to the patient. Objective - Vital Signs Vital signs: Vital Signs Temp 98.1 F 11/28/21 04:00 Pulse 81 11/28/21 04:00 Resp 16 11/28/21 04:00 BP 90/63 11/28/21 04:00 Pulse Ox 99 11/28/21 04:00 Intake & Output 11/27/21 11/28/21 11/28/21 18:59 06:59 18:59 Intake Total 120 Output Total 250 300 Balance -130 -300 Intake: Oral 120 Output: Urine 250 300 Stool 0 Other: Voiding Method Incontinent Incontinent External Catheter External Catheter ABP, PAP, CO, CI - Last Documented Arterial Blood Pressure 107/66 - Exam CONSTITUTIONAL: Appears calm, cooperative RESPIRATORY: Lungs sounds diminished bilaterally. Respirations even, nonlabored. Currently on 2 L nasal cannula with oxygen saturation 98% CARDIOVASCULAR: S1, S2 present, systolic murmur present. Regular rate and rhythm, sinus rhythm on telemetry. Palpable lower extremity pulses bilaterally. Lower extremity edema present. No calf pain or tenderness noted. GASTROINTESTINAL: Abdomen soft, nontender, nondistended. Active bowel sounds present 4 quadrants. Tolerating diet GENITOURINARY: Continues to void INTEGUMENTARY: Skin is warm and dry with evidence of good perfusion. NEUROLOGIC: Cranial nerves II through XII intact MUSKULOSKELETAL: Able to move all extremities, strength equal but weak bilaterally PSYCHIATRIC: Alert and oriented to person place and time, depressed/flat affect - Allied health notes Allied health notes reviewed: nursing - Labs CBC & Chem 7: 11/27/21 07:53 11/27/21 07:53 Labs: Abnormal Lab Results - Last 24 Hours (Table) 11/27/21 11/27/21 Range/Units 07:53 07:53 RBC 2.52 L (3.80-5.40) m/uL Hgb 7.6 L (11.4-16.0) gm/dL Hct 24.6 L (34.0-46.0) % MCHC 30.9 L (31.0-37.0) g/dL RDW 19.2 H (11.5-15.5) % Neutrophils # 8.2 H (1.3-7.7) k/uL Lymphocytes # 0.8 L (1.0-4.8) k/uL Creatinine 0.47 L (0.52-1.04) mg/dL Glucose 132 H (74-99) mg/dL Calcium 8.2 L (8.4-10.2) mg/dL Total Bilirubin 1.7 H (0.2-1.3) mg/dL Total Protein 5.6 L (6.3-8.2) g/dL Albumin 2.9 L (3.5-5.0) g/dL Assessment and Plan Assessment: 1. Coronary artery disease with 99% RCA stenosis, non-STEMI this admission, status post successful PCI with FABY to the right coronary artery 2. Severe aortic valve stenosis, peak/mean gradient 78.27/47.94 mmHg 3. Trace mitral regurgitation with mild mitral stenosis on transthoracic echoca rdiogram, peak/mean gradients of 14.48/6.4 mmHg, 4. Dilated cardiomyopathy 5. Acute on chronic systolic heart failure, EF 25-30% on transthoracic echocardiogram 6. History of hypertension, currently hypotensive 7. Hyperlipidemia, cholesterol 333, LDL 263 8. Chronic hypoxic respiratory failure on 2 L nasal cannula home oxygen 9. COVID-19 pneumonia in April 2021 10. Remains unvaccinated for COVID-19 11. Morbid obesity 12. Depression, currently on Zoloft 13. Remote history of nicotine dependence 14. Severe restrictive lung disease, FEV1 45% of predicted 15. Generalized debility, patient uses walker for ambulation 16. Acute blood loss anemia Plan: 1. Continue aspirin, beta josé, statin 2. Continue diuresis, heart failure management per cardiology 3. Increase activity, ambulate as tolerated 4. OK to discharge to rehab to increase strength, mobility, endurance and to allow recovery from acute events 5. Will contact patient to set up TAVR in next couple of weeks 6. Medical management of other comorbidities per primary care service
[2021-11-28 09:09] LABS: Anisocytosis Slight; Basophils % (A) 0 %; Eosinophils # (A) 0.3 k/uL (0-0.7); Eosinophils % (A) 3 %; HCT 26.2 % (34.0-46.0); HGB 8.1 gm/dL (11.4-16.0); Hypochromasia Marked; Lymphocytes # (A) 0.8 k/uL (1.0-4.8); Lymphocytes % (A) 8 %; MCH 30.6 pg (25.0-35.0); MCV 98.8 fL (80.0-100.0); Macrocytosis Moderate; Mean Platelet Volume 8.3; Monocytes # (A) 0.5 k/uL (0-1.0); Monocytes % (A) 5 %; Neutrophils # (A) 8.1 k/uL (1.3-7.7); Neutrophils % (A) 83 %; Platelet Count 230 k/uL (150-450); Poikilocytosis Slight; RBC 2.65 m/uL (3.80-5.40); RDW 19.4 % (11.5-15.5); WBC 9.8 k/uL (3.8-10.6)
[2021-11-28] MEDS: ENOXAPARIN 40 MG/0.4 ML SYRINGE SQ SCH (09:14)
[2021-11-28] MEDS: CLOPIDOGREL 75 MG TAB PO SCH (09:14)
[2021-11-28] MEDS: SPIRONOLACTONE 25 MG TAB PO SCH (09:14)
[2021-11-28] MEDS: SENNOSIDES-DOCUSATE SODIUM 1 EACH TAB PO SCH ×2 (09:14→21:59)
[2021-11-28] MEDS: LACTULOSE 20 GM/30 ML CUP PO SCH ×4 (09:14→22:01)
[2021-11-28] MEDS: DIGOXIN 125 MCG TAB PO SCH (09:14)
[2021-11-28] MEDS: LORATADINE 10 MG TAB PO SCH (09:14)
[2021-11-28] MEDS: ASPIRIN 81 MG PO SCH (09:14)
[2021-11-28] MEDS: PANTOPRAZOLE 40 MG/10 ML VIAL IVP SCH (09:15)
[2021-11-28 09:26] LABS: ALT 14 U/L (4-34); AST 27 U/L (14-36); African American GFR (CKD) >90 (>60 ml/min/1.73 sqM); Albumin 2.9 g/dL (3.5-5.0); Alkaline Phosphatase 66 U/L (38-126); Anion Gap 5 mmol/L; Blood Urea Nitrogen 16 mg/dL (7-17); Calcium 8.3 mg/dL (8.4-10.2); Carbon Dioxide 28 mmol/L (22-30); Chloride 105 mmol/L (98-107); Glucose 113 mg/dL (74-99); Non-African American GFR(CKD) >90 (>60 ml/min/1.73 sqM); Sodium 138 mmol/L (137-145); Total Bilirubin 1.9 mg/dL (0.2-1.3); Total Protein 5.6 g/dL (6.3-8.2)
[2021-11-28 09:28] LABS: Potassium 4.3 mmol/L (3.5-5.1)
--- NOTE | 2021-11-28 12:30 | P.PN ---
Subjective This is a 71 year old female with a past medical history of NSTEMI this admission, Coronary artery disease with 99% RCA stenosis status post successful PCI with FABY to the right coronary artery 11/24/21, cardiomyopathy with EF 15- 20%, severe aortic valve stenosis (plan for TAVR), trace mitral valve regurgitation with mild mitral stenosis, dilated cardiomyopathy, Chronic systolic heart failure, hypertension, hyperlipidemia, COVID-19 pneumonia in [facility] 2020, obesity, depression, former smoker, and severe restrictive lung disease. She follows with Dr. Holland. We are following patient for NSTEMI. 11/24/2021 patient underwent cardiac catheterization with Dr. Medina on 11/24/21 which revealed 11/28/2021 Patient seen and examined at bedside. Lying in bed comfortably. Denies chest pain or shortness of breath. Patient is working with PT/OT today. Plan is for discharge to rehab to increase strength and endurance, allow recovery from NSTEMI and acute heart failure and return in the next couple of weeks for TAVR. Patient currently maintained on aspirin 81mg daily, atorvastatin 40 mg nightly, coronary artery 0.125 g twice a day, Plavix 75 mg daily, digoxin 125mcg daily, spironolactone 25mg daily GENERAL: In no acute distress. Debilitated. NECK: Supple without JVD or thyromegaly. LUNGS: Breath sounds diminished in bases to auscultation bilaterally. Respiration equal and unlabored. No wheezes, rales or rhonchi. HEART: Regular rate and rhythm without murmurs, rubs or gallops. S1 and S2 heard. EXTREMITIES: Normal range of motion, no edema. No clubbing or cyanosis. Peripheral pulses intact. ASSESSMENT Acute on chronic heart failure with reduced ejection fraction Non-STEMI s/p PCI to RCA Coronary artery disease including 99% RCA stenosis status post failed attempted PCI Hypertension Hyperlipidemia Cardiomyopathy mainly nonischemic with CAD out of proportion to cardiomyopathy Severe aortic stenosis Mitral regurgitation Oxygen dependence status post COVID-19 infection PLAN We will continue dual antiplatelet therapy with aspirin and Plavix Continue statin, Coreg, digoxin, spironolactone Patient not on ACEI/ARB due to hypotension Increase activity as tolerated From a cardiology perspective, patient is stable to be discharged to rehab. Follow up outpatient and TAVR will be done as an outpatient in the next couple of weeks. Nurse practitioner note has been reviewed by physician. Signing provider agrees with the documented findings, assessment, and plan of care. Objective - Vital Signs Vital signs: Vital Signs Temp 98 F 11/28/21 08:00 Pulse 77 11/28/21 08:00 Resp 18 11/28/21 08:00 BP 90/59 11/28/21 08:00 Pulse Ox 98 11/28/21 08:00 Intake & Output 11/27/21 11/28/21 11/28/21 18:59 06:59 18:59 Intake Total 120 0 Output Total 250 300 Balance -130 -300 0 Intake: Oral 120 0 Output: Urine 250 300 Stool 0 Other: Voiding Method Incontinent Incontinent External Catheter External Catheter ABP, PAP, CO, CI - Last Documented Arterial Blood Pressure 107/66 - Labs CBC & Chem 7: 11/28/21 08:28 11/28/21 08:28 Labs: Abnormal Lab Results - Last 24 Hours (Table) 11/28/21 11/28/21 Range/Units 08:28 08:28 RBC 2.65 L (3.80-5.40) m/uL Hgb 8.1 L (11.4-16.0) gm/dL Hct 26.2 L (34.0-46.0) % RDW 19.4 H (11.5-15.5) % Neutrophils # 8.1 H (1.3-7.7) k/uL Lymphocytes # 0.8 L (1.0-4.8) k/uL Glucose 113 H (74-99) mg/dL Calcium 8.3 L (8.4-10.2) mg/dL Total Bilirubin 1.9 H (0.2-1.3) mg/dL Total Protein 5.6 L (6.3-8.2) g/dL Albumin 2.9 L (3.5-5.0) g/dL
--- NOTE | 2021-11-28 13:52 | P.PN ---
Subjective Progress Note Date: 11/28/21 HISTORY OF PRESENT ILLNESS This is a 71-year-old female with past medical history of dilated cardiomyopathy with ejection fraction of 15-20%, severe aortic valve stenosis, mild aortic regurgitation with moderate to severe mitral regurgitation, chronic systolic heart failure, hyperlipidemia, obesity with possible obstructive sleep apnea and obesity hypoventilation syndrome, chronic hypoxic respiratory failure on home O2 at 2 L nasal cannula, hypertension hypertensive cardio vascular disease, previous Covid 19 infection. Patient presented to [facility] slight elevation of troponin, EKG showed changes suggestive ischemic changes and was started on aspirin, heparin drip and admitted to the hospital. Patient was seen by cardiology. She was supposed to have a heart catheterization done as an outpatient along with LISA for possible aortic valve replacement and mitral valve and possible CABG. Patient underwent coronary angiography finding right dominant vessel, 99% ostial stenosis, aortic pressure is 100/70, 40 mm gradient across the aortic valve. Left ventricular end diastolic pressure is 2530. Patient was transferred to [facility] for PTCA and stent placement of the RCA which was unsuccessful. Consult with cardiothoracic surgery for CABG and valve repair/replacement. 11/18: Patient is seen today in the intensive care unit. She denies chest pain or shortness of breath. She complains of anxiety and decreased appetite. Less cough today.She has been seen by singer songwriter and cardiothoracic surgery, currently on heparin drip, consult was added for dental evaluation and clearance and panoramic CT. Patient has been afebrile, heart rate in the 80s, blood pressure 101/73, pulse ox 96%. Repeat blood work reveals CBC is unremarkable. Potassium 4.0. Urinalysis negative for infection. Hepatitis panel negative. MRSA nasal screen is in process. CT of the chest revealed cardiomegaly with suspected pulmonary edema and moderate to marked right sided pleural effusion. Associated infection can't be excluded. Echocardiogram reveals EF of 25-30% with mild concentric left ventricular hypertrophy, severe global hypokinesia of the LV, severe aortic stenosis with gradient 78.27 mm a new 3/47.94 mmHg, trace mitral regurgitation, mild mitral stenosis, mild tricuspid regurgitation, mild pulmonary hypertension, RVSP 43.33 mmHg. Carotid ultrasound revealed less than 50% stenosis bilateral carotid systems. /2: Patient is sitting up in bed she underwent CTA of the chest for evaluation of dissection of the right coronary artery, she denies any chest pain at this time, she has no shortness breath, she has no abdominal pain, nausea or vomiting, she continues to have some coughing noted from production, she continues to be somewhat depressed and anxious and she is not sure what to do, she is missing her daughter she stated and she doesn't think her daughter is able to come and see her. 3: Patient is sitting on the bed in no apparent distress, she continues to be quite depressed and anxious about her situation, she has not made up her mind, I had a long conversation with Dr. Medina regarding the plan to pursue the [facility] care at this time, she was deemed high surgical risk per cardiovascular surgery service at the current [place], and she would benefit from a transcatheter aortic valve replacement plus reattempted PCI of the RCA, her CT angiography of the chest did not show evidence of any dissection of the thoracic aorta , patient is maintained on Zoloft 100 mg every day, she is mentioned in ICU, and the plan to the PCI hopefully in the next 24 hours patient and her daughter Isatu are in agreement for conservative approach and they understand the risks of the procedure and that she will have the TAVR at a later date or during this hospital admission depends on her symptoms, we will consult Psychiatry for depression and possible bipolar disorder. 11/21: Patient remains in intensive care unit, afebrile, heart rate in the 80s, blood pressure 101/58, pulse ox 97% on room air. Patient denies having any chest pain but continues to have anxiety issues. Consult with psychiatry is pending. Patient has been scheduled for CT TAVR protocol for today. Repeat blood work reveals WBC 15, hemoglobin 8.6, platelet count 172. Sodium 134, BUN 41 creatinine 1.2. Blood sugar 149. Total bilirubin 1.4 otherwise liver function tests are normal. Nasal MRSA screen is negative. 11/22: Patient remains in the intensive care unit. Patient underwent CAT scan yesterday for TAVR protoxol and was found to have moderate size right pelvic retroperitoneal hematoma extending into the lower abdomen presumed from att empted right groin catheter insertion. Consult was added for vascular surgery with plan to continue supportive care, no plan for surgical intervention. Heparin was discontinued. Patient was transfused 1 unit of packed RBCs for hemoglobin of 6.9 with repeat hemoglobin of 7.6. Patient has been afebrile, heart rate 70, blood pressure 109/62, pulse ox 97%. weight shifter is sinus rhythm. Patient has also been seen and followed by psychiatry for depression and acute bereavement with the loss of her , recommendations Zoloft 125 mg daily at bedtime. 11/23: Patient remains in the intensive care unit. No signs of bleeding and no worsening hematoma with hemoglobin stable at 7.6. Vascular surgery has cleared patient to resume heparin if needed, continue to monitor for bleeding and daily CBC. Plan is for Dr. Medina will proceed with intervention tomorrow. Patient is also followed by singer songwriter, cardiothoracic surgery and psychiatry. 11/24: Patient is status post stent in the RCA today with Dr. Medina. She is seen postprocedure and is comfortable. She denies having any chest pain. Anxiety is controlled. Approach was from the left groin, no bleeding or hematoma noted. Patient remains afebrile, heart rate in the 80s, blood pressure 92/57, pulse ox 94% on 2 L nasal cannula. Repeat hemoglobin is stable at 7.5, WBC 11.5. Electrolytes are normal, BUN 21 creatinine 0.61. 11/25: Patient remains in the intensive care unit status post stent of the RCA yesterday. Patient has moderate to severe LAD lesion with significant FFR to be addressed at a later time as well asTAVR will be planned for the next 1-2 weeks. No hematoma to the left groin. Patient is waiting for a bed on the cardiac stepdown unit. Vascular surgeries following for retroperitoneal hematoma that does not appear to be actively bleeding, plan for supportive care. Patient remains afebrile heart rate 85, blood pressure 96/54, pulse ox 98% on room air.. BUN 19 and creatinine 0.62. Anticipate that patient will be able to work with PT and OT determine home care versus subacute rehab needs. 11/26: Patient was moved out of the ICU to a telemetry unit, she is in a better spurs, she responded very well to the sertraline 125 mg at bedtime, she is continued to have minimal cough no phlegm production, she is using Flonase and Claritin for postnasal drip, she denies any abdominal pain, she has not had a bowel movement attempted we will start the patient on lactulose 20 g orally twice every day, start the patient on Senokot 2 tablets at bedtime, follow-up with the patient very closely, we'll discuss with cardiology and cardiothoracic surgery team whether the patient would have TAVR next week. 11/27: Patient sitting up in bed that she is feeling better today she continues to have significant constipation, she has not had a bowel movement despite all the medications, physical therapy will see the patient move the patient on, patient will likely be transferred to subacute rehabilitation initially 4 hours if there is no plan to doTAVR this coming week. 11/28: Patient is seen today on the cardiac stepdown unit. She denies having any chest pain at this time but states she had a little bit of pressure in her chest when she was getting back into bed. She also states she has some cramping in her right leg. She did work with physical therapy this morning and the recommendations are subacute rehab. Patient is having prune juice now has started had MiraLAX but no bowel movement. Patient's been afebrile, heart rate in 70s and 80s, blood pressure 103/69, pulse ox 98% on 2 L nasal cannula. Blood work reveals WBC 9.8, hemoglobin 8.1, platelet count 230. Electrolytes are normal. BUN 16 creatinine 0.54. Total bilirubin 1.9. Other liver function tests are normal. Patient is ready for discharge to subacute rehab but we will hold as plan is not in place yet and patient is having ongoing constipation. Plan for discharge to [facility] tomorrow once arrangements are completed. Patient is not appropriate for inpatient rehab. REVIEW OF SYSTEMS Constitutional: No fever, no chills, no night sweats. No weight change. Positive for generalized weakness, positive for fatigue or lethargy. No daytime sleepiness. HEENT: No headache. No blurred vision or double vision, no loss of vision. No loss of Hearing, no ringing in the ears, no dizziness. No nasal drainage or congestion. No epistaxis. No sore throat. Lungs: Positive for shortness of breath, positive for cough, no sputum production. No wheezing. Reports dyspnea on exertion. Cardiovascular: No chest pain, no lower extremity edema. No palpitations. No paroxysmal nocturnal dyspnea. No orthopnea. No lightheadedness or dizziness. No syncopal episodes. Abdominal: No right lower quadrant abdominal pain. No nausea, vomiting. No diarrhea. No constipation. No bloody or tarry stools. Reports loss of appetite. Genitourinary: No dysuria, increased frequency, urgency. No urinary retention. Musculoskeletal: No myalgias. Generalized muscle weakness, reported gait dysfunction requiring significant assistance, no frequent falls. Positive for back pain. No neck pain. Integumentary: No wounds, no lesions. No rash or pruritus. Positive for bruising. No change in hair or nails. Neurologic: No aphasia. No facial droop. No change in mentation. No head injury. No headache. No paralysis. No paresthesia. Psychiatric: Positive for depression. Reports anxiety. Positive for mood swings Endocrine: No abnormal blood sugars. Positive for weight change. PHYSICAL EXAMINATION Gen: This is a 71-year-old female. HEENT: Head is atraumatic, normocephalic. Pupils equal, round. Sclerae is anicteric. NECK: Supple. No JVD. No lymphadenopathy. No thyromegaly. LUNGS: Decreased breath sounds at the bases, decreased tactile fremitus at the right lower third, few rhonchi, no expiratory wheeze, no chest wall tenderness. No intercostal retractions. HEART: First heart sound is depressed, second heart sound is normal, systolic ejection murmur 3/6 at the right upper sternal border radiating to the base of the neck, systolic ejection murmur 2/6 at the apex rating to the axilla. ABDOMEN: Soft, mild tenderness right lower quadrant, nondistended, positive bowel sounds, multiple ecchymosis. EXTREMITIES: 1+ pedal edema. No calf tenderness. Dorsalis pedis +1 bilaterally. NEUROLOGICAL: Patient is awake, alert and oriented x3. Cranial nerves 2 through 12 are grossly intact., Cranial nerves II-12 appear grossly intact, muscle power 4 out of 5 in upper and lower extremities bilaterally. ASSESSMENT AND PLAN 1. Non ST elevation myocardial infarction with history of prior dilated cardiomyopathy status post coronary angiography finding right dominant vessel, 99% ostial stenosis, aortic pressure is 100/70, 40 mm gradient across the aortic valve. Left ventricular end diastolic pressure is 2530. Patient was transferred to [facility] for PTCA and stent placement of the RCA which was unsuccessful. Consult with cardiothoracic surgery appreciated. Contact Clerk consultation appreciated. Continue aspirin 81 mg daily, PLAVIX 75 MG orally daily, Coreg 6.25 mg twice daily,continue Atorvastatin 40 mg orally daily, now with successful Stent of the RCA with Dr. Medina 11/24. LAD stenosis to be addressed at a later time. 2. Dilated cardiomyopathy. continue patient on carvedilol 3.125 mg orally twic e every day, digoxin 125 g daily, we will continue with spironolactone 25 mg orally daily . 3. Severe aortic valve stenosis with mild aortic regurgitation. TAVR to be scheduled in the near future. 4. Moderate to Severe mitral regurgitation. likely will continue with conservative management no plan for mitral valve repair. 5. Hyperlipidemia. She was started on atorvastatin 40 mg once every day. 6. Obesity with obstructive sleep apnea and obesity hypoventilation syndrome. Patient has not had sleep study done yet. 7. Chronic hypoxic respiratory failure secondary to his Covid 19 and underlying COPD and possible obstructive sleep apnea and hypoventilation syndrome. Patient is normally on 2 L nasal cannula. 8. Acute on chronic systolic heart failure. Off Lasix, continue Coreg, Aldactone 25 mg daily. 9. Hypertension, hypertensive cardiovascular disease. continue carvedilol 3.125 mg orally twice every day patient is not on MELODY-I or ARB due to severe hypertension, 10. Recurrent depression and generalized anxiety disorder. Consult consult with psychiatry appreciated. Patient on Zoloft 125 mg at bedtime 11. DVT prophylaxis. we will continue with Lovenox 40 mg SC daily 12. GI prophylaxis. Protonix 40 mg IV push daily. 13. Acute retroperitoneal hematoma with acute blood loss anemia status post transfusion 1 unit of packed RBCs. Consult with vascular surgery appreciated. No plan for any surgical interventions. Monitor closely for bleeding. 14. constipation. Start the patient on Senokot 2 tablet at bedtime along with lactulose 20 g orally twice every day Full code. DISCHARGE PLAN [place] on Sunday Impression and plan of care have been directed as dictated by the signing physician. Marina Barbosa nurse practitioner acting as scribe for signing physician. Objective - Vital Signs Vital signs: Vital Signs Temp 98 F 11/28/21 08:00 Pulse 88 11/28/21 11:52 Resp 18 11/28/21 11:52 BP 103/69 11/28/21 11:52 Pulse Ox 98 11/28/21 11:52 Intake & Output 11/27/21 11/28/21 11/28/21 18:59 06:59 18:59 Intake Total 120 0 Output Total 250 300 0 Balance -130 -300 0 Intake: Oral 120 0 Output: Urine 250 300 Stool 0 0 Other: Voiding Method Incontinent Incontinent Incontinent External Catheter External Catheter External Catheter ABP, PAP, CO, CI - Last Documented Arterial Blood Pressure 107/66 - Labs CBC & Chem 7: 11/28/21 08:28 11/28/21 08:28 Labs: Abnormal Lab Results - Last 24 Hours (Table) 11/28/21 11/28/21 Range/Units 08:28 08:28 RBC 2.65 L (3.80-5.40) m/uL Hgb 8.1 L (11.4-16.0) gm/dL Hct 26.2 L (34.0-46.0) % RDW 19.4 H (11.5-15.5) % Neutrophils # 8.1 H (1.3-7.7) k/uL Lymphocytes # 0.8 L (1.0-4.8) k/uL Glucose 113 H (74-99) mg/dL Calcium 8.3 L (8.4-10.2) mg/dL Total Bilirubin 1.9 H (0.2-1.3) mg/dL Total Protein 5.6 L (6.3-8.2) g/dL Albumin 2.9 L (3.5-5.0) g/dL
--- NOTE | 2021-11-28 14:25 | P.PN ---
Progress Note - Text Progress Note Date: 11/28/21 Interval History: Patient was seen resting in bed and was directable and agreeable to speak with functional tester typewriters in her room. Present in the room with her is her niece Dasia and the patient is agreeable to having her present during the psychiatric evaluation. The patient is reporting that she is feeling better. She remains future oriented and is looking forward to her recovery. She reports that she will be going to rehab for her physical strength upon discharge. She is currently not reporting any suicidal or homicidal ideation, intention, and social plan. She is denying any auditory or visual hallucinations. She reports no issues regarding her sleep or her appetite. She has been adherent with her medication is not reporting any significant side effects. Mental Status Exam: General Appearance: Patient appears to be stated age is alert, pleasant, and cooperative. Patient appears to have fair hygiene and grooming wearing hospital gown with intermittent eye contact. Behavior: Patient is calmly lying in bed without any agitated behavior. Patient laughs and smiles appropriately. Speech: Patient's speech is fluent and nonpressured. Mood/Affect: Patient reports their mood is "much better", affect is congruent and bright Suicidality/Homicidality: Patient denies having any suicidal or homicidal ideation intent or plan. Perceptions: Patient denies any visual hallucinations and denies any auditory hallucinations Though content/process: There is no evidence of any delusional thought content and thought process is linear and goal-directed. Memory and concentration: AOX3, grossly intact for the purposes of this session. Can spell "WORLD" backwards Judgment and insight: Fair Vital Signs Temp 98 F 11/28/21 08:00 Pulse 88 11/28/21 11:52 Resp 18 11/28/21 11:52 BP 103/69 11/28/21 11:52 Pulse Ox 98 11/28/21 11:52 Intake & Output 11/27/21 11/28/21 11/28/21 18:59 06:59 18:59 Intake Total 120 0 Output Total 250 300 275 Balance -130 -300 -275 Intake: Oral 120 0 Output: Urine 250 300 275 Stool 0 0 Other: Voiding Method Incontinent Incontinent Incontinent External Catheter External Catheter External Catheter ABP, PAP, CO, CI - Last Documented Arterial Blood Pressure 107/66 Laboratory Results - Last 24 Hours 11/28/21 11/28/21 08:28 08:28 WBC 9.8 RBC 2.65 L Hgb 8.1 L Hct 26.2 L MCV 98.8 MCH 30.6 MCHC 31.0 RDW 19.4 H Plt Count 230 MPV 8.3 Neutrophils % 83 Lymphocytes % 8 Monocytes % 5 Eosinophils % 3 Basophils % 0 Neutrophils # 8.1 H Lymphocytes # 0.8 L Monocytes # 0.5 Eosinophils # 0.3 Basophils # 0.0 Hypochromasia Marked Poikilocytosis Slight Anisocytosis Slight Macrocytosis Moderate Sodium 138 Potassium 4.3 Chloride 105 Carbon Dioxide 28 Anion Gap 5 BUN 16 Creatinine 0.54 Est GFR (CKD-EPI)AfAm >90 Est GFR (CKD-EPI)NonAf >90 Glucose 113 H Calcium 8.3 L Total Bilirubin 1.9 H AST 27 ALT 14 Alkaline Phosphatase 66 Total Protein 5.6 L Albumin 2.9 L Assessment Major depressive disorder Acute bereavement -Patient's depressive disorder is likely precipitated and exacerbated by her deteriorating general medical health, recent loss of her , and recent life changes including relocation to [place]. Plan: -Continue your medical management. -At this time patient DOES NOT meet criteria for inpatient psychiatric admission. -Delirium precautions recommended with patient including - avoiding use of narcotics and SOUNDSCRIBER [employer]CH[employer]IC sedatives, limit anticholinergic medications when possible, frequent re-orientation, minimize use of restraints, open window shades during the day and close them at night -Would recommend the following medication changes/additions: Continue Zoloft 125 mg by mouth daily at bedtime for management of depression. -Brief supportive psychotherapy given. -Psychiatry will sign off at this time.
--- NOTE | 2021-11-28 15:32 | P.PN ---
Subjective Progress Note Date: 11/28/21 Principal diagnosis: Non-STEMI This is a pleasant 71-year-old female patient who has a history of hypertension, hyperlipidemia, anxiety/depression, obesity, previous chronic tobacco dependence, chronic hypoxic respiratory failure from a COVID-19 pneumonia in 2020. Remains unvaccinated. She also has a previous non-ST segment elevation myocardial infarction, cardiomyopathy with ejection fraction 25-30%, severe aortic stenosis. She was recently admitted to [facility] for dizziness and nausea and had undergone cardiac catheterization which revealed a 99% stenosis of the ostial RCA and transferred here for intervention. Unfortunately the lesion was too tight to cross and the procedure was aborted. She is being evaluated by surgical services for possible single-vessel bypass and aortic valve replacement. She is seen today in consultation in the intensi ve care unit and his pacing possible surgery. She is currently sitting up in bed. Awake and alert. Anxious, teary-eyed. She was found to have an FEV1 value of 45% of predicted. Currently, she denies any worsening shortness of breath, cough or congestion. She is maintaining O2 saturations in the mid 90s on 2 L/m per nasal cannula. She's been afebrile. She has normal saline running at 20 ML's per hour. She remains on a heparin drip per weight base protocol. Computed tomography scan of the chest reveals moderate right-sided pleural effusion with some fluid in the fissure. White count 7.1. Hemoglobin 12.8. Sodium 135. Potassium 4.0. BUN 22. Creatinine 0.65. We'll switch 28. AST 21. ALT 16. Urinalysis negative. Hepatitis screen negative. The patient is seen today 11/19/2021 in follow-up in the ICU. She is currently sitting up in bed. Awake and alert in no acute distress. Maintaining O2 saturations in the 90s on 2 L/m per nasal cannula. She has normal saline running 20 miles per hour. Heparin per weight-based protocol. She currently denies any worsening shortness of breath, cough or congestion. No chest pain or palpitations. White count 7.4. Hemoglobin 12.1. Platelets 125. Sodium 135. Potassium 3.7. Bicarb 32. BUN 22. Creatinine 0.61. She is continued on DuoNeb inhalations, Symbicort. She remains on IV diuretics. Currently in a - 1.1 L balance. On 11/20/2021 patient seen in follow-up in intensive care unit, she is resting in bed, denies any chest pain, she is awake and alert, she is slightly tearful at the possibility of having to be transferred to a tertiary care facility because of being high risk for surgical intervention for coronary artery disease with non-ST elevated myocardial infarct in this admission and status post unsuccessful PCI to the RCA, and severe aortic valve stenosis. She is currently on 2 L of oxygen breathing currently, pulse ox is 95-97%, hemodynamically she is stable, not requiring any vasoactive drips, she is on heparin at weight-based protocol, point tenderness and a to 20 ML per hour. CTA chest was completed showing no evidence for thoracic aortic aneurysm or dissection, cardiomegaly with small to moderate-sized right pleural effusion, and bilateral alveolar and interstitial edema, possibility of bilateral multifocal areas of acute infiltrate could not be completely excluded. Patient continues on IV diuretics Lasix 40 mg every 8 hours, the patient is an +98 mL net fluid balance over the last 24 hours, trace s lower extremity edema although her weight is up by 2.7 kg according to the recorded weights. Patient currently continues on inhaled and nebulized bronchodilators, she is on home dose Coreg 3.125 mg twice daily, digoxin 125 mics daily, she is on Lipitor 40 mg, aspirin 81 mg, and Aldactone [address] surgery are closely following. Today's labs have been reviewed, sodium is 133, potassium is 4.1, B1 is 21 creatinine 0.69. On 11/28/2021 patient seen in follow-up on selective care unit. She is resting comfortably in bed, denies any specific complaints, no shortness of breath or chest pain. She is on 2 L of oxygen pulse ox is 98%. Vital signs have been stable. Blood pressure has been stable, breathing is nonlabored. Chest x-ray from yesterday shows cardiomegaly with improved edema no new infiltration. Patient currently remains on Symbicort and DuoNeb. No coughing or wheezing noted on today's exam. She continues on aspirin 81 mg, Lipitor 40 mg, digoxin, Lovenox, Protonix. Patient is on Plavix [address] surgery is following, with cardiology. At this time the plan is TAVR in next couple weeks after patient shows increased strength and mobility and endurance after rehab placement Objective - Vital Signs Vital signs: Vital Signs Temp 98 F 11/28/21 08:00 Pulse 88 11/28/21 14:52 Resp 18 11/28/21 14:52 BP 103/69 11/28/21 11:52 Pulse Ox 98 11/28/21 11:52 Intake & Output 11/27/21 11/28/21 11/28/21 18:59 06:59 18:59 Intake Total 120 0 Output Total 250 300 275 Balance -130 -300 -275 Intake: Oral 120 0 Output: Urine 250 300 275 Stool 0 0 Other: Voiding Method Incontinent Incontinent Incontinent External Catheter External Catheter External Catheter ABP, PAP, CO, CI - Last Documented Arterial Blood Pressure 107/66 - Exam GENERAL EXAM: Alert, very pleasant, 71-year-old white female, resting in bed, on 2 L of oxygen pulse ox is 95-97% comfortable in no apparent distress. HEAD: Normocephalic/atraumatic. EYES: Normal reaction of pupils, equal size. Conjunctiva pink, sclera white. NOSE: Clear with pink turbinates. THROAT: No erythema or exudates. NECK: No masses, no JVD, no thyroid enlargement, no adenopathy. CHEST: No chest wall deformity. Symmetrical expansion. LUNGS: Equal air entry with diminished breath sounds at the bases CVS: Regular rate and rhythm, normal S1 and S2, no gallops, no murmurs, no rubs ABDOMEN: Soft, nontender. No hepatosplenomegaly, normal bowel sounds, no guarding or rigidity. EXTREMITIES: No clubbing, trace pretibial edema, chronic venous stasis changes in bilateral lower extremities no cyanosis, 2+ pulses and upper and lower extremities. MUSCULOSKELETAL: Muscle strength and tone normal. SPINE: No scoliosis or deformity SKIN: No rashes CENTRAL NERVOUS SYSTEM: Alert and oriented -3. No focal deficits, tone is normal in all 4 extremities. PSYCHIATRIC: Alert and oriented -3. Appropriate affect. Intact judgment and insight. - Labs CBC & Chem 7: 11/28/21 08:28 11/28/21 08:28 Labs: Abnormal Lab Results - Last 24 Hours (Table) 11/28/21 11/28/21 Range/Units 08:28 08:28 RBC 2.65 L (3.80-5.40) m/uL Hgb 8.1 L (11.4-16.0) gm/dL Hct 26.2 L (34.0-46.0) % RDW 19.4 H (11.5-15.5) % Neutrophils # 8.1 H (1.3-7.7) k/uL Lymphocytes # 0.8 L (1.0-4.8) k/uL Glucose 113 H (74-99) mg/dL Calcium 8.3 L (8.4-10.2) mg/dL Total Bilirubin 1.9 H (0.2-1.3) mg/dL Total Protein 5.6 L (6.3-8.2) g/dL Albumin 2.9 L (3.5-5.0) g/dL Assessment and Plan Plan: Assessment: #1. Acute non-ST segment elevated myocardial infarction with 99% stenosis of the ostial RCA status post PCI to the RCA #2. Severe aortic stenosis, awaiting TAVR possibly next couple weeks after medical optimization #3. Severe pulmonary hypertension #4. Ischemic cardiomyopathy with an ejection fraction of 25-30% #5. Acute on chronic systolic CHF with a right-sided pleural effusion #6. History of COVID-19 pneumonia in April 2021 requiring subsequent home oxygen at 2 L/m #7. COPD with an FEV1 value of 45% of predicted and an abnormal MVV #8. Morbid obesity #9. Hypertension #10. Hyperlipidemia #11. Anxiety and depression #12. Poor overall functional performance based on the above-mentioned multiple comorbidities Plan: Patient is breathing easier Vital signs have been stable Chest x-ray shows improved central vascular congestion and interstitial edema Vital signs are stable Anticipate possible transfer to [facility] possibly today or tomorrow The plan is for the patient to have transcatheter aortic valve replacement possibly the next 2 weeks Pulmonary service will sign off and follow on as-needed basis We'll follow the patient during her hospitalization for TAVR procedure I have personally seen and examined the patient, performed the documentation and the assessment and plan as written. Number of minutes spent on the visit: [15] Time with Patient: Less than 30
[2021-11-28 15:44] VITALS: BMI 36.4
[2021-11-28] MEDS: SERTRALINE 25 MG TAB PO SCH (21:59)
[2021-11-28] MEDS: ATORVASTATIN 40 MG TAB PO SCH (21:59)
[2021-11-28] MEDS: SERTRALINE 100 MG TAB PO SCH (21:59)
[2021-11-29] MEDS: SERTRALINE 100 MG TAB PO SCH ×2 (04:18→19:51)
[2021-11-29] MEDS: SENNOSIDES-DOCUSATE SODIUM 1 EACH TAB PO SCH ×3 (04:18→21:59)
[2021-11-29] MEDS: ATORVASTATIN 40 MG TAB PO SCH ×2 (04:18→21:58)
[2021-11-29] MEDS: SERTRALINE 25 MG TAB PO SCH ×2 (04:18→19:51)
[2021-11-29] MEDS: ASCORBIC ACID 500 MG TAB PO SCH ×2 (06:40→16:57)
[2021-11-29] MEDS: carvediloL 3.125 MG TAB PO SCH ×2 (06:42→16:57)
[2021-11-29] MEDS: FERROUS SULFATE 325 MG TAB PO SCH ×2 (06:42→16:57)
[2021-11-29] MEDS: SYMBICORT 160-4.5 MCG INHALER INHALATION SCH ×2 (08:00→19:29)
[2021-11-29] MEDS: IPRATROPIUM-ALBUTEROL 3 ML NEB INHALATION SCH ×4 (08:00→19:29)
[2021-11-29] MEDS: PANTOPRAZOLE 40 MG/10 ML VIAL IVP SCH (12:05)
[2021-11-29] MEDS: LACTULOSE 20 GM/30 ML CUP PO SCH ×2 (12:12→21:59)
--- NOTE | 2021-11-29 13:38 | P.PN ---
Subjective Progress Note Date: 11/29/21 HISTORY OF PRESENT ILLNESS This is a 71-year-old female with past medical history of dilated cardiomyopathy with ejection fraction of 15-20%, severe aortic valve stenosis, mild aortic regurgitation with moderate to severe mitral regurgitation, chronic systolic heart failure, hyperlipidemia, obesity with possible obstructive sleep apnea and obesity hypoventilation syndrome, chronic hypoxic respiratory failure on home O2 at 2 L nasal cannula, hypertension hypertensive cardio vascular disease, previous Covid 19 infection. Patient presented to [facility] slight elevation of troponin, EKG showed changes suggestive ischemic changes and was started on aspirin, heparin drip and admitted to the hospital. Patient was seen by cardiology. She was supposed to have a heart catheterization done as an outpatient along with LISA for possible aortic valve replacement and mitral valve and possible CABG. Patient underwent coronary angiography finding right dominant vessel, 99% ostial stenosis, aortic pressure is 100/70, 40 mm gradient across the aortic valve. Left ventricular end diastolic pressure is 2530. Patient was transferred to [facility] for PTCA and stent placement of the RCA which was unsuccessful. Consult with cardiothoracic surgery for CABG and valve repair/replacement. 11/18: Patient is seen today in the intensive care unit. She denies chest pain or shortness of breath. She complains of anxiety and decreased appetite. Less cough today.She has been seen by twisting machine operator and cardiothoracic surgery, currently on heparin drip, consult was added for dental evaluation and clearance and panoramic CT. Patient has been afebrile, heart rate in the 80s, blood pressure 101/73, pulse ox 96%. Repeat blood work reveals CBC is unremarkable. Potassium 4.0. Urinalysis negative for infection. Hepatitis panel negative. MRSA nasal screen is in process. CT of the chest revealed cardiomegaly with suspected pulmonary edema and moderate to marked right sided pleural effusion. Associated infection can't be excluded. Echocardiogram reveals EF of 25-30% with mild concentric left ventricular hypertrophy, severe global hypokinesia of the LV, severe aortic stenosis with gradient 78.27 mm a new 3/47.94 mmHg, trace mitral regurgitation, mild mitral stenosis, mild tricuspid regurgitation, mild pulmonary hypertension, RVSP 43.33 mmHg. Carotid ultrasound revealed less than 50% stenosis bilateral carotid systems. /2: Patient is sitting up in bed she underwent CTA of the chest for evaluation of dissection of the right coronary artery, she denies any chest pain at this time, she has no shortness breath, she has no abdominal pain, nausea or vomiting, she continues to have some coughing noted from production, she continues to be somewhat depressed and anxious and she is not sure what to do, she is missing her daughter she stated and she doesn't think her daughter is able to come and see her. 3: Patient is sitting on the bed in no apparent distress, she continues to be quite depressed and anxious about her situation, she has not made up her mind, I had a long conversation with Dr. Medina regarding the plan to pursue the [facility] care at this time, she was deemed high surgical risk per cardiovascular surgery service at the current [place], and she would benefit from a transcatheter aortic valve replacement plus reattempted PCI of the RCA, her CT angiography of the chest did not show evidence of any dissection of the thoracic aorta , patient is maintained on Zoloft 100 mg every day, she is mentioned in ICU, and the plan to the PCI hopefully in the next 24 hours patient and her daughter Isatu are in agreement for conservative approach and they understand the risks of the procedure and that she will have the TAVR at a later date or during this hospital admission depends on her symptoms, we will consult Psychiatry for depression and possible bipolar disorder. 11/21: Patient remains in intensive care unit, afebrile, heart rate in the 80s, blood pressure 101/58, pulse ox 97% on room air. Patient denies having any chest pain but continues to have anxiety issues. Consult with psychiatry is pending. Patient has been scheduled for CT TAVR protocol for today. Repeat blood work reveals WBC 15, hemoglobin 8.6, platelet count 172. Sodium 134, BUN 41 creatinine 1.2. Blood sugar 149. Total bilirubin 1.4 otherwise liver function tests are normal. Nasal MRSA screen is negative. 11/22: Patient remains in the intensive care unit. Patient underwent CAT scan yesterday for TAVR protoxol and was found to have moderate size right pelvic retroperitoneal hematoma extending into the lower abdomen presumed from att empted right groin catheter insertion. Consult was added for vascular surgery with plan to continue supportive care, no plan for surgical intervention. Heparin was discontinued. Patient was transfused 1 unit of packed RBCs for hemoglobin of 6.9 with repeat hemoglobin of 7.6. Patient has been afebrile, heart rate 70, blood pressure 109/62, pulse ox 97%. library monitor is sinus rhythm. Patient has also been seen and followed by psychiatry for depression and acute bereavement with the loss of her , recommendations Zoloft 125 mg daily at bedtime. 11/23: Patient remains in the intensive care unit. No signs of bleeding and no worsening hematoma with hemoglobin stable at 7.6. Vascular surgery has cleared patient to resume heparin if needed, continue to monitor for bleeding and daily CBC. Plan is for Dr. Medina will proceed with intervention tomorrow. Patient is also followed by twisting machine operator, cardiothoracic surgery and psychiatry. 11/24: Patient is status post stent in the RCA today with Dr. Medina. She is seen postprocedure and is comfortable. She denies having any chest pain. Anxiety is controlled. Approach was from the left groin, no bleeding or hematoma noted. Patient remains afebrile, heart rate in the 80s, blood pressure 92/57, pulse ox 94% on 2 L nasal cannula. Repeat hemoglobin is stable at 7.5, WBC 11.5. Electrolytes are normal, BUN 21 creatinine 0.61. 11/25: Patient remains in the intensive care unit status post stent of the RCA yesterday. Patient has moderate to severe LAD lesion with significant FFR to be addressed at a later time as well asTAVR will be planned for the next 1-2 weeks. No hematoma to the left groin. Patient is waiting for a bed on the cardiac stepdown unit. Vascular surgeries following for retroperitoneal hematoma that does not appear to be actively bleeding, plan for supportive care. Patient remains afebrile heart rate 85, blood pressure 96/54, pulse ox 98% on room air.. BUN 19 and creatinine 0.62. Anticipate that patient will be able to work with PT and OT determine home care versus subacute rehab needs. 11/26: Patient was moved out of the ICU to a telemetry unit, she is in a better spurs, she responded very well to the sertraline 125 mg at bedtime, she is continued to have minimal cough no phlegm production, she is using Flonase and Claritin for postnasal drip, she denies any abdominal pain, she has not had a bowel movement attempted we will start the patient on lactulose 20 g orally twice every day, start the patient on Senokot 2 tablets at bedtime, follow-up with the patient very closely, we'll discuss with cardiology and cardiothoracic surgery team whether the patient would have TAVR next week. 11/27: Patient sitting up in bed that she is feeling better today she continues to have significant constipation, she has not had a bowel movement despite all the medications, physical therapy will see the patient move the patient on, patient will likely be transferred to subacute rehabilitation initially 4 hours if there is no plan to doTAVR this coming week. 11/28: Patient is seen today on the cardiac stepdown unit. She denies having any chest pain at this time but states she had a little bit of pressure in her chest when she was getting back into bed. She also states she has some cramping in her right leg. She did work with physical therapy this morning and the recommendations are subacute rehab. Patient is having prune juice now has started had MiraLAX but no bowel movement. Patient's been afebrile, heart rate in 70s and 80s, blood pressure 103/69, pulse ox 98% on 2 L nasal cannula. Blood work reveals WBC 9.8, hemoglobin 8.1, platelet count 230. Electrolytes are normal. BUN 16 creatinine 0.54. Total bilirubin 1.9. Other liver function tests are normal. Patient is ready for discharge to subacute rehab but we will hold as plan is not in place yet and patient is having ongoing constipation. Plan for discharge to [facility] tomorrow once arrangements are completed. Patient is not appropriate for inpatient rehab. 11/29: Patient states that she started having some nausea last evening. She is still not had a bowel movement. She is taking prune juice and also on lactulo se, MiraLAX and Senokot. She is refusing her medications today. Patient is afebrile, heart rate in the 80s, blood pressure 78/44, pulse ox 99 on 2 L nasal cannula. Digoxin level 0.6. Insurance authorization has been obtained for subacute rehab at [facility]. Plan to monitor patient overnight, continue bowel regime and hopefully discharge tomorrow REVIEW OF SYSTEMS Constitutional: No fever, no chills, no night sweats. No weight change. Positive for generalized weakness, positive for fatigue or lethargy. No daytime sleepiness. HEENT: No headache. No blurred vision or double vision, no loss of vision. No loss of Hearing, no ringing in the ears, no dizziness. No nasal drainage or congestion. No epistaxis. No sore throat. Lungs: Positive for shortness of breath, positive for cough, no sputum production. No wheezing. Reports dyspnea on exertion. Cardiovascular: No chest pain, no lower extremity edema. No palpitations. No paroxysmal nocturnal dyspnea. No orthopnea. No lightheadedness or dizziness. No syncopal episodes. Abdominal: No right lower quadrant abdominal pain. No nausea, vomiting. No diarrhea. Reports constipation. No bloody or tarry stools. Reports loss of appetite. Genitourinary: No dysuria, increased frequency, urgency. No urinary retention. Musculoskeletal: No myalgias. Generalized muscle weakness, reported gait dysfunction requiring significant assistance, no frequent falls. Positive for back pain. No neck pain. Integumentary: No wounds, no lesions. No rash or pruritus. Positive for bruising. No change in hair or nails. Neurologic: No aphasia. No facial droop. No change in mentation. No head injury. No headache. No paralysis. No paresthesia. Psychiatric: Positive for depression. Reports anxiety. Positive for mood swings Endocrine: No abnormal blood sugars. Positive for weight change. PHYSICAL EXAMINATION Gen: This is a 71-year-old female. HEENT: Head is atraumatic, normocephalic. Pupils equal, round. Sclerae is anicteric. NECK: Supple. No JVD. No lymphadenopathy. No thyromegaly. LUNGS: Decreased breath sounds at the bases, decreased tactile fremitus at the right lower third, few rhonchi, no expiratory wheeze, no chest wall tenderness. No intercostal retractions. HEART: First heart sound is depressed, second heart sound is normal, systolic ejection murmur 3/6 at the right upper sternal border radiating to the base of the neck, systolic ejection murmur 2/6 at the apex rating to the axilla. ABDOMEN: Soft, mild tenderness generalized, nondistended, positive bowel sounds, multiple ecchymosis. EXTREMITIES: 1+ pedal edema. No calf tenderness. Dorsalis pedis +1 bilaterally. NEUROLOGICAL: Patient is awake, alert and oriented x3. Cranial nerves 2 through 12 are grossly intact., Cranial nerves II-12 appear grossly intact, muscle power 4 out of 5 in upper and lower extremities bilaterally. ASSESSMENT AND PLAN 1. Non ST elevation myocardial infarction with history of prior dilated cardiomyopathy status post coronary angiography finding right dominant vessel, 99% ostial stenosis, aortic pressure is 100/70, 40 mm gradient across the aortic valve. Left ventricular end diastolic pressure is 2530. Patient was transf erred to [facility] for PTCA and stent placement of the RCA which was unsuccessful. Consult with cardiothoracic surgery appreciated. Barrel Charrer consultation appreciated. Continue aspirin 81 mg daily, PLAVIX 75 MG orally daily, Coreg 6.25 mg twice daily,continue Atorvastatin 40 mg orally daily, now with successful Stent of the RCA with Dr. Medina 11/24. LAD stenosis to be addressed at a later time. 2. Dilated cardiomyopathy. continue patient on carvedilol 3.125 mg orally twice every day, digoxin 125 g daily, we will continue with spironolactone 25 mg orally daily. Digoxin level . 3. Severe aortic valve stenosis with mild aortic regurgitation. TAVR to be scheduled in the near future. 4. Moderate to Severe mitral regurgitation. likely will continue with conser vative management no plan for mitral valve repair. 5. Hyperlipidemia. She was started on atorvastatin 40 mg once every day. 6. Obesity with obstructive sleep apnea and obesity hypoventilation syndrome. Patient has not had sleep study done yet. 7. Chronic hypoxic respiratory failure secondary to his Covid 19 and underlying COPD and possible obstructive sleep apnea and hypoventilation syndrome. Patient is normally on 2 L nasal cannula. 8. Acute on chronic systolic heart failure. Off Lasix, continue Coreg, Aldactone 25 mg daily. 9. Hypertension, hypertensive cardiovascular disease. continue carvedilol 3.125 mg orally twice every day patient is not on MELODY-I or ARB due to severe hypertension, 10. Recurrent depression and generalized anxiety disorder. Consult consult with psychiatry appreciated. Patient on Zoloft 125 mg at bedtime 11. DVT prophylaxis. we will continue with Lovenox 40 mg SC daily 12. GI prophylaxis. Protonix 40 mg IV push daily. 13. Acute retroperitoneal hematoma with acute blood loss anemia status post transfusion 1 unit of packed RBCs. Consult with vascular surgery appreciated. No plan for any surgical interventions. Monitor closely for bleeding. 14. constipation. Continue patient on Senokot 2 tablet at bedtime along with lactulose 20 g orally twice every day, MiraLAX 17 g daily, prune juice. Full code. DISCHARGE PLAN [place] on Sunday Impression and plan of care have been directed as dictated by the signing physician. Marina Barbosa nurse practitioner acting as scribe for signing physician. Objective - Vital Signs Vital signs: Vital Signs Temp 98.8 F 11/29/21 12:00 Pulse 87 11/29/21 12:00 Resp 18 11/29/21 12:00 BP 78/44 11/29/21 12:00 Pulse Ox 99 11/29/21 12:00 Intake & Output 11/28/21 11/29/21 11/29/21 18:59 06:59 18:59 Intake Total 0 118 Output Total 400 0 750 Balance -400 0 -632 Weight 111.9 kg Intake: Oral 0 118 Output: Urine 400 750 Stool 0 0 Other: Voiding Method Incontinent Incontinent External Catheter External Catheter ABP, PAP, CO, CI - Last Documented Arterial Blood Pressure 107/66 - Labs CBC & Chem 7: 11/28/21 08:28 11/28/21 08:28
--- NOTE | 2021-11-29 13:51 | P.PN ---
Subjective This is a 71 year old female with a past medical history of NSTEMI this admission, Coronary artery disease with 99% RCA stenosis status post successful PCI with FABY to the right coronary artery 11/24/21, cardiomyopathy with EF 15- 20%, severe aortic valve stenosis (plan for TAVR), trace mitral valve regurgitation with mild mitral stenosis, dilated cardiomyopathy, Chronic systolic heart failure, hypertension, hyperlipidemia, COVID-19 pneumonia in S ep2020, obesity, depression, former smoker, and severe restrictive lung disease. She follows with Dr. Holland. We are following patient for NSTEMI. 11/24/2021 patient underwent cardiac catheterization with Dr. Medina on 11/24/21 which revealed 11/29/2021 Patient seen and examined at bedside. Lying in bed comfortably. She endorses some abdominal pain and nausea and constipation. She is on a bowel regimen. Denies chest pain or shortness of breath. Continues to be hypotensive BP 97/56 HR 80s. Patient is working with PT/OT today. Plan is for discharge to rehab to increase strength and endurance, allow recovery from NSTEMI and acute heart failure and return in the next couple of weeks for TAVR. Patient refusing meds this morning Patient currently maintained on aspirin 81mg daily, atorvastatin 40 mg nightly, Coreg 3.125mg twice a day, Plavix 75 mg daily, digoxin 125mcg daily, spironolactone 25mg daily GENERAL: In no acute distress. Debilitated. NECK: Supple without JVD or thyromegaly. LUNGS: Breath sounds diminished in bases to auscultation bilaterally. Respiration equal and unlabored. No wheezes, rales or rhonchi. HEART: Regular rate and rhythm without murmurs, rubs or gallops. S1 and S2 heard. EXTREMITIES: Normal range of motion, no edema. No clubbing or cyanosis. Peripheral pulses intact. ASSESSMENT Acute on chronic heart failure with reduced ejection fraction Non-STEMI s/p PCI to RCA Coronary artery disease including 99% RCA stenosis status post failed attempted PCI Hypertension Hyperlipidemia Cardiomyopathy mainly nonischemic with CAD out of proportion to cardiomyopathy Severe aortic stenosis Mitral regurgitation Oxygen dependence status post COVID-19 infection PLAN We will continue dual antiplatelet therapy with aspirin and Plavix Continue statin, Coreg, digoxin, spironolactone Patient not on ACEI/ARB due to hypotension Increase activity as tolerated From a cardiology perspective, patient is stable to be discharged to rehab. Follow up outpatient and TAVR will be done as an outpatient in the next couple of weeks. Nurse practitioner note has been reviewed by physician. Signing provider agrees with the documented findings, assessment, and plan of care. Objective - Vital Signs Vital signs: Vital Signs Temp 98.8 F 11/29/21 12:00 Pulse 87 11/29/21 12:00 Resp 18 11/29/21 12:00 BP 78/44 11/29/21 12:00 Pulse Ox 99 11/29/21 12:00 Intake & Output 11/28/21 11/29/21 11/29/21 18:59 06:59 18:59 Intake Total 0 118 Output Total 400 0 750 Balance -400 0 -632 Weight 111.9 kg Intake: Oral 0 118 Output: Urine 400 750 Stool 0 0 Other: Voiding Method Incontinent Incontinent External Catheter External Catheter ABP, PAP, CO, CI - Last Documented Arterial Blood Pressure 107/66 - Labs CBC & Chem 7: 11/28/21 08:28 11/28/21 08:28
[2021-11-29] MEDS: CLOPIDOGREL 75 MG TAB PO SCH (15:06)
[2021-11-29] MEDS: METOCLOPRAMIDE 5 MG/ML 2 ML VIAL IVP SCH ×2 (15:08→16:57)
[2021-11-29] MEDS: DIGOXIN 125 MCG TAB PO SCH (15:08)
[2021-11-29] MEDS: ASPIRIN 81 MG PO SCH (15:08)
[2021-11-29] MEDS: SPIRONOLACTONE 25 MG TAB PO SCH (15:08)
[2021-11-29] MEDS: LORATADINE 10 MG TAB PO SCH ×2 (15:09→21:58)
[2021-11-29] MEDS: ENOXAPARIN 40 MG/0.4 ML SYRINGE SQ SCH (15:09)
--- NOTE | 2021-11-29 16:00 | XR ---
EXAMINATION TYPE: XR abdomen 1V DATE OF EXAM: 11/29/2021 Comparison: None Clinical History: 71-year-old female constipation and abdominal pain Findings: Degenerative changes lower lumbar spine. Mild degenerative spurring at the hips. Prominent stool dist ending the rectum up to 8.2 cm wide. Only mild scattered stool elsewhere in the abdomen. No dilated s mall bowel loops. Supine imaging limited for assessment of free air. No suspicious calcification seen . Impression: Correlate for fecal impaction. Stool distends the rectum up to 8.2 cm wide. Only mild stool elsewhere within the colon.
[2021-11-30] MEDS: METOCLOPRAMIDE 5 MG/ML 2 ML VIAL IVP SCH ×5 (00:09→23:38)
[2021-11-30] MEDS: ASCORBIC ACID 500 MG TAB PO SCH ×2 (06:39→18:15)
[2021-11-30] MEDS: carvediloL 3.125 MG TAB PO SCH ×3 (06:39→18:15)
[2021-11-30] MEDS: FERROUS SULFATE 325 MG TAB PO SCH ×2 (06:39→18:15)
[2021-11-30] MEDS: IPRATROPIUM-ALBUTEROL 3 ML NEB INHALATION SCH ×4 (08:29→20:22)
[2021-11-30] MEDS: SYMBICORT 160-4.5 MCG INHALER INHALATION SCH ×2 (08:29→20:22)
--- NOTE | 2021-11-30 09:58 | P.PN ---
Subjective Progress Note Date: 11/29/21 HISTORY OF PRESENT ILLNESS This is a 71-year-old female with past medical history of dilated cardiomyopathy with ejection fraction of 15-20%, severe aortic valve stenosis, mild aortic regurgitation with moderate to severe mitral regurgitation, chronic systolic heart failure, hyperlipidemia, obesity with possible obstructive sleep apnea and obesity hypoventilation syndrome, chronic hypoxic respiratory failure on home O2 at 2 L nasal cannula, hypertension hypertensive cardio vascular disease, previous Covid 19 infection. Patient presented to [facility] slight elevation of troponin, EKG showed changes suggestive ischemic changes and was started on aspirin, heparin drip and admitted to the hospital. Patient was seen by cardiology. She was supposed to have a heart catheterization done as an outpatient along with LISA for possible aortic valve replacement and mitral valve and possible CABG. Patient underwent coronary angiography finding right dominant vessel, 99% ostial stenosis, aortic pressure is 100/70, 40 mm gradient across the aortic valve. Left ventricular end diastolic pressure is 2530. Patient was transferred to [facility] for PTCA and stent placement of the RCA which was unsuccessful. Consult with cardiothoracic surgery for CABG and valve repair/replacement. 11/18: Patient is seen today in the intensive care unit. She denies chest pain or shortness of breath. She complains of anxiety and decreased appetite. Less cough today.She has been seen by draw string knotter and cardiothoracic surgery, currently on heparin drip, consult was added for dental evaluation and clearance and panoramic CT. Patient has been afebrile, heart rate in the 80s, blood pressure 101/73, pulse ox 96%. Repeat blood work reveals CBC is unremarkable. Potassium 4.0. Urinalysis negative for infection. Hepatitis panel negative. MRSA nasal screen is in process. CT of the chest revealed cardiomegaly with suspected pulmonary edema and moderate to marked right sided pleural effusion. Associated infection can't be excluded. Echocardiogram reveals EF of 25-30% with mild concentric left ventricular hypertrophy, severe global hypokinesia of the LV, severe aortic stenosis with gradient 78.27 mm a new 3/47.94 mmHg, trace mitral regurgitation, mild mitral stenosis, mild tricuspid regurgitation, mild pulmonary hypertension, RVSP 43.33 mmHg. Carotid ultrasound revealed less than 50% stenosis bilateral carotid systems. /2: Patient is sitting up in bed she underwent CTA of the chest for evaluation of dissection of the right coronary artery, she denies any chest pain at this time, she has no shortness breath, she has no abdominal pain, nausea or vomiting, she continues to have some coughing noted from production, she continues to be somewhat depressed and anxious and she is not sure what to do, she is missing her daughter she stated and she doesn't think her daughter is able to come and see her. 3: Patient is sitting on the bed in no apparent distress, she continues to be quite depressed and anxious about her situation, she has not made up her mind, I had a long conversation with Dr. Medina regarding the plan to pursue the [facility] care at this time, she was deemed high surgical risk per cardiovascular surgery service at the current [place], and she would benefit from a transcatheter aortic valve replacement plus reattempted PCI of the RCA, her CT angiography of the chest did not show evidence of any dissection of the thoracic aorta , patient is maintained on Zoloft 100 mg every day, she is mentioned in ICU, and the plan to the PCI hopefully in the next 24 hours patient and her daughter Isatu are in agreement for conservative approach and they understand the risks of the procedure and that she will have the TAVR at a later date or during this hospital admission depends on her symptoms, we will consult Psychiatry for depression and possible bipolar disorder. 11/21: Patient remains in intensive care unit, afebrile, heart rate in the 80s, blood pressure 101/58, pulse ox 97% on room air. Patient denies having any chest pain but continues to have anxiety issues. Consult with psychiatry is pending. Patient has been scheduled for CT TAVR protocol for today. Repeat blood work reveals WBC 15, hemoglobin 8.6, platelet count 172. Sodium 134, BUN 41 creatinine 1.2. Blood sugar 149. Total bilirubin 1.4 otherwise liver function tests are normal. Nasal MRSA screen is negative. 11/22: Patient remains in the intensive care unit. Patient underwent CAT scan yesterday for TAVR protoxol and was found to have moderate size right pelvic retroperitoneal hematoma extending into the lower abdomen presumed from att empted right groin catheter insertion. Consult was added for vascular surgery with plan to continue supportive care, no plan for surgical intervention. Heparin was discontinued. Patient was transfused 1 unit of packed RBCs for hemoglobin of 6.9 with repeat hemoglobin of 7.6. Patient has been afebrile, heart rate 70, blood pressure 109/62, pulse ox 97%. 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 Patient has also been seen and followed by psychiatry for depression and acute bereavement with the loss of her , recommendations Zoloft 125 mg daily at bedtime. 11/23: Patient remains in the intensive care unit. No signs of bleeding and no worsening hematoma with hemoglobin stable at 7.6. Vascular surgery has cleared patient to resume heparin if needed, continue to monitor for bleeding and daily CBC. Plan is for Dr. Medina will proceed with intervention tomorrow. Patient is also followed by draw string knotter, cardiothoracic surgery and psychiatry. 11/24: Patient is status post stent in the RCA today with Dr. Medina. She is seen postprocedure and is comfortable. She denies having any chest pain. Anxiety is controlled. Approach was from the left groin, no bleeding or hematoma noted. Patient remains afebrile, heart rate in the 80s, blood pressure 92/57, pulse ox 94% on 2 L nasal cannula. Repeat hemoglobin is stable at 7.5, WBC 11.5. Electrolytes are normal, BUN 21 creatinine 0.61. 11/25: Patient remains in the intensive care unit status post stent of the RCA yesterday. Patient has moderate to severe LAD lesion with significant FFR to be addressed at a later time as well asTAVR will be planned for the next 1-2 weeks. No hematoma to the left groin. Patient is waiting for a bed on the cardiac stepdown unit. Vascular surgeries following for retroperitoneal hematoma that does not appear to be actively bleeding, plan for supportive care. Patient remains afebrile heart rate 85, blood pressure 96/54, pulse ox 98% on room air.. BUN 19 and creatinine 0.62. Anticipate that patient will be able to work with PT and OT determine home care versus subacute rehab needs. 11/26: Patient was moved out of the ICU to a telemetry unit, she is in a better spurs, she responded very well to the sertraline 125 mg at bedtime, she is continued to have minimal cough no phlegm production, she is using Flonase and Claritin for postnasal drip, she denies any abdominal pain, she has not had a bowel movement attempted we will start the patient on lactulose 20 g orally twice every day, start the patient on Senokot 2 tablets at bedtime, follow-up with the patient very closely, we'll discuss with cardiology and cardiothoracic surgery team whether the patient would have TAVR next week. 11/27: Patient sitting up in bed that she is feeling better today she continues to have significant constipation, she has not had a bowel movement despite all the medications, physical therapy will see the patient move the patient on, patient will likely be transferred to subacute rehabilitation initially 4 hours if there is no plan to doTAVR this coming week. 11/28: Patient is seen today on the cardiac stepdown unit. She denies having any chest pain at this time but states she had a little bit of pressure in her chest when she was getting back into bed. She also states she has some cramping in her right leg. She did work with physical therapy this morning and the recommendations are subacute rehab. Patient is having prune juice now has started had MiraLAX but no bowel movement. Patient's been afebrile, heart rate in 70s and 80s, blood pressure 103/69, pulse ox 98% on 2 L nasal cannula. Blood work reveals WBC 9.8, hemoglobin 8.1, platelet count 230. Electrolytes are normal. BUN 16 creatinine 0.54. Total bilirubin 1.9. Other liver function tests are normal. Patient is ready for discharge to subacute rehab but we will hold as plan is not in place yet and patient is having ongoing constipation. Plan for discharge to [facility] tomorrow once arrangements are completed. Patient is not appropriate for inpatient rehab. 11/29: Patient states that she started having some nausea last evening. She is still not had a bowel movement. She is taking prune juice and also on lactulo se, MiraLAX and Senokot. She is refusing her medications today. Patient is afebrile, heart rate in the 80s, blood pressure 78/44, pulse ox 99 on 2 L nasal cannula. Digoxin level 0.6. Insurance authorization has been obtained for subacute rehab at [facility]. Plan to monitor patient overnight, continue bowel regime and hopefully discharge tomorrow REVIEW OF SYSTEMS Constitutional: No fever, no chills, no night sweats. No weight change. Positive for generalized weakness, positive for fatigue or lethargy. No daytime sleepiness. HEENT: No headache. No blurred vision or double vision, no loss of vision. No loss of Hearing, no ringing in the ears, no dizziness. No nasal drainage or congestion. No epistaxis. No sore throat. Lungs: Positive for shortness of breath, positive for cough, no sputum production. No wheezing. Reports dyspnea on exertion. Cardiovascular: No chest pain, no lower extremity edema. No palpitations. No paroxysmal nocturnal dyspnea. No orthopnea. No lightheadedness or dizziness. No syncopal episodes. Abdominal: No right lower quadrant abdominal pain. No nausea, vomiting. No diarrhea. Reports constipation. No bloody or tarry stools. Reports loss of appetite. Genitourinary: No dysuria, increased frequency, urgency. No urinary retention. Musculoskeletal: No myalgias. Generalized muscle weakness, reported gait dysfunction requiring significant assistance, no frequent falls. Positive for back pain. No neck pain. Integumentary: No wounds, no lesions. No rash or pruritus. Positive for bruising. No change in hair or nails. Neurologic: No aphasia. No facial droop. No change in mentation. No head injury. No headache. No paralysis. No paresthesia. Psychiatric: Positive for depression. Reports anxiety. Positive for mood swings Endocrine: No abnormal blood sugars. Positive for weight change. PHYSICAL EXAMINATION Gen: This is a 71-year-old female. HEENT: Head is atraumatic, normocephalic. Pupils equal, round. Sclerae is anicteric. NECK: Supple. No JVD. No lymphadenopathy. No thyromegaly. LUNGS: Decreased breath sounds at the bases, decreased tactile fremitus at the right lower third, few rhonchi, no expiratory wheeze, no chest wall tenderness. No intercostal retractions. HEART: First heart sound is depressed, second heart sound is normal, systolic ejection murmur 3/6 at the right upper sternal border radiating to the base of the neck, systolic ejection murmur 2/6 at the apex rating to the axilla. ABDOMEN: Soft, mild tenderness generalized, nondistended, positive bowel sounds, multiple ecchymosis. EXTREMITIES: 1+ pedal edema. No calf tenderness. Dorsalis pedis +1 bilaterally. NEUROLOGICAL: Patient is awake, alert and oriented x3. Cranial nerves 2 through 12 are grossly intact., Cranial nerves II-12 appear grossly intact, muscle power 4 out of 5 in upper and lower extremities bilaterally. ASSESSMENT AND PLAN 1. Non ST elevation myocardial infarction with history of prior dilated cardiomyopathy status post coronary angiography finding right dominant vessel, 99% ostial stenosis, aortic pressure is 100/70, 40 mm gradient across the aortic valve. Left ventricular end diastolic pressure is 2530. Patient was transf erred to [facility] for PTCA and stent placement of the RCA which was unsuccessful. Consult with cardiothoracic surgery appreciated. Manager Corporate Responsibility consultation appreciated. Continue aspirin 81 mg daily, PLAVIX 75 MG orally daily, Coreg 6.25 mg twice daily,continue Atorvastatin 40 mg orally daily, now with successful Stent of the RCA with Dr. Medina 11/24. LAD stenosis to be addressed at a later time. 2. Dilated cardiomyopathy. continue patient on carvedilol 3.125 mg orally twice every day, digoxin 125 g daily, we will continue with spironolactone 25 mg orally daily. Digoxin level . 3. Severe aortic valve stenosis with mild aortic regurgitation. TAVR to be scheduled in the near future. 4. Moderate to Severe mitral regurgitation. likely will continue with conser vative management no plan for mitral valve repair. 5. Hyperlipidemia. She was started on atorvastatin 40 mg once every day. 6. Obesity with obstructive sleep apnea and obesity hypoventilation syndrome. Patient has not had sleep study done yet. 7. Chronic hypoxic respiratory failure secondary to his Covid 19 and underlying COPD and possible obstructive sleep apnea and hypoventilation syndrome. Patient is normally on 2 L nasal cannula. 8. Acute on chronic systolic heart failure. Off Lasix, continue Coreg, Aldactone 25 mg daily. 9. Hypertension, hypertensive cardiovascular disease. continue carvedilol 3.125 mg orally twice every day patient is not on MELODY-I or ARB due to severe hypertension, 10. Recurrent depression and generalized anxiety disorder. Consult consult with psychiatry appreciated. Patient on Zoloft 125 mg at bedtime 11. DVT prophylaxis. we will continue with Lovenox 40 mg SC daily 12. GI prophylaxis. Protonix 40 mg IV push daily. 13. Acute retroperitoneal hematoma with acute blood loss anemia status post transfusion 1 unit of packed RBCs. Consult with vascular surgery appreciated. No plan for any surgical interventions. Monitor closely for bleeding. 14. constipation. Continue patient on Senokot 2 tablet at bedtime along with lactulose 20 g orally twice every day, MiraLAX 17 g daily, prune juice. Full code. DISCHARGE PLAN Patient may be discharged to inpatient rehab if deemed appropriate and insurance authorization is obtained. Patient will be discharged once arrangements are completed. Impression and plan of care have been directed as dictated by the signing physician. Marina Barbosa nurse practitioner acting as scribe for signing physician. Objective - Vital Signs Vital signs: Vital Signs Temp 97.8 F 11/30/21 07:42 Pulse 82 11/30/21 07:42 Resp 18 11/30/21 07:42 BP 101/65 11/30/21 07:42 Pulse Ox 82 L 11/30/21 07:42 Intake & Output 11/29/21 11/30/21 11/30/21 18:59 06:59 18:59 Intake Total 168 125 Output Total 750 250 Balance -582 -250 125 Intake: Intake, IV Titration 50 Amount IV Fluid Continuation 300 50 ml @ 0 mls/hr IV .STK- MED ONE Rx#:[id number] Oral 118 125 Output: Urine 750 250 Stool 0 Other: Voiding Method Incontinent Incontinent External Catheter External Catheter # Bowel Movements 0 ABP, PAP, CO, CI - Last Documented Arterial Blood Pressure 107/66 - Labs CBC & Chem 7: 11/28/21 08:28 11/28/21 08:28
[2021-11-30] MEDS: ENOXAPARIN 40 MG/0.4 ML SYRINGE SQ SCH (10:25)
[2021-11-30] MEDS: SPIRONOLACTONE 25 MG TAB PO SCH (10:25)
[2021-11-30] MEDS: DIGOXIN 125 MCG TAB PO SCH (10:25)
[2021-11-30] MEDS: SENNOSIDES-DOCUSATE SODIUM 1 EACH TAB PO SCH ×2 (10:25→20:31)
[2021-11-30] MEDS: ASPIRIN 81 MG PO SCH (10:25)
[2021-11-30] MEDS: LORATADINE 10 MG TAB PO SCH (10:25)
[2021-11-30] MEDS: CLOPIDOGREL 75 MG TAB PO SCH (10:25)
[2021-11-30] MEDS: polyethylene glycoL 3350 17 GM POWD.PACK PO SCH (10:26)
[2021-11-30] MEDS: PANTOPRAZOLE 40 MG/10 ML VIAL IVP SCH (10:26)
[2021-11-30] MEDS: LACTULOSE 20 GM/30 ML CUP PO SCH ×2 (10:26→20:31)
[2021-11-30] MEDS ORDERED: NA PHOS,M-B/NA PHOS,DI-BA 133 ML ENEMA RECTAL STA (12:17)
--- NOTE | 2021-11-30 12:30 | P.PN ---
Subjective This is a 71 year old female with a past medical history of NSTEMI this admission, Coronary artery disease with 99% RCA stenosis status post successful PCI with FABY to the right coronary artery 11/24/21, cardiomyopathy with EF 15- 20%, severe aortic valve stenosis (plan for TAVR), trace mitral valve regurgitation with mild mitral stenosis, dilated cardiomyopathy, Chronic systolic heart failure, hypertension, hyperlipidemia, COVID-19 pneumonia in [place] 2020, obesity, depression, former smoker, and severe restrictive lung disease. She follows with Dr. Holland. We are following patient for NSTEMI. 11/24/2021 patient underwent cardiac catheterization with Dr. Medina on 11/24/21 which revealed 11/30/2021 Patient seen and examined at bedside. Lying in bed comfortably. abdominal xray yesterday revealed fecal impaction. She is on a bowel regimen. Denies chest pain or shortness of breath. Continues to be hypotensive BP 94/62 HR 80s. Plan is for discharge to rehab to increase strength and endurance, allow recovery from NSTEMI and acute heart failure and return in the next couple of weeks for TAVR. Patient refusing meds this morning Patient currently maintained on aspirin 81mg daily, atorvastatin 40 mg nightly, Coreg 3.125mg twice a day, Plavix 75 mg daily, digoxin 125mcg daily, spironolactone 25mg daily GENERAL: In no acute distress. Debilitated. NECK: Supple without JVD or thyromegaly. LUNGS: Breath sounds diminished in bases to auscultation bilaterally. Respiration equal and unlabored. No wheezes, rales or rhonchi. HEART: Regular rate and rhythm without murmurs, rubs or gallops. S1 and S2 hea rd. EXTREMITIES: Normal range of motion, no edema. No clubbing or cyanosis. Peripheral pulses intact. ASSESSMENT Acute on chronic heart failure with reduced ejection fraction Non-STEMI s/p PCI to RCA Coronary artery disease including 99% RCA stenosis status post failed attempted PCI Hypertension Hyperlipidemia Cardiomyopathy mainly nonischemic with CAD out of proportion to cardiomyopathy Severe aortic stenosis Mitral regurgitation Oxygen dependence status post COVID-19 infection PLAN We will continue dual antiplatelet therapy with aspirin and Plavix Continue statin, Coreg, digoxin, spironolactone Patient not on ACEI/ARB due to hypotension Increase activity as tolerated From a cardiology perspective, patient is stable to be discharged to rehab. Follow up outpatient and TAVR will be done as an outpatient in the next couple of weeks. Nurse practitioner note has been reviewed by physician. Signing provider agrees with the documented findings, assessment, and plan of care. Objective - Vital Signs Vital signs: Vital Signs Temp 98.7 F 11/30/21 11:30 Pulse 83 11/30/21 11:30 Resp 18 11/30/21 11:30 BP 94/62 11/30/21 11:30 Pulse Ox 96 11/30/21 11:30 Intake & Output 11/29/21 11/30/21 11/30/21 18:59 06:59 18:59 Intake Total 168 125 Output Total 750 250 Balance -582 -250 125 Intake: Intake, IV Titration 50 Amount IV Fluid Continuation 300 50 ml @ 0 mls/hr IV .STK- MED ONE Rx#:[id number] Oral 118 125 Output: Urine 750 250 Stool 0 Other: Voiding Method Incontinent Incontinent Incontinent External Catheter External Catheter External Catheter # Bowel Movements 0 ABP, PAP, CO, CI - Last Documented Arterial Blood Pressure 107/66 - Labs CBC & Chem 7: 11/28/21 08:28 11/28/21 08:28
--- NOTE | 2021-11-30 12:33 | P.DS ---
Providers Date of admission: 11/17/21 09:14 Expected date of discharge: 11/30/21 Attending physician: Judith Garcia Consults: 11/17/21 14:31 Consult Physician Routine Consulting Provider: Silvia Mayo Consult Reason/Comments: cardiac surgery clearance Do you want consulting provider notified?: Yes Placement Type Exists?: Yes 11/17/21 14:32 Consult Physician Routine Consulting Provider: Savage Rocha Consult Reason/Comments: Pulmonary clearance for cardiac surgery Do you want consulting provider notified?: Yes Placement Type Exists?: Yes 11/17/21 23:03 Consult Physician Routine Consulting Provider: Kahlil Masters Consult Reason/Comments: re: CAD Do you want consulting provider notified?: Already Contacted 11/18/21 13:59 Consult Physician Routine Consulting Provider: [place] Consult Reason/Comments: CAD/ Do you want consulting provider notified?: Already Contacted 11/20/21 12:37 Consult Physician Routine Consulting Provider: Benson Pang Consult Reason/Comments: Psychiatry Do you want consulting provider notified?: Yes 11/22/21 06:00 Consult Physician Routine Consulting Provider: Hu Garza Consult Reason/Comments: retroperitoneal hematoma post heart cath Do you want consulting provider notified?: Yes, Notify in am 11/24/21 10:56 Consult Physician Routine Consulting Provider: [facility] Consult Reason/Comments: Post Interventional patient Do you want consulting provider notified?: Already Contacted 11/29/21 08:59 Consult Physician Routine Consulting Provider: Estevan Pelaez Consult Reason/Comments: IP REHAB Do you want consulting provider notified?: Yes Primary care physician: Judith Garcia Hospital Course: HISTORY OF PRESENT ILLNESS This is a 71-year-old female with past medical history of dilated cardiomyopathy with ejection fraction of 15-20%, severe aortic valve stenosis, mild aortic regurgitation with moderate to severe mitral regurgitation, chronic systolic hea rt failure, hyperlipidemia, obesity with possible obstructive sleep apnea and obesity hypoventilation syndrome, chronic hypoxic respiratory failure on home O2 at 2 L nasal cannula, hypertension hypertensive cardio vascular disease, previous Covid 19 infection. Patient presented to [facility] slight elevation of troponin, EKG showed changes suggestive ischemic changes and was started on aspirin, heparin drip and admitted to the hospital. Patient was seen by cardiology. She was supposed to have a heart catheterization done as an outpatient along with LISA for possible aortic valve replacement and mitral valve and possible CABG. Patient underwent coronary angiography finding right dominant vessel, 99% ostial stenosis, aortic pressure is 100/70, 40 mm gradient across the aortic valve. Left ventricular end diastolic pressure is 2530. Patient was transferred to [facility] for PTCA and stent placement of the RCA which was unsuccessful. Consult with cardiothoracic surgery for CABG and valve repair/replacement. 11/18: Patient is seen today in the intensive care unit. She denies chest pain or shortness of breath. She complains of anxiety and decreased appetite. Less cough today.She has been seen by burn crew member and cardiothoracic surgery, currently on heparin drip, consult was added for dental evaluation and clearance and panoramic CT. Patient has been afebrile, heart rate in the 80s, blood pressure 101/73, pulse ox 96%. Repeat blood work reveals CBC is unremarkable. Potassium 4.0. Urinalysis negative for infection. Hepatitis panel negative. MRSA nasal screen is in process. CT of the chest revealed cardiomegaly with suspected pulmonary edema and moderate to marked right sided pleural effusion. Associated infection can't be excluded. Echocardiogram reveals EF of 25-30% with mild concentric left ventricular hypertrophy, severe global hypokinesia of the LV, severe aortic stenosis with gradient 78.27 mm a new 3/47.94 mmHg, trace mitral regurgitation, mild mitral stenosis, mild tricuspid regurgitation, mild pulmonary hypertension, RVSP 43.33 mmHg. Carotid ultrasound revealed less than 50% stenosis bilateral carotid systems. /2: Patient is sitting up in bed she underwent CTA of the chest for evaluation of dissection of the right coronary artery, she denies any chest pain at this time, she has no shortness breath, she has no abdominal pain, nausea or vomiting, she continues to have some coughing noted from production, she continues to be somewhat depressed and anxious and she is not sure what to do, she is missing her daughter she stated and she doesn't think her daughter is able to come and see her. /3: Patient is sitting on the bed in no apparent distress, she continues to be quite depressed and anxious about her situation, she has not made up her mind, I had a long conversation with Dr. Medina regarding the plan to pursue the patient care at this time, she was deemed high surgical risk per cardiovascular surgery service at the current [facility], and she would benefit from a transcatheter aortic valve replacement plus reattempted PCI of the RCA, her CT angiography of the chest did not show evidence of any dissection of the thoracic aorta , patient is maintained on Zoloft 100 mg every day, she is mentioned in ICU, and the plan to the PCI hopefully in the next 24 hours patient and her daughter Isatu are in agreement for conservative approach and they understand the risks of the procedure and that she will have the TAVR at a later date or during this hospital admission depends on her symptoms, we will consult Psychiatry for depression and possible bipolar disorder. 11/21: Patient remains in intensive care unit, afebrile, heart rate in the 80s, blood pressure 101/58, pulse ox 97% on room air. Patient denies having any chest pain but continues to have anxiety issues. Consult with psychiatry is pending. Patient has been scheduled for CT TAVR protocol for today. Repeat blood work reveals WBC 15, hemoglobin 8.6, platelet count 172. Sodium 134, BUN 41 creatinine 1.2. Blood sugar 149. Total bilirubin 1.4 otherwise liver function tests are normal. Nasal MRSA screen is negative. 11/22: Patient remains in the intensive care unit. Patient underwent CAT scan yesterday for TAVR protoxol and was found to have moderate size right pelvic retroperitoneal hematoma extending into the lower abdomen presumed from attempted right groin catheter insertion. Consult was added for vascular surgery with plan to continue supportive care, no plan for surgical intervention. Heparin was discontinued. Patient was transfused 1 unit of packed RBCs for hemoglobin of 6.9 with repeat hemoglobin of 7.6. Patient has been afebrile, heart rate 70, blood pressure 109/62, pulse ox 97%. panel monitor is sinus rhythm. Patient has also been seen and followed by psychiatry for depression and acute bereavement with the loss of her , recommendations Zoloft 125 mg daily at bedtime. 11/23: Patient remains in the intensive care unit. No signs of bleeding and no worsening hematoma with hemoglobin stable at 7.6. Vascular surgery has cleared patient to resume heparin if needed, continue to monitor for bleeding and daily CBC. Plan is for Dr. Medina will proceed with intervention tomorrow. Patient is also followed by burn crew member, cardiothoracic surgery and psychiatry. 11/24: Patient is status post stent in the RCA today with Dr. Medina. She is seen postprocedure and is comfortable. She denies having any chest pain. Anxiety is controlled. Approach was from the left groin, no bleeding or hem atoma noted. Patient remains afebrile, heart rate in the 80s, blood pressure 92/57, pulse ox 94% on 2 L nasal cannula. Repeat hemoglobin is stable at 7.5, WBC 11.5. Electrolytes are normal, BUN 21 creatinine 0.61. 11/25: Patient remains in the intensive care unit status post stent of the RCA yesterday. Patient has moderate to severe LAD lesion with significant FFR to be addressed at a later time as well asTAVR will be planned for the next 1-2 weeks. No hematoma to the left groin. Patient is waiting for a bed on the cardiac stepdown unit. Vascular surgeries following for retroperitoneal hematoma that does not appear to be actively bleeding, plan for supportive care. Patient remains afebrile heart rate 85, blood pressure 96/54, pulse ox 98% on room air.. BUN 19 and creatinine 0.62. Anticipate that patient will be able to work with PT and OT determine home care versus subacute rehab needs. 11/26: Patient was moved out of the ICU to a telemetry unit, she is in a better spurs, she responded very well to the sertraline 125 mg at bedtime, she is continued to have minimal cough no phlegm production, she is using Flonase and Claritin for postnasal drip, she denies any abdominal pain, she has not had a bowel movement attempted we will start the patient on lactulose 20 g orally twice every day, start the patient on Senokot 2 tablets at bedtime, follow-up with the patient very closely, we'll discuss with cardiology and cardiothoracic surgery team whether the patient would have TAVR next week. 11/27: Patient sitting up in bed that she is feeling better today she continues to have significant constipation, she has not had a bowel movement despite all the medications, physical therapy will see the patient move the patient on, patient will likely be transferred to subacute rehabilitation initially 4 hours if there is no plan to doTAVR this coming week. 11/28: Patient is seen today on the cardiac stepdown unit. She denies having any chest pain at this time but states she had a little bit of pressure in her chest when she was getting back into bed. She also states she has some cramping in her right leg. She did work with physical therapy this morning and the recommendations are subacute rehab. Patient is having prune juice now has started had MiraLAX but no bowel movement. Patient's been afebrile, heart rate in 70s and 80s, blood pressure 103/69, pulse ox 98% on 2 L nasal cannula. Blood work reveals WBC 9.8, hemoglobin 8.1, platelet count 230. Electrolytes are normal. BUN 16 creatinine 0.54. Total bilirubin 1.9. Other liver function tests are normal. Patient is ready for discharge to subacute rehab but we will hold as plan is not in place yet and patient is having ongoing constipation. Plan for discharge to [facility] tomorrow once arrangements are completed. Patient is not appropriate for inpatient rehab. 11/29: Patient states that she started having some nausea last evening. She is still not had a bowel movement. She is taking prune juice and also on lactulose, MiraLAX and Senokot. She is refusing her medications today. Patient is afebrile, heart rate in the 80s, blood pressure 78/44, pulse ox 99 on 2 L nasal cannula. Digoxin level 0.6. Insurance authorization has been obtained for subacute rehab at [facility]. Plan to monitor patient overnight, continue bowel regime and hopefully discharge tomorrow 11/30: She continues to have nausea and constipation. Abdominal x-ray from yesterday revealed fecal impaction. Stool distends the rectum up to 8.2 cm wide. REVIEW OF SYSTEMS Constitutional: No fever, no chills, no night sweats. No weight change. Positive for generalized weakness, positive for fatigue or lethargy. No daytime sleepiness. HEENT: No headache. No blurred vision or double vision, no loss of vision. No loss of Hearing, no ringing in the ears, no dizziness. No nasal drainage or congestion. No epistaxis. No sore throat. Lungs: Positive for shortness of breath, positive for cough, no sputum production. No wheezing. Reports dyspnea on exertion. Cardiovascular: No chest pain, no lower extremity edema. No palpitations. No paroxysmal nocturnal dyspnea. No orthopnea. No lightheadedness or dizziness. No syncopal episodes. Abdominal: No right lower quadrant abdominal pain. No nausea, vomiting. No diarrhea. Reports severe constipation. No bloody or tarry stools. Reports loss of appetite. Genitourinary: No dysuria, increased frequency, urgency. No urinary retention. Musculoskeletal: No myalgias. Generalized muscle weakness, reported gait dysfunction requiring significant assistance, no frequent falls. Positive for back pain. No neck pain. Integumentary: No wounds, no lesions. No rash or pruritus. Positive for bruising. No change in hair or nails. Neurologic: No aphasia. No facial droop. No change in mentation. No head injury. No headache. No paralysis. No paresthesia. Psychiatric: Positive for depression. Reports anxiety. Positive for mood swings Endocrine: No abnormal blood sugars. Positive for weight change. PHYSICAL EXAMINATION Gen: This is a 71-year-old female. HEENT: Head is atraumatic, normocephalic. Pupils equal, round. Sclerae is anicteric. NECK: Supple. No JVD. No lymphadenopathy. No thyromegaly. LUNGS: Decreased breath sounds at the bases, decreased tactile fremitus at the right lower third, few rhonchi, no expiratory wheeze, no chest wall tenderness. No intercostal retractions. HEART: First heart sound is depressed, second heart sound is normal, systolic ejection murmur 3/6 at the right upper sternal border radiating to the base of the neck, systolic ejection murmur 2/6 at the apex rating to the axilla. ABDOMEN: Soft, +tenderness generalized, nondistended, positive bowel sounds, mu ltiple ecchymosis. EXTREMITIES: 1+ pedal edema. No calf tenderness. Dorsalis pedis +1 bilaterally. NEUROLOGICAL: Patient is awake, alert and oriented x3. Cranial nerves 2 through 12 are grossly intact., Cranial nerves II-12 appear grossly intact, muscle power 4 out of 5 in upper and lower extremities bilaterally. ASSESSMENT AND PLAN 1. Non ST elevation myocardial infarction with history of prior dilated cardiomyopathy status post coronary angiography finding right dominant vessel, 99% ostial stenosis, aortic pressure is 100/70, 40 mm gradient across the aortic valve. Left ventricular end diastolic pressure is 2530. Patient was transferred to [facility] for PTCA and stent placement of the RCA which was unsuccessful. Consult with cardiothoracic surgery appreciated. Typo Machine Operator consultation appreciated. Continue aspirin 81 mg daily, PLAVIX 75 MG orally daily, Coreg 6.25 mg twice daily,continue Atorvastatin 40 mg orally daily, now with successful Stent of the RCA with Dr. Medina 11/24. LAD stenosis to be addressed at a later time. 2. Dilated cardiomyopathy. continue patient on carvedilol 3.125 mg orally twice every day, digoxin 125 g daily, we will continue with spironolactone 25 mg orally daily. Digoxin level . 3. Severe aortic valve stenosis with mild aortic regurgitation. TAVR to be scheduled in the near future. 4. Moderate to Severe mitral regurgitation. likely will continue with conservative management no plan for mitral valve repair. 5. Hyperlipidemia. She was started on atorvastatin 40 mg once every day. 6. Obesity with obstructive sleep apnea and obesity hypoventilation syndrome. Patient has not had sleep study done yet. 7. Chronic hypoxic respiratory failure secondary to his Covid 19 and underlying COPD and possible obstructive sleep apnea and hypoventilation syndrome. Patient is normally on 2 L nasal cannula. 8. Acute on chronic systolic heart failure. Off Lasix, continue Coreg, Aldactone 25 mg daily. 9. Hypertension, hypertensive cardiovascular disease. continue carvedilol 3.125 mg orally twice every day patient is not on MELODY-I or ARB due to severe hypertension, 10. Recurrent depression and generalized anxiety disorder. Consult consult with psychiatry appreciated. Patient on Zoloft 125 mg at bedtime 11. DVT prophylaxis. we will continue with Lovenox 40 mg SC daily 12. GI prophylaxis. Protonix 40 mg IV push daily. 13. Acute retroperitoneal hematoma with acute blood loss anemia status post transfusion 1 unit of packed RBCs. Consult with vascular surgery appreciated. No plan for any surgical interventions. Monitor closely for bleeding. 14. Severe constipation. Continue patient on Senokot 2 tablet at bedtime along with lactulose 20 g orally twice every day, MiraLAX 17 g daily, prune juice, and fleets enema.. Full code. DISCHARGE PLAN on Sunday Impression and plan of care have been directed as dictated by the signing physi cian. Marina Barbosa nurse practitioner acting as scribe for signing physician. Patient Condition at Discharge: Stable Plan - Discharge Summary Discharge Rx Participant: Yes New Discharge Prescriptions: No Action Melatonin 3 mg PO HS Digoxin [Lanoxin] 125 mcg PO DAILY Carvedilol [Coreg] 6.25 mg PO BID Ipratropium-Albuterol Nebulize [Duoneb 0.5 mg-3 mg/3 ml Soln] 3 ml INHALATION RT-Q6H PRN PRN Reason: Shortness Of Breath polyethylene glycoL 3350 [Miralax] 17 gm PO DAILY PRN PRN Reason: Constipation Spironolactone [Aldactone] 25 mg PO DAILY Sertraline [Zoloft] 50 mg PO DAILY Pantoprazole Sodium [Protonix] 40 mg PO DAILY Furosemide [Lasix] 40 mg PO BID Discharge Medication List Carvedilol [Coreg] 6.25 mg PO BID 11/17/21 [History] Digoxin [Lanoxin] 125 mcg PO DAILY 11/17/21 [History] Furosemide [Lasix] 40 mg PO BID 11/17/21 [History] Ipratropium-Albuterol Nebulize [Duoneb 0.5 mg-3 mg/3 ml Soln] 3 ml INHALATION RT-Q6H PRN 11/17/21 [History] Melatonin 3 mg PO HS 11/17/21 [History] Pantoprazole Sodium [Protonix] 40 mg PO DAILY 11/17/21 [History] Sertraline [Zoloft] 50 mg PO DAILY 11/17/21 [History] Spironolactone [Aldactone] 25 mg PO DAILY 11/17/21 [History] polyethylene glycoL 3350 [Miralax] 17 gm PO DAILY PRN 11/17/21 [History] Follow up Appointment(s)/Referral(s): Abran Medina DO [STAFF PHYSICIAN] - 1 Week [facility] [NON-STAFF] - 12/06/21 4:30 pm () Mike Mares MD [STAFF PHYSICIAN] - 1 Week
[2021-11-30] MEDS ORDERED: bisacodyL 10 MG SUPP RECTAL STA (13:39)
[2021-11-30] MEDS: SERTRALINE 100 MG TAB PO SCH (20:31)
[2021-11-30] MEDS: ATORVASTATIN 40 MG TAB PO SCH (20:31)
[2021-11-30] MEDS: SERTRALINE 25 MG TAB PO SCH (20:31)
[2021-11-30] MEDS: ACETAMINOPHEN TAB 325 MG TAB PO PRN (23:38)
[2021-12-01] MEDS: ASCORBIC ACID 500 MG TAB PO SCH ×2 (06:27→17:21)
[2021-12-01] MEDS: FERROUS SULFATE 325 MG TAB PO SCH ×2 (06:27→17:21)
[2021-12-01] MEDS: METOCLOPRAMIDE 5 MG/ML 2 ML VIAL IVP SCH ×4 (06:27→23:51)
[2021-12-01] MEDS: SYMBICORT 160-4.5 MCG INHALER INHALATION SCH ×2 (08:31→20:05)
[2021-12-01] MEDS: IPRATROPIUM-ALBUTEROL 3 ML NEB INHALATION SCH ×4 (08:32→20:05)
[2021-12-01] MEDS: polyethylene glycoL 3350 17 GM POWD.PACK PO SCH (08:42)
[2021-12-01] MEDS: PANTOPRAZOLE 40 MG/10 ML VIAL IVP SCH (08:43)
[2021-12-01] MEDS: ENOXAPARIN 40 MG/0.4 ML SYRINGE SQ SCH (08:43)
[2021-12-01] MEDS: LACTULOSE 20 GM/30 ML CUP PO SCH ×2 (08:43→20:44)
[2021-12-01] MEDS: ASPIRIN 81 MG PO SCH (08:44)
[2021-12-01] MEDS: CLOPIDOGREL 75 MG TAB PO SCH (08:44)
[2021-12-01] MEDS: SENNOSIDES-DOCUSATE SODIUM 1 EACH TAB PO SCH ×2 (08:44→20:44)
[2021-12-01] MEDS: DIGOXIN 125 MCG TAB PO SCH (08:44)
[2021-12-01 09:25] LABS: Anisocytosis Slight; HCT 27.9 % (34.0-46.0); HGB 8.2 gm/dL (11.4-16.0); Hypochromasia Marked; MCH 30.6 pg (25.0-35.0); MCHC 29.5 g/dL (31.0-37.0); MCV 103.6 fL (80.0-100.0); Macrocytosis Marked; Mean Platelet Volume 8.1; Platelet Count 218 k/uL (150-450); Poikilocytosis Slight; RBC 2.69 m/uL (3.80-5.40); RDW 19.8 % (11.5-15.5); WBC 7.6 k/uL (3.8-10.6)
[2021-12-01 10:00] LABS: ALT 12 U/L (4-34); AST 26 U/L (14-36); African American GFR (CKD) >90 (>60 ml/min/1.73 sqM); Albumin 2.8 g/dL (3.5-5.0); Alkaline Phosphatase 63 U/L (38-126); Anion Gap 6 mmol/L; Blood Urea Nitrogen 16 mg/dL (7-17); Calcium 8.4 mg/dL (8.4-10.2); Carbon Dioxide 26 mmol/L (22-30); Chloride 107 mmol/L (98-107); Glucose 98 mg/dL (74-99); Magnesium 2.4 mg/dL (1.6-2.3); Non-African American GFR(CKD) >90 (>60 ml/min/1.73 sqM); Potassium 4.7 mmol/L (3.5-5.1); Sodium 139 mmol/L (137-145); Total Protein 5.5 g/dL (6.3-8.2)
[2021-12-01] MEDS: SPIRONOLACTONE 25 MG TAB PO SCH (12:32)
[2021-12-01] MEDS: carvediloL 3.125 MG TAB PO SCH ×3 (12:32→20:44)
--- NOTE | 2021-12-01 13:06 | P.DS ---
Providers Date of admission: 11/17/21 09:14 Expected date of discharge: 12/01/21 Attending physician: Judith Garcia Consults: 11/17/21 14:31 Consult Physician Routine Consulting Provider: Silvia Mayo Consult Reason/Comments: cardiac surgery clearance Do you want consulting provider notified?: Yes Placement Type Exists?: Yes 11/17/21 14:32 Consult Physician Routine Consulting Provider: Savage Rocha Consult Reason/Comments: Pulmonary clearance for cardiac surgery Do you want consulting provider notified?: Yes Placement Type Exists?: Yes 11/17/21 23:03 Consult Physician Routine Consulting Provider: Kahlil Masters Consult Reason/Comments: re: CAD Do you want consulting provider notified?: Already Contacted 11/18/21 13:59 Consult Physician Routine Consulting Provider: [place] Consult Reason/Comments: CAD/ Do you want consulting provider notified?: Already Contacted 11/20/21 12:37 Consult Physician Routine Consulting Provider: Benson Pang Consult Reason/Comments: Psychiatry Do you want consulting provider notified?: Yes 11/22/21 06:00 Consult Physician Routine Consulting Provider: Hu Garza Consult Reason/Comments: retroperitoneal hematoma post heart cath Do you want consulting provider notified?: Yes, Notify in am 11/24/21 10:56 Consult Physician Routine Consulting Provider: [facility] Consult Reason/Comments: Post Interventional patient Do you want consulting provider notified?: Already Contacted 11/29/21 08:59 Consult Physician Routine Consulting Provider: Estevan Pelaez Consult Reason/Comments: IP REHAB Do you want consulting provider notified?: Yes Primary care physician: Judith Garcia Hospital Course: HISTORY OF PRESENT ILLNESS This is a 71-year-old female with past medical history of dilated cardiomyopathy with ejection fraction of 15-20%, severe aortic valve stenosis, mild aortic regurgitation with moderate to severe mitral regurgitation, chronic systolic hea rt failure, hyperlipidemia, obesity with possible obstructive sleep apnea and obesity hypoventilation syndrome, chronic hypoxic respiratory failure on home O2 at 2 L nasal cannula, hypertension hypertensive cardio vascular disease, previous Covid 19 infection. Patient presented to [facility] slight elevation of troponin, EKG showed changes suggestive ischemic changes and was started on aspirin, heparin drip and admitted to the hospital. Patient was seen by cardiology. She was supposed to have a heart catheterization done as an outpatient along with LISA for possible aortic valve replacement and mitral valve and possible CABG. Patient underwent coronary angiography finding right dominant vessel, 99% ostial stenosis, aortic pressure is 100/70, 40 mm gradient across the aortic valve. Left ventricular end diastolic pressure is 2530. Patient was transferred to [facility] for PTCA and stent placement of the RCA which was unsuccessful. Consult with cardiothoracic surgery for CABG and valve repair/replacement. 11/18: Patient is seen today in the intensive care unit. She denies chest pain or shortness of breath. She complains of anxiety and decreased appetite. Less cough today.She has been seen by acquisition cost estimator and cardiothoracic surgery, currently on heparin drip, consult was added for dental evaluation and clearance and panoramic CT. Patient has been afebrile, heart rate in the 80s, blood pressure 101/73, pulse ox 96%. Repeat blood work reveals CBC is unremarkable. Potassium 4.0. Urinalysis negative for infection. Hepatitis panel negative. MRSA nasal screen is in process. CT of the chest revealed cardiomegaly with suspected pulmonary edema and moderate to marked right sided pleural effusion. Associated infection can't be excluded. Echocardiogram reveals EF of 25-30% with mild concentric left ventricular hypertrophy, severe global hypokinesia of the LV, severe aortic stenosis with gradient 78.27 mm a new 3/47.94 mmHg, trace mitral regurgitation, mild mitral stenosis, mild tricuspid regurgitation, mild pulmonary hypertension, RVSP 43.33 mmHg. Carotid ultrasound revealed less than 50% stenosis bilateral carotid systems. /2: Patient is sitting up in bed she underwent CTA of the chest for evaluation of dissection of the right coronary artery, she denies any chest pain at this time, she has no shortness breath, she has no abdominal pain, nausea or vomiting, she continues to have some coughing noted from production, she continues to be somewhat depressed and anxious and she is not sure what to do, she is missing her daughter she stated and she doesn't think her daughter is able to come and see her. /3: Patient is sitting on the bed in no apparent distress, she continues to be quite depressed and anxious about her situation, she has not made up her mind, I had a long conversation with Dr. Medina regarding the plan to pursue the patient care at this time, she was deemed high surgical risk per cardiovascular surgery service at the current [facility], and she would benefit from a transcatheter aortic valve replacement plus reattempted PCI of the RCA, her CT angiography of the chest did not show evidence of any dissection of the thoracic aorta , patient is maintained on Zoloft 100 mg every day, she is mentioned in ICU, and the plan to the PCI hopefully in the next 24 hours patient and her daughter Isatu are in agreement for conservative approach and they understand the risks of the procedure and that she will have the TAVR at a later date or during this hospital admission depends on her symptoms, we will consult Psychiatry for depression and possible bipolar disorder. 11/21: Patient remains in intensive care unit, afebrile, heart rate in the 80s, blood pressure 101/58, pulse ox 97% on room air. Patient denies having any chest pain but continues to have anxiety issues. Consult with psychiatry is pending. Patient has been scheduled for CT TAVR protocol for today. Repeat blood work reveals WBC 15, hemoglobin 8.6, platelet count 172. Sodium 134, BUN 41 creatinine 1.2. Blood sugar 149. Total bilirubin 1.4 otherwise liver function tests are normal. Nasal MRSA screen is negative. 11/22: Patient remains in the intensive care unit. Patient underwent CAT scan yesterday for TAVR protoxol and was found to have moderate size right pelvic retroperitoneal hematoma extending into the lower abdomen presumed from attempted right groin catheter insertion. Consult was added for vascular surgery with plan to continue supportive care, no plan for surgical intervention. Heparin was discontinued. Patient was transfused 1 unit of packed RBCs for hemoglobin of 6.9 with repeat hemoglobin of 7.6. Patient has been afebrile, heart rate 70, blood pressure 109/62, pulse ox 97%. 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 Patient has also been seen and followed by psychiatry for depression and acute bereavement with the loss of her , recommendations Zoloft 125 mg daily at bedtime. 11/23: Patient remains in the intensive care unit. No signs of bleeding and no worsening hematoma with hemoglobin stable at 7.6. Vascular surgery has cleared patient to resume heparin if needed, continue to monitor for bleeding and daily CBC. Plan is for Dr. Medina will proceed with intervention tomorrow. Patient is also followed by acquisition cost estimator, cardiothoracic surgery and psychiatry. 11/24: Patient is status post stent in the RCA today with Dr. Medina. She is seen postprocedure and is comfortable. She denies having any chest pain. Anxiety is controlled. Approach was from the left groin, no bleeding or hem atoma noted. Patient remains afebrile, heart rate in the 80s, blood pressure 92/57, pulse ox 94% on 2 L nasal cannula. Repeat hemoglobin is stable at 7.5, WBC 11.5. Electrolytes are normal, BUN 21 creatinine 0.61. 11/25: Patient remains in the intensive care unit status post stent of the RCA yesterday. Patient has moderate to severe LAD lesion with significant FFR to be addressed at a later time as well asTAVR will be planned for the next 1-2 weeks. No hematoma to the left groin. Patient is waiting for a bed on the cardiac stepdown unit. Vascular surgeries following for retroperitoneal hematoma that does not appear to be actively bleeding, plan for supportive care. Patient remains afebrile heart rate 85, blood pressure 96/54, pulse ox 98% on room air.. BUN 19 and creatinine 0.62. Anticipate that patient will be able to work with PT and OT determine home care versus subacute rehab needs. 11/26: Patient was moved out of the ICU to a telemetry unit, she is in a better spurs, she responded very well to the sertraline 125 mg at bedtime, she is continued to have minimal cough no phlegm production, she is using Flonase and Claritin for postnasal drip, she denies any abdominal pain, she has not had a bowel movement attempted we will start the patient on lactulose 20 g orally twice every day, start the patient on Senokot 2 tablets at bedtime, follow-up with the patient very closely, we'll discuss with cardiology and cardiothoracic surgery team whether the patient would have TAVR next week. 11/27: Patient sitting up in bed that she is feeling better today she continues to have significant constipation, she has not had a bowel movement despite all the medications, physical therapy will see the patient move the patient on, patient will likely be transferred to subacute rehabilitation initially 4 hours if there is no plan to doTAVR this coming week. 11/28: Patient is seen today on the cardiac stepdown unit. She denies having any chest pain at this time but states she had a little bit of pressure in her chest when she was getting back into bed. She also states she has some cramping in her right leg. She did work with physical therapy this morning and the recommendations are subacute rehab. Patient is having prune juice now has started had MiraLAX but no bowel movement. Patient's been afebrile, heart rate in 70s and 80s, blood pressure 103/69, pulse ox 98% on 2 L nasal cannula. Blood work reveals WBC 9.8, hemoglobin 8.1, platelet count 230. Electrolytes are normal. BUN 16 creatinine 0.54. Total bilirubin 1.9. Other liver function tests are normal. Patient is ready for discharge to subacute rehab but we will hold as plan is not in place yet and patient is having ongoing constipation. Plan for discharge to [facility] tomorrow once arrangements are completed. Patient is not appropriate for inpatient rehab. 11/29: Patient states that she started having some nausea last evening. She is still not had a bowel movement. She is taking prune juice and also on lactulose, MiraLAX and Senokot. She is refusing her medications today. Patient is afebrile, heart rate in the 80s, blood pressure 78/44, pulse ox 99 on 2 L nasal cannula. Digoxin level 0.6. Insurance authorization has been obtained for subacute rehab at [facility]. Plan to monitor patient overnight, continue bowel regime and hopefully discharge tomorrow 11/30: She continues to have nausea and constipation. Abdominal x-ray from yesterday revealed fecal impaction. Stool distends the rectum up to 8.2 cm wide. Fleets enema and Dulcolax suppository ordered on top of the other stool r egime.patient denies having any chest pain or shortness of breath. We are waiting for discharge to subacute rehab which most likely will be postponed until tomorrow. 12/01: patient is found today sitting up and recliner and appears to be comfortable. Patient did have a very large bowel movement yesterday and abdominal pain and nausea have resolved. She has worked with physical therapy and still deemed appropriate for subacute rehab. She denies any dizziness or lightheadedness when she was up.blood pressures been on the lower side and medication administration has been staggered to address this. Most recently blood pressure 100/58. WBC 7.6, hemoglobin 8.2. Electrolytes and renal function normal. Magnesium 2.4. Digoxin level 0.6. patient will be discharged to [facility] today in stable condition. DISCHARGE DIAGNOSES 1. Non ST elevation myocardial infarction with history of prior dilated cardiomyopathy status post coronary angiography finding right dominant vessel, 99% ostial stenosis, aortic pressure is 100/70, 40 mm gradient across the aortic valve. Left ventricular end diastolic pressure is 2530. Stent of the RCA with Dr. Medina 11/24. LAD stenosis to be addressed at a later time. 2. Dilated cardiomyopathy. 3. Severe aortic valve stenosis with mild aortic regurgitation. TAVR to be scheduled in the near future. 4. Moderate to Severe mitral regurgitation. 5. Hyperlipidemia. 6. Obesity with obstructive sleep apnea and obesity hypoventilation syndrome. 7. Chronic hypoxic respiratory failure secondary to his Covid 19 and underlying COPD and possible obstructive sleep apnea and hypoventilation syndrome. 8. Acute on chronic systolic heart failure. 9. Hypertension, hypertensive cardiovascular disease. 10. Recurrent depression and generalized anxiety disorder. 11. Acute retroperitoneal hematoma with acute blood loss anemia status post transfusion 1 unit of packed RBCs. 12. Severe constipation with distended rectum. DISCHARGE PLAN [facility] Greater than 35 minutes was utilized and coordinating patient's discharge. Impression and plan of care have been directed as dictated by the signing physician. Marina Barbosa nurse practitioner acting as scribe for signing physician. Patient Condition at Discharge: Stable Plan - Discharge Summary Discharge Rx Participant: Yes New Discharge Prescriptions: New Loratadine [Claritin] 10 mg PO DAILY tab carvediloL [Coreg] 3.125 mg PO BID-W/MEALS tab Atorvastatin [Lipitor] 40 mg PO HS tab Nitroglycerin Sl Tabs [Nitrostat] 0.4 mg SUBLINGUAL Q5M PRN tab PRN Reason: Chest Pain Sennosides-Docusate Sodium [Senokot-S] 2 each PO BID tab Acetaminophen Tab [Tylenol] 650 mg PO Q6HR PRN tab PRN Reason: Fever And/ Or Pain Aspirin 81 mg PO DAILY Lactulose [Cephulac] 20 gm PO BID ml Fluticasone Nasal Adrian [Flonase Nasal Adrian] 2 spray EA NOSTRIL DAILY PRN gm PRN Reason: Allergy Symptoms Ferrous Sulfate [Iron (65 MG Elemental)] 325 mg PO BID-W/MEALS tab Clopidogrel [Plavix] 75 mg PO DAILY tab Budesonide-Formot 160-4.5 Mcg [Symbicort 160-4.5 Mcg Inhaler] 2 puff INHALATION RT-BID gm Ascorbic Acid [Vitamin C] 500 mg PO AC-BID tab Sertraline [Zoloft] 25 mg PO HS tab Sertraline [Zoloft] 100 mg PO HS tab Continue Melatonin 3 mg PO HS Digoxin [Lanoxin] 125 mcg PO DAILY Ipratropium-Albuterol Nebulize [Duoneb 0.5 mg-3 mg/3 ml Soln] 3 ml INHALATION RT-Q6H PRN PRN Reason: Shortness Of Breath polyethylene glycoL 3350 [Miralax] 17 gm PO DAILY PRN PRN Reason: Constipation Spironolactone [Aldactone] 25 mg PO DAILY Pantoprazole Sodium [Protonix] 40 mg PO DAILY Furosemide [Lasix] 40 mg PO BID Discontinued Carvedilol [Coreg] 6.25 mg PO BID Sertraline [Zoloft] 50 mg PO DAILY Discharge Medication List Digoxin [Lanoxin] 125 mcg PO DAILY 11/17/21 [History] Furosemide [Lasix] 40 mg PO BID 11/17/21 [History] Ipratropium-Albuterol Nebulize [Duoneb 0.5 mg-3 mg/3 ml Soln] 3 ml INHALATION RT-Q6H PRN 11/17/21 [History] Melatonin 3 mg PO HS 11/17/21 [History] Pantoprazole Sodium [Protonix] 40 mg PO DAILY 11/17/21 [History] Spironolactone [Aldactone] 25 mg PO DAILY 11/17/21 [History] polyethylene glycoL 3350 [Miralax] 17 gm PO DAILY PRN 11/17/21 [History] Acetaminophen Tab [Tylenol] 650 mg PO Q6HR PRN tab 11/30/21 [Rx] Ascorbic Acid [Vitamin C] 500 mg PO AC-BID tab 11/30/21 [Rx] Aspirin 81 mg PO DAILY 11/30/21 [Rx] Atorvastatin [Lipitor] 40 mg PO HS tab 11/30/21 [Rx] Budesonide-Formot 160-4.5 Mcg [Symbicort 160-4.5 Mcg Inhaler] 2 puff INHALATION RT-BID gm 11/30/21 [Rx] Clopidogrel [Plavix] 75 mg PO DAILY tab 11/30/21 [Rx] Ferrous Sulfate [Iron (65 MG Elemental)] 325 mg PO BID-W/MEALS tab 11/30/21 [Rx] Fluticasone Nasal Adrian [Flonase Nasal Adrian] 2 spray EA NOSTRIL DAILY PRN gm 11/30/21 [Rx] Lactulose [Cephulac] 20 gm PO BID ml 11/30/21 [Rx] Loratadine [Claritin] 10 mg PO DAILY tab 11/30/21 [Rx] Nitroglycerin Sl Tabs [Nitrostat] 0.4 mg SUBLINGUAL Q5M PRN tab 11/30/21 [Rx] Sennosides-Docusate Sodium [Senokot-S] 2 each PO BID tab 11/30/21 [Rx] Sertraline [Zoloft] 25 mg PO HS tab 11/30/21 [Rx] Sertraline [Zoloft] 100 mg PO HS tab 11/30/21 [Rx] carvediloL [Coreg] 3.125 mg PO BID-W/MEALS tab 11/30/21 [Rx] Follow up Appointment(s)/Referral(s): Abran Medina DO [STAFF PHYSICIAN] - 1 Week Clinic,[facility] [NON-STAFF] - 12/06/21 4:30 pm () Mike Mares MD [STAFF PHYSICIAN] - 1 Week Judith Garcia MD [Primary Care Provider] - 1 Week (AT [facility] ) Discharge Disposition: TRANSFER TO SNF/ECF
[2021-12-01] MEDS: ATORVASTATIN 40 MG TAB PO SCH (20:44)
[2021-12-01] MEDS: SERTRALINE 100 MG TAB PO SCH (20:44)
[2021-12-01] MEDS: SERTRALINE 25 MG TAB PO SCH (20:44)
[2021-12-02] MEDS: FERROUS SULFATE 325 MG TAB PO SCH (06:29)
[2021-12-02] MEDS: ASCORBIC ACID 500 MG TAB PO SCH (06:29)
[2021-12-02] MEDS: METOCLOPRAMIDE 5 MG/ML 2 ML VIAL IVP SCH ×2 (06:29→11:55)
[2021-12-02] MEDS: SYMBICORT 160-4.5 MCG INHALER INHALATION SCH (07:24)
[2021-12-02] MEDS: ALBUTEROL HFA INHALER INHALATION SCH ×2 (07:24→11:02)
[2021-12-02] MEDS: LACTULOSE 20 GM/30 ML CUP PO SCH (09:59)
[2021-12-02] MEDS: SPIRONOLACTONE 25 MG TAB PO SCH (10:00)
[2021-12-02] MEDS: ENOXAPARIN 40 MG/0.4 ML SYRINGE SQ SCH (10:00)
[2021-12-02] MEDS: LORATADINE 10 MG TAB PO SCH (10:00)
[2021-12-02] MEDS: CLOPIDOGREL 75 MG TAB PO SCH (10:00)
[2021-12-02] MEDS: ASPIRIN 81 MG PO SCH (10:00)
[2021-12-02] MEDS: SENNOSIDES-DOCUSATE SODIUM 1 EACH TAB PO SCH (10:00)
[2021-12-02] MEDS: DIGOXIN 125 MCG TAB PO SCH (10:00)
[2021-12-02] MEDS: PANTOPRAZOLE 40 MG/10 ML VIAL IVP SCH (10:01)
[2021-12-02] MEDS: polyethylene glycoL 3350 17 GM POWD.PACK PO SCH (10:01)
--- NOTE | 2021-12-02 10:09 | P.PN ---
Subjective Progress Note Date: 12/01/21 HISTORY OF PRESENT ILLNESS This is a 71-year-old female with past medical history of dilated cardiomyopathy with ejection fraction of 15-20%, severe aortic valve stenosis, mild aortic regurgitation with moderate to severe mitral regurgitation, chronic systolic heart failure, hyperlipidemia, obesity with possible obstructive sleep apnea and obesity hypoventilation syndrome, chronic hypoxic respiratory failure on home O2 at 2 L nasal cannula, hypertension hypertensive cardio vascular disease, previous Covid 19 infection. Patient presented to [facility] slight elevation of troponin, EKG showed changes suggestive ischemic changes and was started on aspirin, heparin drip and admitted to the hospital. Patient was seen by cardiology. She was supposed to have a heart catheterization done as an outpatient along with LISA for possible aortic valve replacement and mitral valve and possible CABG. Patient underwent coronary angiography finding right dominant vessel, 99% ostial stenosis, aortic pressure is 100/70, 40 mm gradient across the aortic valve. Left ventricular end diastolic pressure is 2530. Patient was transferred to [facility] for PTCA and stent placement of the RCA which was unsuccessful. Consult with cardiothoracic surgery for CABG and valve repair/replacement. 11/18: Patient is seen today in the intensive care unit. She denies chest pain or shortness of breath. She complains of anxiety and decreased appetite. Less cough today.She has been seen by doughnut fryer and cardiothoracic surgery, currently on heparin drip, consult was added for dental evaluation and clearance and panoramic CT. Patient has been afebrile, heart rate in the 80s, blood pressure 101/73, pulse ox 96%. Repeat blood work reveals CBC is unremarkable. Potassium 4.0. Urinalysis negative for infection. Hepatitis panel negative. MRSA nasal screen is in process. CT of the chest revealed cardiomegaly with suspected pulmonary edema and moderate to marked right sided pleural effusion. Associated infection can't be excluded. Echocardiogram reveals EF of 25-30% with mild concentric left ventricular hypertrophy, severe global hypokinesia of the LV, severe aortic stenosis with gradient 78.27 mm a new 3/47.94 mmHg, trace mitral regurgitation, mild mitral stenosis, mild tricuspid regurgitation, mild pulmonary hypertension, RVSP 43.33 mmHg. Carotid ultrasound revealed less than 50% stenosis bilateral carotid systems. /2: Patient is sitting up in bed she underwent CTA of the chest for evaluation of dissection of the right coronary artery, she denies any chest pain at this time, she has no shortness breath, she has no abdominal pain, nausea or vomiting, she continues to have some coughing noted from production, she continues to be somewhat depressed and anxious and she is not sure what to do, she is missing her daughter she stated and she doesn't think her daughter is able to come and see her. 3: Patient is sitting on the bed in no apparent distress, she continues to be quite depressed and anxious about her situation, she has not made up her mind, I had a long conversation with Dr. Medina regarding the plan to pursue the [facility] care at this time, she was deemed high surgical risk per cardiovascular surgery service at the current [facility], and she would benefit from a transcatheter aortic valve replacement plus reattempted PCI of the RCA, her CT angiography of the chest did not show evidence of any dissection of the thoracic aorta , patient is maintained on Zoloft 100 mg every day, she is mentioned in ICU, and the plan to the PCI hopefully in the next 24 hours patient and her daughter Isatu are in agreement for conservative approach and they understand the risks of the procedure and that she will have the TAVR at a later date or during this hospital admission depends on her symptoms, we will consult Psychiatry for depression and possible bipolar disorder. 11/21: Patient remains in intensive care unit, afebrile, heart rate in the 80s, blood pressure 101/58, pulse ox 97% on room air. Patient denies having any chest pain but continues to have anxiety issues. Consult with psychiatry is pending. Patient has been scheduled for CT TAVR protocol for today. Repeat blood work reveals WBC 15, hemoglobin 8.6, platelet count 172. Sodium 134, BUN 41 creatinine 1.2. Blood sugar 149. Total bilirubin 1.4 otherwise liver function tests are normal. Nasal MRSA screen is negative. 11/22: Patient remains in the intensive care unit. Patient underwent CAT scan yesterday for TAVR protoxol and was found to have moderate size right pelvic retroperitoneal hematoma extending into the lower abdomen presumed from att empted right groin catheter insertion. Consult was added for vascular surgery with plan to continue supportive care, no plan for surgical intervention. Heparin was discontinued. Patient was transfused 1 unit of packed RBCs for hemoglobin of 6.9 with repeat hemoglobin of 7.6. Patient has been afebrile, heart rate 70, blood pressure 109/62, pulse ox 97%. 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 Patient has also been seen and followed by psychiatry for depression and acute bereavement with the loss of her , recommendations Zoloft 125 mg daily at bedtime. 11/23: Patient remains in the intensive care unit. No signs of bleeding and no worsening hematoma with hemoglobin stable at 7.6. Vascular surgery has cleared patient to resume heparin if needed, continue to monitor for bleeding and daily CBC. Plan is for Dr. Medina will proceed with intervention tomorrow. Patient is also followed by doughnut fryer, cardiothoracic surgery and psychiatry. 11/24: Patient is status post stent in the RCA today with Dr. Medina. She is seen postprocedure and is comfortable. She denies having any chest pain. Anxiety is controlled. Approach was from the left groin, no bleeding or hematoma noted. Patient remains afebrile, heart rate in the 80s, blood pressure 92/57, pulse ox 94% on 2 L nasal cannula. Repeat hemoglobin is stable at 7.5, WBC 11.5. Electrolytes are normal, BUN 21 creatinine 0.61. 11/25: Patient remains in the intensive care unit status post stent of the RCA yesterday. Patient has moderate to severe LAD lesion with significant FFR to be addressed at a later time as well asTAVR will be planned for the next 1-2 weeks. No hematoma to the left groin. Patient is waiting for a bed on the cardiac stepdown unit. Vascular surgeries following for retroperitoneal hematoma that does not appear to be actively bleeding, plan for supportive care. Patient remains afebrile heart rate 85, blood pressure 96/54, pulse ox 98% on room air.. BUN 19 and creatinine 0.62. Anticipate that patient will be able to work with PT and OT determine home care versus subacute rehab needs. 11/26: Patient was moved out of the ICU to a telemetry unit, she is in a better spurs, she responded very well to the sertraline 125 mg at bedtime, she is continued to have minimal cough no phlegm production, she is using Flonase and Claritin for postnasal drip, she denies any abdominal pain, she has not had a bowel movement attempted we will start the patient on lactulose 20 g orally twice every day, start the patient on Senokot 2 tablets at bedtime, follow-up with the patient very closely, we'll discuss with cardiology and cardiothoracic surgery team whether the patient would have TAVR next week. 11/27: Patient sitting up in bed that she is feeling better today she continues to have significant constipation, she has not had a bowel movement despite all the medications, physical therapy will see the patient move the patient on, patient will likely be transferred to subacute rehabilitation initially 4 hours if there is no plan to doTAVR this coming week. 11/28: Patient is seen today on the cardiac stepdown unit. She denies having any chest pain at this time but states she had a little bit of pressure in her chest when she was getting back into bed. She also states she has some cramping in her right leg. She did work with physical therapy this morning and the recommendations are subacute rehab. Patient is having prune juice now has started had MiraLAX but no bowel movement. Patient's been afebrile, heart rate in 70s and 80s, blood pressure 103/69, pulse ox 98% on 2 L nasal cannula. Blood work reveals WBC 9.8, hemoglobin 8.1, platelet count 230. Electrolytes are normal. BUN 16 creatinine 0.54. Total bilirubin 1.9. Other liver function tests are normal. Patient is ready for discharge to subacute rehab but we will hold as plan is not in place yet and patient is having ongoing constipation. Plan for discharge to [facility] tomorrow once arrangements are completed. Patient is not appropriate for inpatient rehab. 11/29: Patient states that she started having some nausea last evening. She is still not had a bowel movement. She is taking prune juice and also on lactulo se, MiraLAX and Senokot. She is refusing her medications today. Patient is afebrile, heart rate in the 80s, blood pressure 78/44, pulse ox 99 on 2 L nasal cannula. Digoxin level 0.6. Insurance authorization has been obtained for subacute rehab at [facility]. Plan to monitor patient overnight, continue bowel regime and hopefully discharge tomorrow 11/30: She continues to have nausea and constipation. Abdominal x-ray from yesterday revealed fecal impaction. Stool distends the rectum up to 8.2 cm wide. Dulcolax suppository, fleets enema ordered. Breathing status is stable. Anticipate discharge to [facility] tomorrow. Patient did have large bowel movement yesterday 12/01: patient is found today sitting up and recliner and appears to be comfortable. Patient did have a very large bowel movement yesterday and abdominal pain and nausea have resolved. She has worked with physical therapy a nd still deemed appropriate for subacute rehab. She denies any dizziness or lightheadedness when she was up.blood pressures been on the lower side and medication administration has been staggered to address this. Most recently blood pressure 100/58. WBC 7.6, hemoglobin 8.2. Electrolytes and renal function normal. Magnesium 2.4. Digoxin level 0.6. Patient was prepared for discharge to [facility] however Covid 19 test which was required for the [facility] came back positive and discharge plan needed to be reevaluated. [facility] [place] may take patient. We will hold discharge until discharging plan is completed. REVIEW OF SYSTEMS Constitutional: No fever, no chills, no night sweats. No weight change. Positive for generalized weakness, positive for fatigue or lethargy. No daytime sleepiness. HEENT: No headache. No blurred vision or double vision, no loss of vision. No loss of Hearing, no ringing in the ears, no dizziness. No nasal drainage or congestion. No epistaxis. No sore throat. Lungs: Positive for shortness of breath, positive for cough, no sputum production. No wheezing. Reports dyspnea on exertion. Cardiovascular: No chest pain, no lower extremity edema. No palpitations. No paroxysmal nocturnal dyspnea. No orthopnea. No lightheadedness or dizziness. No syncopal episodes. Abdominal: No right lower quadrant abdominal pain. No nausea, vomiting. No diarrhea. Reports severe constipation has resolved. No bloody or tarry stools. Reports loss of appetite. Genitourinary: No dysuria, increased frequency, urgency. No urinary retention. Musculoskeletal: No myalgias. Generalized muscle weakness, reported gait dysfunction requiring significant assistance, no frequent falls. Positive for back pain. No neck pain. Integumentary: No wounds, no lesions. No rash or pruritus. Positive for bruising. No change in hair or nails. Neurologic: No aphasia. No facial droop. No change in mentation. No head injury. No headache. No paralysis. No paresthesia. Psychiatric: Positive for depression. Reports anxiety. Positive for mood swings Endocrine: No abnormal blood sugars. Positive for weight change. PHYSICAL EXAMINATION Gen: This is a 71-year-old female. HEENT: Head is atraumatic, normocephalic. Pupils equal, round. Sclerae is anicteric. NECK: Supple. No JVD. No lymphadenopathy. No thyromegaly. LUNGS: Decreased breath sounds at the bases, decreased tactile fremitus at the right lower third, few rhonchi, no expiratory wheeze, no chest wall tenderness. No intercostal retractions. HEART: First heart sound is depressed, second heart sound is normal, systolic ejection murmur 3/6 at the right upper sternal border radiating to the base of the neck, systolic ejection murmur 2/6 at the apex rating to the axilla. ABDOMEN: Soft, +tenderness generalized, nondistended, positive bowel sounds, multiple ecchymosis. EXTREMITIES: 1+ pedal edema. No calf tenderness. Dorsalis pedis +1 bilaterally. NEUROLOGICAL: Patient is awake, alert and oriented x3. Cranial nerves 2 through 12 are grossly intact., Cranial nerves II-12 appear grossly intact, muscle power 4 out of 5 in upper and lower extremities bilaterally. ASSESSMENT AND PLAN 1. Non ST elevation myocardial infarction with history of prior dilated cardiomyopathy status post coronary angiography finding right dominant vessel, 99% ostial stenosis, aortic pressure is 100/70, 40 mm gradient across the aortic valve. Left ventricular end diastolic pressure is 2530. Patient was transferred to [facility] for PTCA and stent placement of the RCA which was unsuccessful. Consult with cardiothoracic surgery appreciated. General Production Laborer consultation appreciated. Continue aspirin 81 mg daily, PLAVIX 75 MG orally daily, Coreg 6.25 mg twice daily,continue Atorvastatin 40 mg orally daily, now with successful Stent of the RCA with Dr. Medina 11/24. LAD stenosis to be addressed at a later time. 2. Dilated cardiomyopathy. continue patient on carvedilol 3.125 mg orally twice every day, digoxin 125 g daily, we will continue with spironolactone 25 mg orally daily. Digoxin level . 3. Severe aortic valve stenosis with mild aortic regurgitation. TAVR to be scheduled in the near future. 4. Moderate to Severe mitral regurgitation. likely will continue with conservative management no plan for mitral valve repair. 5. Hyperlipidemia. She was started on atorvastatin 40 mg once every day. 6. Obesity with obstructive sleep apnea and obesity hypoventilation syndrome. Patient has not had sleep study done yet. 7. Chronic hypoxic respiratory failure secondary to his Covid 19 and underlying COPD and possible obstructive sleep apnea and hypoventilation syndrome. Patient is normally on 2 L nasal cannula. 8. Acute on chronic systolic heart failure. Off Lasix, continue Coreg, Aldactone 25 mg daily. 9. Hypertension, hypertensive cardiovascular disease. continue carvedilol 3.125 mg orally twice every day patient is not on MELODY-I or ARB due to severe hypertension, 10. Recurrent depression and generalized anxiety disorder. Consult consult with psychiatry appreciated. Patient on Zoloft 125 mg at bedtime 11. DVT prophylaxis. we will continue with Lovenox 40 mg SC daily 12. GI prophylaxis. Protonix 40 mg IV push daily. 13. Acute retroperitoneal hematoma with acute blood loss anemia status post transfusion 1 unit of packed RBCs. Consult with vascular surgery appreciated. No plan for any surgical interventions. Monitor closely for bleeding. 14. Severe constipation, resolved. Continue patient on Senokot 2 tablet at bedtime along with lactulose 20 g orally twice every day, MiraLAX 17 g daily, prune juice, and fleets enema.. Full code. DISCHARGE PLAN To be determined Impression and plan of care have been directed as dictated by the signing physician. Marina Barbosa nurse practitioner acting as scribe for signing physician. Objective - Vital Signs Vital signs: Vital Signs Temp 98.2 F 12/02/21 09:57 Pulse 86 12/02/21 09:57 Resp 17 12/02/21 09:57 BP 95/50 12/02/21 09:57 Pulse Ox 99 12/02/21 09:57 Intake & Output 12/01/21 12/02/21 12/02/21 18:59 06:59 18:59 Output Total 500 50 Balance -500 -50 Weight 111.9 kg Output: Urine 500 50 Other: Voiding Method Incontinent Incontinent External Catheter External Catheter # Voids 1 ABP, PAP, CO, CI - Last Documented Arterial Blood Pressure 107/66 - Labs CBC & Chem 7: 12/01/21 08:01 12/01/21 08:01 Labs: Abnormal Lab Results - Last 24 Hours (Table) 04/14/22 Range/Units 13:21 Coronavirus (PCR) Detected A (Not Detectd)
--- NOTE | 2021-12-02 10:13 | P.PN ---
Subjective Progress Note Date: 12/02/21 HISTORY OF PRESENT ILLNESS This is a 71-year-old female with past medical history of dilated cardiomyopathy with ejection fraction of 15-20%, severe aortic valve stenosis, mild aortic regurgitation with moderate to severe mitral regurgitation, chronic systolic heart failure, hyperlipidemia, obesity with possible obstructive sleep apnea and obesity hypoventilation syndrome, chronic hypoxic respiratory failure on home O2 at 2 L nasal cannula, hypertension hypertensive cardio vascular disease, previous Covid 19 infection. Patient presented to [facility] slight elevation of troponin, EKG showed changes suggestive ischemic changes and was started on aspirin, heparin drip and admitted to the hospital. Patient was seen by cardiology. She was supposed to have a heart catheterization done as an outpatient along with LISA for possible aortic valve replacement and mitral valve and possible CABG. Patient underwent coronary angiography finding right dominant vessel, 99% ostial stenosis, aortic pressure is 100/70, 40 mm gradient across the aortic valve. Left ventricular end diastolic pressure is 2530. Patient was transferred to [facility] for PTCA and stent placement of the RCA which was unsuccessful. Consult with cardiothoracic surgery for CABG and valve repair/replacement. 11/18: Patient is seen today in the intensive care unit. She denies chest pain or shortness of breath. She complains of anxiety and decreased appetite. Less cough today.She has been seen by quantitative analyst and cardiothoracic surgery, currently on heparin drip, consult was added for dental evaluation and clearance and panoramic CT. Patient has been afebrile, heart rate in the 80s, blood pressure 101/73, pulse ox 96%. Repeat blood work reveals CBC is unremarkable. Potassium 4.0. Urinalysis negative for infection. Hepatitis panel negative. MRSA nasal screen is in process. CT of the chest revealed cardiomegaly with suspected pulmonary edema and moderate to marked right sided pleural effusion. Associated infection can't be excluded. Echocardiogram reveals EF of 25-30% with mild concentric left ventricular hypertrophy, severe global hypokinesia of the LV, severe aortic stenosis with gradient 78.27 mm a new 3/47.94 mmHg, trace mitral regurgitation, mild mitral stenosis, mild tricuspid regurgitation, mild pulmonary hypertension, RVSP 43.33 mmHg. Carotid ultrasound revealed less than 50% stenosis bilateral carotid systems. /2: Patient is sitting up in bed she underwent CTA of the chest for evaluation of dissection of the right coronary artery, she denies any chest pain at this time, she has no shortness breath, she has no abdominal pain, nausea or vomiting, she continues to have some coughing noted from production, she continues to be somewhat depressed and anxious and she is not sure what to do, she is missing her daughter she stated and she doesn't think her daughter is able to come and see her. 3: Patient is sitting on the bed in no apparent distress, she continues to be quite depressed and anxious about her situation, she has not made up her mind, I had a long conversation with Dr. Medina regarding the plan to pursue the [facility] care at this time, she was deemed high surgical risk per cardiovascular surgery service at the current [place], and she would benefit from a transcatheter aortic valve replacement plus reattempted PCI of the RCA, her CT angiography of the chest did not show evidence of any dissection of the thoracic aorta , patient is maintained on Zoloft 100 mg every day, she is mentioned in ICU, and the plan to the PCI hopefully in the next 24 hours patient and her daughter Isatu are in agreement for conservative approach and they understand the risks of the procedure and that she will have the TAVR at a later date or during this hospital admission depends on her symptoms, we will consult Psychiatry for depression and possible bipolar disorder. 11/21: Patient remains in intensive care unit, afebrile, heart rate in the 80s, blood pressure 101/58, pulse ox 97% on room air. Patient denies having any chest pain but continues to have anxiety issues. Consult with psychiatry is pending. Patient has been scheduled for CT TAVR protocol for today. Repeat blood work reveals WBC 15, hemoglobin 8.6, platelet count 172. Sodium 134, BUN 41 creatinine 1.2. Blood sugar 149. Total bilirubin 1.4 otherwise liver function tests are normal. Nasal MRSA screen is negative. 11/22: Patient remains in the intensive care unit. Patient underwent CAT scan yesterday for TAVR protoxol and was found to have moderate size right pelvic retroperitoneal hematoma extending into the lower abdomen presumed from att empted right groin catheter insertion. Consult was added for vascular surgery with plan to continue supportive care, no plan for surgical intervention. Heparin was discontinued. Patient was transfused 1 unit of packed RBCs for hemoglobin of 6.9 with repeat hemoglobin of 7.6. Patient has been afebrile, heart rate 70, blood pressure 109/62, pulse ox 97%. monitoring engineer is sinus rhythm. Patient has also been seen and followed by psychiatry for depression and acute bereavement with the loss of her , recommendations Zoloft 125 mg daily at bedtime. 11/23: Patient remains in the intensive care unit. No signs of bleeding and no worsening hematoma with hemoglobin stable at 7.6. Vascular surgery has cleared patient to resume heparin if needed, continue to monitor for bleeding and daily CBC. Plan is for Dr. Medina will proceed with intervention tomorrow. Patient is also followed by quantitative analyst, cardiothoracic surgery and psychiatry. 11/24: Patient is status post stent in the RCA today with Dr. Medina. She is seen postprocedure and is comfortable. She denies having any chest pain. Anxiety is controlled. Approach was from the left groin, no bleeding or hematoma noted. Patient remains afebrile, heart rate in the 80s, blood pressure 92/57, pulse ox 94% on 2 L nasal cannula. Repeat hemoglobin is stable at 7.5, WBC 11.5. Electrolytes are normal, BUN 21 creatinine 0.61. 11/25: Patient remains in the intensive care unit status post stent of the RCA yesterday. Patient has moderate to severe LAD lesion with significant FFR to be addressed at a later time as well asTAVR will be planned for the next 1-2 weeks. No hematoma to the left groin. Patient is waiting for a bed on the cardiac stepdown unit. Vascular surgeries following for retroperitoneal hematoma that does not appear to be actively bleeding, plan for supportive care. Patient remains afebrile heart rate 85, blood pressure 96/54, pulse ox 98% on room air.. BUN 19 and creatinine 0.62. Anticipate that patient will be able to work with PT and OT determine home care versus subacute rehab needs. 11/26: Patient was moved out of the ICU to a telemetry unit, she is in a better spurs, she responded very well to the sertraline 125 mg at bedtime, she is continued to have minimal cough no phlegm production, she is using Flonase and Claritin for postnasal drip, she denies any abdominal pain, she has not had a bowel movement attempted we will start the patient on lactulose 20 g orally twice every day, start the patient on Senokot 2 tablets at bedtime, follow-up with the patient very closely, we'll discuss with cardiology and cardiothoracic surgery team whether the patient would have TAVR next week. 11/27: Patient sitting up in bed that she is feeling better today she continues to have significant constipation, she has not had a bowel movement despite all the medications, physical therapy will see the patient move the patient on, patient will likely be transferred to subacute rehabilitation initially 4 hours if there is no plan to doTAVR this coming week. 11/28: Patient is seen today on the cardiac stepdown unit. She denies having any chest pain at this time but states she had a little bit of pressure in her chest when she was getting back into bed. She also states she has some cramping in her right leg. She did work with physical therapy this morning and the recommendations are subacute rehab. Patient is having prune juice now has started had MiraLAX but no bowel movement. Patient's been afebrile, heart rate in 70s and 80s, blood pressure 103/69, pulse ox 98% on 2 L nasal cannula. Blood work reveals WBC 9.8, hemoglobin 8.1, platelet count 230. Electrolytes are normal. BUN 16 creatinine 0.54. Total bilirubin 1.9. Other liver function tests are normal. Patient is ready for discharge to subacute rehab but we will hold as plan is not in place yet and patient is having ongoing constipation. Plan for discharge to [facility] tomorrow once arrangements are completed. Patient is not appropriate for inpatient rehab. 11/29: Patient states that she started having some nausea last evening. She is still not had a bowel movement. She is taking prune juice and also on lactulo se, MiraLAX and Senokot. She is refusing her medications today. Patient is afebrile, heart rate in the 80s, blood pressure 78/44, pulse ox 99 on 2 L nasal cannula. Digoxin level 0.6. Insurance authorization has been obtained for subacute rehab at [facility]. Plan to monitor patient overnight, continue bowel regime and hopefully discharge tomorrow 11/30: She continues to have nausea and constipation. Abdominal x-ray from yesterday revealed fecal impaction. Stool distends the rectum up to 8.2 cm wide. Dulcolax suppository, fleets enema ordered. Breathing status is stable. Anticipate discharge to [facility] tomorrow. Patient did have large bowel movement yesterday 12/01: patient is found today sitting up and recliner and appears to be comfortable. Patient did have a very large bowel movement yesterday and abdominal pain and nausea have resolved. She has worked with physical therapy a nd still deemed appropriate for subacute rehab. She denies any dizziness or lightheadedness when she was up.blood pressures been on the lower side and medication administration has been staggered to address this. Most recently blood pressure 100/58. WBC 7.6, hemoglobin 8.2. Electrolytes and renal function normal. Magnesium 2.4. Digoxin level 0.6. Patient was prepared for discharge to [facility] however Covid 19 test which was required for the senior care came back positive and discharge plan needed to be reevaluated. [facility] [place] may take patient. We will hold discharge until discharging plan is completed. 12/02: Patient is stating that she is feeling down and depressed because of the current circumstances and now being positive for Covid 19. She has had it in the past. Her breathing is stable and she has no symptoms due to Covid. She has not had a repeat bowel movement but she is on a bowel regime. She is agreea ble to go to [facility]. Patient has been afebrile, heart rate 86, blood pressure 95/50, pulse ox 99% on 1 L nasal cannula. Patient will be discharged once arrangements are completed. REVIEW OF SYSTEMS Constitutional: No fever, no chills, no night sweats. No weight change. Positive for generalized weakness, positive for fatigue or lethargy. No daytime sleepiness. HEENT: No headache. No blurred vision or double vision, no loss of vision. No loss of Hearing, no ringing in the ears, no dizziness. No nasal drainage or congestion. No epistaxis. No sore throat. Lungs: Positive for shortness of breath, positive for cough, no sputum production. No wheezing. Reports dyspnea on exertion. Cardiovascular: No chest pain, no lower extremity edema. No palpitations. No paroxysmal nocturnal dyspnea. No orthopnea. No lightheadedness or dizziness. No syncopal episodes. Abdominal: No right lower quadrant abdominal pain. No nausea, vomiting. No diarrhea. Reports severe constipation has resolved. No bloody or tarry stools. Reports loss of appetite. Genitourinary: No dysuria, increased frequency, urgency. No urinary retention. Musculoskeletal: No myalgias. Generalized muscle weakness, reported gait dysfunction requiring significant assistance, no frequent falls. Positive for back pain. No neck pain. Integumentary: No wounds, no lesions. No rash or pruritus. Positive for bruising. No change in hair or nails. Neurologic: No aphasia. No facial droop. No change in mentation. No head injury. No headache. No paralysis. No paresthesia. Psychiatric: Positive for depression. Reports anxiety. Positive for mood swings Endocrine: No abnormal blood sugars. Positive for weight change. PHYSICAL EXAMINATION Gen: This is a 71-year-old female. HEENT: Head is atraumatic, normocephalic. Pupils equal, round. Sclerae is anicteric. NECK: Supple. No JVD. No lymphadenopathy. No thyromegaly. LUNGS: Decreased breath sounds at the bases, decreased tactile fremitus at the right lower third, few rhonchi, no expiratory wheeze, no chest wall tenderness. No intercostal retractions. HEART: First heart sound is depressed, second heart sound is normal, systolic ejection murmur 3/6 at the right upper sternal border radiating to the base of the neck, systolic ejection murmur 2/6 at the apex rating to the axilla. ABDOMEN: Soft, +tenderness generalized, nondistended, positive bowel sounds, multiple ecchymosis. EXTREMITIES: 1+ pedal edema. No calf tenderness. Dorsalis pedis +1 bilaterally. NEUROLOGICAL: Patient is awake, alert and oriented x3. Cranial nerves 2 through 12 are grossly intact., Cranial nerves II-12 appear grossly intact, muscle power 4 out of 5 in upper and lower extremities bilaterally. ASSESSMENT AND PLAN 1. Non ST elevation myocardial infarction with history of prior dilated cardiomyopathy status post coronary angiography finding right dominant vessel, 9 9% ostial stenosis, aortic pressure is 100/70, 40 mm gradient across the aortic valve. Left ventricular end diastolic pressure is 2530. Patient was transferred to [facility] for PTCA and stent placement of the RCA which was unsuccessful. Consult with cardiothoracic surgery appreciated. Supervisor Building Maintenance consultation appreciated. Continue aspirin 81 mg daily, PLAVIX 75 MG orally daily, Coreg 6.25 mg twice daily,continue Atorvastatin 40 mg orally daily, now with successful Stent of the RCA with Dr. Medina 11/24. LAD stenosis to be addressed at a later time. 2. Dilated cardiomyopathy. continue patient on carvedilol 3.125 mg orally twice every day, digoxin 125 g daily, we will continue with spironolactone 25 mg orally daily. Digoxin level . 3. Severe aortic valve stenosis with mild aortic regurgitation. TAVR to be scheduled in the near future. 4. Moderate to Severe mitral regurgitation. likely will continue with conservative management no plan for mitral valve repair. 5. Hyperlipidemia. She was started on atorvastatin 40 mg once every day. 6. Obesity with obstructive sleep apnea and obesity hypoventilation syndrome. Patient has not had sleep study done yet. 7. Chronic hypoxic respiratory failure secondary to his Covid 19 and underlying COPD and possible obstructive sleep apnea and hypoventilation syndrome. Patient is normally on 2 L nasal cannula. 8. Acute on chronic systolic heart failure. Off Lasix, continue Coreg, Aldactone 25 mg daily. 9. Hypertension, hypertensive cardiovascular disease. continue carvedilol 3.125 mg orally twice every day patient is not on MELODY-I or ARB due to severe hypertension, 10. Recurrent depression and generalized anxiety disorder. Consult consult with psychiatry appreciated. Patient on Zoloft 125 mg at bedtime 11. DVT prophylaxis. we will continue with Lovenox 40 mg SC daily 12. GI prophylaxis. Protonix 40 mg IV push daily. 13. Acute retroperitoneal hematoma with acute blood loss anemia status post transfusion 1 unit of packed RBCs. Consult with vascular surgery appreciated. No plan for any surgical interventions. Monitor closely for bleeding. 14. Severe constipation, resolved. Continue patient on Senokot 2 tablet at bedtime along with lactulose 20 g orally twice every day, MiraLAX 17 g daily, prune juice, and fleets enema.. Full code. DISCHARGE PLAN To be determined Impression and plan of care have been directed as dictated by the signing physician. Marina Barbosa nurse practitioner acting as scribe for signing physician. Objective - Vital Signs Vital signs: Vital Signs Temp 98.2 F 12/02/21 09:57 Pulse 86 12/02/21 09:57 Resp 17 12/02/21 09:57 BP 95/50 12/02/21 09:57 Pulse Ox 99 12/02/21 09:57 Intake & Output 12/01/21 12/02/21 12/02/21 18:59 06:59 18:59 Output Total 500 50 Balance -500 -50 Weight 111.9 kg Output: Urine 500 50 Other: Voiding Method Incontinent Incontinent External Catheter External Catheter # Voids 1 ABP, PAP, CO, CI - Last Documented Arterial Blood Pressure 107/66 - Labs CBC & Chem 7: 12/01/21 08:01 12/01/21 08:01 Labs: Abnormal Lab Results - Last 24 Hours (Table) 12/01/21 Range/Units 13:21 Coronavirus (PCR) Detected A (Not Detectd)
--- NOTE | 2021-12-02 10:16 | P.DS ---
Providers Date of admission: 11/17/21 09:14 Expected date of discharge: 12/02/21 Attending physician: Judith Garcia Consults: 11/17/21 14:31 Consult Physician Routine Consulting Provider: Silvia Mayo Consult Reason/Comments: cardiac surgery clearance Do you want consulting provider notified?: Yes Placement Type Exists?: Yes 11/17/21 14:32 Consult Physician Routine Consulting Provider: Savage Rocha Consult Reason/Comments: Pulmonary clearance for cardiac surgery Do you want consulting provider notified?: Yes Placement Type Exists?: Yes 11/17/21 23:03 Consult Physician Routine Consulting Provider: Kahlil Masters Consult Reason/Comments: re: CAD Do you want consulting provider notified?: Already Contacted 11/18/21 13:59 Consult Physician Routine Consulting Provider: [place] Consult Reason/Comments: CAD/ Do you want consulting provider notified?: Already Contacted 11/20/21 12:37 Consult Physician Routine Consulting Provider: Benson Pang Consult Reason/Comments: Psychiatry Do you want consulting provider notified?: Yes 11/24/21 10:56 Consult Physician Routine Consulting Provider: [facility] Consult Reason/Comments: Post Interventional patient Do you want consulting provider notified?: Already Contacted 11/29/21 08:59 Consult Physician Routine Consulting Provider: Estevan Pelaez Consult Reason/Comments: IP REHAB Do you want consulting provider notified?: Yes Primary care physician: Judith Garcia Hospital Course: HISTORY OF PRESENT ILLNESS This is a 71-year-old female with past medical history of dilated cardiomyopathy with ejection fraction of 15-20%, severe aortic valve stenosis, mild aortic regurgitation with moderate to severe mitral regurgitation, chronic systolic heart failure, hyperlipidemia, obesity with possible obstructive sleep apnea and obesity hypoventilation syndrome, chronic hypoxic respiratory failure on home O2 at 2 L nasal cannula, hypertension hypertensive cardio vascular disease, previous Covid 19 infection. Patient presented to [facility] slight elevation of troponin, EKG showed changes suggestive ischemic changes and was started on aspirin, heparin drip and admitted to the hospital. Patient was seen by cardiology. She was supposed to have a heart catheterization done as an outpatient along with LISA for possible aortic valve replacement and mitral valve and possible CABG. Patient underwent coronary angiography finding right dominant vessel, 99% ostial stenosis, aortic pressure is 100/70, 40 mm gradient across the aortic valve. Left ventricular end diastolic pressure is 2530. Patient was transferred to [facility] for PTCA and stent placement of the RCA which was unsuccessful. Consult with cardiothoracic surgery for CABG and valve repair/replacement. 11/18: Patient is seen today in the intensive care unit. She denies chest pain or shortness of breath. She complains of anxiety and decreased appetite. Less cough today.She has been seen by sewer bricklayer and cardiothoracic surgery, currently on heparin drip, consult was added for dental evaluation and clearance and panoramic CT. Patient has been afebrile, heart rate in the 80s, blood pressure 101/73, pulse ox 96%. Repeat blood work reveals CBC is unremarkable. Potassium 4.0. Urinalysis negative for infection. Hepatitis panel negative. MRSA nasal screen is in process. CT of the chest revealed cardiomegaly with suspected pulmonary edema and moderate to marked right sided pleural effusion. Associated infection can't be excluded. Echocardiogram reveals EF of 25-30% with mild concentric left ventricular hypertrophy, severe global hypokinesia of the LV, severe aortic stenosis with gradient 78.27 mm a new 3/47.94 mmHg, trace mitral regurgitation, mild mitral stenosis, mild tricuspid regurgitation, mild pulmonary hypertension, RVSP 43.33 mmHg. Carotid ultrasound revealed less than 50% stenosis bilateral carotid systems. 11/19: Patient is sitting up in bed she underwent CTA of the chest for evaluation of dissection of the right coronary artery, she denies any chest pain at this time, she has no shortness breath, she has no abdominal pain, nausea or vomiting, she continues to have some coughing noted from production, she continues to be somewhat depressed and anxious and she is not sure what to do, she is missing her daughter she stated and she doesn't think her daughter is able to come and see her. 3: Patient is sitting on the bed in no apparent distress, she continues to be quite depressed and anxious about her situation, she has not made up her mind, I had a long conversation with Dr. Medina regarding the plan to pursue the patient care at this time, she was deemed high surgical risk per cardiovascular surgery service at the current [facility], and she would benefit from a transcatheter aortic valve replacement plus reattempted PCI of the RCA, her CT angiography of the chest did not show evidence of any dissection of the thoracic aorta , patient is maintained on Zoloft 100 mg every day, she is mentioned in ICU, and the plan to the PCI hopefully in the next 24 hours patient and her daughter Isatu are in agreement for conservative approach and they understand the risks of the procedure and that she will have the TAVR at a later date or during this hospital admission depends on her symptoms, we will consult Psychiatry for depression and possible bipolar disorder. 11/21: Patient remains in intensive care unit, afebrile, heart rate in the 80s, blood pressure 101/58, pulse ox 97% on room air. Patient denies having any chest pain but continues to have anxiety issues. Consult with psychiatry is pending. Patient has been scheduled for CT TAVR protocol for today. Repeat blood work reveals WBC 15, hemoglobin 8.6, platelet count 172. Sodium 134, BUN 41 creatinine 1.2. Blood sugar 149. Total bilirubin 1.4 otherwise liver function tests are normal. Nasal MRSA screen is negative. 11/22: Patient remains in the intensive care unit. Patient underwent CAT scan yesterday for TAVR protoxol and was found to have moderate size right pelvic retroperitoneal hematoma extending into the lower abdomen presumed from attempted right groin catheter insertion. Consult was added for vascular surgery with plan to continue supportive care, no plan for surgical intervention. Heparin was discontinued. Patient was transfused 1 unit of packed RBCs for hemoglobin of 6.9 with repeat hemoglobin of 7.6. Patient has been afebrile, heart rate 70, blood pressure 109/62, pulse ox 97%. quality assurance monitor final is sinus rhythm. Patient has also been seen and followed by psychiatry for depression and acute bereavement with the loss of her , recommendations Zoloft 125 mg daily at bedtime. 11/23: Patient remains in the intensive care unit. No signs of bleeding and no worsening hematoma with hemoglobin stable at 7.6. Vascular surgery has cleared patient to resume heparin if needed, continue to monitor for bleeding and daily CBC. Plan is for Dr. Medina will proceed with intervention tomorrow. Patient is also followed by sewer bricklayer, cardiothoracic surgery and psychiatry. 11/24: Patient is status post stent in the RCA today with Dr. Medina. She is seen postprocedure and is comfortable. She denies having any chest pain. Anxiety is controlled. Approach was from the left groin, no bleeding or hematoma noted. Patient remains afebrile, heart rate in the 80s, blood pressure 92/57, pulse ox 94% on 2 L nasal cannula. Repeat hemoglobin is stable at 7.5, WBC 11.5. Electrolytes are normal, BUN 21 creatinine 0.61. 11/25: Patient remains in the intensive care unit status post stent of the RCA yesterday. Patient has moderate to severe LAD lesion with significant FFR to be addressed at a later time as well asTAVR will be planned for the next 1-2 weeks. No hematoma to the left groin. Patient is waiting for a bed on the cardiac stepdown unit. Vascular surgeries following for retroperitoneal hematoma that does not appear to be actively bleeding, plan for supportive care. Patient remains afebrile heart rate 85, blood pressure 96/54, pulse ox 98% on room air.. BUN 19 and creatinine 0.62. Anticipate that patient will be able to work with PT and OT determine home care versus subacute rehab needs. 11/26: Patient was moved out of the ICU to a telemetry unit, she is in a better spurs, she responded very well to the sertraline 125 mg at bedtime, she is continued to have minimal cough no phlegm production, she is using Flonase and Claritin for postnasal drip, she denies any abdominal pain, she has not had a bowel movement attempted we will start the patient on lactulose 20 g orally twice every day, start the patient on Senokot 2 tablets at bedtime, follow-up with the patient very closely, we'll discuss with cardiology and cardiothoracic surgery team whether the patient would have TAVR next week. 11/27: Patient sitting up in bed that she is feeling better today she continues to have significant constipation, she has not had a bowel movement despite all the medications, physical therapy will see the patient move the patient on, patient will likely be transferred to subacute rehabilitation initially 4 hours if there is no plan to doTAVR this coming week. 11/28: Patient is seen today on the cardiac stepdown unit. She denies having any chest pain at this time but states she had a little bit of pressure in her chest when she was getting back into bed. She also states she has some cramping in her right leg. She did work with physical therapy this morning and the recommendations are subacute rehab. Patient is having prune juice now has started had MiraLAX but no bowel movement. Patient's been afebrile, heart rate in 70s and 80s, blood pressure 103/69, pulse ox 98% on 2 L nasal cannula. Blood work reveals WBC 9.8, hemoglobin 8.1, platelet count 230. Electrolytes are normal. BUN 16 creatinine 0.54. Total bilirubin 1.9. Other liver function tests are normal. Patient is ready for discharge to subacute rehab but we will hold as plan is not in place yet and patient is having ongoing constipation. Plan for discharge to [facility] tomorrow once arrangements are completed. Patient is not appropriate for inpatient rehab. 11/29: Patient states that she started having some nausea last evening. She is still not had a bowel movement. She is taking prune juice and also on lactulose, MiraLAX and Senokot. She is refusing her medications today. Patient is afebrile, heart rate in the 80s, blood pressure 78/44, pulse ox 99 on 2 L nasal cannula. Digoxin level 0.6. Insurance authorization has been obtained for subacute rehab at [facility]. Plan to monitor patient overnight, continue bowel regime and hopefully discharge tomorrow 11/30: She continues to have nausea and constipation. Abdominal x-ray from yesterday revealed fecal impaction. Stool distends the rectum up to 8.2 cm wide. Fleets enema and Dulcolax suppository ordered on top of the other stool regime.patient denies having any chest pain or shortness of breath. We are waiting for discharge to subacute rehab which most likely will be postponed until tomorrow. 12/01: patient is found today sitting up and recliner and appears to be comfortable. Patient did have a very large bowel movement yesterday and abdominal pain and nausea have resolved. She has worked with physical therapy and still deemed appropriate for subacute rehab. She denies any dizziness or lightheadedness when she was up.blood pressures been on the lower side and medication administration has been staggered to address this. Most recently blood pressure 100/58. WBC 7.6, hemoglobin 8.2. Electrolytes and renal function normal. Magnesium 2.4. Digoxin level 0.6. patient will be discharged to [facility] today in stable condition. 12/02: Patient is stating that she is feeling down and depressed because of the current circumstances and now being positive for Covid 19. She has had it in the past. Her breathing is stable and she has no symptoms due to Covid. She has not had a repeat bowel movement but she is on a bowel regime. She is agreeable to go to [facility]. Patient has been afebrile, heart rate 86, blood pressure 95/50, pulse ox 99% on 1 L nasal cannula. Patient will be discharged once arrangements are completed. DISCHARGE DIAGNOSES 1. Non ST elevation myocardial infarction with history of prior dilated cardiomyopathy status post coronary angiography finding right dominant vessel, 99% ostial stenosis, aortic pressure is 100/70, 40 mm gradient across the aortic valve. Left ventricular end diastolic pressure is 2530. Stent of the RCA with Dr. Medina 11/24. LAD stenosis to be addressed at a later time. 2. Dilated cardiomyopathy. 3. Severe aortic valve stenosis with mild aortic regurgitation. TAVR to be scheduled in the near future. 4. Moderate to Severe mitral regurgitation. 5. Hyperlipidemia. 6. Obesity with obstructive sleep apnea and obesity hypoventilation syndrome. 7. Chronic hypoxic respiratory failure secondary to his Covid 19 and underlying COPD and possible obstructive sleep apnea and hypoventilation syndrome. 8. Acute on chronic systolic heart failure. 9. Hypertension, hypertensive cardiovascular disease. 10. Recurrent depression and generalized anxiety disorder. 11. Acute retroperitoneal hematoma with acute blood loss anemia status post transfusion 1 unit of packed RBCs. 12. Severe constipation with distended rectum. DISCHARGE PLAN TBD Greater than 35 minutes was utilized and coordinating patient's discharge. Impression and plan of care have been directed as dictated by the signing physician. Marina Barbosa nurse practitioner acting as scribe for signing physician. Patient Condition at Discharge: Stable Plan - Discharge Summary Discharge Rx Participant: Yes New Discharge Prescriptions: New Loratadine [Claritin] 10 mg PO DAILY tab carvediloL [Coreg] 3.125 mg PO BID-W/MEALS tab Atorvastatin [Lipitor] 40 mg PO HS tab Nitroglycerin Sl Tabs [Nitrostat] 0.4 mg SUBLINGUAL Q5M PRN tab PRN Reason: Chest Pain Sennosides-Docusate Sodium [Senokot-S] 2 each PO BID tab Acetaminophen Tab [Tylenol] 650 mg PO Q6HR PRN tab PRN Reason: Fever And/ Or Pain Aspirin 81 mg PO DAILY Lactulose [Cephulac] 20 gm PO BID ml Fluticasone Nasal [place] [Flonase Nasal [place]] 2 spray EA NOSTRIL DAILY PRN gm PRN Reason: Allergy Symptoms Ferrous Sulfate [Iron (65 MG Elemental)] 325 mg PO BID-W/MEALS tab Clopidogrel [Plavix] 75 mg PO DAILY tab Budesonide-Formot 160-4.5 Mcg [Symbicort 160-4.5 Mcg Inhaler] 2 puff INHALATION RT-BID gm Ascorbic Acid [Vitamin C] 500 mg PO AC-BID tab Sertraline [Zoloft] 25 mg PO HS tab Sertraline [Zoloft] 100 mg PO HS tab Continue Melatonin 3 mg PO HS Digoxin [Lanoxin] 125 mcg PO DAILY Ipratropium-Albuterol Nebulize [Duoneb 0.5 mg-3 mg/3 ml Soln] 3 ml INHALATION RT-Q6H PRN PRN Reason: Shortness Of Breath polyethylene glycoL 3350 [Miralax] 17 gm PO DAILY PRN PRN Reason: Constipation Spironolactone [Aldactone] 25 mg PO DAILY Pantoprazole Sodium [Protonix] 40 mg PO DAILY Furosemide [Lasix] 40 mg PO BID Discontinued Carvedilol [Coreg] 6.25 mg PO BID Sertraline [Zoloft] 50 mg PO DAILY Discharge Medication List Digoxin [Lanoxin] 125 mcg PO DAILY 11/17/21 [History] Furosemide [Lasix] 40 mg PO BID 11/17/21 [History] Ipratropium-Albuterol Nebulize [Duoneb 0.5 mg-3 mg/3 ml Soln] 3 ml INHALATION RT-Q6H PRN 11/17/21 [History] Melatonin 3 mg PO HS 11/17/21 [History] Pantoprazole Sodium [Protonix] 40 mg PO DAILY 11/17/21 [History] Spironolactone [Aldactone] 25 mg PO DAILY 11/17/21 [History] polyethylene glycoL 3350 [Miralax] 17 gm PO DAILY PRN 11/17/21 [History] Acetaminophen Tab [Tylenol] 650 mg PO Q6HR PRN tab 11/30/21 [Rx] Ascorbic Acid [Vitamin C] 500 mg PO AC-BID tab 11/30/21 [Rx] Aspirin 81 mg PO DAILY 11/30/21 [Rx] Atorvastatin [Lipitor] 40 mg PO HS tab 11/30/21 [Rx] Budesonide-Formot 160-4.5 Mcg [Symbicort 160-4.5 Mcg Inhaler] 2 puff INHALATION RT-BID gm 11/30/21 [Rx] Clopidogrel [Plavix] 75 mg PO DAILY tab 11/30/21 [Rx] Ferrous Sulfate [Iron (65 MG Elemental)] 325 mg PO BID-W/MEALS tab 11/30/21 [Rx] Fluticasone Nasal [place] [Flonase Nasal [place]] 2 spray EA NOSTRIL DAILY PRN gm 11/30/21 [Rx] Lactulose [Cephulac] 20 gm PO BID ml 11/30/21 [Rx] Loratadine [Claritin] 10 mg PO DAILY tab 11/30/21 [Rx] Nitroglycerin Sl Tabs [Nitrostat] 0.4 mg SUBLINGUAL Q5M PRN tab 11/30/21 [Rx] Sennosides-Docusate Sodium [Senokot-S] 2 each PO BID tab 11/30/21 [Rx] Sertraline [Zoloft] 25 mg PO HS tab 11/30/21 [Rx] Sertraline [Zoloft] 100 mg PO HS tab 11/30/21 [Rx] carvediloL [Coreg] 3.125 mg PO BID-W/MEALS tab 11/30/21 [Rx] Follow up Appointment(s)/Referral(s): Judith Garcia MD [Primary Care Provider] - 1 Week (AT [facility] ) Abran Medina DO [STAFF PHYSICIAN] - 1 Week Clinic,Structural Heart [NON-STAFF] - 12/06/21 4:30 pm () Mike Mares MD [STAFF PHYSICIAN] - 1 Week Discharge Disposition: TRANSFER TO SNF/ECF
[2021-12-02] MEDS: carvediloL 3.125 MG TAB PO SCH (11:49)
[2021-12-02 11:50] VITALS: BP 106/60; PULSE 90; RESP 18; TEMP 98
[2021-12-02] MEDS ORDERED: ARTIFICIAL TEARS-HYPROMELLOSE DROPS 15 ML BTL BOTH EYES PRN (11:50)
== END 2021-12-02 15:05 | DRG 246 ==
LOC: 3SCARD 09:14 → 2SICU 12:59 → 3SCARD 11-25 21:44
PROVIDERS: ADMIT Internal Medicine; ATTEND Internal Medicine
PROC: 30233N1 Transfusion of Nonautologous Red Blood Cells into Peripheral Vein, Percutaneous Approach (ICD-10-PCS; 2021-11-17)
PROC: B2111ZZ Fluoroscopy of Multiple Coronary Arteries using Low Osmolar Contrast (ICD-10-PCS; 2021-11-24)
PROC: 4A033BC Measurement of Arterial Pressure, Coronary, Percutaneous Approach (ICD-10-PCS; 2021-11-24)
PROC: 027034Z Dilation of Coronary Artery, One Artery with Drug-eluting Intraluminal Device, Percutaneous Approach (ICD-10-PCS; principal; 2021-11-24 07:30)
PROC: 05HD33Z Insertion of Infusion Device into Right Cephalic Vein, Percutaneous Approach (ICD-10-PCS; 2021-11-25 19:05)
DX: I25.10 Atherosclerotic heart disease of native coronary artery without angina pectoris (principal); I21.4 Non-ST elevation (NSTEMI) myocardial infarction; I25.42 Coronary artery dissection; I50.23 Acute on chronic systolic (congestive) heart failure; J96.21 Acute and chronic respiratory failure with hypoxia; K66.1 Hemoperitoneum; E66.2 Morbid (severe) obesity with alveolar hypoventilation; D62 Acute posthemorrhagic anemia; F33.9 Major depressive disorder, recurrent, unspecified; I97.630 Postprocedural hematoma of a circulatory system organ or structure following a cardiac catheterization; N17.9 Acute kidney failure, unspecified; J96.11 Chronic respiratory failure with hypoxia; J91.8 Pleural effusion in other conditions classified elsewhere; E78.5 Hyperlipidemia, unspecified; I27.20 Pulmonary hypertension, unspecified; F41.1 Generalized anxiety disorder; J44.9 Chronic obstructive pulmonary disease, unspecified; I65.23 Occlusion and stenosis of bilateral carotid arteries; I11.0 Hypertensive heart disease with heart failure; I25.2 Old myocardial infarction; I25.5 Ischemic cardiomyopathy; I42.0 Dilated cardiomyopathy; I08.3 Combined rheumatic disorders of mitral, aortic and tricuspid valves; I50.82 Biventricular heart failure; J98.4 Other disorders of lung; K56.41 Fecal impaction; Z28.310 Unvaccinated for COVID-19; K05.10 Chronic gingivitis, plaque induced; Z53.9 Procedure and treatment not carried out, unspecified reason; Z63.4 Disappearance and death of family member; Z79.02 Long term (current) use of antithrombotics/antiplatelets; Z20.822 Contact with and (suspected) exposure to COVID-19; Z79.82 Long term (current) use of aspirin; Z79.899 Other long term (current) drug therapy; R53.83 Other fatigue; Z82.3 Family history of stroke; Z82.49 Family history of ischemic heart disease and other diseases of the circulatory system; Z87.01 Personal history of pneumonia (recurrent); Z87.891 Personal history of nicotine dependence; M62.81 Muscle weakness (generalized); Z90.5 Acquired absence of kidney; Z90.721 Acquired absence of ovaries, unilateral; Z95.2 Presence of prosthetic heart valve; Z95.5 Presence of coronary angioplasty implant and graft; Z99.81 Dependence on supplemental oxygen; Z83.2 Family history of diseases of the blood and blood-forming organs and certain disorders involving the immune mechanism; Z68.34 Body mass index [BMI] 34.0-34.9, adult; Z88.8 Allergy status to other drugs, medicaments and biological substances
CPT/HCPCS: 36410; 70486; 71045; 71046; 71250; 71275; 74018; 74174; 76937; 80048; 80053; 80061; 80069; 80074; 80162; 81003; 82306; 83036; 83735; 83880; 84132; 84439; 84443; 85025; 85027; 85610; 85730; 86850; 86900; 86901; 86920; 87070; 87635; 92920; 93306; 93571; 93880; 93922; 93970; 94150; 94640; 94760

== ENCOUNTER → 2023-02-23 | Outpatient (CLI) | payer MEDICARE, BC ==
[2023-02-23 20:54] LABS: ALT 31 U/L (8-44); AST 28 U/L (13-35); Albumin 4.5 d/dL (3.8-4.9); Alkaline Phosphatase 159 U/L (41-126); BUN/Creat Ratio 29.67 Ratio (12.00-20.00); Blood Urea Nitrogen 17.8 mg/dL (9.0-27.0); Calcium 10.1 mg/dL (8.7-10.3); Carbon Dioxide 26.1 mmol/L (21.6-31.8); Chloride 103 mmol/L (96-109); Globulin 2.5 d/dL (1.6-3.3); Glucose 98 mg/dL (70-110); Potassium 4.7 mmol/L (3.5-5.5); Sodium 141 mmol/L (135-145); Total Bilirubin 0.3 mg/dL (0.3-1.2)
[2023-02-23 21:43] LABS: Basophils # (A) 0.08 X 10*3/uL (0.00-0.10); Basophils % (A) 0.8 %; Eosinophils # (A) 0.21 X 10*3/uL (0.04-0.35); Eosinophils % (A) 2.1 %; HGB 14.4 d/dL (12.0-15.0); Lymphocytes # (A) 0.99 X 10*3/uL (0.90-5.00); Lymphocytes % (A) 9.7 %; MCHC 29.4 d/dL (32.0-37.0); MCV 88.6 FL (80.0-97.0); Mean Platelet Volume 10.6 FL (9.5-12.2); Monocytes # (A) 0.59 X 10*3/uL (0.20-1.00); Monocytes % (A) 5.8 %; NRBC Per 100 WBC 0 X 10*3/uL (0.00-0.01); Neutrophils # (A) 8.23 X 10*3/uL (1.80-7.70); Neutrophils % (A) 80.8 %; Platelet Count 219 X 10*3/uL (140-440); RBC 5.53 X 10*6/uL (4.10-5.20); RDW 17.2 % (11.5-14.5); WBC 10.18 X 10*3/uL (4.50-10.00)
== END | disposition home or self-care (01) ==
LOC: LABWHC1 12:29
PROVIDERS: ATTEND Thoracic Surgery (Cardiothoracic Vascular Surgery)
DX: I35.1 Nonrheumatic aortic (valve) insufficiency (principal)
CPT/HCPCS: 36415; 80053; 85025

== ENCOUNTER → 2024-12-16 | Outpatient (CLI) | payer MEDICARE, BC ==
[2024-12-16 15:23] LABS: ALT 21 U/L (8-44); AST 24 U/L (13-35); Chol/HDL Ratio 3.56 Ratio; LDL Cholesterol,Calculated 108.4 mg/dL (0.0-131.0)
== END | disposition home or self-care (01) ==
LOC: LABWHC1 11:05
PROVIDERS: ATTEND Internal Medicine
DX: E78.2 Mixed hyperlipidemia (principal)
CPT/HCPCS: 36415; 80061; 84450; 84460